=== PATIENT | male | born 1965 | race Two or more races ===

== ENCOUNTER 2024-07-24 11:19 | Inpatient (IN) | payer MEDICAID ==
[~2024-07-24] VITALS: Ht 180.3 cm; Wt 78.0 kg
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
[2024-07-24] MEDS: SODIUM CHLORIDE 0.9% 1,000 ML IV ONE ×2 (11:58→12:20)
[2024-07-24 12:10] LABS: Eosinophils # (auto) 0 10 ^3/uL (0-0.8); Hemoglobin 15.8 g/dL (13.5-17.5)
[2024-07-24 12:11] VITALS: PULSE 150; RESP 20; O2SAT 95
[2024-07-24 12:13] LABS: Basophils # (auto) 0.1 10 ^3/uL (0-0.2); Basophils % (auto) 0.4 % (0.0-2.0); Hematocrit 48.4 % (41.0-53.0); Lymphocytes # (auto) 0.7 10 ^3/uL (0.4-5.4); Mean Corpuscular Hemoglobin 36.1 pg (28.0-32.0); Mean Corpuscular Hgb Conc. 32.6 g/dL (32.0-36.0); Mean Corpuscular Volume 110.9 fL (80.0-100.0); Monocytes # (auto) 1.9 10 ^3/uL (0-1.3); Monocytes % (auto) 10.8 % (0.0-12.0); Neutrophils # (auto) 14.7 10 ^3/uL (1.6-8.6); Neutrophils % (auto) 84.8 % (37.0-80.0); Nucleated Red Blood Cells % 0.3 %; Platelet Count (auto) 119 10^3/uL (140-450); Red Blood Cells 4.36 10^6/uL (4.5-5.90); Red Cell Distribution Width 16.9 % (11.8-14.3); White Blood Cell 17.3 10^3/uL (4.4-10.8)
[2024-07-24 12:15] LABS: Base Excess -0.6 mmol/L (-2.0-3.0)
[2024-07-24 12:26] LABS: Alanine Aminotransferase 24 U/L (7-40); Albumin 3.6 g/dL (3.2-4.8); Alkaline Phosphatase 78 U/L (46-116); Anion Gap 12 (5-15); Aspartate Aminotransferase 48 U/L (13-40); BUN/Creatinine Ratio 17.8 (10.0-20.0); Blood Alcohol < 3.0 mg/dL (<10); Blood Urea Nitrogen 33 mg/dL (9-23); Calcium 9.3 mg/dL (8.7-10.4); Carbon Dioxide 24 mmol/L (20-31); Chloride 102 mmol/L (98-107); Creatine Kinase IFCC 77 U/L (46-171); Glucose 181 mg/dL (74-106); Magnesium 1.6 mg/dL (1.6-2.6); Sodium 138 mmol/L (136-145)
[2024-07-24 12:27] LABS: Bilirubin, Total 2.4 mg/dL (0.2-1.0); Total Protein 6.6 g/dL (5.7-8.2)
[2024-07-24 12:31] LABS: Urine Bacteria FEW /hpf (None Seen); Urine Blood 1+ /uL (Negative); Urine Clarity Turbid (Clear); Urine Color Dark-Yellow (Yellow); Urine Hyaline Cast MANY /lpf (0 - 2); Urine Mucus FEW (None Seen); Urine Protein, UAD 2+ (Negative); Urine Specific Gravity 1.024 (1.001-1.035); Urine Squamous Epithelial Cell FEW /hpf (<5); Urine Urobilinogen OVER mg/dL (Negative); Urine WBC 19 /hpf (0 - 3); Urine pH 5.5 (5.0-9.0)
[2024-07-24 12:33] LABS: Lactic Acid w/Reflex 3.9 mmol/L (0.4-2.0)
[2024-07-24 12:45] LABS: Lipase 29 U/L (12-53)
[2024-07-24 12:46] LABS: Amphetamine Screen, Urine Neg (NEGATIVE); Barbiturate Scree,Urine Neg (NEGATIVE); Benzodiazephine Screen, Urine Neg (NEGATIVE); Cannabinoid Screen, Urine Pos (NEGATIVE); Cocaine Screen, Urine Neg (NEGATIVE); Opiate Scree,Urine Neg (NEGATIVE); Phencyclidine Screen, Urine Neg (NEGATIVE)
[2024-07-24 12:48] LABS: Salicylate < 3.0 mg/dL (-30)
[2024-07-24] MEDS: PIPERACILLIN-TAZOB 3.375GM 100 ML IV ONE (12:50)
[2024-07-24] MEDS: FUROSEMIDE 100 MG/10ML VIAL IV ONE (12:55)
--- NOTE | 2024-07-24 12:56 | DVH ---
CHEST RADIOGRAPH Indication: ALOC Technique: Single frontal view of the chest was obtained COMPARISON: None FINDINGS: Lines and Tubes: None Lungs: Multifocal airspace disease. Pleura: No pleural effusion. No pneumothorax. Cardiomediastinal contours: Cardiomegaly. Bones: Unremarkable IMPRESSION: Pulmonary vascular congestion.
[2024-07-24] MEDS: LORazepam 2MG/ML-1ML VIAL IV ONE (12:58)
[2024-07-24] MEDS ORDERED: LACTULOSE 20Gm/30ML SOLN PO ONE (13:45)
--- NOTE | 2024-07-24 14:09 | DVH ---
EXAM: CT HEAD WITHOUT CONTRAST HISTORY: ALOC COMPARISON: None TECHNIQUE: Axial images were obtained and reformatted in coronal and sagittal planes. All CT scans at this medical facility are performed using dose modulation techniques as appropriate t o a performed exam including the following: Automated exposure control was utilized; adjustment of th e MA and/or KV according to patient size; and use of iterative reconstruction technique. CT Dose: CTDI volume is 48.92 mGy. Dose-length product is 909.9 mGy*cm FINDINGS: Supratentorial Region: No evidence for large acute territorial ischemia. No intracranial hemorrhage is noted. Posterior Fossa: No acute abnormality. Brainstem: Unremarkable. Sellar/Suprasellar Region: Unremarkable. Ventricles, Cisterns, Sulci: Age-appropriate. Orbits: Unremarkable. Paranasal Sinuses: Unremarkable. Mastoid Air Cells: Unremarkable. Vasculature: Unremarkable. Bones/Soft Tissues: No acute abnormality. 2 jonelle holes are seen in the right parietal bone. Other: None. IMPRESSION: 1. No acute intracranial process.
[2024-07-24] MEDS ORDERED: MORPHINE SULFATE INJ 2 MG/ml SYRG IV PRN (14:45)
[2024-07-24] MEDS ORDERED: NITROGLYCERIN 0.4 MG SL TAB SL PRN (14:45)
--- NOTE | 2024-07-24 15:01 | DVH ---
Procedure: CT CHST AB PEL WO CON-NO IV/ORAL 07/24/2024 01:42 PM Indication: Hemoptysis, dyspnea Comparison Study: None available at time of dictation. Technique: Axial images were obtained and reformatted in coronal and sagittal planes. All CT scans at this medical facility are performed using dose modulation techniques as appropriate t o a performed exam including the following: Automated exposure control was utilized; adjustment of th e MA and/or KV according to patient size; and use of iterative reconstruction technique. CT Dose: CTDI volume is 24.93 mGy. Dose-length product is 1677.82 mGy*cm FINDINGS: Lower neck: Unremarkable. Cardiomediastinal: The heart is mildly enlarged. Small pericardial effusion is seen. There is coronar y artery calcification Aorta is normal in caliber. No mediastinal lymphadenopathy. Lungs: Moderate right pleural effusion with adjacent pulmonary opacities are noted No pneumothorax. Hepatobiliary: Nodular liver contour suggestive of cirrhosis. There is cholelithiasis and gallbladder wall thickening. Spleen: Unremarkable. Pancreas: Unremarkable. Adrenal Glands: Unremarkable. tract: The kidneys are normal in size bilaterally without hydronephrosis or nephrolithiasis. The urinary blad to sancho is unremarkable. GI tract: The stomach is grossly normal in appearance. No evidence of small bowel obstruction. The la rge bowel is unremarkable. Lymphatics: No mesenteric, retroperitoneal or periportal lymphadenopathy. Vasculature: The abdominal aorta is normal in caliber. Diffuse calcified plaque formation is noted. Pelvic Organs: Unremarkable. Bones/soft tissues: Diffuse subcutaneous edema is seen. Other: Moderate amount of ascites is seen in the abdomen and pelvis. IMPRESSION: 1. Mild cardiomegaly, body wall edema and small pericardial effusion. 2. Moderate right pleural effusion with moderate adjacent pulmonary opacities that may represent comb ination atelectasis and pneumonia. Recommend clinical and biochemical correlation. 3. Cirrhosis moderate abdominopelvic ascites. 4. Cholelithiasis and gallbladder wall thickening. Gallbladder wall thickening is a nonspecific find ing can be seen with hepatocellular dysfunction, CHF or cholecystitis. Recommend clinical and biochem ical correlation. 5. A Saldivar catheter is seen in the bladder.
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
[2024-07-24] MEDS: cefTRIAXone 1GM/50ML D5W 50 ML IV ONE (16:15)
[2024-07-24] MEDS: AMIODARONE BOLUS KIT 100 ML IV ONE (16:16)
[2024-07-24] MEDS: LACTULOSE 10g/15ml SOLN 473ML PR ONE (16:16)
[2024-07-24] MEDS: AMIODARONE 450mg/250ml AE 250 ML IV SCH ×2 (16:37→21:15)
[2024-07-24] MEDS: SODIUM CHLORIDE 0.9% 1,000 ML IV SCH (17:02)
[2024-07-24] MEDS: ACCU-CHEK COMFORT CURVE STRIP VI SCH (18:47)
[2024-07-24] MEDS: InsuLIN REG 1unit/0.01ml Soln (100units/ml) SC SCH (18:51)
[2024-07-24] MEDS ORDERED: ACETAMINOPHEN 650 MG RECT SUPP PR PRN (19:15)
[2024-07-24 19:27] VITALS: PULSE 139; RESP 29; O2SAT 97
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
[2024-07-25] VITALS (38 sets, daily range): BP systolic 90–148; BP diastolic 43–84; PULSE 60–143; RESP 22–30; TEMP 96.8–97.7; O2SAT 97–100
[2024-07-25 06:06] LABS: Eosinophils # (auto) 0 10 ^3/uL (0-0.8); Hematocrit 49.2 % (41.0-53.0); Red Blood Cells 4.33 10^6/uL (4.5-5.90)
[2024-07-25 06:11] LABS: Basophils # (auto) 0 10 ^3/uL (0-0.2); Basophils % (auto) 0.2 % (0.0-2.0); Eosinophils % (auto) 0.1 % (0.0-7.0); Hemoglobin 15.7 g/dL (13.5-17.5); Lymphocytes % (auto) 5.9 % (10.0-50.0); Mean Corpuscular Hemoglobin 36.3 pg (28.0-32.0); Mean Corpuscular Hgb Conc. 31.9 g/dL (32.0-36.0); Mean Corpuscular Volume 113.7 fL (80.0-100.0); Monocytes % (auto) 12.4 % (0.0-12.0); Neutrophils # (auto) 13.4 10 ^3/uL (1.6-8.6); Neutrophils % (auto) 81.4 % (37.0-80.0); Nucleated Red Blood Cells % 0.2 %; Platelet Count (auto) 98 10^3/uL (140-450); Red Cell Distribution Width 17.8 % (11.8-14.3); White Blood Cell 16.5 10^3/uL (4.4-10.8)
[2024-07-25 07:04] LABS: Platelet Estimate Decreased
[2024-07-25 07:05] LABS: Macrocytosis Moderate
[2024-07-25 07:06] LABS: Giant Platelets Few; Stomatocytes Few
[2024-07-25 08:18] LABS: Chloride 104 mmol/L (98-107); Sodium 139 mmol/L (136-145)
[2024-07-25 08:21] LABS: Calcium 9.3 mg/dL (8.7-10.4)
[2024-07-25 08:26] LABS: Alkaline Phosphatase 70 U/L (46-116); Glucose 112 mg/dL (74-106)
[2024-07-25 08:28] LABS: Albumin 3.5 g/dL (3.2-4.8); Aspartate Aminotransferase 29 U/L (13-40); Bilirubin, Total 2.1 mg/dL (0.2-1.0); Total Protein 6.7 g/dL (5.7-8.2)
[2024-07-25 08:48] LABS: Alanine Aminotransferase 21 U/L (7-40); BUN/Creatinine Ratio 18.4 (10.0-20.0); Blood Urea Nitrogen 38 mg/dL (9-23)
[2024-07-25 08:53] LABS: Anion Gap 11 (5-15); Carbon Dioxide 24 mmol/L (20-31)
[2024-07-25] MEDS: IPRATROPIUM BROM 0.5 MG/2.5ML INH SOL NEB PRN (09:21)
[2024-07-25] MEDS: ALBUTEROL SULF 2.5 MG/0.5ML(0.5%) NEB SOLN NEB PRN (09:22)
[2024-07-25] MEDS ORDERED: LORazepam 2MG/ML-1ML VIAL IV PRN (09:45)
[2024-07-25] MEDS: LORazepam 2MG/ML-1ML VIAL ONE ×2 (12:20→16:05)
[2024-07-25] MEDS: LORazepam 2MG/ML-1ML VIAL IV PRN (12:28)
[2024-07-25] MEDS: ETOMIDATE (2MG/ML) 20ML VIAL IV ONE ×2 (13:40→13:45)
[2024-07-25] MEDS: SUCCINYLCHOLINE CHLORIDE 20 MG/ML 10ML VIAL IV ONE ×2 (13:41→13:45)
[2024-07-25] MEDS: ROCURONIUM 10MG/ML 10ML VIAL IV ONE (13:47)
[2024-07-25] MEDS: MIDAZOLAM DRIP 50 mg/50mL 50 ML IV SCH (14:15)
[2024-07-25 14:39] LABS: Base Excess -9.2 mmol/L (-2.0-3.0)
[2024-07-25] MEDS: NOREPINEPHRINE 8 MG/250ML KIT 250 ML IV ONE (15:09)
[2024-07-25] MEDS: NOREPINEPHRINE 8 MG/250ML KIT 250 ML IV SCH (15:15)
[2024-07-25] MEDS: SODIUM BICARB 8.4% 50Meq/50ml SYR Vial IV ONE (15:16)
[2024-07-25] MEDS: SODIUM BICARB 50mEq/50ml Vial 50 ML in SOD CHL 0.45% 1,000 ML IV SCH (15:16)
[2024-07-25 16:01] LABS: Base Excess -1.8 mmol/L (-2.0-3.0)
--- NOTE | 2024-07-25 16:13 | DVH ---
EXAM: XR Chest, 1 View CLINICAL INDICATION: post intubation and CVC placement TECHNIQUE: Frontal view of the chest. COMPARISON: XY CHEST PORTABLE on DOS: 07/24/24 FINDINGS: LUNGS AND PLEURAL SPACES: Right pleural effusion. HEART: Cardiomegaly with pulmonary congestion and edema. Pneumonia cannot be excluded. MEDIASTINUM: Unremarkable. Normal mediastinal contour. BONES/JOINTS: Unremarkable. No acute fracture. TUBES, LINES AND DEVICES: Right internal jugular central venous catheter tip in the superior vena ca va. The endotracheal tube (ETT) is in satisfactory position. OTHER FINDINGS: . . IMPRESSION: Cardiomegaly with pulmonary congestion and edema. Pneumonia cannot be excluded. HS:Y
--- NOTE | 2024-07-25 16:50 | DVH ---
EXAM: CT HEAD WITHOUT CONTRAST INDICATION: alter mental status TECHNIQUE: CT of the head without intravenous contrast. Radiation Dose : 1. Head: CT Dose: CTDI volume is 48.82 mGy. Dose-length product is 968.78 mGy*cm The dose indicators for CT are the volume Computed Tomography (CT) Dose Index (CTDIvol) and the Dose Length Product (DLP), and are measured in units of mGy and mGy-cm, respectively. These indicators are not patient dose, but values generated from the CT scanner acquisition factors. The report includes radiation exposure data for exposures received during this examination. COMPARISON: CT HEAD WITHOUT CONTRAST on DOS: 07/24/24 FINDINGS: There is no evidence of acute intracranial hemorrhage, extra-axial collection, mass effect, midline s hift, herniation or hydrocephalus. The ventricles, sulci and cisterns are age appropriate. The persaud-white differentiation is intact. Patchy periventricular and subcortical white matter hypoattenuation is nonspecific but may be related to small vessel ischemic disease. The visualized paranasal sinuses and mastoid air cells are clear. Craniotomy defect is seen in the right frontoparietal brain. IMPRESSION: 1. No acute intracranial abnormality. Radiation optimization: All CT scans at this facility use at least one of these dose optimization haile hniques: automated exposure control mA and/or kV adjustment per patient size (includes targeted exam s where dose is matched to clinical indication) or iterative reconstruction.
[2024-07-25] MEDS: fentaNYL Drip 2500mCg/250mlNS 250 ML IV SCH (19:08)
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
--- NOTE | 2024-07-25 20:00 | DVHNC2 ---
Chest Tube Indication: Effusion Procedure: Sterile preparation, Chest Tube Size (7) Anesthetic: Lidocaine Site: R 4th intercostal space, R Anterior axillary Drainage: Fluid Informed consent obtained: No Risks/benefits/alt described: No UTO Consent urgent procedure, patient was desaturating. Consent obtained from two physicians and Notes The patient was positioned in a semi-recumbent position. Sterile technique was used including hand washing and wearing of sterile gloves, gown, mask and patient was draped. The area was cleaned with betadine and draped in sterile fashion. Local anaesthetic Lidocaine 5% was administered for the skin and deeper tissues around the site. The chest tube was inserted in the 4th intercostal space in the anterior axillary line above the rib to avoid the neurovascular bundle. A small incision was made at the chosen insertion site to advance the dilator following which the Pig tail catheter was inserted into the pleural cavity and secured with a nylon suture. The tube was then connected to a suction. Sterile dressing was placed. No complications were noted during the procedure. Chest X ray was done immediately after the procedure to confirm the position of the chest tube. Pleural fluid sample were sent for Cytology, fluid glucose, protein, LDH, cell count and differential, culture and gram stain. Procedure was done under supervision of . Date of Service: Jul 25, 2024 Billing Provider: MICHAEL PEREZ MD Common Visit Codes: PROCEDURE ONLY (Chest tube insertion) MONROE HALE RESIDENT Jul 25, 2024 20:00
--- NOTE | 2024-07-25 20:11 | DVH ---
EXAM: XY CHEST XRAY 1 VIEW TECHNIQUE: Single frontal chest radiograph CLINICAL HISTORY: S/p Chest tube insetion COMPARISON: XY CHEST XRAY 1 VIEW on DOS: 07/25/24, XY CHEST PORTABLE on DOS: 07/24/24 Findings/Impression: Frontal chest radiograph demonstrates that the patient is rotated to the left. No acute osseous or germain perficial soft tissue abnormalities. Endotracheal tube terminates 3.3 cm from the zahida. Right sided IJ catheter terminates in the right atrium. Small bore pig tail chest tube terminates in ther right costophrenic angle. The trachea is midline. The cardiac silhouette and mediastinum are within normal limits. No definite pneumothorax, pleural effusions, or consolidations.
[2024-07-25 20:22] LABS: Basophils # (auto) 0.1 10 ^3/uL (0-0.2); Eosinophils # (auto) 0 10 ^3/uL (0-0.8); Hematocrit 44.8 % (41.0-53.0); Hemoglobin 14.5 g/dL (13.5-17.5); Lymphocytes # (auto) 0.7 10 ^3/uL (0.4-5.4); Mean Corpuscular Hgb Conc. 32.4 g/dL (32.0-36.0); Neutrophils # (auto) 8.9 10 ^3/uL (1.6-8.6); Nucleated Red Blood Cells % 0.1 %; White Blood Cell 10.8 10^3/uL (4.4-10.8)
[2024-07-25 20:24] LABS: Basophils % (auto) 0.6 % (0.0-2.0); Lymphocytes % (auto) 6.3 % (10.0-50.0); Mean Corpuscular Hemoglobin 35.9 pg (28.0-32.0); Mean Corpuscular Volume 110.8 fL (80.0-100.0); Monocytes # (auto) 1.2 10 ^3/uL (0-1.3); Monocytes % (auto) 10.9 % (0.0-12.0); Neutrophils % (auto) 82.2 % (37.0-80.0); Platelet Count (auto) 66 10^3/uL (140-450); Red Blood Cells 4.04 10^6/uL (4.5-5.90)
[2024-07-25 20:27] LABS: Base Excess -0.8 mmol/L (-2.0-3.0)
[2024-07-25 20:43] LABS: Alanine Aminotransferase 18 U/L (7-40); Alkaline Phosphatase 59 U/L (46-116); Anion Gap 11 (5-15); Aspartate Aminotransferase 25 U/L (13-40); BUN/Creatinine Ratio 21.3 (10.0-20.0); Bilirubin, Total 2.1 mg/dL (0.2-1.0); Blood Urea Nitrogen 43 mg/dL (9-23); Calcium 8.6 mg/dL (8.7-10.4); Carbon Dioxide 25 mmol/L (20-31); Chloride 105 mmol/L (98-107); Glucose 139 mg/dL (74-106); Magnesium 1.5 mg/dL (1.6-2.6); Phosphorus 5.1 mg/dL (2.4-5.1); Potassium 4.6 mmol/L (3.5-5.1); Sodium 141 mmol/L (136-145); Total Protein 5.6 g/dL (5.7-8.2)
[2024-07-25 21:33] LABS: Anisocytosis Slight; Macrocytosis Marked; Platelet Estimate Decreased
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
[2024-07-25 21:38] LABS: Body Fluid Polymorphonuclear 94 % (0-25); Body Fluid Red Blood Cells 5509 CUMM (0-2000); Body Fluid White Blood Cells 9121 CUMM (0-200)
[2024-07-26] VITALS (102 sets, daily range): BP systolic 84–129; BP diastolic 44–72; PULSE 59–78; RESP 11–30; TEMP 96.6–99.5; O2SAT 94–100
[2024-07-26 07:33] LABS: Base Excess 1.8 mmol/L (-2.0-3.0)
--- NOTE | 2024-07-26 10:19 | DVH ---
CT Chest without intravenous contrast INDICATION: rule out pneumo TECHNIQUE: Multidetector spiral CT of the chest was performed from the lung apices to the upper abdom en. Axial, coronal and sagittal multiplanar reformats were performed. Radiation Dose : 1. Chest: CTDI volume is 24.37 mGy. Dose-length product is 899.4 mGy*cm The dose indicators for CT are the volume Computed Tomography (CT) Dose Index (CTDIvol) and the Dose Length Product (DLP), and are measured in units of mGy and mGy-cm, respectively. These indicators are not patient dose, but values generated from the CT scanner acquisition factors. The report includes radiation exposure data for exposures received during this examination. Comparison: CT HEAD WITHOUT CONTRAST on DOS: 07/25/24, CT HEAD WITHOUT CONTRAST on DOS: 07/24/24 Findings: The endotracheal tube tip terminates approximately 3.7 cm above the zahida. Bilateral pulmonary ground-glass airspace disease, right greater than left. Bilateral pulmonary airsp [place] consolidation most pronounced within the right middle and lower lobes, left lower lobe. There ar e pulmonary bronchiectatic changes. Right pigtail chest tube. Small right pneumothorax, less than 1 5%.. Small right and tiny left pleural effusions. Cardiomegaly. Small to moderate pericardial effusion. Coronary artery calcification disease. Right IJ catheter tip terminating at the cavoatrial junction. No supraclavicular or axillary lymphadenopathy. Cirrhotic morphology liver. Ascites fluid. Nasogastric tube terminating in the gastric body region. Mesenteric edema. Cholelithiasis. IMPRESSION: 1. Right hydropneumothorax with small right pneumothorax and pleural effusion components. Right pigta il chest tube. 2. Bilateral pulmonary airspace consolidation most pronounced within the right middle/ lower lobes, l eft lower lobe. This overall appears increased since previous examination 3. Bilateral pulmonary ground-glass disease which could be secondary to edema, infection, inflammator y etiology. 4. Bilateral pulmonary bronchiectatic changes / reticulation which could be secondary to fibrosis / c hronic lung changes. 5. Cardiomegaly. Small to moderate pericardial effusion. Coronary artery calcification disease. 6. Cirrhotic morphology liver. Ascites. Soft tissue edema/ anasarca. 7. Other findings as described. Radiation optimization: All CT scans at this facility use at least one of these dose optimization haile hniques: automated exposure control mA and/or kV adjustment per patient size (includes targeted exam s where dose is matched to clinical indication) or iterative reconstruction.
--- NOTE | 2024-07-26 12:44 | DVHPN2 ---
Subjective The patient is seen and examined at bedside. No change overnight. Remained intubated Reviewed: Care Plan, H&P, Labs, Medications, Previous Orders, Radiology Changes from previous H/P or p: No Changes Eyes: No Pain, No Vision change, No Conjunctivae inflammation, No Eyelid inflammation, No Other, No Redness ENT: No Ear pain, No Ear discharge, No Nose pain, No Nose discharge, No Nose congestion, No Mouth pain, No Mouth swelling, No Throat pain, No Throat swelling, No Other Cardiovascular: No Chest Pain, No Palpitations, No Orthopnea, No Paroxysmal Noc. Dyspnea, No Edema, No Lt Headedness, No Other Respiratory: No Cough, No Dry, No Shortness of breath, No SOB with excertion, No Wheezing, No Hemoptysis, No Pleuritic Pain, No Sputum, No Other Gastrointestinal: No Nausea, No Vomiting, No Abdominal Pain, No Diarrhea, No Constipation, No Melena, No Hematochezia, No Other Genitourinary: No Dysuria, No Frequency, No Incontinence, No Hematuria, No Retention, No Other Musculoskeletal: No other, No neck pain, No shoulder pain, No arm pain, No back pain, No hand pain, No leg pain, No foot pain Skin: No Rash, No Lesions, No Jaundice, No Bruising, No Other Objective Vitals Vital Signs Date Time Temp Pulse Resp B/P (MAP) Pulse Ox O2 Delivery O2 Flow Rate FiO2 07/26/24 12:00 64 07/26/24 12:00 28 98 Mechanical Ventilator+ 40 40 07/26/24 11:48 111/67 (82) 07/26/24 10:30 96.8 206.2 07/25/24 10:00 12.0 Intake/Output Intake and Output 07/26/24 07:00 Intake Total 3392.071 ml Output Total 2280 ml Balance 1112.071 ml Intake IV Total 3392.071 ml Output Urine Total 950 ml Chest Tube Drainage Total 1330 ml General Appearance: Other (Intubated, on vent, unable to exam.) HEENT: Atraumatic Neck: Supple Lungs: Clear to auscultation, Normal air movement Cardiovascular: Regular rate, Normal S1, Normal S2, No murmurs, Gallops, Rubs Abdomen: Normal bowel sounds, Soft, No tenderness Neuro: Cranial nerves 3-12 NL Psych/Mental Status: Mental status NL Medications Current Medications Medications Dose Ordered Sig/Miky Route Start Time Stop Time Status Last Admin Dose Admin Nitroglycerin 0.4 mg Q5MINP PRN SL 07/24/24 14:45 Morphine Sulfate 2 mg Q30M PRN IV 07/24/24 14:45 Sodium Chloride 1,000 ml @ 100 mls/hr Q10H IV 07/24/24 14:45 07/25/24 10:45 100 MLS/HR Diagnostic Test (Pha) 1 strip Q6HR 07/24/24 18:00 07/26/24 12:01 1 STRIP Insulin Human Regular Q6HR SC 07/24/24 18:00 07/25/24 23:50 2 UNITS Dextrose 50 ml UD PRN IV 07/24/24 15:00 Amiodarone HCl 250 ml @ 16.667 mls/ hr Q15H IV 07/24/24 21:15 07/26/24 04:35 16.667 MLS/HR Acetaminophen 650 mg Q6HP PRN [place] 07/24/24 19:15 Albuterol 2.5 mg Q4HPRN PRN NEB 07/25/24 06:45 07/26/24 06:36 2.5 MG Ipratropium [place] 0.5 mg Q4HPRN PRN NEB 07/25/24 06:45 07/26/24 06:36 0.5 MG Lorazepam 1 mg Q2HP PRN IV 07/25/24 09:45 07/25/24 16:05 1 MG Sodium Bicarbonate 50 ml/ Sodium Chloride 1,050 ml @ 75 mls/hr Q14H IV 07/25/24 14:15 07/26/24 12:02 75 MLS/HR Midazolam HCl 50 ml @ 1 mls/hr Q24H IV 07/25/24 14:15 07/26/24 10:22 15 MLS/HR Norepinephrine Bitartrate 250 ml @ 3.75 mls/hr Q24H IV 07/25/24 15:15 07/25/24 15:15 3.75 MLS/HR Fentanyl Citrate 250 ml @ 2.5 mls/hr Q24H IV 07/25/24 17:30 07/25/24 19:08 2.5 MLS/HR Laboratory Results Laboratory Tests 07/25/24 20:04 Chemistry Test 07/25/24 20:04 Albumin 3.0 g/dL (3.2-4.8) L Calcium Level 8.6 mg/dL (8.7-10.4) L Magnesium Level 1.5 mg/dL (1.6-2.6) L Phosphorus Level 5.1 mg/dL (2.4-5.1) Total Protein 5.6 g/dL (5.7-8.2) L LFT Test 07/25/24 20:04 Alanine Aminotransferase (ALT) 18 U/L (7-40) Alkaline Phosphatase 59 U/L (46-116) Aspartate Amino Transferase (AST) 25 U/L (13-40) Total Bilirubin 2.1 mg/dL (0.2-1.0) H Urinalysis Test 07/24/24 12:21 Urine Color Dark-yellow (Yellow) Urine Clarity Turbid (Clear) H Urine pH 5.5 (5.0-9.0) Urine Specific [place] 1.024 (1.001-1.035) Urine Protein 2+ (Negative) H Urine Ketones Negative (Negative) Urine Blood 1+ /uL (Negative) H Urine Nitrite Negative (Negative) Urine Bilirubin 1+ (Negative) Urine Urobilinogen Over mg/dL (Negative) Urine Leukocyte Esterase Negative /uL (Negative) Urine RBC 7 /hpf (0 - 3) Urine WBC 19 /hpf (0 - 3) Urine Squamous Epithelial Cells Few /hpf (<5) Urine Bacteria Few /hpf (None Seen) H Urine Hyaline Casts Many /lpf (0 - 2) Urine Mucus Few (None Seen) Urine Glucose Normal mg/dL (Normal) Blood Gas Results Test 07/25/24 13:29 07/25/24 15:56 07/25/24 20:23 07/26/24 07:08 Arterial Blood pH 6.968 (7.350-7.450) 7.311 (7.350-7.450) 7.411 (7.350-7.450) 7.498 (7.350-7.450) FiO2 % 100.0 100.0 50.0 40.0 Microbiology Microbiology Date/Time Source Procedure Growth Status 07/24/24 12:21 Urine - [place] Urine Culture - Preliminary Resulted 07/24/24 11:52 Blood Blood Culture - Preliminary NO GROWTH AFTER 24 HOURS OF INCUBATION. Resulted Labs and/or images reviewed: Labs reviewed by me Assessment/Plan Assessment/Plan Acute respiratory failure status post intubation on ventilation support Metabolic Encephalopathy CHF exacerbation, Leukocytosis, UTI, Elevated ammonia levels, Pleural Effusion, Liver Cirrhosis, Plan: Continuing current management. I will follow up with blood culture. And urine culture. Continuing IV antibiotic. Continuing ventilation support. Waiting for thoracocentesis. We will monitor ammonia level. Plan discussed with: Patient Date of Service: Jul 26, 2024 Billing Provider: AMY DELAROSA MD Common Visit Codes: [id number] INP/OBS CARE(HIGH) AMY DELAROSA MD Jul 26, 2024 12:44
[2024-07-26 12:56] LABS: Urine Bacteria None Seen /hpf (None Seen)
[2024-07-26 13:03] LABS: Urine Blood 2+ /uL (Negative); Urine Clarity Turbid (Clear); Urine Color Yellow (Yellow); Urine Mucus FEW (None Seen); Urine Protein, UAD Negative (Negative); Urine Specific Gravity 1.016 (1.001-1.035); Urine Squamous Epithelial Cell FEW /hpf (<5); Urine Urobilinogen 3 mg/dL (Negative); Urine WBC 13 /hpf (0 - 3); Urine pH 5.5 (5.0-9.0)
--- NOTE | 2024-07-26 19:08 | DVHNC2 ---
Central Line Recorder of insertion practice: Charging Crane Operator Occupation of outer diameter technician: Name of outer diameter technician (Heide Gant, ) Indication: Hypotension, CVP monitoring, Volume resuscitation Room prepared for procedure: Yes Charging Crane Operator performed hand hygien: Yes Maximal sterile barrier precau: Mask/Eye shield, Sterile gown, Cap, Sterlie gloves, Large sterlie drape Skin Preparation: Providine iodine Skin preparation completely dr: Yes Insertion site: Right, Internal jugular Central line catheter type: Qrk-[id number]-tco dialysis Number of lumens: 3 Central line exchanged over a: Yes Antiseptic ointment applied to: Yes Post Assessment: Chest X-Ray, No Pneumothorax Informed consent obtained: Yes Risks/benefits/alt described: Yes Notes The patient was sedated lying in supine position with face turn to the left. Sterile technique was used including hand washing and wearing of sterile gloves, gown, mask and patient was draped. The right neck area was cleaned with betadine and draped in sterile fashion. In a sterile fashion and under US guidance, the internal jugular vein was located. The needle was used to enter the vein after the a small skin incision was made to advance the dilator. The central line was inserted vein and secured in place on the skin with a suture. The entire procedure/steps were performed under aseptic and sterile environment. Chest X-ray after the central insertion did not reveal pne umothorax Procedure was done under supervision of Dr. Muñoz, the hospitalist Date of procedure: 07/25/2024 Date of Service: Jul 25, 2024 Billing Provider: MEGHAN MAHER MD Common Visit Codes: [id number] CARE 30-74 MIN Procedure Codes: [id number] NON-TUNNEL CV CATH HEIDE GANT Jul 26, 2024 19:08
--- NOTE | 2024-07-26 19:17 | DVHNC2 ---
Intubation Indication: Respiratory Insufficiency, Altered Mental Status, Airway Protection Prep: Preoxygenation Pretreated with: Analgesia, Sedation Medicated with: Other Intubation Approach: Orotracheal Informed consent obtained: Yes Risks/benefits/alt described: Yes Notes Patient was brought in unconscious in a severe acidotic state. pre-oxygen was done. I performed endotracheal intubation under the supervision of the hospitalist ( Dr. Cesar Muñoz) with the help of the glidescope. After the intubation oxygenation continued and auscultation showed air entry in the lung. There was a color change on capnograhy. Date of intubation was 07/25/2024 Date of Service: Jul 25, 2024 Billing Provider: MEGHAN MAHER MD Common Visit Codes: 06031-[id number] CARE 30-74 MIN Procedure Codes: [id number] HEIDE MOORE RESIDENT Jul 26, 2024 19:17
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
--- NOTE | 2024-07-26 22:48 | DVHPN2 ---
Progress Note - Dictate Date Seen: Jul 26, 2024 Medical Necessity Reason Pt with a Central, PICC or Fol: Yes The following are medically ne: Gentile Catheter Reason for gentile catheter: Strict I&O Subjective Patient seen and examined at bedside. Sedated, intubated on mechanical ventilator. Overnight events reviewed. vital signs Vital Sign Date Time Temp Pulse Resp B/P (MAP) Pulse Ox O2 Delivery O2 Flow Rate FiO2 07/26/24 22:16 65 24 105/65 (78) 99 35 07/26/24 22:00 Mechanical Ventilator+ 07/26/24 21:15 98.1 208.6 07/25/24 10:00 12.0 Total Intake and Output 07/25/24 07/25/24 07/26/24 15:00 23:00 07:00 Intake Total 963.336 ml 1476.418 ml 952.317 ml Output Total 200 ml 2080 ml Balance 763.336 ml 1476.418 ml -1127.683 ml medications Current Medications Medications Dose Ordered Sig/Miky Route Start Time Stop Time Status Last Admin Dose Admin Nitroglycerin 0.4 mg Q5MINP PRN SL 07/24/24 14:45 Morphine Sulfate 2 mg Q30M PRN IV 07/24/24 14:45 Sodium Chloride 1,000 ml @ 100 mls/hr Q10H IV 07/24/24 14:45 07/26/24 18:45 100 MLS/HR Diagnostic Test (Pha) 1 strip Q6HR 07/24/24 18:00 07/26/24 17:31 1 STRIP Insulin Human Regular Q6HR SC 07/24/24 18:00 07/25/24 23:50 2 UNITS Dextrose 50 ml UD PRN IV 07/24/24 15:00 Amiodarone HCl 250 ml @ 16.667 mls/ hr Q15H IV 07/24/24 21:15 07/26/24 18:45 16.667 MLS/HR Acetaminophen 650 mg Q6HP PRN [place] 07/24/24 19:15 Albuterol 2.5 mg Q4HPRN PRN NEB 07/25/24 06:45 07/26/24 22:12 2.5 MG Ipratropium [place] 0.5 mg Q4HPRN PRN NEB 07/25/24 06:45 07/26/24 22:12 0.5 MG Lorazepam 1 mg Q2HP PRN IV 07/25/24 09:45 07/25/24 16:05 1 MG Midazolam HCl 50 ml @ 1 mls/hr Q24H IV 07/25/24 14:15 07/26/24 20:03 15 MLS/HR Norepinephrine Bitartrate 250 ml @ 3.75 mls/hr Q24H IV 07/25/24 15:15 07/25/24 15:15 3.75 MLS/HR Fentanyl Citrate 250 ml @ 2.5 mls/hr Q24H IV 07/25/24 17:30 07/25/24 19:08 2.5 MLS/HR objective Gen.: Patient lying in bed in medical ICU. Sedated, intubated on mechanical ventilator. Head: Normocephalic, atraumatic. Eyes: PERRLA. Ears: Normal external anatomy. Throat: Endotracheal tube and orogastric tube in place. Neck: Supple, trachea midline. Chest: Transmitted breath sounds bilaterally. Decreased air entry bilaterally. No wheezing. Bibasilar crackles. Cardiovascular: Positive S1, positive S2. Regular rate and rhythm. Abdomen: Positive bowel sounds in all 4 quadrants. Soft, nontender, nondistended. : Gentile in place. Normal external genitalia. Rectal: Deferred. Skin: Warm, dry. Intact. Extremities: 2+ radial pulses bilaterally. No lower extremity edema. Neuro: Sedated. laboratory and microbiology Laboratory Tests 07/25/24 20:04 Test 07/25/24 20:04 Range/Units Serum Glucose 139 H 74-106 mg/dL Assessment/Plan Impression: Acute hypoxic respiratory failure Acute hypercarbic respiratory failure On mechanical ventilator Acute metabolic encephalopathy Shock Pulmonary edema. Pleural effusion Atelectasis Acute kidney injury Events: Remains on vent support On AC mode with RR 28, VT 550, PEEP 5, FiO2 40% Decrease RR to 24 CT chest notable for hydropneumothorax, small right pneumothorax. Chest tube in place. Consolidation in RML, RLL, LLL. GGOs bilaterally, likely pulmonary edema. Bronchiectasis bilaterally 2/2 fibrosis/chronic lung changes. [id number] pericardial effusion. Cirrhotic liver. Sedated on Versed ABG reviewed, notable for alkalemia d/t respiratory alkalosis On pressors for hemodynamic support Levophed 2 mcg/min Titrate to keep mean arterial pressure greater than 65 mmHg. Continue antibiotics WBC within normal limits. Amiodarone drip. Stop bicarb drip. Labs and imaging reviewed. Rest of plan as noted below. Plan: s/p intubation on mechanical ventilator. CXR image and report reviewed. Devices in place. Cardiomegaly with pulmonary congestion and edema. Pneumonia cannot be excluded. ABG reviewed. New vent settings; AC mode with RR 24, VT 550, PEEP 5, FiO2 40% Titrate FIO2 to keep O2 saturation above 90%. VAP bundle. Daily ABG and CXR while intubated Sedate for ventilator synchrony On pressors for hemodynamic support Titrate to keep mean arterial pressure greater than 65 mmHg. Continue bronchodilators. NS at 100 ml/hr. Monitor renal function Monitor electrolytes. Supplement as necessary. Monitor ins and outs. Maintain euvolemia. GI prophylaxis. DVT prophylaxis. Prognosis: Poor given patient's multiple co-morbidities. Condition: Critical Rest of plan per hospitalist and other consultants. A total of 35 minutes of critical care time was spent reviewing the patient record, examining the patient, making a diagnostic and therapeutic plan, discussing this plan with the medical personnel, following up on diagnostic studies and following the patient for clinical stability excluding any and all procedures. At least 50% of this time was spent in direct, [id number] contact. Thank you Staci Win NP, for allowing me to participate in this patient's care. Further recommendations will depend on the patient's clinical course. Please do not hesitate to contact me if you have any questions or concerns. This medical document was created using an electronic medical record system with [employer] dictation system. Although these documentations are being carefully reviewed, there may still be some phonetic and typographical changes. The errors are purely typographical, due to imperfection on the software program, and do not reflect any compromise in the patient's medical care. Dietary Evaluation Review Comments: 1. Consider EN/TPN if NPO >7days 2. Continue plan of care Expected Outcomes/Goals: 1. Pt will meet >75% of estimated needs within 2-3 days Plan discussed with: Other (CATA Akbar) Critical Care Time(min): 35 MICHAEL PEREZ MD Jul 26, 2024 22:48
[2024-07-27] VITALS (107 sets, daily range): BP systolic 89–133; BP diastolic 50–75; PULSE 65–74; RESP 20–24; TEMP 97.7–99.1; O2SAT 91–100
[2024-07-27 04:24] LABS: Basophils # (auto) 0 10 ^3/uL (0-0.2); Basophils % (auto) 0.1 % (0.0-2.0); Eosinophils # (auto) 0 10 ^3/uL (0-0.8); Eosinophils % (auto) 0.4 % (0.0-7.0); Lymphocytes # (auto) 0.7 10 ^3/uL (0.4-5.4); Monocytes # (auto) 0.8 10 ^3/uL (0-1.3); Nucleated Red Blood Cells % 0.1 %
[2024-07-27 04:28] LABS: Hematocrit 43.8 % (41.0-53.0); Hemoglobin 14.4 g/dL (13.5-17.5); Lymphocytes % (auto) 8.1 % (10.0-50.0); Mean Corpuscular Hemoglobin 36.2 pg (28.0-32.0); Mean Corpuscular Hgb Conc. 32.9 g/dL (32.0-36.0); Mean Corpuscular Volume 109.9 fL (80.0-100.0); Neutrophils # (auto) 7.4 10 ^3/uL (1.6-8.6); Neutrophils % (auto) 82.4 % (37.0-80.0); Platelet Count (auto) 57 10^3/uL (140-450); Red Blood Cells 3.99 10^6/uL (4.5-5.90); Red Cell Distribution Width 16.6 % (11.8-14.3)
--- NOTE | 2024-07-27 04:51 | DVH ---
CHEST RADIOGRAPH Indication: patient intubated Technique: Single frontal view of the chest was obtained COMPARISON: XY CHEST XRAY 1 VIEW on DOS: 07/25/24, XY CHEST XRAY 1 VIEW on DOS: 07/25/24, XY CHEST PO RTABLE on DOS: 07/24/24 FINDINGS: Lines and Tubes: Endotracheal tube, enteric catheter and right central venous catheter in satisfactor y position. Right chest tube in satisfactory position. Lungs: Multifocal airspace disease. Pleura: No effusion. No pneumothorax. Cardiomediastinal contours: Unremarkable Bones: Unremarkable IMPRESSION: Lines and tubes in satisfactory position. No significant interval change.
[2024-07-27 04:52] LABS: Albumin 2.4 g/dL (3.2-4.8); Alkaline Phosphatase 52 U/L (46-116); Anion Gap 9 (5-15); Aspartate Aminotransferase 18 U/L (13-40); BUN/Creatinine Ratio 25.6 (10.0-20.0); Bilirubin, Total 1.5 mg/dL (0.2-1.0); Calcium 7.9 mg/dL (8.7-10.4); Carbon Dioxide 28 mmol/L (20-31); Chloride 108 mmol/L (98-107); Glucose 99 mg/dL (74-106); Potassium 3.8 mmol/L (3.5-5.1); Sodium 145 mmol/L (136-145); Total Protein 4.6 g/dL (5.7-8.2)
[2024-07-27 04:59] LABS: Blood Urea Nitrogen 30 mg/dL (9-23)
[2024-07-27 05:00] LABS: Alanine Aminotransferase 9 U/L (7-40)
[2024-07-27] MEDS: AMIODARONE 450mg/250ml AE 250 ML IV SCH (07:15)
[2024-07-27 07:27] LABS: Base Excess 1.3 mmol/L (-2.0-3.0)
--- NOTE | 2024-07-27 08:28 | DVH ---
ULTRASOUND ABDOMEN LIMITED INDICATION: FLUID CHECK FOR POSSIBLE PARACENTESIS TECHNIQUE: Ultrasound of the 4 quadrants of the abdominal cavity. COMPARISON: None FINDINGS: There is fluid seen in all 4 quadrants of the abdomen, largest pocket in the right lower quadrant. IMPRESSION: 1. There is ascites in all 4 quadrant of the abdomen. HS:Y
[2024-07-27 09:04] LABS: INR 1.43 (0.9-1.15); Partial Thromboplastin Time 35.6 SEC (24.5-34.5); Prothrombin Time 14.8 sec (9.3-11.8)
--- NOTE | 2024-07-27 10:31 | ECG ---
[facility] Test Date: 2024-07-25 Test Time: 15:39:33 Pat Name: JEVON AVERY Department: ER Room: [address] [place] [address] A Gender: M Coat Check Attendant: KLAA : 1965 Requested By: RANDI QUEZADA Order Number: [id number] Reading MD: John Ernst Measurements Intervals [place] Rate: 110 P: 0 GA: 0 QRS: 111 QRSD: 100 T: 0 QT: 344 QTc: 466 Interpretive Statements Atrial flutter Low voltage, precordial leads Probable right ventricular hypertrophy Borderline prolonged QT interval Electronically Signed On 07-28-2024 8:22:47 PST by John Ernst Please click the below link to view image of tracing.
--- NOTE | 2024-07-27 12:53 | DVH ---
US PARACENTESIS, HISTORY: ASCITES PROCEDURE: Informed consent was obtained. The patient was placed in supine position. A limited locali zation ultrasound of the abdomen was obtained, and the skin site over the largest pocket of fluid was marked and entry site was prepped with chlorhexidine which was allowed to dry and draped in the usua l sterile fashion. Time out was performed. Following administration of 1% lidocaine local anesthetic, a 5 [place] centesis needle catheter was percutaneously inserted into the peritoneal collection until fluid was aspirated. The catheter was advanced into the fluid collection and the needle removed. Abo ut 2000 cc of fluid was aspirated and specimen sent for appropriate cultures/cytology/cultures and cy tology. The catheter was then removed and a sterile dressing applied. No immediate complication was identified. FINDINGS: Limited ultrasound imaging demonstrates mild ascites. Aspirated fluid was clear and serous. IMPRESSION: US-guided paracentesis with 2L removed.
[2024-07-27] MEDS ORDERED: VANCOMYCIN PER PHARMACY 0 MG IV SCH (15:45)
[2024-07-27 16:01] LABS: Body Fluid Polymorphonuclear 90 % (0-25); Body Fluid White Blood Cells 1548 CUMM (0-200)
[2024-07-27 16:02] LABS: Body Fluid Red Blood Cells 2159 CUMM (0-2000)
[2024-07-27] MEDS: FUROSEMIDE 20 MG/2 ML VIAL IV ONE (16:48)
[2024-07-27] MEDS: PANTOPRAZOLE 40 MG/10 ML VIAL INJ IV ONE (16:49)
[2024-07-27] MEDS: ENOXAPARIN SOD 40 MG/0.4 ML SYRINGE SC ONE (16:51)
[2024-07-27] MEDS: SPIRONOLACTONE 25 MG TAB PO ONE (17:00)
[2024-07-27] MEDS: AMIODARONE HCL 200 MG TAB PO ONE (17:01)
[2024-07-27] MEDS: VANCOMYCIN 1GM/250ML KIT 200 ML IV SCH (17:13)
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
--- NOTE | 2024-07-27 17:59 | DVHPNRES ---
Progress Note Date Seen: Jul 28, 2024 Resident Creating Document: RADHA KING RESDIENT Medical Necessity Reason Pt with a Central, PICC or Fol: Yes The following are medically ne: Gentile Catheter Reason for gentile catheter: Strict I&O Subjective Review of Systems Patient seen and examined at the bedside. Patient is red sedated and on mechanical ventilation. Review of systems could not obtain. Changes from previous H/P or p: No Changes Objective vital signs Vital Sign Date Time Temp Pulse Resp B/P (MAP) Pulse Ox O2 Delivery O2 Flow Rate FiO2 07/27/24 17:30 98.4 69 24 122/67 (85 94 209.1 07/27/24 16:00 40 07/27/24 16:00 Mechanical Ventilator+ 07/25/24 10:00 12.0 Total Intake and Output 07/26/24 07/26/24 07/27/24 15:00 23:00 07:00 Intake Total 783.836 ml 1050.538 ml 1446.643 ml Output Total 1080 ml 650 ml Balance 783.836 ml -29.462 ml 796.643 ml medications Current Medications Medications Dose Ordered Sig/Miky Route Start Time Stop Time Status Last Admin Dose Admin Nitroglycerin 0.4 mg Q5MINP PRN SL 07/24/24 14:45 Morphine Sulfate 2 mg Q30M PRN IV 07/24/24 14:45 Diagnostic Test (Pha) 1 strip Q6HR 07/24/24 18:00 07/27/24 12:00 1 STRIP Insulin Human Regular Q6HR SC 07/24/24 18:00 07/27/24 17:48 2 UNITS Dextrose 50 ml UD PRN IV 07/24/24 15:00 Acetaminophen 650 mg Q6HP PRN IA 07/24/24 19:15 Albuterol 2.5 mg Q4HPRN PRN NEB 07/25/24 06:45 07/27/24 10:37 2.5 MG Ipratropium [place] 0.5 mg Q4HPRN PRN NEB 07/25/24 06:45 07/27/24 10:37 0.5 MG Lorazepam 1 mg Q2HP PRN IV 07/25/24 09:45 07/25/24 16:05 1 MG Midazolam HCl 50 ml @ 1 mls/hr Q24H IV 07/25/24 14:15 07/27/24 15:36 15 MLS/HR Norepinephrine Bitartrate 250 ml @ 3.75 mls/hr Q24H IV 07/25/24 15:15 07/26/24 22:59 3.75 MLS/HR Fentanyl Citrate 250 ml @ 2.5 mls/hr Q24H IV 07/25/24 17:30 07/27/24 15:54 12.5 MLS/HR Enteral Nutritional Formula 1,000 ml 60ML/HR GT 07/27/24 13:15 Vancomycin HCl 0 ml @ 0 mls/hr UD IV 07/27/24 15:45 Piperacillin Sod/ Tazobactam Sod 100 ml @ 25 mls/hr Q8HR IV 07/27/24 22:00 Pantoprazole Sodium 40 mg DAILY IV 07/28/24 10:00 Amiodarone HCl 200 mg DAILY PO 07/28/24 10:00 Furosemide 20 mg DAILY IV 07/28/24 10:00 Spironolactone 50 mg DAILY PO 07/28/24 10:00 Lactulose 30 ml BID PO 07/27/24 22:00 Enoxaparin Sodium 40 mg DAILY SC 07/28/24 10:00 Vancomycin HCl 200 ml @ 200 mls/hr Q1H IV 07/27/24 17:00 07/27/24 18:59 07/27/24 17:13 200 MLS/HR Examination General Appearance: Patient is sedated and on mechanical ventilation, RASS score-3(open eyes to painful stimuli) HEENT: Atraumatic, PERRLA, EOMI, Mucous membrane moist/pink Respiratory: Clear to auscultation, Normal air movement Cardiovascular: Regular rate, Normal S1, Normal S2, No murmurs, no chest wall tenderness Abdominal: Normal bowel sounds, Soft, No tenderness, No hepatospenomegaly, No masses Extremities: No clubbing, No cyanosis, No edema, Normal pulses, No tenderness/swelling Skin: No rashes, No breakdown, No significant lesion laboratory and microbiology Laboratory Tests 07/27/24 03:20 Test 07/27/24 03:20 Range/Units Serum Glucose 99 74-106 mg/dL Microbiology Date/Time Source Procedure Growth Status 07/25/24 19:00 Pleural Fluid Gram Stain - Final Resulted 07/25/24 19:00 Pleural Fluid Body Fluid Culture - Preliminary Resulted 07/25/24 16:51 Nose MRSA Screen - Final Complete 07/25/24 13:50 Sputum Gram Stain - Final Resulted 07/25/24 13:50 Sputum Respiratory Culture - Preliminary Resulted 07/24/24 12:21 Urine - Gentile [place] Urine Culture - Final Complete 07/24/24 11:52 Blood Blood Culture - Preliminary NO GROWTH AFTER 72 HOURS OF INCUBATION. Resulted Labs and/or images reviewed: Labs reviewed by me, Image(s) reviewed by me Problem List/Assessment/Plan Problem List/Assessment/Plan NEURO: Acute metabolic encephalopathy, likely due to sepsis/liver cirrhosis Patient is sedated and on mechanical ventilation, with the setting of (VT 550, RR 24, FiO2 40% and peep 5) RASS score -3 (responsive to pain stimuli) CARDIOVASCULAR: Atrial flutter, currently sinus rhythm Chads Vasc score could not calculated, patient has no point of contact and history could not obtain Cardiology is on the board Amiodarone 200 mg daily Lovenox 40 mg daily PULMONARY: Patient is sedated and on mechanical ventilation, with the setting of (VT 550, RR 24, FiO2 40% and peep 5) Acute hypoxic and hypercarbic respiratory failure likely due to pneumonia Pneumonia likely due to Gram-positive Gram-negative Hydropneumothorax, chest is in place Septic shock likely due to pneumonia Chest CT scan shows bilateral pneumonia with bilateral pleural effusions. Findings appear slightly worse compared to prior exam, particularly in the left lung. Bronchoscopy planned for tomorrow Breathing treatment q.4 hours, as needed Panculture Start Zosyn and vancomycin MRSA naris screen negative Check COVID-19 and flu GI: Liver cirrhosis Ascites due to liver cirrhosis Paracentesis has been performed, 2 L removed, ascitic fluid exam shows WBC 1548 (polymorphonuclear cells 90), RBC 2159 Start Lasix 20 mg daily Could not use spironolactone(per manufacture recommended to not crash tablet spironolactone to give it through NG tube) Stopped IV fluid Bowel regimen: Start Lactulose 30 mL b.i.d. GI ppx: Start Protonix 40 mg daily RENAL: SHAMIR, likely hemodynamically mediated, improved Hyperchloremia ID: Patient is homeless, check hepatitis panel Check panculture HEME Thrombocytopenia, likely due to liver cirrhosis Monitoring LINES/DRAINS/ACCESS: ETT: Intubated on 07/26/2024 IV access Right internal jugular CVC, placed on 07/26/2024 Right upper limb peripheral IV, placed on 07/25/2024 Transurethral Gentile catheter, placed on 07/25/2024 Chest tube placed on 07/25/2024, drainage within past 24 hour 410 mm Levophed 4 Versed 15 Fentanyl 125 DVT prophylaxis Lovenox DIET: Glucerna via NG tube CODE STATUS: Full code Patient is homeless, manager social on the board Critical time spent more than 50 minutes, including patient care, chart review. excluding any procedures. Case discussed with Dr. Urrutia Plan discussed with: Other (RN) Plan discussed with: Other (RN) My Orders My Orders Orders - RADHA KING Procedure Category Date Status Time Vancomycin Per PHA 07/27/24 In Process Pharmacy 15:45 Piperacillin-Tazob PHA 07/27/24 In Process 3.375gm (Zosyn 3.375g 22:00 Pantoprazole PHA 07/28/24 In Process (Protonix) 10:00 Amiodarone Tablet PHA 07/28/24 In Process (Cordarone Tablet) 10:00 Furosemide Injection PHA 07/28/24 In Process (Lasix Injection) 10:00 Spironolactone PHA 07/28/24 In Process (Aldactone) 10:00 Acute Hepatitis Panel LAB 07/27/24 Logged 15:33 Lactulose Oral PHA 07/27/24 In Process 22:00 Communication Order ORDERS 07/27/24 Transmitted 15:33 Enoxaparin Sodium PHA 07/28/24 In Process (Lovenox) 10:00 Vancomycin 1gm/200ml PHA 07/27/24 In Process Premix 17:00 Complete Blood Count LAB 07/28/24 Verified 04:00 Creatinine LAB 07/28/24 Verified 04:00 Vancomycin,Random LAB 07/28/24 Verified 04:00 Comprehensive LAB 07/28/24 Verified Metabolic Panel 04:00 Chest Xray 1 View XY 07/28/24 Verified 04:00 Abg W/ Co-Ox RT 07/28/24 Verified 04:00 Dietary Evaluation Review Comments: 1. Consider EN/TPN if NPO >7days 2. Continue plan of care Expected Outcomes/Goals: 1. Pt will meet >75% of estimated needs within 2-3 days Date of Service: Jul 21, 2024 Billing Provider: SAW URRUTIA MD Common Visit Codes: 29776-[id number] CARE 30-74 MIN RADHA KING Jul 27, 2024 17:59 SAW URRUTIA MD Jul 30, 2024 13:42
[2024-07-27] MEDS: LACTULOSE 20Gm/30ML SOLN PO SCH (21:45)
[2024-07-27] MEDS: PIPERACILLIN-TAZOB 3.375GM 100 ML IV SCH (21:45)
[2024-07-28] VITALS (107 sets, daily range): BP systolic 92–145; BP diastolic 57–87; PULSE 63–76; RESP 21–26; TEMP 95.5–100.2; O2SAT 94–100
[2024-07-28 04:18] LABS: Basophils # (auto) 0 10 ^3/uL (0-0.2); Eosinophils # (auto) 0.1 10 ^3/uL (0-0.8); Eosinophils % (auto) 1.3 % (0.0-7.0); Hematocrit 46.3 % (41.0-53.0); Hemoglobin 15.2 g/dL (13.5-17.5); Lymphocytes # (auto) 0.8 10 ^3/uL (0.4-5.4); Lymphocytes % (auto) 10.2 % (10.0-50.0); Neutrophils # (auto) 6.3 10 ^3/uL (1.6-8.6); Nucleated Red Blood Cells % 0.1 %
[2024-07-28 04:22] LABS: Basophils % (auto) 0.5 % (0.0-2.0); Mean Corpuscular Hemoglobin 36.2 pg (28.0-32.0); Mean Corpuscular Hgb Conc. 32.8 g/dL (32.0-36.0); Mean Corpuscular Volume 110.5 fL (80.0-100.0); Monocytes % (auto) 12.2 % (0.0-12.0); Neutrophils % (auto) 75.8 % (37.0-80.0); Platelet Count (auto) 58 10^3/uL (140-450); Red Blood Cells 4.19 10^6/uL (4.5-5.90); Red Cell Distribution Width 16.8 % (11.8-14.3); White Blood Cell 8.3 10^3/uL (4.4-10.8)
[2024-07-28 04:30] LABS: Albumin 2.5 g/dL (3.2-4.8); Alkaline Phosphatase 56 U/L (46-116); Anion Gap 9 (5-15); Aspartate Aminotransferase 18 U/L (13-40); BUN/Creatinine Ratio 19.6 (10.0-20.0); Blood Urea Nitrogen 20 mg/dL (9-23); Calcium 8.1 mg/dL (8.7-10.4); Carbon Dioxide 30 mmol/L (20-31); Chloride 110 mmol/L (98-107); Glucose 114 mg/dL (74-106); Potassium 3.9 mmol/L (3.5-5.1); Sodium 149 mmol/L (136-145); Total Protein 4.8 g/dL (5.7-8.2)
--- NOTE | 2024-07-28 04:34 | DVH ---
CHEST RADIOGRAPH Indication: pneumonia Technique: Single frontal view of the chest was obtained Comparison: XY CHEST PORTABLE on DOS: 07/27/24, XY CHEST XRAY 1 VIEW on DOS: 07/25/24, XY CHEST XRAY 1 VIEW on DOS: 07/25/24 IMPRESSION: There is enlargement of the cardiac silhouette. Support lines and tubes appear unchanged in satisfac tory in position. Enteric tube tip is not visualized on this examination. There are likely small jailene ateral pleural effusions, right greater than left with moderate pulmonary vascular congestion, simila r to prior examination. No discrete pneumothorax.
[2024-07-28 04:39] LABS: Alanine Aminotransferase < 9 U/L (7-40)
[2024-07-28 07:15] LABS: Base Excess 1.2 mmol/L (-2.0-3.0)
[2024-07-28] MEDS ORDERED: EPINEPHrine HCL 1 MG/1 ML AMP ONE (08:58)
[2024-07-28] MEDS ORDERED: GLYCOPYRROLATE 0.2 MG/ML 1ML VIAL ONE (08:58)
[2024-07-28] MEDS ORDERED: FLUMAZENIL 0.1 MG/ML INJ 10ML MDV IV ONE (08:58)
[2024-07-28] MEDS ORDERED: NALOXONE HCL 0.4 MG/ML VIAL ONE (08:58)
[2024-07-28] MEDS ORDERED: LIDOCAINE 2%HCL (LOCAL ANESTH.) INJ 20ML MDV ONE ×2 (08:58→09:02)
[2024-07-28] MEDS ORDERED: fentaNYL CITRATE 100 MCG/2 ML VL ONE (08:59)
[2024-07-28] MEDS ORDERED: MIDAZOLAM HCL 5 MG/ML-1ML VIAL ONE (08:59)
[2024-07-28] MEDS ORDERED: SODIUM CHLORIDE LOCK 0 ML ONE (09:01)
[2024-07-28] MEDS: SPIRONOLACTONE 25 MG TAB PO SCH (10:00)
[2024-07-28] MEDS: PANTOPRAZOLE 40 MG/10 ML VIAL INJ IV SCH (10:05)
[2024-07-28] MEDS: AMIODARONE HCL 200 MG TAB PO SCH (10:09)
[2024-07-28] MEDS: VANCOMYCIN 750mg/150ml 150 ML IV SCH (10:09)
[2024-07-28] MEDS: FUROSEMIDE 20 MG/2 ML VIAL IV SCH (10:28)
[2024-07-28 13:07] LABS: Protein, Body Fluid 3.1 g/dL (.)
[2024-07-28 13:07] LABS: Protein, Body Fluid 2.4 g/dL (.)
[2024-07-28] MEDS: ENOXAPARIN SOD 40 MG/0.4 ML SYRINGE SC SCH (13:49)
--- NOTE | 2024-07-28 14:17 | DVHNC2 ---
Other Procedure Procedure Bronchoscopy Operative Note Procedure Performed: 1. Flexible Bronchoscopy 2. Right lower lobe bronchial washing Anesthesia/Medication: Patient intubated and sedated Preoperative Diagnosis: Pneumonia Postoperative Diagnosis: Same Estimated Blood Loss: Less than 10 ml Consent: The risk, benefits, and alternatives of bronchoscopy were discussed with the patients who expressed understanding and agreed to proceed. Indications: Findings: No significant endobronchial lesions or abnormalities were seen. Description of the Procedure: Bronchoscope was introduced through the ET tube the bronchoscope was then inserted into the subglottic area, followed by the trachea, bilateral mainstem bronchi, and to the level of the subsegmental bronchi. There was no evidence of intrinsic or extrinsic compression. I could see some mucus in the right lower lobe which I suctioned out. I did right lower lobe bronchial washings. At this point, there was no evidence of any ongoing bleeding. The bronchoscope was then withdrawn and the patient was allowed to recover. Date of Service: Jul 28, 2024 Billing Provider: SAW CHOW MD Common Visit Codes: PROCEDURE ONLY Procedure Codes: [id number] SAW CHOW MD Jul 28, 2024 14:17
--- NOTE | 2024-07-28 16:17 | DVH ---
Procedure: CT CHEST WITHOUT CONTRAST Reason for study/Clinical History: 67 years old, Male; [place]. Comparison Study: None available at time of dictation. Exam Date: 07/28/2024 03:38 PM TECHNIQUE: Multidetector CT of the chest was performed from the lung apices to the upper abdomen with out the use of intravenous contract. Axial, coronal and sagittal multiplanar reformats were performed . Radiation dose Information: CT Dose: CTDI volume is 23.61 mGy. Dose-length product is 912.91 mGy*cm The dose indicators for CT are the volume computed Tomography (CT) dose Index (CTDIvol) and the dose Length product (DLP), and are measured in units of mGy and mGy-cm, respectively. These indicators are not patient dose, but values generated from the CT scanner acquisition factors. The report includes radiation exposure data for exposures received during this examination. FINDINGS: Lower neck: Endotracheal tube in place. Nasogastric tube in place. Lungs: Small bilateral pleural effusions. Patchy bilateral atelectasis and consolidation. Ground-gla ss opacities in both lungs. Right pigtail catheter in place. Heart/Vascular Structures: Normal heart size. Small pericardial effusion. Lymph Nodes: No adenopathy Pleura: Bilateral effusions as above. Musculoskeletal: No acute osseous abnormality. Soft tissues: Normal. Upper abdomen: Ascites. Cholelithiasis. IMPRESSION: 1. Bilateral pneumonia with bilateral pleural effusions. Findings appear slightly worse compared to p rior exam, particularly in the left lung. Right pleural catheter in place. Clinical correlation and c ontinued follow-up is recommended. Radiation optimization: All CT scans at this facility use at least one of these dose optimization haile hniques: Automated exposure control mA and/or kV adjustment per patient size (includes targeted exams where dose is matched to clinical indication) or iterative reconstruction. HS:Y
[2024-07-28] MEDS: FREE WATER GT SCH (17:59)
--- NOTE | 2024-07-28 20:22 | DVHPNRES ---
Progress Note Date Seen: Jul 28, 2024 Resident Creating Document: RADHA KING RESDIENT Medical Necessity Reason Pt with a Central, PICC or Fol: Yes The following are medically ne: Gentile Catheter Reason for gentile catheter: Strict I&O Subjective Review of Systems Patient seen and examined at the bedside. Patient is red sedated and on mechanical ventilation. Review of systems could not obtain. Patient reports: No new complaints Changes from previous H/P or p: No Changes Objective vital signs Vital Sign Date Time Temp Pulse Resp B/P (MAP) Pulse Ox O2 Delivery O2 Flow Rate FiO2 07/28/24 19:44 70 24 122/75 (91) 97 35 07/28/24 18:45 99.1 210.4 07/28/24 18:00 Mechanical Ventilator+ Total Intake and Output 07/27/24 07/27/24 07/28/24 15:00 23:00 07:00 Intake Total 677.908 ml 719.58 ml 542.0 ml Output Total 4280 ml 1810 ml Balance 677.908 ml -3560.42 ml -1268.0 ml medications Current Medications Medications Dose Ordered Sig/Miky Route Start Time Stop Time Status Last Admin Dose Admin Nitroglycerin 0.4 mg Q5MINP PRN SL 07/24/24 14:45 Morphine Sulfate 2 mg Q30M PRN IV 07/24/24 14:45 Diagnostic Test (Pha) 1 strip Q6HR 07/24/24 18:00 07/28/24 17:59 1 STRIP Insulin Human Regular Q6HR SC 07/24/24 18:00 07/28/24 11:40 2 UNITS Dextrose 50 ml UD PRN IV 07/24/24 15:00 Acetaminophen 650 mg Q6HP PRN [place] 07/24/24 19:15 Albuterol 2.5 mg Q4HPRN PRN NEB 07/25/24 06:45 07/28/24 06:07 2.5 MG Ipratropium [place] 0.5 mg Q4HPRN PRN NEB 07/25/24 06:45 07/28/24 06:07 0.5 MG Lorazepam 1 mg Q2HP PRN IV 07/25/24 09:45 07/25/24 16:05 1 MG Midazolam HCl 50 ml @ 1 mls/hr Q24H IV 07/25/24 14:15 07/28/24 17:42 15 MLS/HR Norepinephrine Bitartrate 250 ml @ 3.75 mls/hr Q24H IV 07/25/24 15:15 07/28/24 04:51 7.5 MLS/HR Fentanyl Citrate 250 ml @ 2.5 mls/hr Q24H IV 07/25/24 17:30 07/28/24 10:14 12.5 MLS/HR Enteral Nutritional Formula 1,000 ml 60ML/HR GT 07/27/24 13:15 Vancomycin HCl 0 ml @ 0 mls/hr UD IV 07/27/24 15:45 Piperacillin Sod/ Tazobactam Sod 100 ml @ 25 mls/hr Q8HR IV 07/27/24 22:00 07/28/24 13:48 25 MLS/HR Pantoprazole Sodium 40 mg DAILY IV 07/28/24 10:00 07/28/24 10:05 40 MG Amiodarone HCl 200 mg DAILY PO 07/28/24 10:00 07/28/24 10:09 200 MG Furosemide 20 mg DAILY IV 07/28/24 10:00 07/28/24 10:28 20 MG Spironolactone 50 mg DAILY PO 07/28/24 10:00 Lactulose 30 ml BID PO 07/27/24 22:00 07/28/24 10:07 30 ML Enoxaparin Sodium 40 mg DAILY SC 07/28/24 10:00 07/28/24 13:49 40 MG Vancomycin HCl 150 ml @ 150 mls/hr Q12H IV 07/28/24 10:00 07/28/24 10:09 150 MLS/HR Purified Water 150 ml Q6HR GT 07/28/24 18:00 07/28/24 17:59 150 ML Examination General Appearance: Patient is sedated and on mechanical ventilation, RASS score-3(open eyes to painful stimuli) HEENT: Atraumatic, PERRLA, EOMI, Mucous membrane moist/pink Respiratory: Clear to auscultation, Normal air movement Cardiovascular: Regular rate, Normal S1, Normal S2, No murmurs, no chest wall tenderness Abdominal: Normal bowel sounds, Soft, No tenderness, No hepatospenomegaly, No masses Extremities: No clubbing, No cyanosis, No edema, Normal pulses, No tenderness/swelling Skin: No rashes, No breakdown, No significant lesion laboratory and microbiology Laboratory Tests 07/28/24 03:30 Test 07/28/24 03:30 Range/Units Serum Glucose 114 H 74-106 mg/dL Microbiology Date/Time Source Procedure Growth Status 07/27/24 12:30 Ascities Fluid Gram Stain - Final Resulted 07/27/24 12:30 Ascities Fluid Body Fluid Culture - Preliminary Resulted 07/25/24 16:51 Nose MRSA Screen - Final Complete 07/25/24 13:50 Sputum Gram Stain - Final Resulted 07/25/24 13:50 Sputum Respiratory Culture - Preliminary Resulted 07/24/24 12:21 Urine - Gentile Port Urine Culture - Final Complete 07/24/24 11:52 Blood Blood Culture - Preliminary NO GROWTH AFTER 72 HOURS OF INCUBATION. Resulted Labs and/or images reviewed: Labs reviewed by me, Image(s) reviewed by me Problem List/Assessment/Plan Problem List/Assessment/Plan NEURO: Acute metabolic encephalopathy, likely due to sepsis/liver cirrhosis Patient is sedated and on mechanical ventilation, with the setting of (VT 550, RR 24, FiO2 40% and peep 5) RASS score -3 (responsive to pain stimuli) CARDIOVASCULAR: Atrial flutter, currently sinus rhythm Chads Vasc score could not calculated, patient has no point of contact and history could not obtain Cardiology is on the board Amiodarone 200 mg daily Lovenox 40 mg daily PULMONARY: Patient is sedated and on mechanical ventilation, with the setting of (VT 550, RR 24, FiO2 40% and peep 5) Acute hypoxic and hypercarbic respiratory failure likely due to pneumonia Pneumonia likely due to Gram-positive Gram-negative Hydropneumothorax, chest is in place Septic shock likely due to pneumonia Chest CT scan shows bilateral pneumonia with bilateral pleural effusions. Findings appear slightly worse compared to prior exam, particularly in the left lung. Bronchoscopy performed today, right lower lobe showed scant amount of mucus, bronchial lavage was performed and the sample was sent for the culture/sensitivity, Gram stain and cytology ABGs shows normal limits Breathing treatment q.4 hours, as needed Panculture, results pending Continue Zosyn and vancomycin MRSA naris screen negative Check COVID-19 and flu GI: Liver cirrhosis Ascites due to liver cirrhosis Paracentesis has been performed, 2 L removed, ascitic fluid exam shows WBC 1548 (polymorphonuclear cells 90), RBC 2159 Lasix 20 mg daily Could not use spironolactone(per manufacture recommended to not crash tablet spironolactone to give it through NG tube) Bowel regimen: Lactulose 30 mL b.i.d. GI ppx: Protonix 40 mg daily RENAL: SHAMIR, likely hemodynamically mediated, improved Hyperchloremia Hypernatremia, likely due to diuretics Free water 150 mL q.6 hours ID: Patient is homeless, HIV and hepatitis panel pending Panculture results pending HEME Thrombocytopenia, likely due to liver cirrhosis Monitoring LINES/DRAINS/ACCESS: ETT: Intubated on 07/26/2024 IV access Right internal jugular CVC, placed on 07/26/2024 Right upper limb peripheral IV, placed on 07/25/2024 Transurethral Gentile catheter, placed on 07/25/2024 Chest tube placed on 07/25/2024, drainage within past 24 hour 270 mL Levophed 4 Versed 15 Fentanyl 125 DVT prophylaxis Lovenox DIET: Glucerna via NG tube CODE STATUS: Full code Patient is homeless, social work therapist on the board Critical time spent more than 50 minutes, including patient care, chart review. excluding any procedures. Case discussed with Dr. Urrutia Plan discussed with: Other (RN) My Orders My Orders Orders - RADHA KING Procedure Category Date Status Time Vancomycin PHA 07/28/24 In Process 750mg/150ml 10:00 Vancomycin,Trough LAB 07/29/24 Verified 21:00 Vancomycin Per HA 07/29/24 In Process Pharmacy Protoc 22:20 Basic Metabolic Panel LAB 07/29/24 Verified 04:00 Bronchosc Dx W/W/O BD 07/28/24 Transmitted Fluor&Wash 13:00 Respiratory Culture JULI 07/28/24 In Process W/ Gs 14:[address] 07/28/24 Resulted 14:35 Free Water PHA 07/28/24 In Process 18:00 Complete Blood Count LAB 07/29/24 Verified 04:00 Comprehensive LAB 07/29/24 Verified Metabolic Panel 04:00 Chest Xray 1 View XY 07/29/24 Logged 04:00 Abg W/ Co-Ox RT 07/29/24 Logged 04:00 Dietary Evaluation Review Comments: 1. Consider EN/TPN if NPO >7days 2. Continue plan of care Expected Outcomes/Goals: 1. Pt will meet >75% of estimated needs within 2-3 days Date of Service: Jul 28, 2024 Billing Provider: SAW URRUTIA MD Common Visit Codes: [id number] CARE 30-74 MIN RADHA KING Jul 28, 2024 20:22 SAW URRUTIA MD Jul 30, 2024 13:41
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
[2024-07-29] VITALS (108 sets, daily range): BP systolic 90–133; BP diastolic 58–79; PULSE 62–82; RESP 20–24; TEMP 97.5–100.2; O2SAT 68–100
[2024-07-29] MEDS: FAMOTIDINE 20 MG TAB PO ONE (00:05)
[2024-07-29] MEDS: IBUPROFEN 400 MG TAB PO ONE (00:05)
[2024-07-29 04:06] LABS: Basophils # (auto) 0 10 ^3/uL (0-0.2); Basophils % (auto) 0.5 % (0.0-2.0); Eosinophils # (auto) 0.2 10 ^3/uL (0-0.8); Eosinophils % (auto) 2.1 % (0.0-7.0); Hematocrit 47.3 % (41.0-53.0); Hemoglobin 15.4 g/dL (13.5-17.5); Lymphocytes # (auto) 0.6 10 ^3/uL (0.4-5.4); Mean Corpuscular Hgb Conc. 32.7 g/dL (32.0-36.0); Mean Corpuscular Volume 110.2 fL (80.0-100.0); Monocytes # (auto) 0.9 10 ^3/uL (0-1.3); Monocytes % (auto) 10.2 % (0.0-12.0); Neutrophils # (auto) 7.2 10 ^3/uL (1.6-8.6); Neutrophils % (auto) 80.2 % (37.0-80.0); Nucleated Red Blood Cells % 0.1 %; Platelet Count (auto) 70 10^3/uL (140-450); Red Blood Cells 4.29 10^6/uL (4.5-5.90); Red Cell Distribution Width 16.6 % (11.8-14.3); White Blood Cell 8.9 10^3/uL (4.4-10.8)
[2024-07-29 04:23] LABS: Albumin 2.4 g/dL (3.2-4.8); Alkaline Phosphatase 51 U/L (46-116); Anion Gap 8 (5-15); Aspartate Aminotransferase 19 U/L (13-40); BUN/Creatinine Ratio 16.8 (10.0-20.0); Blood Urea Nitrogen 17 mg/dL (9-23); Calcium 7.8 mg/dL (8.7-10.4); Carbon Dioxide 30 mmol/L (20-31); Chloride 110 mmol/L (98-107); Glucose 119 mg/dL (74-106); Potassium 3.6 mmol/L (3.5-5.1); Sodium 148 mmol/L (136-145)
[2024-07-29 04:24] LABS: Bilirubin, Total 2.5 mg/dL (0.2-1.0); Total Protein 4.8 g/dL (5.7-8.2)
[2024-07-29 04:31] LABS: Alanine Aminotransferase < 9 U/L (7-40)
--- NOTE | 2024-07-29 04:38 | DVH ---
CHEST RADIOGRAPH Indication: Pneumonia Technique: Single frontal view of the chest was obtained COMPARISON: XY CHEST XRAY 1 VIEW on DOS: 07/28/24, XY CHEST PORTABLE on DOS: 07/27/24, XY CHEST XRAY 1 VIEW on DOS: 07/25/24 FINDINGS: Lines and Tubes: Endotracheal tube, enteric catheter and right central venous catheter in satisfactor y position. Lungs: Multifocal airspace disease. Pleura: No effusion. No pneumothorax. Cardiomediastinal contours: Unremarkable Bones: Unremarkable IMPRESSION: Slightly increased multifocal airspace disease.
[2024-07-29 06:50] LABS: Base Excess 2.8 mmol/L (-2.0-3.0)
[2024-07-29 09:34] LABS: Rapid Influenza A Negative (Negative); Rapid Influenza B Negative (Negative)
[2024-07-29 09:35] LABS: COVID19 ANTIGEN SOFIA FIA NEGATIVE (NEGATIVE)
--- NOTE | 2024-07-29 12:22 | DVH ---
Left Chest Sonogram Date: 07/29/2024 12:01 PM Clinical history: Left sided effusion Technique: Limited sonographic evaluation of the left chest was performed to evaluate for pleural ef fusion. Finding/Impression: Trace left-sided pleural effusion. HS:Y
--- NOTE | 2024-07-29 19:47 | DVHPNRES ---
Progress Note Date Seen: Jul 29, 2024 Resident Creating Document: RADHA KING PRASANNA Has the PT tested + for MRSA If YES, has PT been informed?: Yes Medical Necessity Reason Pt with a Central, PICC or Fol: Yes The following are medically ne: Gentile Catheter Reason for gentile catheter: Strict I&O Subjective Review of Systems Patient seen and examined at the bedside. Patient is red sedated and on mechanical ventilation. Review of systems could not obtain. Patient reports: No new complaints Changes from previous H/P or p: No Changes Objective vital signs Vital Sign Date Time Temp Pulse Resp B/P (MAP) Pulse Ox O2 Delivery O2 Flow Rate FiO2 07/29/24 18:45 99.1 76 21 101/61 (74) 92 210.4 07/29/24 18:21 35 07/29/24 18:00 Mechanical Ventilator+ Total Intake and Output 07/28/24 07/28/24 07/29/24 15:00 23:00 07:00 Intake Total 530.0 ml 745.0 ml 429.00 ml Output Total 3670 ml 1125 ml Balance 530.0 ml -2925.0 ml -696.00 ml medications Current Medications Medications Dose Ordered Sig/Miky Route Start Time Stop Time Status Last Admin Dose Admin Nitroglycerin 0.4 mg Q5MINP PRN SL 07/24/24 14:45 Morphine Sulfate 2 mg Q30M PRN IV 07/24/24 14:45 Diagnostic Test (Pha) 1 strip Q6HR 07/24/24 18:00 07/29/24 17:28 1 STRIP Insulin Human Regular Q6HR SC 07/24/24 18:00 07/28/24 11:40 2 UNITS Dextrose 50 ml UD PRN IV 07/24/24 15:00 Acetaminophen 650 mg Q6HP PRN [place] 07/24/24 19:15 Albuterol 2.5 mg Q4HPRN PRN NEB 07/25/24 06:45 07/29/24 14:53 2.5 MG Ipratropium [place] 0.5 mg Q4HPRN PRN NEB 07/25/24 06:45 07/29/24 14:53 0.5 MG Lorazepam 1 mg Q2HP PRN IV 07/25/24 09:45 07/25/24 16:05 1 MG Midazolam HCl 50 ml @ 1 mls/hr Q24H IV 07/25/24 14:15 07/29/24 16:21 15 MLS/HR Norepinephrine Bitartrate 250 ml @ 3.75 mls/hr Q24H IV 07/25/24 15:15 07/29/24 09:03 7.5 MLS/HR Fentanyl Citrate 250 ml @ 2.5 mls/hr Q24H IV 07/25/24 17:30 07/29/24 03:24 12.5 MLS/HR Enteral Nutritional Formula 1,000 ml 60ML/HR GT 07/27/24 13:15 Piperacillin Sod/ Tazobactam Sod 100 ml @ 25 mls/hr Q8HR IV 07/27/24 22:00 07/29/24 13:09 25 MLS/HR Pantoprazole Sodium 40 mg DAILY IV 07/28/24 10:00 07/29/24 09:10 40 MG Amiodarone HCl 200 mg DAILY PO 07/28/24 10:00 07/29/24 09:09 200 MG Furosemide 20 mg DAILY IV 07/28/24 10:00 07/29/24 09:10 20 MG Spironolactone 50 mg DAILY PO 07/28/24 10:00 07/29/24 09:09 50 MG Lactulose 30 ml BID PO 07/27/24 22:00 07/29/24 09:09 30 ML Enoxaparin Sodium 40 mg DAILY SC 07/28/24 10:00 07/29/24 09:10 40 MG Purified Water 150 ml Q6HR GT 07/28/24 18:00 07/29/24 17:28 150 ML Examination General Appearance: Patient is sedated and on mechanical ventilation, RASS score - 4 (open eyes to painful stimuli) HEENT: Atraumatic, PERRLA, EOMI, Mucous membrane moist/pink Respiratory: Clear to auscultation, Normal air movement Cardiovascular: Regular rate, Normal S1, Normal S2, No murmurs, no chest wall tenderness Abdominal: Normal bowel sounds, Soft, No tenderness, No hepatospenomegaly, No masses Extremities: No clubbing, No cyanosis, No edema, Normal pulses, No tenderness/swelling Skin: No rashes, No breakdown, No significant lesion laboratory and microbiology Laboratory Tests 07/29/24 03:05 Test 07/29/24 03:05 Range/Units Serum Glucose 119 H 74-106 mg/dL Microbiology Date/Time Source Procedure Growth Status 07/28/24 13:22 Bronchial Washings Gram Stain - Final Resulted 07/28/24 13:22 Bronchial Washings Respiratory Culture - Preliminary Resulted 07/27/24 12:30 Ascities Fluid Gram Stain - Final Resulted 07/27/24 12:30 Ascities Fluid Body Fluid Culture - Preliminary Resulted 07/25/24 16:51 Nose MRSA Screen - Final Complete 07/24/24 12:21 Urine - Gentile Port Urine Culture - Final Complete 07/24/24 11:52 Blood Blood Culture - Final NO GROWTH AFTER 5 DAYS OF INCUBATION. Complete Labs and/or images reviewed: Labs reviewed by me, Image(s) reviewed by me Problem List/Assessment/Plan Problem List/Assessment/Plan NEURO: Acute metabolic encephalopathy, likely due to sepsis/liver cirrhosis Patient is sedated and on mechanical ventilation, with the setting of (VT 550, RR 20, FiO2 35% and peep 5) RASS score -4 (responsive to pain stimuli) CARDIOVASCULAR: Atrial flutter, currently sinus rhythm Chads Vasc score could not calculated, patient has no point of contact and history could not obtain Cardiology is on the board Amiodarone 200 mg daily Lovenox 40 mg daily PULMONARY: Patient is sedated and on mechanical ventilation, with the setting of (VT 550, RR 24, FiO2 40% and peep 5) Acute hypoxic and hypercarbic respiratory failure likely due to pneumonia Pneumonia likely due to Gram-positive Gram-negative Hydropneumothorax, chest is in place Septic shock likely due to pneumonia Chest CT scan shows bilateral pneumonia with bilateral pleural effusions. Findings appear slightly worse compared to prior exam, particularly in the left lung. Chest ultrasound on 07/29/2024 shows trace left-sided pleural effusion and thoracentesis could not perform CPAP for tomorrow a.m. Breathing treatment q.4 hours, as needed Sputum culture from bronchial washing shows no growth after 24 hours, g stain negative Continue Zosyn Stopped vancomycin MRSA naris screen negative COVID-19 and flu are negative GI: Liver cirrhosis Ascites due to liver cirrhosis Paracentesis has been performed, 2 L removed, ascitic fluid exam shows WBC 1548 (polymorphonuclear cells 90), RBC 2159 Start Lasix 20 mg daily Could not use spironolactone(per manufacture recommended to not crash tablet spironolactone to give it through NG tube) Stopped IV fluid Bowel regimen: Start Lactulose 30 mL b.i.d. GI ppx: Start Protonix 40 mg daily RENAL: SHAMIR, likely hemodynamically mediated, improved Hyperchloremia Hypernatremia, improving pure water 150 mL q.6 hours ID: HIV, negative Check panculture HEME Thrombocytopenia, likely due to liver cirrhosis Monitoring LINES/DRAINS/ACCESS: ETT: Intubated on 07/26/2024 IV access Right internal jugular CVC, placed on 07/26/2024 Right upper limb peripheral IV, placed on 07/25/2024 Transurethral Gentile catheter, placed on 07/25/2024 Chest tube placed on 07/25/2024, drainage 240 mL Drips Versed 15 Fentanyl 125 Levophed for DVT prophylaxis Lovenox DIET: Glucerna via NG tube 60 mL/hour CODE STATUS: Full code Patient is homeless, medical social worker on the board and appraiser art has been the contacted. Critical time spent more than 55 minutes, including patient care, chart review. excluding any procedures. Case discussed with Dr. Urrutia Plan discussed with: Other (RN) Plan discussed with: Other (RN) My Orders My Orders Orders - RADHA KING Procedure Category Date Status Time Ventilator Orders RT 07/29/24 Transmitted 12:59 Cpap Trial For Am ORDERS 07/29/24 Transmitted 13:00 Communication Order ORDERS 07/29/24 Transmitted 13:00 Comprehensive LAB 07/30/24 Verified Metabolic Panel 04:00 Complete Blood Count LAB 07/30/24 Verified 04:00 Chest Xray 1 View XY 07/30/24 Logged 04:00 Abg W/ Co-Ox RT 07/30/24 Logged 04:00 Dietary Evaluation Review Comments: 1. Consider EN/TPN if NPO >7days 2. Continue plan of care Expected Outcomes/Goals: 1. Pt will meet >75% of estimated needs within 2-3 days Date of Service: Jul 29, 2024 Billing Provider: SAW URRUTIA MD Common Visit Codes: [id number] CARE 30-74 MIN RADHA KING RESDIENT Jul 29, 2024 19:47 SAW URRUTIA MD Jul 30, 2024 13:51
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
[2024-07-30] VITALS (103 sets, daily range): BP systolic 76–143; BP diastolic 50–81; PULSE 66–77; RESP 20–21; TEMP 97.7–99.5; O2SAT 90–99
[2024-07-30 04:02] LABS: Eosinophils # (auto) 0.2 10 ^3/uL (0-0.8); Mean Corpuscular Hemoglobin 35.9 pg (28.0-32.0); Mean Corpuscular Hgb Conc. 32.7 g/dL (32.0-36.0); Platelet Count (auto) 97 10^3/uL (140-450)
[2024-07-30 04:05] LABS: Basophils # (auto) 0.1 10 ^3/uL (0-0.2); Basophils % (auto) 0.8 % (0.0-2.0); Eosinophils % (auto) 2.2 % (0.0-7.0); Hematocrit 43.8 % (41.0-53.0); Hemoglobin 14.3 g/dL (13.5-17.5); Lymphocytes # (auto) 0.7 10 ^3/uL (0.4-5.4); Lymphocytes % (auto) 6.6 % (10.0-50.0); Mean Corpuscular Volume 109.8 fL (80.0-100.0); Monocytes # (auto) 0.9 10 ^3/uL (0-1.3); Monocytes % (auto) 8.8 % (0.0-12.0); Neutrophils # (auto) 8.4 10 ^3/uL (1.6-8.6); Neutrophils % (auto) 81.6 % (37.0-80.0); Nucleated Red Blood Cells % 0.2 %; Red Blood Cells 3.99 10^6/uL (4.5-5.90); Red Cell Distribution Width 16.8 % (11.8-14.3); White Blood Cell 10.2 10^3/uL (4.4-10.8)
[2024-07-30 04:19] LABS: Alkaline Phosphatase 51 U/L (46-116); Anion Gap 9 (5-15); BUN/Creatinine Ratio 15.4 (10.0-20.0); Blood Urea Nitrogen 16 mg/dL (9-23); Carbon Dioxide 30 mmol/L (20-31)
[2024-07-30 04:20] LABS: Aspartate Aminotransferase 25 U/L (13-40)
[2024-07-30 04:25] LABS: Alanine Aminotransferase < 9 U/L (7-40); Albumin 2.3 g/dL (3.2-4.8); Calcium 7.9 mg/dL (8.7-10.4); Chloride 109 mmol/L (98-107); Glucose 126 mg/dL (74-106); Sodium 148 mmol/L (136-145); Total Protein 4.8 g/dL (5.7-8.2)
[2024-07-30 05:00] LABS: Macrocytosis Moderate
[2024-07-30 05:01] LABS: Platelet Estimate Decreased
--- NOTE | 2024-07-30 05:19 | DVH ---
CHEST RADIOGRAPH Indication: Pneumonia Technique: Single frontal view of the chest was obtained Comparison: XY CHEST XRAY 1 VIEW on DOS: 07/29/24, XY CHEST XRAY 1 VIEW on DOS: 07/28/24, XY CHEST PO RTABLE on DOS: 07/27/24 IMPRESSION: There is cardiomegaly with moderate pulmonary vascular congestion and small bilateral pleural effusio ns. No pneumothorax. Support lines and tubes appear unchanged in satisfactory position.
[2024-07-30 06:53] LABS: Base Excess 2.6 mmol/L (-2.0-3.0)
[2024-07-30] MEDS: SPIRONOLACTONE 25 MG TAB NG SCH (09:22)
[2024-07-30 09:41] LABS: Hepatitis A Ab IgM Negative; Hepatitis B Core IgM Negative; Hepatitis B Surface Antigen Negative (Negative)
[2024-07-30 09:42] LABS: Hepatitis C Antibody Negative (Negative)
--- NOTE | 2024-07-30 16:18 | DVHPNRES ---
Progress Note Date Seen: Jul 30, 2024 Resident Creating Document: RADHA KING PRASANNA Has the PT tested + for MRSA If YES, has PT been informed?: Yes Medical Necessity Reason Pt with a Central, PICC or Fol: Yes The following are medically ne: Gentile Catheter Reason for gentile catheter: Strict I&O Subjective Review of Systems Patient seen and examined at the bedside. Patient is sedated and on mechanical ventilation. Review of systems could not obtain. Patient reports: No new complaints Changes from previous H/P or p: No Changes Objective vital signs Vital Sign Date Time Temp Pulse Resp B/P (MAP) Pulse Ox O2 Delivery O2 Flow Rate FiO2 07/30/24 15:21 108/69 07/30/24 14:00 74 07/30/24 14:00 40 07/30/24 14:00 20 95 Mechanical Ventilator+ 07/30/24 14:00 98.8 209.8 Total Intake and Output 07/29/24 07/29/24 07/30/24 15:00 23:00 07:00 Intake Total 522 ml 827.0 ml 770.25 ml Output Total 1290 ml 640 ml Balance 522 ml -463.0 ml 130.25 ml medications Current Medications Medications Dose Ordered Sig/Miky Route Start Time Stop Time Status Last Admin Dose Admin Nitroglycerin 0.4 mg Q5MINP PRN SL 07/24/24 14:45 Morphine Sulfate 2 mg Q30M PRN IV 07/24/24 14:45 Diagnostic Test (Pha) 1 strip Q6HR 07/24/24 18:00 07/30/24 11:45 1 STRIP Insulin Human Regular Q6HR SC 07/24/24 18:00 07/30/24 11:47 2 UNITS Dextrose 50 ml UD PRN IV 07/24/24 15:00 Acetaminophen 650 mg Q6HP PRN [place] 07/24/24 19:15 Albuterol 2.5 mg Q4HPRN PRN NEB 07/25/24 06:45 07/30/24 12:59 2.5 MG Ipratropium [place] 0.5 mg Q4HPRN PRN NEB 07/25/24 06:45 07/30/24 12:59 0.5 MG Lorazepam 1 mg Q2HP PRN IV 07/25/24 09:45 07/25/24 16:05 1 MG Midazolam HCl 50 ml @ 1 mls/hr Q24H IV 07/25/24 14:15 07/30/24 09:20 7.5 MLS/HR Norepinephrine Bitartrate 250 ml @ 3.75 mls/hr Q24H IV 07/25/24 15:15 07/30/24 15:21 7.5 MLS/HR Fentanyl Citrate 250 ml @ 2.5 mls/hr Q24H IV 07/25/24 17:30 07/29/24 23:33 12.5 MLS/HR Enteral Nutritional Formula 1,000 ml 60ML/HR GT 07/27/24 13:15 Piperacillin Sod/ Tazobactam Sod 100 ml @ 25 mls/hr Q8HR IV 07/27/24 22:00 07/30/24 13:50 25 MLS/HR Pantoprazole Sodium 40 mg DAILY IV 07/28/24 10:00 07/30/24 09:20 40 MG Amiodarone HCl 200 mg DAILY PO 07/28/24 10:00 07/30/24 09:20 200 MG Lactulose 30 ml BID PO 07/27/24 22:00 07/30/24 09:20 30 ML Enoxaparin Sodium 40 mg DAILY SC 07/28/24 10:00 07/30/24 09:21 40 MG Purified Water 150 ml Q6HR GT 07/28/24 18:00 07/30/24 11:45 150 ML Spironolactone 50 mg DAILY NG 07/30/24 10:00 07/30/24 09:22 50 MG Dexmedetomidine HCl 400 mcg/ Dextrose 100 ml @ 4.615 mls/ hr [id number] IV 07/30/24 10:15 07/30/24 12:08 4.615 MLS/HR Furosemide 40 mg BIDD IV 07/30/24 18:00 Examination General: RASS-5, afebrile, mucosae are moist Cardiovascular: Normal S1 and S2. No murmurs, gallops or rubs Respiratory: Mechanically assisted ventilation, equal bilateral airway entree. Clear lung sounds on auscultation Abdomen: Soft, nontender, no organomegaly, normal bowel sounds MSK/skin: Mobilization of limbs cannot be evaluated. Skin is dry and warm. Neurological: Orientation cannot be assessed. No apparent motor no sensitive deficits. Pupils are isocoric and reactive laboratory and microbiology Laboratory Tests 07/30/24 03:30 Test 07/30/24 03:30 Range/Units Serum Glucose 126 H 74-106 mg/dL Microbiology Date/Time Source Procedure Growth Status 07/28/24 13:22 Bronchial Washings Gram Stain - Final Complete 07/28/24 13:22 Bronchial Washings Respiratory Culture - Final Complete 07/27/24 12:30 Ascities Fluid Gram Stain - Final Resulted 07/27/24 12:30 Ascities Fluid Body Fluid Culture - Preliminary Resulted 07/25/24 16:51 Nose MRSA Screen - Final Complete 07/24/24 12:21 Urine - [place]ile [place] Urine Culture - Final Complete 07/24/24 11:52 Blood Blood Culture - Final NO GROWTH AFTER 5 DAYS OF INCUBATION. Complete Labs and/or images reviewed: Labs reviewed by me, Image(s) reviewed by me Problem List/Assessment/Plan Problem List/Assessment/Plan NEURO: Acute metabolic encephalopathy, likely due to sepsis/liver cirrhosis Patient is sedated and on mechanical ventilation, with the setting of (VT 550, RR 20, FiO2 35% and peep 5) RASS score -4 (responsive to pain stimuli) CARDIOVASCULAR: Atrial flutter, currently sinus rhythm Chads Vasc score could not calculated, patient has no point of contact and history could not obtain Cardiology is on the board Amiodarone 200 mg daily Lovenox 40 mg daily PULMONARY: Patient is sedated and on mechanical ventilation, with the setting of (VT 550, RR 24, FiO2 40% and peep 5) Acute hypoxic and hypercarbic respiratory failure likely due to pneumonia Pneumonia likely due to Gram-positive Gram-negative Hydropneumothorax, chest is in place Septic shock likely due to pneumonia Chest CT scan shows bilateral pneumonia with bilateral pleural effusions. Findings appear slightly worse compared to prior exam, particularly in the left lung. ABGs shows respiratory acidosis with compensated metabolic alkalosis with pH 7.387, pCO2 48, PO2 73.4, HC03 38.6 Chest ultrasound on 07/29/2024 shows trace left-sided pleural effusion and thoracentesis could not perform Sedation has been titrated CPAP trial, but the patient has not awaken Breathing treatment q.4 hours, as needed Sputum culture from bronchial washing shows no growth after 24 hours, g stain negative Continue Zosyn MRSA naris screen negative COVID-19 and flu are negative GI: Liver cirrhosis Ascites due to liver cirrhosis Paracentesis has been performed, 2 L removed, ascitic fluid exam shows WBC 1548 (polymorphonuclear cells 90), RBC 2159 Start Lasix 40 mg daily Spironolactone 100 mg daily Bowel regimen: Start Lactulose 30 mL b.i.d. GI ppx: Start Protonix 40 mg daily RENAL: SHAMIR, likely hemodynamically mediated, improved Hyperchloremia Hypernatremia, improving pure water 150 mL q.6 hours ID: HIV, negative Check panculture HEME Thrombocytopenia, likely due to liver cirrhosis Monitoring LINES/DRAINS/ACCESS: ETT: Intubated on 07/26/2024 IV access Right internal jugular CVC, placed on 07/26/2024 Right upper limb peripheral IV, placed on 07/25/2024 Transurethral Gentile catheter, placed on 07/25/2024 Chest tube placed on 07/25/2024, drainage 80 male with a past 24 hours, we are considering to take out chest tube for tomorrow Versed 15 Fentanyl 125 Levophed for DVT prophylaxis Lovenox DIET: Glucerna via OG tube 60 mL/hour CODE STATUS: Full code Patient is homeless, 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 Critical time spent more than 55 minutes, including patient care, chart review. excluding any procedures. Case discussed with Dr. Urrutia Plan discussed with: Patient, Other (RN) My Orders My Orders Orders - RADHA KING RESDIDORIS Procedure Category Date Status Time Spironolactone PHA 07/30/24 In Process (Aldactone) 10:00 Cpap Trial For Am ORDERS 07/30/24 Transmitted 08:40 Cpap/Sed Vacation Med ORDERS 07/30/24 Transmitted Weaning 08:40 Dietary Evaluation Review Comments: 1. Consider EN/TPN if NPO >7days 2. Continue plan of care Expected Outcomes/Goals: 1. Pt will meet >75% of estimated needs within 2-3 days Date of Service: Jul 30, 2024 Billing Provider: SAW URRUTIA MD Common Visit Codes: [id number] CARE 30-74 MIN RADHA KING RESDIENT Jul 30, 2024 16:18 SAW URRUTIA MD Jul 31, 2024 13:10
[2024-07-30] MEDS ORDERED: FUROSEMIDE 40 MG/4 ML VIAL IV SCH ×2 (16:30→18:00)
[2024-07-30] MEDS ORDERED: SPIRONOLACTONE 25 MG TAB NG SCH (16:30)
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
[2024-07-31] VITALS (110 sets, daily range): BP systolic 91–127; BP diastolic 54–83; PULSE 66–78; RESP 19–26; TEMP 98.1–99.9; O2SAT 91–100
[2024-07-31 04:12] LABS: Alkaline Phosphatase 61 U/L (46-116); Anion Gap 10 (5-15); BUN/Creatinine Ratio 14.8 (10.0-20.0); Blood Urea Nitrogen 13 mg/dL (9-23); Carbon Dioxide 29 mmol/L (20-31); Chloride 106 mmol/L (98-107); Sodium 145 mmol/L (136-145)
[2024-07-31 04:13] LABS: Aspartate Aminotransferase 19 U/L (13-40)
[2024-07-31 04:18] LABS: Alanine Aminotransferase < 9 U/L (7-40); Albumin 2.6 g/dL (3.2-4.8); Bilirubin, Total 1.9 mg/dL (0.2-1.0); Calcium 8.3 mg/dL (8.7-10.4); Glucose 131 mg/dL (74-106); Total Protein 5.4 g/dL (5.7-8.2)
[2024-07-31 04:39] LABS: Basophils # (auto) 0 10 ^3/uL (0-0.2); Basophils % (auto) 0.4 % (0.0-2.0); Lymphocytes # (auto) 0.6 10 ^3/uL (0.4-5.4); Neutrophils # (auto) 7.4 10 ^3/uL (1.6-8.6); Red Blood Cells 4.33 10^6/uL (4.5-5.90)
[2024-07-31 04:40] LABS: Eosinophils # (auto) 0.1 10 ^3/uL (0-0.8); Eosinophils % (auto) 1.4 % (0.0-7.0); Hemoglobin 15.3 g/dL (13.5-17.5); Lymphocytes % (auto) 6.5 % (10.0-50.0); Mean Corpuscular Hemoglobin 35.3 pg (28.0-32.0); Mean Corpuscular Hgb Conc. 32.5 g/dL (32.0-36.0); Mean Corpuscular Volume 108.6 fL (80.0-100.0); Monocytes # (auto) 0.9 10 ^3/uL (0-1.3); Monocytes % (auto) 9.5 % (0.0-12.0); Neutrophils % (auto) 82.2 % (37.0-80.0); Nucleated Red Blood Cells % 0.1 %; Platelet Count (auto) 108 10^3/uL (140-450); Red Cell Distribution Width 16.9 % (11.8-14.3)
--- NOTE | 2024-07-31 05:44 | DVH ---
CHEST RADIOGRAPH Indication: [place] Technique: Single frontal view of the chest was obtained Comparison: XY CHEST XRAY 1 VIEW on DOS: 07/30/24 FINDINGS: Lines and Tubes: Right central venous catheter terminates in the right atrium. The endotracheal tube terminates 4.3 cm above the zahida. The enteric tube terminates below the left hemidiaphragm and outs fabien the field of view. Right pigtail catheter overlies the right lung base. Lungs: Pulmonary congestion. Pleura: Hazy bilateral opacities compatible with effusions. No pneumothorax. Cardiomediastinal contours: Stable cardiovascular silhouette. Bones: No acute osseous abnormality. IMPRESSION: 1. Stable position of the support lines and tubes. 2. Pulmonary vascular congestion and bilateral pleural effusions.
[2024-07-31 07:03] LABS: Base Excess -0.8 mmol/L (-2.0-3.0)
[2024-07-31] MEDS: FUROSEMIDE 40 MG/4 ML VIAL IV SCH (09:59)
[2024-07-31] MEDS: SPIRONOLACTONE 25 MG TAB NG SCH (10:19)
[2024-07-31] MEDS ORDERED: METOCLOPRAMIDE HCL 5MG/ml INJ 2ml VIAL IV SCH (14:00)
[2024-07-31] MEDS: METOCLOPRAMIDE HCL 5MG/ml INJ 2ml VIAL IV SCH (15:04)
--- NOTE | 2024-07-31 16:30 | DVHPNRES ---
Progress Note Date Seen: Jul 31, 2024 Resident Creating Document: RADHA KING PRASANNA Has the PT tested + for MRSA If YES, has PT been informed?: Yes Medical Necessity Reason Pt with a Central, PICC or Fol: Yes The following are medically ne: Gentile Catheter Reason for gentile catheter: Strict I&O Subjective Review of Systems Patient seen and examined at the bedside. Patient is sedated and on mechanical ventilation. Review of systems could not obtain. Patient reports: No new complaints Changes from previous H/P or p: No Changes Objective vital signs Vital Sign Date Time Temp Pulse Resp B/P (MAP) Pulse Ox O2 Delivery O2 Flow Rate FiO2 07/31/24 16:22 101/63 07/31/24 15:15 99.1 76 20 92 210.4 07/31/24 14:49 35 07/31/24 14:00 Mechanical Ventilator+ Total Intake and Output 07/30/24 07/30/24 07/31/24 14:59 22:59 06:59 Intake Total 237.980 ml 570.670 ml 646.920 ml Output Total 1800 ml 775 ml Balance 237.980 ml -1229.330 ml -128.080 ml medications Current Medications Medications Dose Ordered Sig/Miky Route Start Time Stop Time Status Last Admin Dose Admin Nitroglycerin 0.4 mg Q5MINP PRN SL 07/24/24 14:45 Morphine Sulfate 2 mg Q30M PRN IV 07/24/24 14:45 Diagnostic Test (Pha) 1 strip Q6HR 07/24/24 18:00 07/31/24 12:05 1 STRIP Insulin Human Regular Q6HR SC 07/24/24 18:00 07/31/24 05:42 2 UNITS Dextrose 50 ml UD PRN IV 07/24/24 15:00 Acetaminophen 650 mg Q6HP PRN [place] 07/24/24 19:15 Albuterol 2.5 mg Q4HPRN PRN NEB 07/25/24 06:45 07/30/24 18:21 2.5 MG Ipratropium [place] 0.5 mg Q4HPRN PRN NEB 07/25/24 06:45 07/30/24 18:22 0.5 MG Lorazepam 1 mg Q2HP PRN IV 07/25/24 09:45 07/25/24 16:05 1 MG Midazolam HCl 50 ml @ 1 mls/hr Q24H IV 07/25/24 14:15 07/30/24 09:20 7.5 MLS/HR Norepinephrine Bitartrate 250 ml @ 3.75 mls/hr Q24H IV 07/25/24 15:15 07/31/24 16:22 3.75 MLS/HR Fentanyl Citrate 250 ml @ 2.5 mls/hr Q24H IV 07/25/24 17:30 07/29/24 23:33 12.5 MLS/HR Enteral Nutritional Formula 1,000 ml 60ML/HR GT 07/27/24 13:15 Piperacillin Sod/ Tazobactam Sod 100 ml @ 25 mls/hr Q8HR IV 07/27/24 22:00 07/31/24 15:04 25 MLS/HR Pantoprazole Sodium 40 mg DAILY IV 07/28/24 10:00 07/31/24 09:59 40 MG Amiodarone HCl 200 mg DAILY PO 07/28/24 10:00 07/31/24 10:00 200 MG Lactulose 30 ml BID PO 07/27/24 22:00 07/31/24 09:58 30 ML Enoxaparin Sodium 40 mg DAILY SC 07/28/24 10:00 07/31/24 09:59 40 MG Purified Water 150 ml Q6HR GT 07/28/24 18:00 07/31/24 05:39 150 ML Dexmedetomidine HCl 400 mcg/ Dextrose 100 ml @ 4.615 mls/ hr [id number] IV 07/30/24 10:15 07/30/24 12:08 4.615 MLS/HR Furosemide 40 mg DAILY IV 07/31/24 10:00 07/31/24 09:59 40 MG Spironolactone 100 mg DAILY NG 07/31/24 10:00 07/31/24 10:19 100 MG Metoclopramide HCl 10 mg Q8HR IV 07/31/24 14:00 07/31/24 15:04 10 MG Metoclopramide HCl 10 mg Q8HR IV 07/31/24 14:00 Sennosides 17.2 mg QHSP PO 07/31/24 22:00 Docusate Sodium 200 mg BID GT 07/31/24 22:00 Examination General: RASS-5, afebrile, mucosae are moist Cardiovascular: Normal S1 and S2. No murmurs, gallops or rubs Respiratory: Mechanically assisted ventilation, equal bilateral airway entree. Clear lung sounds on auscultation Abdomen: Soft, nontender, no organomegaly, normal bowel sounds MSK/skin: Mobilization of limbs cannot be evaluated. Skin is dry and warm. Neurological: Orientation cannot be assessed. No apparent motor no sensitive deficits. Pupils are isocoric and reactive laboratory and microbiology Laboratory Tests 07/31/24 03:20 Test 07/31/24 03:20 Range/Units Serum Glucose 131 H 74-106 mg/dL Microbiology Date/Time Source Procedure Growth Status 07/28/24 13:22 Bronchial Washings Gram Stain - Final Complete 07/28/24 13:22 Bronchial Washings Respiratory Culture - Final Complete 07/27/24 12:30 Ascities Fluid Gram Stain - Final Resulted 07/27/24 12:30 Ascities Fluid Body Fluid Culture - Preliminary Resulted 07/25/24 16:51 Nose MRSA Screen - Final Complete 07/24/24 12:21 Urine - [place]ile [place] Urine Culture - Final Complete 07/24/24 11:52 Blood Blood Culture - Final NO GROWTH AFTER 5 DAYS OF INCUBATION. Complete Labs and/or images reviewed: Labs reviewed by me, Image(s) reviewed by me Problem List/Assessment/Plan Problem List/Assessment/Plan NEURO: Acute metabolic encephalopathy, likely due to sepsis/liver cirrhosis Patient is sedated and on mechanical ventilation, with the setting of (VT 550, RR 20, FiO2 35% and peep 5) RASS score -4 (responsive to pain stimuli) CARDIOVASCULAR: Atrial flutter, currently sinus rhythm Chads Vasc score could not calculated, patient has no point of contact and history could not obtain Cardiology is on the board Amiodarone 200 mg daily Lovenox 40 mg daily PULMONARY: Patient is sedated and on mechanical ventilation, with the setting of (VT 550, RR 24, FiO2 40% and peep 5) Acute hypoxic and hypercarbic respiratory failure likely due to pneumonia Pneumonia likely due to Gram-positive Gram-negative Hydropneumothorax, chest is in place Septic shock likely due to pneumonia Chest CT scan shows bilateral pneumonia with bilateral pleural effusions. Findings appear slightly worse compared to prior exam, particularly in the left lung. ABGs shows respiratory acidosis with metabolic compensation Chest ultrasound on 07/29/2024 shows trace left-sided pleural effusion and thoracentesis could not perform Sedation has been titrated CPAP trial, but the patient has not awaken Breathing treatment q.4 hours, as needed Sputum culture from bronchial washing shows no growth after 24 hours, g stain negative Continue Zosyn MRSA naris screen negative COVID-19 and flu are negative GI: Liver cirrhosis Ascites due to liver cirrhosis Paracentesis has been performed, 2 L removed, ascitic fluid exam shows WBC 1548 (polymorphonuclear cells 90), RBC 2159 Start Lasix 40 mg daily Spironolactone 100 mg daily Injection Reglan 10 mg t.i.d. Bowel regimen: Lactulose 30 mL b.i.d., Colace 200 mg b.i.d., and senna HS GI ppx: Start Protonix 40 mg daily RENAL: SHAMIR, likely hemodynamically mediated, improved Hyperchloremia Hypernatremia, normalized pure water 150 mL q.6 hours ID: HIV, negative Check panculture HEME Thrombocytopenia, likely due to liver cirrhosis Monitoring LINES/DRAINS/ACCESS: ETT: Intubated on 07/26/2024 IV access Right internal jugular CVC, placed on 07/26/2024 Right upper limb peripheral IV, placed on 07/25/2024 Transurethral Gentile catheter, placed on 07/25/2024 Chest tube placed on 07/25/2024, drainage 50 male with a past 24 hours, we are considering to take out chest tube for tomorrow Versed 15 Fentanyl 125 Levophed for DVT prophylaxis Lovenox DIET: Glucerna via OG tube 60 mL/hour CODE STATUS: Full code Patient is homeless, 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 Critical time spent more than 55 minutes, including patient care, chart review. excluding any procedures. We titrated and stopped sedation for the CPAP trial, but the patient could not awaken with RASS score -5, we will try back CPAP trial tomorrow a.m. Case discussed with Dr. Urrutia Plan discussed with: Other (RN) My Orders My Orders Orders - RADHA KING Procedure Category Date Status Time Furosemide Injection PHA 07/31/24 In Process (Lasix Injection) 10:00 Spironolactone PHA 07/31/24 In Process (Aldactone) 10:00 Chest Xray 1 View XY 07/31/24 Resulted 04:00 Abg W/ Co-Ox RT 07/31/24 Logged 04:00 Metoclopramide PHA 07/31/24 In Process Injection (Reglan 14:00 Senna Pod Tablet PHA 07/31/24 In Process (Senokot Tablet) 22:00 Docusate Sodium PHA 07/31/24 In Process Liquid (Colace Liquid) 22:00 Complete Blood Count LAB 08/01/24 Verified 04:00 Comprehensive LAB 08/01/24 Verified Metabolic Panel 04:00 Chest Xray 1 View XY 08/01/24 Logged 04:00 Abg W/ Co-Ox RT 08/01/24 Logged 04:00 Communication Order ORDERS 07/31/24 Transmitted 16:12 Dietary Evaluation Review Comments: 1. Consider EN/TPN if NPO >7days 2. Continue plan of care Expected Outcomes/Goals: 1. Pt will meet >75% of estimated needs within 2-3 days Date of Service: Jul 31, 2024 Billing Provider: SAW URRUTIA MD Common Visit Codes: [id number] CARE 30-74 MIN RADHA KING RESDIENT Jul 31, 2024 16:30 SAW URRUTIA MD Aug 07, 2024 13:10
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
[2024-07-31] MEDS: DOCUSATE ORAL LIQUID 100 MG/10 ML UD GT SCH (21:34)
[2024-07-31] MEDS: SENNA 8.6 MG TAB PO SCH (21:39)
[2024-08-01] VITALS (109 sets, daily range): BP systolic 102–146; BP diastolic 62–89; PULSE 70–86; RESP 20–24; TEMP 98.1–100.4; O2SAT 88–100
[2024-08-01 03:47] LABS: Basophils # (auto) 0 10 ^3/uL (0-0.2); Eosinophils # (auto) 0.1 10 ^3/uL (0-0.8); Eosinophils % (auto) 1.1 % (0.0-7.0); Hemoglobin 14.9 g/dL (13.5-17.5); Lymphocytes # (auto) 0.9 10 ^3/uL (0.4-5.4); Mean Corpuscular Hgb Conc. 33.1 g/dL (32.0-36.0); Monocytes # (auto) 0.8 10 ^3/uL (0-1.3)
[2024-08-01 03:49] LABS: Basophils % (auto) 0.3 % (0.0-2.0); Lymphocytes % (auto) 9.5 % (10.0-50.0); Mean Corpuscular Hemoglobin 35.3 pg (28.0-32.0); Mean Corpuscular Volume 106.7 fL (80.0-100.0); Monocytes % (auto) 8.3 % (0.0-12.0); Neutrophils # (auto) 7.4 10 ^3/uL (1.6-8.6); Neutrophils % (auto) 80.8 % (37.0-80.0); Nucleated Red Blood Cells % 0.2 %; Platelet Count (auto) 135 10^3/uL (140-450); Red Blood Cells 4.22 10^6/uL (4.5-5.90); Red Cell Distribution Width 15.9 % (11.8-14.3); White Blood Cell 9.2 10^3/uL (4.4-10.8)
[2024-08-01 04:05] LABS: Alkaline Phosphatase 64 U/L (46-116); Anion Gap 9 (5-15); BUN/Creatinine Ratio 13.8 (10.0-20.0); Blood Urea Nitrogen 13 mg/dL (9-23); Chloride 104 mmol/L (98-107); Potassium 3.6 mmol/L (3.5-5.1); Sodium 144 mmol/L (136-145)
[2024-08-01 04:07] LABS: Aspartate Aminotransferase 20 U/L (13-40)
[2024-08-01 04:08] LABS: Alanine Aminotransferase < 9 U/L (7-40); Albumin 2.7 g/dL (3.2-4.8); Bilirubin, Total 1.5 mg/dL (0.2-1.0); Calcium 8.5 mg/dL (8.7-10.4); Carbon Dioxide 31 mmol/L (20-31); Glucose 117 mg/dL (74-106); Total Protein 5.5 g/dL (5.7-8.2)
--- NOTE | 2024-08-01 05:49 | DVH ---
CHEST RADIOGRAPH Indication: Pneumonia Technique: Single frontal view of the chest was obtained Comparison: XY CHEST XRAY 1 VIEW on DOS: 07/31/24, XY CHEST XRAY 1 VIEW on DOS: 07/30/24, XY CHEST XR AY 1 VIEW on DOS: 07/29/24 IMPRESSION: Heart appears prominent in size. Support lines and tubes appear unchanged in satisfactory in positio n. Small bilateral pleural effusions with moderate pulmonary vascular congestion. Possible airspace
--- NOTE | 2024-08-01 12:31 | DVHPN2 ---
Reviewed: Care Plan, H&P, Labs, Medications, Previous Orders, Radiology Changes from previous H/P or p: No Changes Eyes: No Pain, No Vision change, No Conjunctivae inflammation, No Eyelid inflammation, No Other, No Redness ENT: No Ear pain, No Ear discharge, No Nose pain, No Nose discharge, No Nose congestion, No Mouth pain, No Mouth swelling, No Throat pain, No Throat swelling, No Other Cardiovascular: No Chest Pain, No Palpitations, No Orthopnea, No Paroxysmal Noc. Dyspnea, No Edema, No Lt Headedness, No Other Respiratory: No Cough, No Dry, No Shortness of breath, No SOB with excertion, No Wheezing, No Hemoptysis, No Pleuritic Pain, No Sputum, No Other Gastrointestinal: No Nausea, No Vomiting, No Abdominal Pain, No Diarrhea, No Constipation, No Melena, No Hematochezia, No Other Genitourinary: No Dysuria, No Frequency, No Incontinence, No Hematuria, No Retention, No Other Musculoskeletal: No other, No neck pain, No shoulder pain, No arm pain, No back pain, No hand pain, No leg pain, No foot pain Skin: No Rash, No Lesions, No Jaundice, No Bruising, No Other Objective Vitals Vital Signs Date Time Temp Pulse Resp B/P (MAP) Pulse Ox O2 Delivery O2 Flow Rate FiO2 08/01/24 12:00 98.2 75 20 129/79 (96) 91 208.8 08/01/24 11:58 35 08/01/24 11:45 Mechanical Ventilator+ Intake/Output Intake and Output 08/01/24 07:00 Intake Total 1390.577 ml Output Total 4135 ml Balance -2744.423 ml Intake Oral 300 ml IV Total 430.577 ml Tube Feeding 660 ml Output Urine Total 3125 ml Stool Total 300 ml Gastric Drainage Total 650 ml Chest Tube Drainage Total 60 ml General Appearance: Other (Intubated, on vent, unable to exam.) HEENT: Atraumatic Neck: Supple Lungs: Clear to auscultation, Normal air movement Cardiovascular: Regular rate, Normal S1, Normal S2, No murmurs, Gallops, Rubs Abdomen: Normal bowel sounds, Soft, No tenderness Neuro: Cranial nerves 3-12 NL Psych/Mental Status: Mental status NL Medications Current Medications Medications Dose Ordered Sig/Miky Route Start Time Stop Time Status Last Admin Dose Admin Nitroglycerin 0.4 mg Q5MINP PRN SL 07/24/24 14:45 Morphine Sulfate 2 mg Q30M PRN IV 07/24/24 14:45 Diagnostic Test (Pha) 1 strip Q6HR 07/24/24 18:00 08/01/24 11:50 1 STRIP Insulin Human Regular Q6HR SC 07/24/24 18:00 07/31/24 05:42 2 UNITS Dextrose 50 ml UD PRN IV 07/24/24 15:00 Acetaminophen 650 mg Q6HP PRN NM 07/24/24 19:15 Albuterol 2.5 mg Q4HPRN PRN NEB 07/25/24 06:45 07/30/24 18:21 2.5 MG Ipratropium [place] 0.5 mg Q4HPRN PRN NEB 07/25/24 06:45 07/30/24 18:22 0.5 MG Lorazepam 1 mg Q2HP PRN IV 07/25/24 09:45 07/25/24 16:05 1 MG Midazolam HCl 50 ml @ 1 mls/hr Q24H IV 07/25/24 14:15 07/30/24 09:20 7.5 MLS/HR Norepinephrine Bitartrate 250 ml @ 3.75 mls/hr Q24H IV 07/25/24 15:15 07/31/24 16:22 3.75 MLS/HR Fentanyl Citrate 250 ml @ 2.5 mls/hr Q24H IV 07/25/24 17:30 07/29/24 23:33 12.5 MLS/HR Enteral Nutritional Formula 1,000 ml 60ML/HR GT 07/27/24 13:15 Piperacillin Sod/ Tazobactam Sod 100 ml @ 25 mls/hr Q8HR IV 07/27/24 22:00 08/01/24 05:52 25 MLS/HR Pantoprazole Sodium 40 mg DAILY IV 07/28/24 10:00 08/01/24 09:55 40 MG Amiodarone HCl 200 mg DAILY PO 07/28/24 10:00 08/01/24 09:56 200 MG Lactulose 30 ml BID PO 07/27/24 22:00 08/01/24 09:55 30 ML Enoxaparin Sodium 40 mg DAILY SC 07/28/24 10:00 07/31/24 09:59 40 MG Purified Water 150 ml Q6HR GT 07/28/24 18:00 08/01/24 00:02 150 ML Dexmedetomidine HCl 400 mcg/ Dextrose 100 ml @ 4.615 mls/ hr [id number] IV 07/30/24 10:15 07/30/24 12:08 4.615 MLS/HR Furosemide 40 mg DAILY IV 07/31/24 10:00 08/01/24 09:55 40 MG Spironolactone 100 mg DAILY NG 07/31/24 10:00 08/01/24 11:38 100 MG Metoclopramide HCl 10 mg Q8HR IV 07/31/24 14:00 08/01/24 05:52 10 MG Sennosides 17.2 mg QHSP PO 07/31/24 22:00 07/31/24 21:39 17.2 MG Docusate Sodium 200 mg BID GT 07/31/24 22:00 08/01/24 09:54 200 MG Laboratory Results Laboratory Tests 08/01/24 03:14 Chemistry Test 08/01/24 03:14 Albumin 2.7 g/dL (3.2-4.8) L Calcium Level 8.5 mg/dL (8.7-10.4) L Total Protein 5.5 g/dL (5.7-8.2) L LFT Test 08/01/24 03:14 Alanine Aminotransferase (ALT) < 9 U/L (7-40) Alkaline Phosphatase 64 U/L (46-116) Aspartate Amino Transferase (AST) 20 U/L (13-40) Total Bilirubin 1.5 mg/dL (0.2-1.0) H Urinalysis Test 07/24/24 12:21 07/26/24 12:00 Urine Hyaline Casts Many /lpf (0 - 2) Urine Color Yellow (Yellow) Urine Clarity Turbid (Clear) H Urine pH 5.5 (5.0-9.0) Urine Specific [place] 1.016 (1.001-1.035) Urine Protein Negative (Negative) Urine Ketones Negative (Negative) Urine Blood 2+ /uL (Negative) H Urine Nitrite Negative (Negative) Urine Bilirubin Negative (Negative) Urine Urobilinogen 3 mg/dL (Negative) H Urine Leukocyte Esterase 1+ /uL (Negative) Urine RBC 33 /hpf (0 - 3) Urine WBC 13 /hpf (0 - 3) Urine Squamous Epithelial Cells Few /hpf (<5) Urine Uric Acid Crystals Few /hpf (None Seen) Urine Bacteria None seen /hpf (None Seen) Urine Mucus Few (None Seen) Urine Glucose Normal mg/dL (Normal) Blood Gas Results Test 08/01/24 07:02 Arterial Blood pH 7.451 (7.350-7.450) FiO2 % 35.0 Microbiology Microbiology Date/Time Source Procedure Growth Status 07/28/24 13:22 Bronchial Washings Gram Stain - Final Complete 07/28/24 13:22 Bronchial Washings Respiratory Culture - Final Complete 07/27/24 12:30 Ascities Fluid Gram Stain - Final Complete 07/27/24 12:30 Ascities Fluid Body Fluid Culture - Final Complete 07/25/24 16:51 Nose MRSA Screen - Final Complete 07/24/24 12:21 Urine - [place] Urine Culture - Final Complete 07/24/24 11:52 Blood Blood Culture - Final NO GROWTH AFTER 5 DAYS OF INCUBATION. Complete Labs and/or images reviewed: Labs reviewed by me, Image(s) reviewed by me Assessment/Plan Assessment/Plan covering for resident Acute Hypoxic respiratory failure: Intubated on 35 percent FiO2 following MRSA Bacteremia on Zosyn Altered mental status. CHF exacerbation. Leukocytosis. UTI. Elevated ammonia levels. Pleural Effusion. Liver Cirrhosis. Continue current management Time spent 70 minutes Condition guarded Plan discussed with: Patient Date of Service: Aug 01, 2024 Billing Provider: RODY CAMPOS MD Common Visit Codes: [id number] CARE 30-74 MIN RODY CAMPOS MD Aug 01, 2024 12:31
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
[2024-08-01] MEDS: Glucerna 1.2 Cal 1Liter BOTTLE GT SCH (18:38)
--- NOTE | 2024-08-01 23:18 | DVHPN2 ---
Progress Note - Dictate Date Seen: Aug 01, 2024 Has the PT tested + for MRSA If YES, has PT been informed?: Yes Medical Necessity Reason Pt with a Central, PICC or Fol: Yes The following are medically ne: Gentile Catheter Reason for gentile catheter: Strict I&O Subjective Patient seen and examined at bedside. Intubated on mechanical ventilator. Overnight events reviewed. vital signs Vital Sign Date Time Temp Pulse Resp B/P (MAP) Pulse Ox O2 Delivery O2 Flow Rate FiO2 08/01/24 22:00 35 08/01/24 22:00 81 08/01/24 22:00 20 95 Mechanical Ventilator+ 08/01/24 21:53 105/64 (78) 08/01/24 18:45 99.1 210.4 Total Intake and Output 07/31/24 07/31/24 08/01/24 15:00 23:00 07:00 Intake Total 128.077 ml 810.00 ml 452.50 ml Output Total 1900 ml 1520 ml 715 ml Balance -1771.923 ml -710.00 ml -262.50 ml medications Current Medications Medications Dose Ordered Sig/Miky Route Start Time Stop Time Status Last Admin Dose Admin Nitroglycerin 0.4 mg Q5MINP PRN SL 07/24/24 14:45 Morphine Sulfate 2 mg Q30M PRN IV 07/24/24 14:45 Diagnostic Test (Pha) 1 strip Q6HR 07/24/24 18:00 08/01/24 17:45 1 STRIP Insulin Human Regular Q6HR SC 07/24/24 18:00 07/31/24 05:42 2 UNITS Dextrose 50 ml UD PRN IV 07/24/24 15:00 Acetaminophen 650 mg Q6HP PRN IN 07/24/24 19:15 Albuterol 2.5 mg Q4HPRN PRN NEB 07/25/24 06:45 07/30/24 18:21 2.5 MG Ipratropium [place] 0.5 mg Q4HPRN PRN NEB 07/25/24 06:45 07/30/24 18:22 0.5 MG Lorazepam 1 mg Q2HP PRN IV 07/25/24 09:45 07/25/24 16:05 1 MG Midazolam HCl 50 ml @ 1 mls/hr Q24H IV 07/25/24 14:15 07/30/24 09:20 7.5 MLS/HR Norepinephrine Bitartrate 250 ml @ 3.75 mls/hr Q24H IV 07/25/24 15:15 07/31/24 16:22 3.75 MLS/HR Fentanyl Citrate 250 ml @ 2.5 mls/hr Q24H IV 07/25/24 17:30 07/29/24 23:33 12.5 MLS/HR Enteral Nutritional Formula 1,000 ml 60ML/HR GT 07/27/24 13:15 08/01/24 18:38 1,000 ML Piperacillin Sod/ Tazobactam Sod 100 ml @ 25 mls/hr Q8HR IV 07/27/24 22:00 08/01/24 13:45 25 MLS/HR Pantoprazole Sodium 40 mg DAILY IV 07/28/24 10:00 08/01/24 09:55 40 MG Amiodarone HCl 200 mg DAILY PO 07/28/24 10:00 08/01/24 09:56 200 MG Lactulose 30 ml BID PO 07/27/24 22:00 08/01/24 09:55 30 ML Enoxaparin Sodium 40 mg DAILY SC 07/28/24 10:00 Hold 07/31/24 09:59 40 MG Purified Water 150 ml Q6HR GT 07/28/24 18:00 08/01/24 18:37 150 ML Dexmedetomidine HCl 400 mcg/ Dextrose 100 ml @ 4.615 mls/ hr [id number] IV 07/30/24 10:15 07/30/24 12:08 4.615 MLS/HR Furosemide 40 mg DAILY IV 07/31/24 10:00 08/01/24 09:55 40 MG Spironolactone 100 mg DAILY NG 07/31/24 10:00 08/01/24 11:38 100 MG Metoclopramide HCl 10 mg Q8HR IV 07/31/24 14:00 08/01/24 13:55 10 MG Sennosides 17.2 mg QHSP PO 07/31/24 22:00 07/31/24 21:39 17.2 MG Docusate Sodium 200 mg BID GT 07/31/24 22:00 08/01/24 09:54 200 MG objective Gen.: Patient lying in bed in medical ICU. Intubated on mechanical ventilator. Head: Normocephalic, atraumatic. Eyes: PERRLA. Ears: Normal external anatomy. Throat: Endotracheal tube and orogastric tube in place. Neck: Supple, trachea midline. Chest: Transmitted breath sounds bilaterally. Decreased air entry bilaterally. No wheezing. Bibasilar crackles. Cardiovascular: Positive S1, positive S2. Regular rate and rhythm. Abdomen: Positive bowel sounds in all 4 quadrants. Soft, nontender, nondistended. : Gentile in place. Normal external genitalia. Rectal: Deferred. Skin: Warm, dry. Intact. Extremities: 2+ radial pulses bilaterally. No lower extremity edema. Neuro: Off sedation. laboratory and microbiology Laboratory Tests 08/01/24 03:14 Test 08/01/24 03:14 Range/Units Serum Glucose 117 H 74-106 mg/dL Assessment/Plan Impression: Acute hypoxic respiratory failure Acute hypercarbic respiratory failure On mechanical ventilator Acute metabolic encephalopathy Shock Pulmonary edema. Pleural effusion Atelectasis Acute kidney injury Obesity, BMI 30.6 Events: Remains on vent support On AC mode with RR 20, VT 550, PEEP 5, FiO2 35% Continue antibiotics Off sedation Chest tube output - serosanguineous fluid, 10-20 ml per shift. Awaiting for mentation to improve for CPAP. Labs and imaging reviewed. Rest of plan as noted below. Plan: s/p intubation on mechanical ventilator. CXR image and report reviewed. Devices in place. Cardiomegaly with pulmonary congestion and edema. Pneumonia cannot be excluded. ABG reviewed, c/w acidemia. On AC mode with RR 20, VT 550, PEEP 5, FiO2 35% Titrate FIO2 to keep O2 saturation above 90%. VAP bundle. Daily ABG and CXR while intubated Off sedation Pressors as necessary for hemodynamic support - remains off, hemodynamically stable. Titrate to keep mean arterial pressure greater than 65 mmHg. Continue bronchodilators. NS at 100 ml/hr. Monitor renal function Monitor electrolytes. Supplement as necessary. Monitor ins and outs. Maintain euvolemia. GI prophylaxis. DVT prophylaxis. Prognosis: Poor given patient's multiple co-morbidities. Condition: Critical Rest of plan per hospitalist and other consultants. A total of 35 minutes of critical care time was spent reviewing the patient record, examining the patient, making a diagnostic and therapeutic plan, discussing this plan with the medical personnel, following up on diagnostic studies and following the patient for clinical stability excluding any and all procedures. At least 50% of this time was spent in direct, [id number] contact. Thank you Staci Win, BRITTANY, for allowing me to participate in this patient's care. Further recommendations will depend on the patient's clinical course. Please do not hesitate to contact me if you have any questions or concerns. This medical document was created using an electronic medical record system with [employer] dictation system. Although these documentations are being carefully reviewed, there may still be some phonetic and typographical changes. The errors are purely typographical, due to imperfection on the software program, and do not reflect any compromise in the patient's medical care. Dietary Evaluation Review Comments: 1. Consider EN/TPN if NPO >7days 2. Continue plan of care Expected Outcomes/Goals: 1. Pt will meet >75% of estimated needs within 2-3 days Plan discussed with: Other (CATA Pri[place]) Critical Care Time(min): 35 MICHAEL PEREZ MD Aug 01, 2024 23:18
[2024-08-02] VITALS (86 sets, daily range): BP systolic 113–152; BP diastolic 68–90; PULSE 70–103; RESP 14–30; TEMP 99–100.4; O2SAT 86–100
[2024-08-02 04:01] LABS: Basophils # (auto) 0 10 ^3/uL (0-0.2); Basophils % (auto) 0.2 % (0.0-2.0); Eosinophils # (auto) 0.1 10 ^3/uL (0-0.8); Monocytes # (auto) 0.7 10 ^3/uL (0-1.3); Neutrophils # (auto) 9.1 10 ^3/uL (1.6-8.6)
[2024-08-02 04:04] LABS: Eosinophils % (auto) 0.6 % (0.0-7.0); Hematocrit 44.5 % (41.0-53.0); Hemoglobin 14.8 g/dL (13.5-17.5); Lymphocytes # (auto) 0.8 10 ^3/uL (0.4-5.4); Lymphocytes % (auto) 7.5 % (10.0-50.0); Mean Corpuscular Hemoglobin 35.6 pg (28.0-32.0); Mean Corpuscular Hgb Conc. 33.3 g/dL (32.0-36.0); Mean Corpuscular Volume 106.8 fL (80.0-100.0); Monocytes % (auto) 6.6 % (0.0-12.0); Neutrophils % (auto) 85.1 % (37.0-80.0); Platelet Count (auto) 148 10^3/uL (140-450); Red Blood Cells 4.17 10^6/uL (4.5-5.90); Red Cell Distribution Width 15.7 % (11.8-14.3); White Blood Cell 10.7 10^3/uL (4.4-10.8)
[2024-08-02 04:28] LABS: Alkaline Phosphatase 78 U/L (46-116); Anion Gap 9 (5-15); Aspartate Aminotransferase 23 U/L (13-40); BUN/Creatinine Ratio 14.3 (10.0-20.0); Blood Urea Nitrogen 13 mg/dL (9-23); Chloride 102 mmol/L (98-107); Sodium 142 mmol/L (136-145)
[2024-08-02 04:33] LABS: Potassium 3.2 mmol/L (3.5-5.1)
[2024-08-02 04:34] LABS: Alanine Aminotransferase < 9 U/L (7-40); Albumin 2.9 g/dL (3.2-4.8); Bilirubin, Total 1.2 mg/dL (0.2-1.0); Calcium 8.7 mg/dL (8.7-10.4); Carbon Dioxide 31 mmol/L (20-31); Glucose 148 mg/dL (74-106); Magnesium 1.3 mg/dL (1.6-2.6); Total Protein 5.7 g/dL (5.7-8.2)
[2024-08-02] MEDS: MAGNESIUM SULFATE 1GM/100ML 100 ML IV ONE (05:15)
[2024-08-02] MEDS: POTASSIUM CHL 20MEQ/100ML 100 ML IV SCH (06:04)
[2024-08-02 07:39] LABS: Base Excess 6.7 mmol/L (-2.0-3.0)
--- NOTE | 2024-08-02 07:52 | DVH ---
CLINICAL INFORMATION: 59 years old, Male; intubated. TECHNIQUE: Single AP portable chest radiograph was obtained. COMPARISON: XY CHEST XRAY 1 VIEW on DOS: 08/01/24, XY CHEST XRAY 1 VIEW on DOS: 07/31/24, XY CHEST XR AY 1 VIEW on DOS: 07/30/24 FINDINGS: Stable satisfactory positioning of the endotracheal tube, enteric tube, and right internal jugular ce ntral venous catheter. Bilateral airspace opacities and interstitial opacities appear stable. Right p leural catheter extends to the region of the right costophrenic sulcus, unchanged. Small bilateral pl eural effusions, left greater than right, minimally changed. No other significant interval change. No pneumothorax. IMPRESSION: No significant interval change as detailed above.
--- NOTE | 2024-08-02 08:45 | DVHPN2 ---
Reviewed: Care Plan, H&P, Labs, Medications, Previous Orders, Radiology Changes from previous H/P or p: No Changes Eyes: No Pain, No Vision change, No Conjunctivae inflammation, No Eyelid inflammation, No Other, No Redness ENT: No Ear pain, No Ear discharge, No Nose pain, No Nose discharge, No Nose congestion, No Mouth pain, No Mouth swelling, No Throat pain, No Throat swelling, No Other Cardiovascular: No Chest Pain, No Palpitations, No Orthopnea, No Paroxysmal Noc. Dyspnea, No Edema, No Lt Headedness, No Other Respiratory: No Cough, No Dry, No Shortness of breath, No SOB with excertion, No Wheezing, No Hemoptysis, No Pleuritic Pain, No Sputum, No Other Gastrointestinal: No Nausea, No Vomiting, No Abdominal Pain, No Diarrhea, No Constipation, No Melena, No Hematochezia, No Other Genitourinary: No Dysuria, No Frequency, No Incontinence, No Hematuria, No Retention, No Other Musculoskeletal: No other, No neck pain, No shoulder pain, No arm pain, No back pain, No hand pain, No leg pain, No foot pain Skin: No Rash, No Lesions, No Jaundice, No Bruising, No Other Objective Vitals Vital Signs Date Time Temp Pulse Resp B/P (MAP) Pulse Ox O2 Delivery O2 Flow Rate FiO2 08/02/24 08:23 90 23 139/85 (103) 94 35 08/02/24 06:45 99.7 211.5 08/02/24 06:00 Mechanical Ventilator+ Intake/Output Intake and Output 08/02/24 07:00 Intake Total 1253 ml Output Total 2545 ml Balance -1292 ml Intake Oral 645 ml IV Total 350 ml Tube Feeding 258 ml Output Urine Total 2300 ml Stool Total 225 ml Chest Tube Drainage Total 20 ml General Appearance: Other (Intubated, on vent, unable to exam.) HEENT: Atraumatic Neck: Supple Lungs: Clear to auscultation, Normal air movement Cardiovascular: Regular rate, Normal S1, Normal S2, No murmurs, Gallops, Rubs Abdomen: Normal bowel sounds, Soft, No tenderness Neuro: Cranial nerves 3-12 NL Psych/Mental Status: Mental status NL Medications Current Medications Medications Dose Ordered Sig/Miky Route Start Time Stop Time Status Last Admin Dose Admin Nitroglycerin 0.4 mg Q5MINP PRN SL 11/22/24 14:45 Morphine Sulfate 2 mg Q30M PRN IV 07/24/24 14:45 Diagnostic Test (Pha) 1 strip Q6HR 07/24/24 18:00 08/02/24 06:09 1 STRIP Insulin Human Regular Q6HR SC 07/24/24 18:00 07/31/24 05:42 2 UNITS Dextrose 50 ml UD PRN IV 07/24/24 15:00 Acetaminophen 650 mg Q6HP PRN [place] 07/24/24 19:15 Albuterol 2.5 mg Q4HPRN PRN NEB 07/25/24 06:45 07/30/24 18:21 2.5 MG Ipratropium [employer] 0.5 mg Q4HPRN PRN NEB 07/25/24 06:45 07/30/24 18:22 0.5 MG Lorazepam 1 mg Q2HP PRN IV 07/25/24 09:45 07/25/24 16:05 1 MG Midazolam HCl 50 ml @ 1 mls/hr Q24H IV 07/25/24 14:15 07/30/24 09:20 7.5 MLS/HR Norepinephrine Bitartrate 250 ml @ 3.75 mls/hr Q24H IV 07/25/24 15:15 07/31/24 16:22 3.75 MLS/HR Fentanyl Citrate 250 ml @ 2.5 mls/hr Q24H IV 07/25/24 17:30 07/29/24 23:33 12.5 MLS/HR Enteral Nutritional Formula 1,000 ml 60ML/HR GT 07/27/24 13:15 08/01/24 18:38 1,000 ML Piperacillin Sod/ Tazobactam Sod 100 ml @ 25 mls/hr Q8HR IV 07/27/24 22:00 08/02/24 06:04 25 MLS/HR Pantoprazole Sodium 40 mg DAILY IV 07/28/24 10:00 08/01/24 09:55 40 MG Amiodarone HCl 200 mg DAILY PO 07/28/24 10:00 08/01/24 09:56 200 MG Lactulose 30 ml BID PO 07/27/24 22:00 08/01/24 23:39 30 ML Enoxaparin Sodium 40 mg DAILY SC 07/28/24 10:00 Hold 07/31/24 09:59 40 MG Purified Water 150 ml Q6HR GT 07/28/24 18:00 08/02/24 00:00 150 ML Dexmedetomidine HCl 400 mcg/ Dextrose 100 ml @ 4.615 mls/ hr [id number] IV 07/30/24 10:15 07/30/24 12:08 4.615 MLS/HR Furosemide 40 mg DAILY IV 07/31/24 10:00 08/01/24 09:55 40 MG Spironolactone 100 mg DAILY NG 07/31/24 10:00 08/01/24 11:38 100 MG Metoclopramide HCl 10 mg Q8HR IV 07/31/24 14:00 08/02/24 06:00 10 MG Sennosides 17.2 mg QHSP PO 07/31/24 22:00 08/01/24 23:40 17.2 MG Docusate Sodium 200 mg BID GT 07/31/24 22:00 08/01/24 23:40 200 MG Potassium Chloride 100 ml @ 50 mls/hr Q2H IV 08/02/24 05:15 08/02/24 09:14 08/02/24 08:04 50 MLS/HR Laboratory Results Laboratory Tests 08/02/24 03:22 Chemistry Test 08/02/24 03:22 Albumin 2.9 g/dL (3.2-4.8) L Calcium Level 8.7 mg/dL (8.7-10.4) Magnesium Level 1.3 mg/dL (1.6-2.6) L Phosphorus Level 2.0 mg/dL (2.4-5.1) L Total Protein 5.7 g/dL (5.7-8.2) Cardiac Markers Test 08/02/24 03:22 B-Type Natriuretic Peptide 412.10 pg/mL (0-100) LFT Test 08/02/24 03:22 Alanine Aminotransferase (ALT) < 9 U/L (7-40) Alkaline Phosphatase 78 U/L (46-116) Aspartate Amino Transferase (AST) 23 U/L (13-40) Total Bilirubin 1.2 mg/dL (0.2-1.0) H Urinalysis Test 07/24/24 12:21 07/26/24 12:00 Urine Hyaline Casts Many /lpf (0 - 2) Urine Color Yellow (Yellow) Urine Clarity Turbid (Clear) H Urine pH 5.5 (5.0-9.0) Urine Specific [place] 1.016 (1.001-1.035) Urine Protein Negative (Negative) Urine Ketones Negative (Negative) Urine Blood 2+ /uL (Negative) H Urine Nitrite Negative (Negative) Urine Bilirubin Negative (Negative) Urine Urobilinogen 3 mg/dL (Negative) H Urine Leukocyte Esterase 1+ /uL (Negative) Urine RBC 33 /hpf (0 - 3) Urine WBC 13 /hpf (0 - 3) Urine Squamous Epithelial Cells Few /hpf (<5) Urine Uric Acid Crystals Few /hpf (None Seen) Urine Bacteria None seen /hpf (None Seen) Urine Mucus Few (None Seen) Urine Glucose Normal mg/dL (Normal) Blood Gas Results Test 08/02/24 07:29 Arterial Blood pH 7.429 (7.350-7.450) FiO2 % 35.0 Microbiology Microbiology Date/Time Source Procedure Growth Status 07/28/24 13:22 Bronchial Washings Gram Stain - Final Complete 07/28/24 13:22 Bronchial Washings Respiratory Culture - Final Complete 07/27/24 12:30 Ascities Fluid Gram Stain - Final Complete 07/27/24 12:30 Ascities Fluid Body Fluid Culture - Final Complete 07/25/24 16:51 Nose MRSA Screen - Final Complete 07/24/24 12:21 Urine - [place] Urine Culture - Final Complete 07/24/24 11:52 Blood Blood Culture - Final NO GROWTH AFTER 5 DAYS OF INCUBATION. Complete Labs and/or images reviewed: Labs reviewed by me, Image(s) reviewed by me Assessment/Plan Assessment/Plan Covering for Resident Acute Hypoxic respiratory failure: Intubated on 35 % FiO2 following MRSA Bacteremia on Zosyn Altered mental status. CHF exacerbation. Leukocytosis. UTI. Elevated ammonia levels. Pleural Effusion. Liver Cirrhosis. Continue current management Time spent 65 minutes Condition guarded Plan discussed with: Patient Date of Service: Aug 02, 2024 Billing Provider: RODY CAMPOS MD Common Visit Codes: [id number] CARE 30-74 MIN RDOY CAMPOS MD Aug 02, 2024 08:45
[2024-08-02] MEDS: POTASSIUM PHOSPHATE 26.4 MEQ in SODIUM CHL 0.9% 100 ML IV ONE (11:27)
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
[2024-08-02] MEDS: FUROSEMIDE 40 MG/4 ML VIAL IV SCH (17:58)
[2024-08-02] MEDS: DexmedeTOMIDine 2 ML IV ONE (21:48)
--- NOTE | 2024-08-02 23:00 | DVHPN2 ---
Progress Note - Dictate Date Seen: Aug 02, 2024 Has the PT tested + for MRSA If YES, has PT been informed?: Yes Medical Necessity Reason Pt with a Central, PICC or Fol: Yes The following are medically ne: Gentile Catheter Reason for gentile catheter: Strict I&O Subjective Patient seen and examined at bedside. Intubated on mechanical ventilator. Overnight events reviewed. vital signs Vital Sign Date Time Temp Pulse Resp B/P (MAP) Pulse Ox O2 Delivery O2 Flow Rate FiO2 08/02/24 22:06 95 25 131/76 (94) 95 40 08/02/24 18:00 Mechanical Ventilator+ 08/02/24 11:45 99.1 210.4 Total Intake and Output 08/01/24 08/01/24 08/02/24 15:00 23:00 07:00 Intake Total 100 ml 435 ml 718 ml Output Total 1885 ml 660 ml Balance 100 ml -1450 ml 58 ml medications Current Medications Medications Dose Ordered Sig/Miky Route Start Time Stop Time Status Last Admin Dose Admin Nitroglycerin 0.4 mg Q5MINP PRN SL 07/24/24 14:45 Diagnostic Test (Pha) 1 strip Q6HR 07/24/24 18:00 08/02/24 17:59 1 STRIP Insulin Human Regular Q6HR SC 07/24/24 18:00 08/02/24 11:42 2 UNITS Dextrose 50 ml UD PRN IV 07/24/24 15:00 Acetaminophen 650 mg Q6HP PRN [place] 07/24/24 19:15 Albuterol 2.5 mg Q4HPRN PRN NEB 07/25/24 06:45 07/30/24 18:21 2.5 MG Ipratropium [place] 0.5 mg Q4HPRN PRN NEB 07/25/24 06:45 07/30/24 18:22 0.5 MG Lorazepam 1 mg Q2HP PRN IV 07/25/24 09:45 07/25/24 16:05 1 MG Midazolam HCl 50 ml @ 1 mls/hr Q24H IV 07/25/24 14:15 07/30/24 09:20 7.5 MLS/HR Norepinephrine Bitartrate 250 ml @ 3.75 mls/hr Q24H IV 07/25/24 15:15 07/31/24 16:22 3.75 MLS/HR Fentanyl Citrate 250 ml @ 2.5 mls/hr Q24H IV 07/25/24 17:30 07/29/24 23:33 12.5 MLS/HR Enteral Nutritional Formula 1,000 ml 60ML/HR GT 07/27/24 13:15 08/01/24 18:38 1,000 ML Piperacillin Sod/ Tazobactam Sod 100 ml @ 25 mls/hr Q8HR IV 07/27/24 22:00 08/02/24 14:24 25 MLS/HR Pantoprazole Sodium 40 mg DAILY IV 07/28/24 10:00 08/02/24 10:13 40 MG Amiodarone HCl 200 mg DAILY PO 07/28/24 10:00 08/02/24 10:13 200 MG Lactulose 30 ml BID PO 07/27/24 22:00 08/02/24 10:12 30 ML Enoxaparin Sodium 40 mg DAILY SC 07/28/24 10:00 Hold 07/31/24 09:59 40 MG Purified Water 150 ml Q6HR GT 07/28/24 18:00 08/02/24 17:59 150 ML Dexmedetomidine HCl 400 mcg/ Dextrose 100 ml @ 4.615 mls/ hr [id number] IV 07/30/24 10:15 07/30/24 12:08 4.615 MLS/HR Spironolactone 100 mg DAILY NG 07/31/24 10:00 08/02/24 10:13 100 MG Metoclopramide HCl 10 mg Q8HR IV 07/31/24 14:00 08/02/24 06:00 10 MG Sennosides 17.2 mg QHSP PO 07/31/24 22:00 08/01/24 23:40 17.2 MG Docusate Sodium 200 mg BID GT 07/31/24 22:00 08/02/24 10:12 200 MG Furosemide 40 mg BID IV 08/02/24 18:00 08/02/24 17:58 40 MG objective Gen.: Patient lying in bed in medical ICU. Intubated on mechanical ventilator. Head: Normocephalic, atraumatic. Eyes: PERRLA. Ears: Normal external anatomy. Throat: Endotracheal tube and orogastric tube in place. Neck: Supple, trachea midline. Chest: Transmitted breath sounds bilaterally. Decreased air entry bilaterally. No wheezing. Bibasilar crackles. Cardiovascular: Positive S1, positive S2. Regular rate and rhythm. Abdomen: Positive bowel sounds in all 4 quadrants. Soft, nontender, nondistended. : Gentile in place. Normal external genitalia. Rectal: Deferred. Skin: Warm, dry. Intact. Extremities: 2+ radial pulses bilaterally. No lower extremity edema. Neuro: Off sedation; awake, alert, follows commands. laboratory and microbiology Laboratory Tests 08/02/24 22:20 08/02/24 03:22 Test 08/02/24 03:22 Range/Units Serum Glucose 148 H 74-106 mg/dL Assessment/Plan Impression: Acute hypoxic respiratory failure Acute hypercarbic respiratory failure On mechanical ventilator Acute metabolic encephalopathy Shock Pulmonary edema. Pleural effusion Atelectasis Acute kidney injury Obesity, BMI 30.6 Events: Remains on vent support On AC mode with RR 20, VT 550, PEEP 5, FiO2 40% Continue antibiotics Tube feeds for nutritional support. Off sedation - awake, alert, follows commands. Chest tube output less than 50 mL per shift. Recommend to remove chest tube. Failed CPAP trial due to tachypnea. Labs and imaging reviewed. Rest of plan as noted below. Plan: s/p intubation on mechanical ventilator. CXR image and report reviewed. Devices in place. Cardiomegaly with pulmonary congestion and edema. Pneumonia cannot be excluded. ABG reviewed, c/w acidemia. On AC mode with RR 20, VT 550, PEEP 5, FiO2 40% Titrate FIO2 to keep O2 saturation above 90%. VAP bundle. Daily ABG and CXR while intubated Off sedation Pressors as necessary for hemodynamic support - remains off, hemodynamically stable. Titrate to keep mean arterial pressure greater than 65 mmHg. Continue bronchodilators. NS at 100 ml/hr. Monitor renal function Monitor electrolytes. Supplement as necessary. Monitor ins and outs. Maintain euvolemia. GI prophylaxis. DVT prophylaxis. Prognosis: Poor given patient's multiple co-morbidities. Condition: Critical Rest of plan per hospitalist and other consultants. A total of 35 minutes of critical care time was spent reviewing the patient record, examining the patient, making a diagnostic and therapeutic plan, discussing this plan with the medical personnel, following up on diagnostic studies and following the patient for clinical stability excluding any and all procedures. At least 50% of this time was spent in direct, [id number] contact. Thank you Staci Win, BRITTANY, for allowing me to participate in this patient's care. Further recommendations will depend on the patient's clinical course. Please do not hesitate to contact me if you have any questions or concerns. This medical document was created using an electronic medical record system with [employer] dictation system. Although these documentations are being carefully reviewed, there may still be some phonetic and typographical changes. The errors are purely typographical, due to imperfection on the software program, and do not reflect any compromise in the patient's medical care. Dietary Evaluation Review Comments: 1. Consider EN/TPN if NPO >7days 2. Continue plan of care Expected Outcomes/Goals: 1. Pt will meet >75% of estimated needs within 2-3 days Plan discussed with: Other (CATA Albright) Critical Care Time(min): 35 MICHAEL PEREZ MD Aug 02, 2024 22:59
[2024-08-03] VITALS (104 sets, daily range): BP systolic 84–139; BP diastolic 49–86; PULSE 59–93; RESP 11–27; TEMP 97.6–98.9; O2SAT 91–100
[2024-08-03 03:55] LABS: Eosinophils # (auto) 0.1 10 ^3/uL (0-0.8); Hematocrit 42.2 % (41.0-53.0); Monocytes # (auto) 0.8 10 ^3/uL (0-1.3); Red Blood Cells 4.04 10^6/uL (4.5-5.90)
[2024-08-03 03:59] LABS: Basophils # (auto) 0 10 ^3/uL (0-0.2); Basophils % (auto) 0.4 % (0.0-2.0); Eosinophils % (auto) 0.7 % (0.0-7.0); Hemoglobin 14.1 g/dL (13.5-17.5); Lymphocytes # (auto) 0.9 10 ^3/uL (0.4-5.4); Lymphocytes % (auto) 8.2 % (10.0-50.0); Mean Corpuscular Hemoglobin 34.8 pg (28.0-32.0); Mean Corpuscular Hgb Conc. 33.4 g/dL (32.0-36.0); Mean Corpuscular Volume 104.3 fL (80.0-100.0); Monocytes % (auto) 7.4 % (0.0-12.0); Neutrophils # (auto) 9.3 10 ^3/uL (1.6-8.6); Neutrophils % (auto) 83.3 % (37.0-80.0); Platelet Count (auto) 148 10^3/uL (140-450); Red Cell Distribution Width 14.9 % (11.8-14.3); White Blood Cell 11.1 10^3/uL (4.4-10.8)
[2024-08-03 04:06] LABS: Calcium 8.8 mg/dL (8.7-10.4); Sodium 140 mmol/L (136-145)
[2024-08-03 04:07] LABS: Anion Gap 9 (5-15)
[2024-08-03 04:12] LABS: BUN/Creatinine Ratio 11.5 (10.0-20.0); Blood Urea Nitrogen 10 mg/dL (9-23)
[2024-08-03 04:14] LABS: Phosphorus 2.5 mg/dL (2.4-5.1)
[2024-08-03 04:22] LABS: Carbon Dioxide 34 mmol/L (20-31); Chloride 97 mmol/L (98-107); Glucose 134 mg/dL (74-106); Magnesium 1.4 mg/dL (1.6-2.6); Potassium 2.9 mmol/L (3.5-5.1)
[2024-08-03] MEDS: DexmedeTOMIDine 4 ML IV ONE (04:31)
--- NOTE | 2024-08-03 04:33 | DVH ---
CHEST RADIOGRAPH Indication: intubated Technique: Single frontal view of the chest was obtained COMPARISON: XY CHEST PORTABLE on DOS: 08/02/24, XY CHEST XRAY 1 VIEW on DOS: 08/01/24, XY CHEST XRAY 1 VIEW on DOS: 07/31/24 FINDINGS: Lines and Tubes: Endotracheal tube, enteric catheter and right central venous catheter in satisfactor y position. Right chest tube overlies the right lateral chest. Lungs: Multifocal airspace disease. Pleura: No effusion. No pneumothorax. Cardiomediastinal contours: Unremarkable Bones: Unremarkable IMPRESSION: Lines and tubes in satisfactory position. No significant interval change.
[2024-08-03 07:46] LABS: Base Excess 8.7 mmol/L (-2.0-3.0)
[2024-08-03] MEDS ORDERED: MAGNESIUM SULFATE 1GM/100ML 100 ML IV SCH (08:00)
[2024-08-03] MEDS: MAGNESIUM SULFATE 1GM/100ML 100 ML IV SCH (08:06)
[2024-08-03] MEDS: POTASSIUM CHL 20MEQ/100ML 100 ML IV SCH (08:45)
[2024-08-03] MEDS ORDERED: POTASSIUM CHL 20MEQ/100ML 100 ML IV SCH (10:00)
[2024-08-03] MEDS: POTASSIUM PHOSPHATE 22 MEQ in SODIUM CHL 0.9% 100 ML IV ONE (10:32)
[2024-08-03] MEDS ORDERED: VANCOMYCIN PER PHARMACY 0 MG IV SCH (11:15)
[2024-08-03 12:39] LABS: INR 1.25 (0.9-1.15); Partial Thromboplastin Time 32.2 SEC (24.5-34.5)
[2024-08-03 13:12] LABS: Chloride 98 mmol/L (98-107); Potassium 3.6 mmol/L (3.5-5.1); Sodium 137 mmol/L (136-145)
[2024-08-03 13:13] LABS: Anion Gap 4 (5-15); Calcium 8.8 mg/dL (8.7-10.4); Carbon Dioxide 35 mmol/L (20-31)
[2024-08-03 13:18] LABS: BUN/Creatinine Ratio 11.4 (10.0-20.0); Blood Urea Nitrogen 10 mg/dL (9-23); Glucose 150 mg/dL (74-106)
[2024-08-03 13:19] LABS: Magnesium 1.7 mg/dL (1.6-2.6)
[2024-08-03 13:20] LABS: Phosphorus 3.6 mg/dL (2.4-5.1)
[2024-08-03] MEDS: VANCOMYCIN 1GM/250ML KIT 200 ML IV SCH (13:28)
[2024-08-03] MEDS: LIDOCAINE 1% (LOCAL ANESTH.) PF 5ml SDV ID ONE (15:55)
--- NOTE | 2024-08-03 16:03 | DVH ---
Procedure: CT CHEST WITHOUT CONTRAST Reason for study/Clinical History: RIGTH EFFUSION LOCULATED Comparison Study: None available at time of dictation. Exam Date: 08/03/2024 03:18 PM TECHNIQUE: Multidetector CT of the chest was performed from the lung apices to the upper abdomen with out the use of intravenous contract. Axial, coronal and sagittal multiplanar reformats were performed . Radiation Dose Information: CT Dose: CTDI volume is 17.32 mGy. Dose-length product is 610.32 mGy*cm The dose indicators for CT are the volume Computed Tomography (CT) Dose Index (CTDIvol) and the Dose Length Product (DLP), and are measured in units of mGy and mGy-cm, respectively. These indicators are not patient dose, but values generated from the CT scanner acquisition factors. The report includes radiation exposure data for exposures received during this examination. FINDINGS: Lower neck: Normal thyroid. Lungs: Multifocal airspace opacities with more focal atelectasis / consolidation in the bilateral low er lobes, [id number]-right. Few foci of air are present in right lower lobe consolidation silvia uring 3.8 cm. Heart/Vascular Structures: Cardiomegaly. Coronary artery calcifications. Vascular calcifications of t he aorta. Lymph Nodes: No adenopathy Pleura: Small bilateral pleural effusions, [id number]-right. Right chest tube in satisfactory position. Musculoskeletal: No acute osseous abnormality. Soft tissues: Normal. Upper abdomen: Small volume perihepatic ascites. Enteric catheter in the stomach. IMPRESSION: Multifocal airspace disease. Few foci of air are present in right lower lobe consolidation measuring 3.8 cm. This is a nonspecific finding but could represent small intraparenchymal pulmonary abscess. Small bilateral pleural effusions, [id number]-right. No loculated pleural effusion. Radiation optimization: All CT scans at this facility use at least one of these dose optimization haile hniques: automated exposure control mA and/or kV adjustment per patient size (includes targeted exam s where dose is matched to clinical indication) or iterative reconstruction.
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
[2024-08-03] MEDS: SODIUM CHLOR 0.9% PF (SALINE LOCK) 10ML VIAL/SYR IV SCH (21:33)
--- NOTE | 2024-08-03 21:41 | DVHPNRES ---
Progress Note Date Seen: Aug 04, 2024 Resident Creating Document: RADHA KING PRASANNA Has the PT tested + for MRSA If YES, has PT been informed?: Yes Medical Necessity Reason Pt with a Central, PICC or Fol: Yes The following are medically ne: Gentile Catheter Reason for gentile catheter: Strict I&O Subjective Review of Systems Patient seen and examined at the bedside. Patient is sedated and on mechanical ventilation. Review of system could not obtain. CPAP trial was planned, but due to high oxygen requirement and no significant improvement in chest imaging, trial was not performed. Patient is awake and calm. Patient reports: No new complaints Changes from previous H/P or p: No Changes Objective vital signs Vital Sign Date Time Temp Pulse Resp B/P (MAP) Pulse Ox O2 Delivery O2 Flow Rate FiO2 08/03/24 21:23 108/62 08/03/24 20:45 79 20 95 08/03/24 20:19 40 08/03/24 20:00 Mechanical Ventilator+ 08/03/24 20:00 98.8 98.8 Total Intake and Output 08/02/24 08/02/24 08/03/24 15:00 23:00 07:00 Intake Total 200 ml 125 ml 542.500 ml Output Total 2360 ml 3010 ml Balance 200 ml -2235 ml -2467.500 ml medications Current Medications Medications Dose Ordered Sig/Miky Route Start Time Stop Time Status Last Admin Dose Admin Nitroglycerin 0.4 mg Q5MINP PRN SL 07/24/24 14:45 Diagnostic Test (Pha) 1 strip Q6HR 07/24/24 18:00 08/03/24 17:47 1 STRIP Insulin Human Regular Q6HR SC 07/24/24 18:00 08/03/24 17:49 2 UNITS Dextrose 50 ml UD PRN IV 07/24/24 15:00 Acetaminophen 650 mg Q6HP PRN AK 07/24/24 19:15 Albuterol 2.5 mg Q4HPRN PRN NEB 07/25/24 06:45 07/30/24 18:21 2.5 MG Ipratropium [place] 0.5 mg Q4HPRN PRN NEB 07/25/24 06:45 07/30/24 18:22 0.5 MG Lorazepam 1 mg Q2HP PRN IV 07/25/24 09:45 07/25/24 16:05 1 MG Midazolam HCl 50 ml @ 1 mls/hr Q24H IV 07/25/24 14:15 07/30/24 09:20 7.5 MLS/HR Norepinephrine Bitartrate 250 ml @ 3.75 mls/hr Q24H IV 07/25/24 15:15 08/03/24 11:41 3.75 MLS/HR Enteral Nutritional Formula 1,000 ml 60ML/HR GT 07/27/24 13:15 08/03/24 01:53 1,000 ML Piperacillin Sod/ Tazobactam Sod 100 ml @ 25 mls/hr Q8HR IV 07/27/24 22:00 08/03/24 21:32 25 MLS/HR Pantoprazole Sodium 40 mg DAILY IV 07/28/24 10:00 08/03/24 09:41 40 MG Amiodarone HCl 200 mg DAILY PO 07/28/24 10:00 08/03/24 09:43 200 MG Lactulose 30 ml BID PO 07/27/24 22:00 08/03/24 21:31 30 ML Enoxaparin Sodium 40 mg DAILY SC 07/28/24 10:00 Hold 07/31/24 09:59 40 MG Purified Water 150 ml Q6HR GT 07/28/24 18:00 08/03/24 17:47 150 ML Dexmedetomidine HCl 400 mcg/ Dextrose 100 ml @ 4.615 mls/ hr [id number] IV 07/30/24 10:15 08/03/24 21:23 9.23 MLS/HR Spironolactone 100 mg DAILY NG 07/31/24 10:00 08/03/24 09:43 100 MG Docusate Sodium 200 mg BID GT 07/31/24 22:00 08/03/24 21:32 200 MG Vancomycin HCl 0 ml @ 0 mls/hr UD IV 08/03/24 11:15 Vancomycin HCl 200 ml @ 200 mls/hr Q12H IV 08/03/24 13:00 08/03/24 13:28 200 MLS/HR Sodium Chloride 10 ml QSHIFT@10,22 IV 08/03/24 22:00 08/03/24 21:33 10 ML Examination General: RASS 0, afebrile, mucosae are moist Cardiovascular: Normal S1 and S2. No murmurs, gallops or rubs Respiratory: Mechanically assisted ventilation, equal bilateral airway entree. Bilateral harsh breath sounds Abdomen: Soft, nontender, no organomegaly, normal bowel sounds MSK/skin: Mobilization of limbs cannot be evaluated. Skin is dry and warm. Neurological: Orientation cannot be assessed. No apparent motor no sensitive deficits. Pupils are isocoric and reactive laboratory and microbiology Laboratory Tests 08/03/24 12:50 08/03/24 03:27 Test 08/03/24 12:50 Range/Units Serum Glucose 150 H 74-106 mg/dL Microbiology Date/Time Source Procedure Growth Status 07/28/24 13:22 Bronchial Washings Gram Stain - Final Complete 07/28/24 13:22 Bronchial Washings Respiratory Culture - Final Complete 07/27/24 12:30 Ascities Fluid Gram Stain - Final Complete 07/27/24 12:30 Ascities Fluid Body Fluid Culture - Final Complete 07/25/24 16:51 Nose MRSA Screen - Final Complete 07/24/24 12:21 Urine - Gentile Port Urine Culture - Final Complete 07/24/24 11:52 Blood Blood Culture - Final NO GROWTH AFTER 5 DAYS OF INCUBATION. Complete Labs and/or images reviewed: Labs reviewed by me, Image(s) reviewed by me Problem List/Assessment/Plan Problem List/Assessment/Plan NEURO: Acute metabolic encephalopathy, likely due to sepsis/liver cirrhosis Patient is sedated and on mechanical ventilation, with the setting of (VT 550, RR 20, FiO2 40% and peep 5) RASS score 0 CARDIOVASCULAR: Atrial flutter, upon admission, currently sinus rhythm Chads Vasc score could not calculated, patient is homeless and has no point of contact and history could not obtain Cardiology is on the board Echocardiogram from 07/24 shows normal left ventricular systolic 80 function with ejection fraction 60%, mild pericardial effusion, moderate pulmonary hypertension with RSVP more than 50 Amiodarone 200 mg daily Lovenox 40 mg daily PULMONARY: Patient is sedated and on mechanical ventilation, with the setting of (VT 550, RR 24, FiO2 40% and peep 5) Acute hypoxic and hypercarbic respiratory failure likely due to pneumonia Pneumonia likely due MRSA Hydropneumothorax, chest tube is in place Parapneumonic loculated pleural effusion Septic shock likely due to pneumonia Chest CT scan from 07/25 shows bilateral pneumonia with bilateral loculated pleural effusions ABGs shows respiratory acidosis with metabolic compensation Chest ultrasound on 07/29/2024 shows trace left-sided pleural effusion and thoracentesis could not perform COVID-19 and flu are negative Breathing treatment q.4 hours, as needed Sputum culture from from 07/25 shows MRSA sensitive to vancomycin CPAP trial was planned, but due to high requirement of oxygen and no significant improvement in chest imaging, the trial delayed Continue Zosyn, started on 07/27 Started back vancomycin Repeat chest CT scan GI: Liver cirrhosis Ascites due to liver cirrhosis Transaminitis, likely due to septic shock Paracentesis has been performed, 2 L removed, ascitic fluid exam shows WBC 1548 (polymorphonuclear cells 90), RBC 2159 Ammonia level at 07/24 was 70, decreased to less than 10 on 07/28 Discontinue Lasix Discontinue Reglan Continue Spironolactone 100 mg daily Check ammonia at AM Bowel regimen: Lactulose 30 mL b.i.d. and Colace 200 mg b.i.d. GI ppx: Protonix 40 mg daily RENAL: SHAMIR, likely hemodynamically mediated, improved ID: HIV and hepatitis panel, negative Blood and urine culture from 07/14 was negative Sputum culture from 07/25 shows MRSA Pleural fluid culture from 07/25 shows no growth Ascitic fluid culture from 07/27 shows no growth BAL culture from 07/28 shows moderate normal tammi growth Continue Zosyn and start back vancomycin HEME Thrombocytopenia, likely due to liver cirrhosis Monitoring Endocrine: Check TSH Metabolic: Hyperchloremia Moderate hypokalemia, supplemented Hypomagnesemia, supplemented Hypernatremia, normalized Continue pure water 150 mL q.6 hours LINES/DRAINS/ACCESS: ETT: Intubated on 07/26/2024 IV access Right internal jugular CVC, placed on 07/26/2024, removed on 08/04 Right-sided upper limb PICC line, placed on 08/04 Transurethral Gentile catheter, placed on 07/25/2024 Chest tube placed on 07/25/2024, drainage 50 male with a past 24 hours, we are considering to take out chest tube for tomorrow Drips: Levophed 2 Precedex 0.2 DVT prophylaxis Lovenox DIET: Glucerna via OG tube 60 mL/hour CODE STATUS: Full code Patient is homeless, social media project manager on the board and has been the contacted and evaluated the patient. Critical time spent more than 84 minutes, including patient care, chart review. excluding any procedures. Case discussed with Plan discussed with: Patient, Other (RN) My Orders My Orders Orders - RADHA KING Procedure Category Date Status Time Abg W/ Co-Ox RT 08/03/24 Logged 05:21 Ammonia LAB 08/04/24 Verified 04:00 D/C Tlc HA 08/03/24 In Process 16:52 Comprehensive LAB 08/04/24 Verified Metabolic Panel 04:00 Chest Xray 1 View XY 08/04/24 Logged 04:00 Abg W/ Co-Ox RT 08/04/24 Logged 04:00 Dietary Evaluation Review Comments: 1. Consider EN/TPN if NPO >7days 2. Continue plan of care Expected Outcomes/Goals: 1. Pt will meet >75% of estimated needs within 2-3 days Date of Service: Aug 03, 2024 Billing Provider: SUSY ARREGUIN MD Common Visit Codes: 21767-[id number] CARE 30-74 MIN, [id number] CARE-EACH +30MIN RADHA KING RESMAIAENT Aug 03, 2024 21:41 SUSY ARREGUIN MD Aug 04, 2024 10:55
[2024-08-04] VITALS (96 sets, daily range): BP systolic 93–135; BP diastolic 55–79; PULSE 59–99; RESP 14–31; TEMP 97.9–98.8; O2SAT 89–98
[2024-08-04 04:23] LABS: Basophils # (auto) 0 10 ^3/uL (0-0.2); Basophils % (auto) 0.3 % (0.0-2.0); Eosinophils # (auto) 0.1 10 ^3/uL (0-0.8); Eosinophils % (auto) 1.4 % (0.0-7.0); Mean Corpuscular Volume 104.8 fL (80.0-100.0); Monocytes # (auto) 0.7 10 ^3/uL (0-1.3)
[2024-08-04 04:24] LABS: Hematocrit 40.8 % (41.0-53.0); Hemoglobin 13.7 g/dL (13.5-17.5); Lymphocytes % (auto) 10.6 % (10.0-50.0); Mean Corpuscular Hemoglobin 35.3 pg (28.0-32.0); Mean Corpuscular Hgb Conc. 33.7 g/dL (32.0-36.0); Monocytes % (auto) 7.4 % (0.0-12.0); Neutrophils # (auto) 7.8 10 ^3/uL (1.6-8.6); Neutrophils % (auto) 80.3 % (37.0-80.0); Nucleated Red Blood Cells % 0.1 %; Platelet Count (auto) 170 10^3/uL (140-450); Red Blood Cells 3.89 10^6/uL (4.5-5.90); Red Cell Distribution Width 14.9 % (11.8-14.3); White Blood Cell 9.7 10^3/uL (4.4-10.8)
[2024-08-04 04:31] LABS: Alkaline Phosphatase 56 U/L (46-116); Calcium 8.8 mg/dL (8.7-10.4); Chloride 99 mmol/L (98-107)
--- NOTE | 2024-08-04 04:31 | DVH ---
CHEST RADIOGRAPH Indication: Pneumonia Technique: Single frontal view of the chest was obtained COMPARISON: XY CHEST PORTABLE on DOS: 08/03/24, XY CHEST PORTABLE on DOS: 08/02/24, XY CHEST XRAY 1 VIE W on DOS: 08/01/24, XY CHEST PORTABLE on DOS: 08/03/24 FINDINGS: Lines and Tubes: Endotracheal tube, enteric catheter and right central venous catheter in satisfactor y position. Right chest tube overlies the right lateral chest. Lungs: Multifocal airspace disease. Pleura: No effusion. No pneumothorax. Cardiomediastinal contours: Unremarkable Bones: Unremarkable IMPRESSION: Lines and tubes in satisfactory position. No significant interval change.
[2024-08-04 04:32] LABS: Anion Gap 9 (5-15); BUN/Creatinine Ratio 14.1 (10.0-20.0); Blood Urea Nitrogen 10 mg/dL (9-23); Carbon Dioxide 30 mmol/L (20-31); Glucose 133 mg/dL (74-106); Potassium 3.2 mmol/L (3.5-5.1); Sodium 138 mmol/L (136-145)
[2024-08-04 04:33] LABS: Albumin 2.8 g/dL (3.2-4.8); Aspartate Aminotransferase 20 U/L (13-40); Bilirubin, Total 1.2 mg/dL (0.2-1.0)
[2024-08-04 04:34] LABS: Total Protein 5.5 g/dL (5.7-8.2)
[2024-08-04 04:48] LABS: Alanine Aminotransferase < 9 U/L (7-40)
[2024-08-04] MEDS: MAGNESIUM SULFATE 1GM/100ML 100 ML IV SCH (06:29)
[2024-08-04] MEDS: POTASSIUM CHL 20MEQ/100ML 100 ML IV SCH (06:29)
[2024-08-04 09:12] LABS: Free T3 1.79 pg/mL (2.3-4.2)
[2024-08-04] MEDS: ENOXAPARIN SOD 40 MG/0.4 ML SYRINGE SC SCH (09:16)
[2024-08-04 09:56] LABS: Base Excess 3.1 mmol/L (-2.0-3.0)
[2024-08-04] MEDS: POTASSIUM CHL 20MEQ/100ML 100 ML IV ONE (12:08)
[2024-08-04] MEDS: FUROSEMIDE 20 MG/2 ML VIAL IV ONE (12:09)
--- NOTE | 2024-08-04 16:41 | DVHPNRES ---
Progress Note Date Seen: Aug 04, 2024 Resident Creating Document: RADHA KING PRASANNA Has the PT tested + for MRSA If YES, has PT been informed?: Yes Medical Necessity Reason Pt with a Central, PICC or Fol: Yes The following are medically ne: Gentile Catheter Reason for gentile catheter: Strict I&O Subjective Review of Systems Patient seen and examined at the bedside. CPAP trial was tried, and the patient was put on PSV for 1 hour, the patient could tolerate the CPAP off and extubated successfully. postextubation the patient was put on 40% cool aerosol mask and maintain saturation at 94%. Patient is planned to transferred to the [facility]. Patient reports: Feels better Changes from previous H/P or p: Changes Objective vital signs Vital Sign Date Time Temp Pulse Resp B/P (MAP) Pulse Ox O2 Delivery O2 Flow Rate FiO2 08/04/24 16:00 84 08/04/24 16:00 98.4 27 124/70 (88) 94 98.4 08/04/24 16:00 Nasal Cannula* 3 32 Total Intake and Output 08/03/24 08/03/24 08/04/24 15:00 23:00 07:00 Intake Total 751.920 ml 586.833 ml 1015.61 ml Output Total 795 ml 960 ml Balance 751.920 ml -208.167 ml 55.61 ml medications Current Medications Medications Dose Ordered Sig/Miky Route Start Time Stop Time Status Last Admin Dose Admin Nitroglycerin 0.4 mg Q5MINP PRN SL 07/24/24 14:45 Diagnostic Test (Pha) 1 strip Q6HR 07/24/24 18:00 08/04/24 12:09 1 STRIP Insulin Human Regular Q6HR SC 07/24/24 18:00 08/04/24 12:10 2 UNITS Dextrose 50 ml UD PRN IV 07/24/24 15:00 Acetaminophen 650 mg Q6HP PRN [place] 07/24/24 19:15 Piperacillin Sod/ Tazobactam Sod 100 ml @ 25 mls/hr Q8HR IV 07/27/24 22:00 08/04/24 14:30 25 MLS/HR Pantoprazole Sodium 40 mg DAILY IV 07/28/24 10:00 08/04/24 09:15 40 MG Amiodarone HCl 200 mg DAILY PO 07/28/24 10:00 08/04/24 09:17 200 MG Lactulose 30 ml BID PO 07/27/24 22:00 08/04/24 09:18 30 ML Spironolactone 100 mg DAILY NG 07/31/24 10:00 08/04/24 09:17 100 MG Docusate Sodium 200 mg BID GT 07/31/24 22:00 08/04/24 09:18 200 MG Vancomycin HCl 0 ml @ 0 mls/hr UD IV 08/03/24 11:15 Vancomycin HCl 200 ml @ 200 mls/hr Q12H IV 08/03/24 13:00 08/04/24 12:14 200 MLS/HR Sodium Chloride 10 ml QSHIFT@,22 IV 08/03/24 22:00 08/04/24 09:20 10 ML Enoxaparin Sodium 40 mg DAILY SC 08/04/24 10:00 08/04/24 09:16 40 MG Examination General: RASS 0, afebrile, mucosae are moist Cardiovascular: Normal S1 and S2. No murmurs, gallops or rubs Respiratory: Mechanically assisted ventilation, equal bilateral airway entree. Bilateral harsh breath sounds Abdomen: Soft, nontender, no organomegaly, normal bowel sounds MSK/skin: Mobilization of limbs cannot be evaluated. Skin is dry and warm. Neurological: Orientation cannot be assessed. No apparent motor no sensitive deficits. Pupils are isocoric and reactive laboratory and microbiology Laboratory Tests 08/04/24 03:52 Test 08/04/24 03:52 Range/Units Serum Glucose 133 H 74-106 mg/dL Microbiology Date/Time Source Procedure Growth Status 07/28/24 13:22 Bronchial Washings Gram Stain - Final Complete 07/28/24 13:22 Bronchial Washings Respiratory Culture - Final Complete 07/27/24 12:30 Ascities Fluid Gram Stain - Final Complete 07/27/24 12:30 Ascities Fluid Body Fluid Culture - Final Complete 07/25/24 16:51 Nose MRSA Screen - Final Complete 07/24/24 12:21 Urine - Gentile Port Urine Culture - Final Complete 07/24/24 11:52 Blood Blood Culture - Final NO GROWTH AFTER 5 DAYS OF INCUBATION. Complete Labs and/or images reviewed: Labs reviewed by me, Image(s) reviewed by me Problem List/Assessment/Plan Problem List/Assessment/Plan NEURO: Acute metabolic encephalopathy, likely due to sepsis/liver cirrhosis Patient is successfully extubated, and put on facemask CARDIOVASCULAR: Atrial flutter, upon admission, currently sinus rhythm Chads Vasc score could not calculated, patient is homeless and has no point of contact and history could not obtain Cardiology is on the board Echocardiogram from 07/24 shows normal left ventricular systolic 80 function with ejection fraction 60%, mild pericardial effusion, moderate pulmonary hypertension with RSVP more than 50 Amiodarone 200 mg daily Lovenox 40 mg daily PULMONARY: Acute hypoxic and hypercarbic respiratory failure likely due to pneumonia Pneumonia likely due MRSA Hydropneumothorax, chest tube is in place Parapneumonic loculated pleural effusion Septic shock likely due to pneumonia Chest CT scan from 07/25 shows bilateral pneumonia with bilateral loculated pleural effusions Chest CT scan from 08/03 shows Multifocal airspace disease with few foci of air are present in right lower lobe consolidation measuring 3.8 cm but no loculated effusion ABGs shows respiratory acidosis with metabolic compensation Chest ultrasound on 07/29/2024 shows trace left-sided pleural effusion and thoracentesis could not perform COVID-19 and flu are negative Breathing treatment q.4 hours, as needed Sputum culture from from 07/25 shows MRSA sensitive to vancomycin CPAP trial was planned, but due to high requirement of oxygen and no significant improvement in chest imaging, the trial delayed Continue Zosyn, started on 07/27 Continue vancomycin, started on 08/03 CPAP trial was tried on 08/04, and the patient was put on PSV for 1 hour, the patient could tolerate the CPAP and extubated successfully. postextubation the patient was put on 40% cool aerosol mask and maintain saturation at 94%. GI: Liver cirrhosis Ascites due to liver cirrhosis Transaminitis, likely due to septic shock Paracentesis has been performed, 2 L removed, ascitic fluid exam shows WBC 1548 (polymorphonuclear cells 90), RBC 2159 Ammonia level at 07/24 was 70, decreased to less than 10 on 07/28 Discontinue Lasix Discontinue Reglan Continue Spironolactone 100 mg daily Check ammonia at AM Bowel regimen: Lactulose 30 mL b.i.d. and Colace 200 mg b.i.d. GI ppx: Protonix 40 mg daily RENAL: SHAMIR, likely hemodynamically mediated, improved ID: HIV and hepatitis panel, negative Blood and urine culture from 07/14 was negative Sputum culture from 07/25 shows MRSA Pleural fluid culture from 07/25 shows no growth Ascitic fluid culture from 07/27 shows no growth BAL culture from 07/28 shows moderate normal tammi growth Continue Zosyn and start back vancomycin HEME Thrombocytopenia, likely due to liver cirrhosis Monitoring Endocrine: Hyptohyroidism TSH is 8.51 Metabolic: Hyperchloremia Moderate hypokalemia, supplemented Hypomagnesemia, supplemented Hypernatremia, normalized Continue pure water 150 mL q.6 hours LINES/DRAINS/ACCESS: ETT: Intubated on 07/26/2024 and extubated on 08/04 IV access Right internal jugular CVC, placed on 07/26/2024, removed on 08/04 Right-sided upper limb PICC line, placed on 08/04 Transurethral Gentile catheter, placed on 07/25/2024 Chest tube placed on 07/25/2024, drainage 50 male with a past 24 hours, we are considering to take out chest tube for tomorrow Drips: Levophed 2 Precedex 0.2 LINES/DRAINS/ACCESS: PT valuation Swallowing evaluation, post extubation DVT prophylaxis Lovenox DIET: Glucerna via OG tube 60 mL/hour CODE STATUS: Full code Disposition: Patient is planned to transferred to the [facility] Patient is homeless, social media project manager on the board and has been the contacted and evaluated the patient. Critical time spent more than 85 minutes, including patient care, chart review, including cpap trial excluding any procedures. Case discussed with Plan discussed with: Patient, Other (RN) My Orders My Orders Orders - RADHA KING RESDIDORIS Procedure Category Date Status Time D/C Tlc HA 08/03/24 In Process 16:52 Chest Xray 1 View XY 08/04/24 Resulted 04:00 Abg W/ Co-Ox RT 08/04/24 Logged 04:00 Enoxaparin Sodium PHA 08/04/24 In Process (Lovenox) 10:00 Dietary Evaluation Review Comments: 1. Consider EN/TPN if NPO >7days 2. Continue plan of care Expected Outcomes/Goals: 1. Pt will meet >75% of estimated needs within 2-3 days Date of Service: Aug 04, 2024 Billing Provider: SUSY ARREGUIN MD Common Visit Codes: 94220-[id number] CARE 30-74 MIN, [id number] CARE-EACH +30MIN RADHA KING Aug 04, 2024 16:41 SUSY ARREGUIN MD Aug 05, 2024 14:13
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
[2024-08-05] VITALS (20 sets, daily range): BP systolic 103–125; BP diastolic 57–79; PULSE 80–91; RESP 17–26; TEMP 97.7–98.7; O2SAT 78–99
--- NOTE | 2024-08-05 04:47 | DVH ---
CHEST RADIOGRAPH Indication: Pneumonia Technique: Single frontal view of the chest was obtained Comparison: XY CHEST XRAY 1 VIEW on DOS: 08/04/24 FINDINGS: Lines and Tubes: There is a right upper extremity PICC with tip terminating in the superior vena cava . Right pigtail catheter projects over the right lung base. Lungs: Bilateral interstitial prominence. Pleura: Bilateral pleural effusions. No pneumothorax. Cardiomediastinal contours: Cardiomegaly. Bones: No acute osseous abnormality. IMPRESSION: 1. Pulmonary vascular congestion.
--- NOTE | 2024-08-05 04:49 | DVH ---
Exam: US US GUIDED VASCULAR ACCESS Date: 08/03/2024 03:39 PM Clinical History: PICC line insertion Comparison: None Findings: Targeted sonographic evaluation of the arm was obtained utilizing grayscale and color Doppler imaging . IMPRESSION: Sonographic assistance for central line placement. Please refer to procedural report for detailed fin dings.
[2024-08-05 05:30] LABS: Hemoglobin 13.6 g/dL (13.5-17.5)
[2024-08-05 05:32] LABS: Hematocrit 41.2 % (41.0-53.0); Mean Corpuscular Hemoglobin 34.7 pg (28.0-32.0); Mean Corpuscular Volume 105.2 fL (80.0-100.0); Platelet Count (auto) 226 10^3/uL (140-450); Red Blood Cells 3.92 10^6/uL (4.5-5.90); White Blood Cell 10.3 10^3/uL (4.4-10.8)
[2024-08-05 05:34] LABS: Basophils % (manual) 0 (0.0-2.0); Blast Cells 0; Metamyelocytes % 0; Myelocytes % 0; Promyelocytes % 0; Reactive Lymphocytes 0
[2024-08-05] MEDS: DEXTROSE (50%) 50ML SYRG IV PRN (06:05)
[2024-08-05 06:59] LABS: Band Neutrophils % (manual) 1; Eosinophils % (manual) 3 (0-7); Monocytes % (manual) 7 (0-12)
[2024-08-05 07:00] LABS: Lymphocytes % (manual) 14 (10.0-50.0); Macrocytosis Moderate; Platelet Estimate Adequate
[2024-08-05 07:04] LABS: Alkaline Phosphatase 57 U/L (46-116); Anion Gap 6 (5-15); Aspartate Aminotransferase 21 U/L (13-40); BUN/Creatinine Ratio 17.1 (10.0-20.0); Blood Urea Nitrogen 12 mg/dL (9-23); Carbon Dioxide 31 mmol/L (20-31); Chloride 100 mmol/L (98-107); Glucose 85 mg/dL (74-106); Potassium 3.9 mmol/L (3.5-5.1); Sodium 137 mmol/L (136-145)
[2024-08-05 07:06] LABS: Bilirubin, Total 1.1 mg/dL (0.2-1.0)
[2024-08-05 07:11] LABS: Alanine Aminotransferase < 9 U/L (7-40); Albumin 2.5 g/dL (3.2-4.8); Calcium 8.4 mg/dL (8.7-10.4); Total Protein 5.1 g/dL (5.7-8.2)
[2024-08-05] MEDS: POTASSIUM EFFERVESENT TAB 25 MEQ PO ONE (10:27)
[2024-08-05] MEDS: VANCOMYCIN 1GM/250ML KIT 250 ML IV SCH (13:49)
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
[2024-08-05] MEDS: MAGNESIUM SULFATE 1GM/100ML 100 ML IV SCH (15:02)
[2024-08-05] MEDS: FUROSEMIDE 40 MG TAB PO ONE (15:02)
--- NOTE | 2024-08-05 19:28 | DVHPNRES ---
Progress Note Date Seen: Aug 05, 2024 Resident Creating Document: RADHA KING PRASANNA Has the PT tested + for MRSA If YES, has PT been informed?: Yes Medical Necessity Reason Pt with a Central, PICC or Fol: Yes The following are medically ne: Gentile Catheter Reason for gentile catheter: Strict I&O Subjective Review of Systems This is a 59-year-old homeless male, with past medical history of liver cirrhosis, multidrug abuser (methamphetamine, marijuana), active smoker brought to the hospital with altered level of consciousness and shortness of breaths. Admitted and intubated on 07/24. Extubated on 08/04. Patient seen and examined at the bedside. Patient is was feeling better, complaining of mild shortness of breaths, maintaining oxygen saturation at 93% with 4 L of oxygen through nasal cannula. Patient reports: Feels better Changes from previous H/P or p: Changes Objective vital signs Vital Sign Date Time Temp Pulse Resp B/P (MAP) Pulse Ox O2 Delivery O2 Flow Rate FiO2 08/05/24 17:00 80 23 122/72 (89) 96 08/05/24 16:00 98.3 98.3 08/05/24 16:00 Nasal Cannula* 4 N/A Simple Mask* Total Intake and Output 08/04/24 08/04/24 08/05/24 15:00 23:00 07:00 Intake Total 617 ml 60 ml 325 ml Output Total 1285 ml 550 ml Balance 617 ml -1225 ml -225 ml medications Current Medications Medications Dose Ordered Sig/Miky Route Start Time Stop Time Status Last Admin Dose Admin Nitroglycerin 0.4 mg Q5MINP PRN SL 07/24/24 14:45 Diagnostic Test (Pha) 1 strip Q6HR 07/24/24 18:00 08/05/24 12:05 1 STRIP Insulin Human Regular Q6HR SC 07/24/24 18:00 08/04/24 12:10 2 UNITS Dextrose 50 ml UD PRN IV 07/24/24 15:00 08/05/24 06:05 50 ML Acetaminophen 650 mg Q6HP PRN SC 07/24/24 19:15 Piperacillin Sod/ Tazobactam Sod 100 ml @ 25 mls/hr Q8HR IV 07/27/24 22:00 08/05/24 14:57 25 MLS/HR Pantoprazole Sodium 40 mg DAILY IV 07/28/24 10:00 08/05/24 10:26 40 MG Amiodarone HCl 200 mg DAILY PO 07/28/24 10:00 08/05/24 10:27 200 MG Lactulose 30 ml BID PO 07/27/24 22:00 08/05/24 10:27 30 ML Spironolactone 100 mg DAILY NG 07/31/24 10:00 08/05/24 10:29 100 MG Vancomycin HCl 0 ml @ 0 mls/hr UD IV 08/03/24 11:15 Sodium Chloride 10 ml QSHIFT@10,22 IV 08/03/24 22:00 08/05/24 10:26 10 ML Enoxaparin Sodium 40 mg DAILY SC 08/04/24 10:00 08/05/24 10:29 40 MG Vancomycin HCl 250 ml @ 250 mls/hr Q10H IV 08/05/24 12:00 08/05/24 13:49 250 MLS/HR Furosemide 40 mg DAILY PO 08/06/24 10:00 Examination General Appearance: Alert, Oriented X3, Cooperative, mild respiratory distress HEENT: Atraumatic, PERRLA, EOMI, Mucous membrane moist/pink Respiratory: Bilateral diffuse crypts Cardiovascular: Regular rate, Normal S1, Normal S2, No murmurs, no chest wall tenderness Abdominal: Normal bowel sounds, Soft, No tenderness, No hepatospenomegaly, No masses Extremities: No clubbing, No cyanosis, No edema, Normal pulses, No tenderness/swelling Skin: No rashes, No breakdown, No significant lesion Neurological: No apparent motor no sensitive deficits. Pupils are isocoric and reactive laboratory and microbiology Laboratory Tests 08/05/24 04:51 Test 08/05/24 04:51 Range/Units Serum Glucose 85 74-106 mg/dL Microbiology Date/Time Source Procedure Growth Status 07/28/24 13:22 Bronchial Washings Gram Stain - Final Complete 07/28/24 13:22 Bronchial Washings Respiratory Culture - Final Complete 07/27/24 12:30 Ascities Fluid Gram Stain - Final Complete 07/27/24 12:30 Ascities Fluid Body Fluid Culture - Final Complete 07/25/24 16:51 Nose MRSA Screen - Final Complete 07/24/24 12:21 Urine - Gentile Port Urine Culture - Final Complete 07/24/24 11:52 Blood Blood Culture - Final NO GROWTH AFTER 5 DAYS OF INCUBATION. Complete Labs and/or images reviewed: Labs reviewed by me, Image(s) reviewed by me Problem List/Assessment/Plan Problem List/Assessment/Plan NEURO: Acute metabolic encephalopathy, likely due to sepsis/liver cirrhosis CARDIOVASCULAR: Atrial flutter, upon admission, currently sinus rhythm Chads Vasc score 0 Cardiology is on the board Echocardiogram from 07/24 shows normal left ventricular systolic 80 function with ejection fraction 60%, mild pericardial effusion, moderate pulmonary hypertension with RSVP more than 50 Amiodarone 200 mg daily Lovenox 40 mg daily PULMONARY: Acute hypoxic and hypercarbic respiratory failure likely due to pneumonia Pneumonia likely due MRSA Hydropneumothorax, chest tube is in place Parapneumonic loculated pleural effusion Septic shock likely due to pneumonia Chest CT scan from 07/25 shows bilateral pneumonia with bilateral loculated pleural effusions Chest CT scan from 08/03 shows Multifocal airspace disease with few foci of air are present in right lower lobe consolidation measuring 3.8 cm but no loculated effusion ABGs shows respiratory acidosis with metabolic compensation, maintaining saturation at 93% with 4 L of oxygen through nasal cannula Today's Chest x-ray shows bilaterally infiltration, seem to the previous feeling Chest ultrasound on 07/29/2024 shows trace left-sided pleural effusion and thoracentesis could not perform COVID-19 and flu are negative Breathing treatment q.4 hours, as needed Sputum culture from from 07/25 shows MRSA sensitive to vancomycin CPAP trial was planned, but due to high requirement of oxygen and no significant improvement in chest imaging, the trial delayed Continue Zosyn, started on 07/27 Continue vancomycin, started on 08/03 GI: Liver cirrhosis, likely due to alcohol Ascites due to liver cirrhosis Transaminitis, likely due to septic shock/alcohol abuse Paracentesis has been performed, 2 L removed, ascitic fluid exam shows WBC 1548 (polymorphonuclear cells 90), RBC 2159 Ammonia level at 07/24 was 70, decreased to less than 10 on 07/28 Continue Spironolactone 100 mg daily Lasix 40 mg daily Bowel regimen: Lactulose 30 mL b.i.d. GI ppx: Protonix 40 mg daily RENAL: SHAMIR, likely hemodynamically mediated, improved ID: HIV and hepatitis panel, negative Blood and urine culture from 07/14 was negative Sputum culture from 11/23 shows MRSA Pleural fluid culture from 07/25 shows no growth Ascitic fluid culture from 07/27 shows no growth BAL culture from 07/28 shows moderate normal tammi growth Continue Zosyn and start back vancomycin HEME Thrombocytopenia, likely due to liver cirrhosis Normalized Endocrine: Possible Hyptohyroidism TSH is 8.51, free T3 decreased at 1.79, and free T4 normal at 1.0 Metabolic: Hyperchloremia Moderate hypokalemia, supplemented Hypomagnesemia, supplemented Hypernatremia, normalized LINES/DRAINS/ACCESS: ETT: Intubated on 07/26/2024 and extubated on 08/04 IV access Right-sided upper limb PICC line, placed on 08/04 Transurethral Gentile catheter, placed on 07/25/2024 Chest tube placed on 07/25/2024, drainage 0 mL within past 24 hours, we are considering to take out chest tube tomorrow Drips: No pressor LINES/DRAINS/ACCESS: PT valuation DVT prophylaxis Lovenox DIET: Mechanical soft diet CODE STATUS: Full code Disposition: Patient is transferred to the telemetry Patient's status discussed with the sister(Hortensia, lives in [place]), as per sister, he is homeless since 17 years, and no family member lives in [facility]. Patient has a brother living in [place], due to disability can not come and pick the patient. Critical time spent more than 63 minutes, including patient care, chart review, excluding any procedures. Case discussed with Plan discussed with: Patient, Other (Sister on the phone, and RN) My Orders My Orders Orders - RADHA KING RESDIDORIS Procedure Category Date Status Time Comprehensive LAB 08/06/24 Verified Metabolic Panel 04:00 Magnesium LAB 08/06/24 Verified 04:00 Complete Blood Count LAB 08/06/24 Verified 04:00 Chest Xray 1 View XY 08/06/24 Logged 04:00 Abg W/ Co-Ox RT 08/06/24 Logged 04:00 Dietary Evaluation Review Comments: 1. Consider EN/TPN if NPO >7days 2. Continue plan of care Expected Outcomes/Goals: 1. Pt will meet >75% of estimated needs within 2-3 days Date of Service: Aug 05, 2024 Billing Provider: SUSY ARREGUIN MD Common Visit Codes: 11920-[id number] CARE 30-74 MIN RADHA KING Aug 05, 2024 19:28 SUSY ARREGUIN MD Aug 06, 2024 12:53
[2024-08-05] MEDS: VANCOMYCIN 1GM/250ML KIT 200 ML IV ONE (22:29)
[2024-08-06] VITALS (15 sets, daily range): BP systolic 99–119; BP diastolic 61–72; PULSE 65–95; RESP 18–20; TEMP 97.5–98; O2SAT 91–97
[2024-08-06] MEDS ORDERED: hydrALAZINE HCL 20 MG/ML VL IV PRN (01:15)
[2024-08-06] MEDS: LORazepam 2MG/ML-1ML VIAL IV ONE (01:15)
[2024-08-06] MEDS: ACETAMINOPHEN 650 mg PER 20.3 mL UD PO ONE (05:55)
[2024-08-06] MEDS: LORazepam 2MG/ML-1ML VIAL IV SCH (06:00)
[2024-08-06 06:15] LABS: Basophils # (auto) 0 10 ^3/uL (0-0.2); Basophils % (auto) 0.4 % (0.0-2.0); Eosinophils # (auto) 0.1 10 ^3/uL (0-0.8); Eosinophils % (auto) 1.5 % (0.0-7.0); Hematocrit 41.9 % (41.0-53.0); Hemoglobin 13.9 g/dL (13.5-17.5); Lymphocytes # (auto) 1.1 10 ^3/uL (0.4-5.4); Lymphocytes % (auto) 11.7 % (10.0-50.0); Mean Corpuscular Hemoglobin 34.9 pg (28.0-32.0); Mean Corpuscular Hgb Conc. 33.2 g/dL (32.0-36.0); Mean Corpuscular Volume 105.3 fL (80.0-100.0); Monocytes # (auto) 0.9 10 ^3/uL (0-1.3); Neutrophils # (auto) 6.9 10 ^3/uL (1.6-8.6); Neutrophils % (auto) 76.4 % (37.0-80.0); Platelet Count (auto) 221 10^3/uL (140-450); Red Blood Cells 3.98 10^6/uL (4.5-5.90); Red Cell Distribution Width 14.6 % (11.8-14.3)
[2024-08-06 06:43] LABS: Alkaline Phosphatase 57 U/L (46-116); Anion Gap 7 (5-15); Aspartate Aminotransferase 19 U/L (13-40); BUN/Creatinine Ratio 10.8 (10.0-20.0); Bilirubin, Total 0.9 mg/dL (0.2-1.0); Glucose 80 mg/dL (74-106); Magnesium 1.9 mg/dL (1.6-2.6); Phosphorus 2.7 mg/dL (2.4-5.1); Potassium 3.8 mmol/L (3.5-5.1)
[2024-08-06 06:46] LABS: Alanine Aminotransferase < 9 U/L (7-40); Albumin 2.9 g/dL (3.2-4.8); Blood Urea Nitrogen 8 mg/dL (9-23); Calcium 7.4 mg/dL (8.7-10.4); Carbon Dioxide 31 mmol/L (20-31); Chloride 97 mmol/L (98-107); Sodium 135 mmol/L (136-145); Total Protein 5.7 g/dL (5.7-8.2)
[2024-08-06] MEDS ORDERED: VANCOMYCIN 1GM/250ML KIT 250 ML IV SCH (08:45)
--- NOTE | 2024-08-06 08:55 | DVH ---
Procedure: XY CHEST XRAY 1 VIEW 08/06/2024 08:26 AM Indication: Pneumonia Comparison: XY CHEST XRAY 1 VIEW on DOS: 08/05/24, XY CHEST XRAY 1 VIEW on DOS: 08/04/24, XY CHEST PORT ABLE on DOS: 08/03/24 TECHNIQUE: XY CHEST XRAY 1 VIEW FINDINGS: Medical devices: The right arm PICC line terminates at the cavoatrial junction. A pigtail drainage ca theter noted projected over the right costophrenic angle. Cardiomediastinal: The heart is normal in size. Pulmonary vasculature is within normal limits. Athero sclerotic calcification of the aortic arch noted. Lungs: Persistent bilateral reticular opacities are noted. There is blunting of the bilateral costoph renic angles reflecting small bilateral pleural effusions. No pneumothorax. Bones/soft tissues: No acute abnormality is noted. IMPRESSION: 1. Interval improvement of aeration of the bilateral lower lung zones. Small residual bilateral pleur al effusions and mild interstitial opacities noted. 2. The right arm PICC line and right lower lobe drainage catheter are again noted.
[2024-08-06] MEDS: FUROSEMIDE 40 MG TAB PO SCH (09:03)
[2024-08-06] MEDS: VANCOMYCIN 1GM/250ML KIT 250 ML IV SCH (09:04)
[2024-08-06 09:14] LABS: Base Excess 4.3 mmol/L (-2.0-3.0)
[2024-08-06] MEDS: FUROSEMIDE 20 MG/2 ML VIAL IV ONE (13:25)
[2024-08-06] MEDS: methylPREDNISolone SOD SUCC 40 MG/ML VL IV ONE (13:25)
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
--- NOTE | 2024-08-06 17:23 | DVHPNRES ---
Progress Note Date Seen: Aug 07, 2024 Resident Creating Document: RADHA KING PRASANNA Has the PT tested + for MRSA If YES, has PT been informed?: Yes Medical Necessity Reason Pt with a Central, PICC or Fol: Yes The following are medically ne: Gentile Catheter Reason for gentile catheter: Strict I&O Subjective Review of Systems This is a 59-year-old homeless male, with past medical history of liver cirrhosis, multidrug abuser (methamphetamine, marijuana), active smoker brought to the hospital with altered level of consciousness and shortness of breaths. Admitted and intubated on 07/24. Extubated on 08/04. Patient seen and examined at the bedside. Patient is was feeling better, complaining of mild shortness of breaths, maintaining oxygen saturation at 93% with 6 L of oxygen through nasal cannula. Patient reports: No new complaints, Feels worse Changes from previous H/P or p: Changes Objective vital signs Vital Sign Date Time Temp Pulse Resp B/P (MAP) Pulse Ox O2 Delivery O2 Flow Rate FiO2 08/06/24 17:00 97.5 87 18 106/64 (78) 91 97.5 08/06/24 09:55 Simple Mask* 6 50 Total Intake and Output 08/05/24 08/05/24 08/06/24 15:00 23:00 07:00 Intake Total 350 ml 245 ml 350 ml Output Total 1250 ml Balance 350 ml 245 ml -900 ml medications Current Medications Medications Dose Ordered Sig/Miky Route Start Time Stop Time Status Last Admin Dose Admin Nitroglycerin 0.4 mg Q5MINP PRN SL 07/24/24 14:45 Diagnostic Test (Pha) 1 strip Q6HR 07/24/24 18:00 08/06/24 11:20 1 STRIP Insulin Human Regular Q6HR SC 07/24/24 18:00 08/06/24 11:20 3 UNITS Dextrose 50 ml UD PRN IV 07/24/24 15:00 08/05/24 06:05 50 ML Acetaminophen 650 mg Q6HP PRN [place] 07/24/24 19:15 Piperacillin Sod/ Tazobactam Sod 100 ml @ 25 mls/hr Q8HR IV 07/27/24 22:00 08/06/24 13:25 25 MLS/HR Pantoprazole Sodium 40 mg DAILY IV 07/28/24 10:00 08/06/24 09:01 40 MG Amiodarone HCl 200 mg DAILY PO 07/28/24 10:00 08/06/24 09:02 200 MG Lactulose 30 ml BID PO 07/27/24 22:00 08/06/24 09:01 30 ML Spironolactone 100 mg DAILY NG 07/31/24 10:00 08/06/24 09:02 100 MG Vancomycin HCl 0 ml @ 0 mls/hr UD IV 08/03/24 11:15 Sodium Chloride 10 ml QSHIFT@10,22 IV 08/03/24 22:00 08/06/24 09:03 10 ML Enoxaparin Sodium 40 mg DAILY SC 08/04/24 10:00 08/06/24 09:02 40 MG Furosemide 40 mg DAILY PO 08/06/24 10:00 08/06/24 09:03 40 MG Hydralazine HCl 10 mg Q6HP PRN IV 08/06/24 01:15 Lorazepam 1 mg Q6HR IV 08/06/24 06:00 08/06/24 11:14 1 MG Vancomycin HCl 250 ml @ 250 mls/hr Q10H IV 08/06/24 08:00 08/06/24 09:04 250 MLS/HR Albuterol 2.5 mg Q6HR NEB 08/06/24 18:00 Ipratropium Ragan 0.5 mg Q6HR NEB 08/06/24 18:00 Methylprednisolone Sodium Succinate 40 mg BID IV 08/06/24 22:00 Examination General Appearance: Alert, Oriented X3, Cooperative, mild respiratory distress HEENT: Atraumatic, PERRLA, EOMI, Mucous membrane moist/pink Respiratory: Bilateral diffuse crypts Cardiovascular: Regular rate, Normal S1, Normal S2, No murmurs, no chest wall tenderness Abdominal: Normal bowel sounds, Soft, No tenderness, No hepatospenomegaly, No masses Extremities: No clubbing, No cyanosis, No edema, Normal pulses, No tenderness/swelling Skin: No rashes, No breakdown, No significant lesion Neurological: No apparent motor no sensitive deficits. Pupils are isocoric and reactive laboratory and microbiology Laboratory Tests 08/06/24 05:00 Test 08/06/24 05:00 Range/Units Serum Glucose 80 74-106 mg/dL Microbiology Date/Time Source Procedure Growth Status 07/28/24 13:22 Bronchial Washings Gram Stain - Final Complete 07/28/24 13:22 Bronchial Washings Respiratory Culture - Final Complete 07/27/24 12:30 Ascities Fluid Gram Stain - Final Complete 07/27/24 12:30 Ascities Fluid Body Fluid Culture - Final Complete 07/25/24 16:51 Nose MRSA Screen - Final Complete 07/24/24 12:21 Urine - Gentile Port Urine Culture - Final Complete 07/24/24 11:52 Blood Blood Culture - Final NO GROWTH AFTER 5 DAYS OF INCUBATION. Complete Labs and/or images reviewed: Labs reviewed by me, Image(s) reviewed by me Problem List/Assessment/Plan Problem List/Assessment/Plan NEURO: Acute metabolic encephalopathy, likely due to sepsis/liver cirrhosis CARDIOVASCULAR: Atrial flutter, upon admission, currently sinus rhythm Chads Vasc score 0 Cardiology is on the board Echocardiogram from 07/24 shows normal left ventricular systolic 80 function with ejection fraction 60%, mild pericardial effusion, moderate pulmonary hypertension with RSVP more than 50 Amiodarone 200 mg daily Lovenox 40 mg daily PULMONARY: Acute hypoxic and hypercarbic respiratory failure likely due to pneumonia/COPD exacerbation Pneumonia likely due MRSA Hydropneumothorax, chest tube is in place Parapneumonic loculated pleural effusion Septic shock likely due to pneumonia Acute COPD exacerbation Chest CT scan from 07/25 shows bilateral pneumonia with bilateral loculated pleural effusions Chest CT scan from 08/03 shows Multifocal airspace disease with few foci of air are present in right lower lobe consolidation measuring 3.8 cm but no loculated effusion ABGs shows respiratory acidosis with metabolic compensation, maintaining saturation at 93% with 4 L of oxygen through nasal cannula Today's Chest x-ray shows bilaterally infiltration, seem to the previous feeling Chest ultrasound on 07/29/2024 shows trace left-sided pleural effusion and thoracentesis could not perform COVID-19 and flu are negative Breathing treatment q.4 hours, as needed Sputum culture from from 07/25 shows MRSA sensitive to vancomycin Continue Zosyn, started on 07/27 Continue vancomycin, started on 08/03 Started methylprednisolone 40 mg IV b.i.d., at 08/06 Breathing treatment q.6 hour GI: Liver cirrhosis, likely due to alcohol Ascites due to liver cirrhosis Transaminitis, likely due to septic shock/alcohol abuse Paracentesis has been performed, 2 L removed, ascitic fluid exam shows WBC 1548 (polymorphonuclear cells 90), RBC 2159 Ammonia level at 07/24 was 70, decreased to less than 10 on 07/28 Continue Spironolactone 100 mg daily Lasix 40 mg daily, given 1 extra dose of Lasix 20 mg at 08/06 Bowel regimen: Lactulose 30 mL b.i.d. GI ppx: Protonix 40 mg daily RENAL: SHAMIR, likely hemodynamically mediated, improved ID: HIV and hepatitis panel, negative Blood and urine culture from 07/14 was negative Sputum culture from 07/25 shows MRSA Pleural fluid culture from 07/25 shows no growth Ascitic fluid culture from 07/27 shows no growth BAL culture from 07/28 shows moderate normal tammi growth Continue Zosyn and start back vancomycin HEME Thrombocytopenia, likely due to liver cirrhosis Normalized Endocrine: Possible Hyptohyroidism TSH is 8.51, free T3 decreased at 1.79, and free T4 normal at 1.0 Metabolic: Hyperchloremia Moderate hypokalemia, supplemented Hypomagnesemia, supplemented Hypernatremia, normalized LINES/DRAINS/ACCESS: ETT: Intubated on 07/26/2024 and extubated on 08/04 IV access Right-sided upper limb PICC line, placed on 08/04 Transurethral Gentile catheter, placed on 07/25/2024 Chest tube placed on 07/25/2024, and removed on 08/06 Drips: No pressor LINES/DRAINS/ACCESS: PT valuation DVT prophylaxis Lovenox DIET: Mechanical soft diet CODE STATUS: Full code Disposition: Patient is transferred to the telemetry Patient's status discussed with the sister he is homeless since 17 years, and no family member lives in [facility]. Patient has a brother living in [place], due to disability can not come and pick the patient. Critical time spent more than 67 minutes, including patient care, chart review, excluding any procedures. Case discussed with Plan discussed with: Patient My Orders My Orders Orders - RADHA KING Procedure Category Date Status Time Chest Xray 1 View XY 08/06/24 Resulted 04:00 Abg W/ Co-Ox RT 08/06/24 Logged 04:00 Ammonia LAB 08/06/24 Logged 17:04 Comprehensive LAB 08/07/24 Verified Metabolic Panel 04:00 Complete Blood Count LAB 08/07/24 Verified 04:00 Chest Xray 1 View XY 08/07/24 Logged 04:00 Abg W/ Co-Ox RT 08/07/24 Logged 04:00 Dietary Evaluation Review Comments: 1. Consider EN/TPN if NPO >7days 2. Continue plan of care Expected Outcomes/Goals: 1. Pt will meet >75% of estimated needs within 2-3 days RADHA KING Aug 06, 2024 17:23
[2024-08-06] MEDS: IPRATROPIUM BROM 0.5 MG/2.5ML INH SOL NEB SCH (18:26)
[2024-08-06] MEDS: ALBUTEROL SULF 2.5 MG/0.5ML(0.5%) NEB SOLN NEB SCH (18:26)
[2024-08-06] MEDS: methylPREDNISolone SOD SUCC 40 MG/ML VL IV SCH (22:22)
[2024-08-07] VITALS (17 sets, daily range): BP systolic 97–126; BP diastolic 61–69; PULSE 69–87; RESP 17–20; TEMP 98.1–98.5; O2SAT 94–100
[2024-08-07] MEDS: VANCOMYCIN 1GM/250ML KIT 250 ML IV SCH (05:11)
[2024-08-07 11:40] LABS: Base Excess 9.1 mmol/L (-2.0-3.0)
[2024-08-07 12:05] LABS: Eosinophils # (auto) 0 10 ^3/uL (0-0.8); Hemoglobin 13.4 g/dL (13.5-17.5); Neutrophils # (auto) 9.7 10 ^3/uL (1.6-8.6)
[2024-08-07 12:07] LABS: Basophils # (auto) 0 10 ^3/uL (0-0.2); Basophils % (auto) 0.3 % (0.0-2.0); Hematocrit 40.2 % (41.0-53.0); Lymphocytes % (auto) 8.6 % (10.0-50.0); Mean Corpuscular Hemoglobin 34.6 pg (28.0-32.0); Mean Corpuscular Hgb Conc. 33.3 g/dL (32.0-36.0); Mean Corpuscular Volume 104.1 fL (80.0-100.0); Monocytes % (auto) 8.3 % (0.0-12.0); Neutrophils % (auto) 82.8 % (37.0-80.0); Platelet Count (auto) 314 10^3/uL (140-450); Red Blood Cells 3.86 10^6/uL (4.5-5.90); Red Cell Distribution Width 14.4 % (11.8-14.3); White Blood Cell 11.7 10^3/uL (4.4-10.8)
[2024-08-07 12:16] LABS: Anion Gap 4 (5-15); Calcium 9.3 mg/dL (8.7-10.4)
[2024-08-07 12:19] LABS: Alkaline Phosphatase 51 U/L (46-116)
[2024-08-07 12:23] LABS: Aspartate Aminotransferase 13 U/L (13-40); Bilirubin, Total 0.9 mg/dL (0.2-1.0); Total Protein 5.9 g/dL (5.7-8.2)
[2024-08-07 12:34] LABS: Alanine Aminotransferase < 9 U/L (7-40); Albumin 2.9 g/dL (3.2-4.8); Blood Urea Nitrogen 11 mg/dL (9-23); Potassium 4.4 mmol/L (3.5-5.1)
[2024-08-07 12:35] LABS: Carbon Dioxide 36 mmol/L (20-31); Chloride 95 mmol/L (98-107); Glucose 172 mg/dL (74-106); Sodium 135 mmol/L (136-145)
[2024-08-07 12:42] LABS: BUN/Creatinine Ratio 13.4 (10.0-20.0)
--- NOTE | 2024-08-07 14:16 | DVH ---
CHEST RADIOGRAPH Indication: Pneumonia Technique: XY CHEST XRAY 1 VIEW Comparison: XY CHEST XRAY 1 VIEW on DOS: 08/06/24, XY CHEST XRAY 1 VIEW on DOS: 08/05/24, XY CHEST XRAY 1 VIEW on DOS: 08/04/24, XY CHEST PORTABLE on DOS: 08/03/24, XY CHEST PORTABLE on DOS: 08/02/24, XY RIAN ST XRAY 1 VIEW on DOS: 08/06/24 FINDINGS: Medical devices: The right arm PICC line terminates at the cavoatrial junction. A pigtail drainage ca theter noted projected over the right costophrenic angle. Cardiomediastinal: The heart is normal in size. Pulmonary vasculature is within normal limits. Athero sclerotic calcification of the aortic arch noted. Lungs: Persistent bilateral reticular opacities are noted. There is blunting of the bilateral costoph renic angles reflecting small bilateral pleural effusions. No pneumothorax. Bones/soft tissues: No acute abnormality is noted. IMPRESSION: 1. Interval improvement of aeration of the bilateral lower lung zones. Small residual bilateral pleur al effusions and mild interstitial opacities noted. 2. The right arm PICC line and right lower lobe drainage catheter are again noted.
[2024-08-07] MEDS ORDERED: LORazepam 2MG/ML-1ML VIAL IV PRN (15:45)
--- NOTE | 2024-08-07 21:05 | DVHPN2 ---
Progress Note - Dictate Date Seen: Aug 07, 2024 Has the PT tested + for MRSA If YES, has PT been informed?: Yes Medical Necessity Reason Pt with a Central, PICC or Fol: Yes The following are medically ne: Gentile Catheter Reason for gentile catheter: Strict I&O Subjective Patient was seen and evaluated in follow up. Sitter is at bedside. Patient con tinues desaturating and was transitioned to Bi-Pap. Patient receiving PRN nebulized breathing treatments. WBC 11.7, CO2 36. vital signs Vital Sign Date Time Temp Pulse Resp B/P (MAP) Pulse Ox O2 Delivery O2 Flow Rate FiO2 08/07/24 11:32 126/81 08/07/24 09:18 98.1 70 17 96 98.1 08/07/24 06:39 Facial BiPAP Mask 60 08/06/24 23:49 0 Total Intake and Output 08/06/24 08/06/24 08/07/24 15:00 23:00 07:00 Intake Total 265 ml Output Total 2300 ml 1050 ml Balance -2300 ml -785 ml medications Current Medications Medications Dose Ordered Sig/Miky Route Start Time Stop Time Status Last Admin Dose Admin Nitroglycerin 0.4 mg Q5MINP PRN SL 07/24/24 14:45 Diagnostic Test (Pha) 1 strip Q6HR 07/24/24 18:00 08/07/24 05:30 1 STRIP Insulin Human Regular Q6HR SC 07/24/24 18:00 08/07/24 05:34 2 UNITS Dextrose 50 ml UD PRN IV 07/24/24 15:00 08/05/24 06:05 50 ML Acetaminophen 650 mg Q6HP PRN [place] 07/24/24 19:15 Piperacillin Sod/ Tazobactam Sod 100 ml @ 25 mls/hr Q8HR IV 07/27/24 22:00 08/07/24 06:17 25 MLS/HR Pantoprazole Sodium 40 mg DAILY IV 07/28/24 10:00 08/07/24 11:34 40 MG Amiodarone HCl 200 mg DAILY PO 07/28/24 10:00 08/07/24 11:33 200 MG Lactulose 30 ml BID PO 07/27/24 22:00 08/07/24 11:30 30 ML Spironolactone 100 mg DAILY NG 07/31/24 10:00 08/07/24 11:30 100 MG Vancomycin HCl 0 ml @ 0 mls/hr UD IV 08/03/24 11:15 Sodium Chloride 10 ml QSHIFT@10,22 IV 08/03/24 22:00 08/06/24 22:23 10 ML Enoxaparin Sodium 40 mg DAILY SC 08/04/24 10:00 08/07/24 11:34 40 MG Furosemide 40 mg DAILY PO 08/06/24 10:00 08/07/24 11:32 40 MG Hydralazine HCl 10 mg Q6HP PRN IV 08/06/24 01:15 Lorazepam 1 mg Q6HR IV 08/06/24 06:00 08/07/24 11:34 1 MG Albuterol 2.5 mg Q6HR NEB 08/06/24 18:00 08/07/24 06:39 2.5 MG Ipratropium [place] 0.5 mg Q6HR NEB 08/06/24 18:00 08/07/24 06:39 0.5 MG Methylprednisolone Sodium Succinate 40 mg BID IV 08/06/24 22:00 08/07/24 11:34 40 MG Vancomycin HCl 250 ml @ 250 mls/hr Q12H IV 08/07/24 06:00 08/07/24 05:11 250 MLS/HR objective GENERAL: Awake, alert, oriented. LUNGS: Diminished breath sounds. CARDIOVASCULAR: Heart sounds are good. ABDOMEN: Soft. SKIN: Unknown burn pandey to bilateral hands. laboratory and microbiology Test 08/07/24 10:30 Range/Units Serum Glucose Pending Problem List Altered mental status. CHF exacerbation. Leukocytosis. UTI. Elevated ammonia levels. Pleural Effusion. Liver Cirrhosis. Acute Hypoxic respiratory failure. MRSA Bacteremia. Assessment/Plan Continued all current supportive medical care. Amiodarone. DVT and GI prophylactics. Diuretics with Lasix. IV antibiotics as ordered. Aldactone. Additional plan as per the hospital course. Dietary Evaluation Review Comments: 1. Consider EN/TPN if NPO >7days 2. Continue plan of care Expected Outcomes/Goals: 1. Pt will meet >75% of estimated needs within 2-3 days Plan discussed with: Patient ISHAAN BUNCH MD Aug 07, 2024 11:48
--- NOTE | 2024-08-07 22:06 | DVHPNRES ---
Progress Note Date Seen: Aug 07, 2024 Resident Creating Document: RADHA KING PRASANNA Has the PT tested + for MRSA If YES, has PT been informed?: Yes Medical Necessity Reason Pt with a Central, PICC or Fol: Yes The following are medically ne: Gentile Catheter Reason for gentile catheter: Strict I&O Subjective Review of Systems This is a 59-year-old homeless male, with past medical history of liver cirrhosis, multidrug abuser (methamphetamine, marijuana), active smoker brought to the hospital with altered level of consciousness and shortness of breaths. Admitted and intubated on 07/24. Extubated on 08/04. Patient seen and examined at the bedside. Patient is was feeling better, complaining of mild shortness of breaths, maintaining oxygen saturation at 93% with 6 L of oxygen through nasal cannula. Patient has drop of oxygen saturation during the night. Objective vital signs Vital Sign Date Time Temp Pulse Resp B/P (MAP) Pulse Ox O2 Delivery O2 Flow Rate FiO2 08/07/24 18:13 84 18 96 08/07/24 16:30 98.2 118/68 (85) 98.2 08/07/24 12:15 Oxymizer 5 N/A Total Intake and Output 08/06/24 08/06/24 08/07/24 15:00 23:00 07:00 Intake Total 265 ml Output Total 2300 ml 1050 ml Balance -2300 ml -785 ml medications Current Medications Medications Dose Ordered Sig/Miky Route Start Time Stop Time Status Last Admin Dose Admin Nitroglycerin 0.4 mg Q5MINP PRN SL 07/24/24 14:45 Diagnostic Test (Pha) 1 strip Q6HR 07/24/24 18:00 08/07/24 17:48 1 STRIP Insulin Human Regular Q6HR SC 07/24/24 18:00 08/07/24 17:50 3 UNITS Dextrose 50 ml UD PRN IV 07/24/24 15:00 08/05/24 06:05 50 ML Acetaminophen 650 mg Q6HP PRN MD 07/24/24 19:15 Pantoprazole Sodium 40 mg DAILY IV 07/28/24 10:00 08/07/24 11:34 40 MG Amiodarone HCl 200 mg DAILY PO 07/28/24 10:00 08/07/24 11:33 200 MG Lactulose 30 ml BID PO 07/27/24 22:00 08/07/24 11:30 30 ML Spironolactone 100 mg DAILY NG 07/31/24 10:00 08/07/24 11:30 100 MG Vancomycin HCl 0 ml @ 0 mls/hr UD IV 08/03/24 11:15 Sodium Chloride 10 ml QSHIFT@10,22 IV 08/03/24 22:00 08/07/24 12:16 10 ML Enoxaparin Sodium 40 mg DAILY SC 08/04/24 10:00 08/07/24 11:34 40 MG Furosemide 40 mg DAILY PO 08/06/24 10:00 08/07/24 11:32 40 MG Hydralazine HCl 10 mg Q6HP PRN IV 08/06/24 01:15 Albuterol 2.5 mg Q6HR NEB 08/06/24 18:00 08/07/24 18:12 2.5 MG Ipratropium [place] 0.5 mg Q6HR NEB 08/06/24 18:00 08/07/24 18:12 0.5 MG Methylprednisolone Sodium Succinate 40 mg BID IV 08/06/24 22:00 08/07/24 11:34 40 MG Vancomycin HCl 250 ml @ 250 mls/hr Q12H IV 08/07/24 06:00 08/07/24 18:22 250 MLS/HR Lorazepam 1 mg Q6HR PRN IV 08/07/24 15:45 Examination General Appearance: Alert, Oriented X3, Cooperative, mild respiratory distress HEENT: Atraumatic, PERRLA, EOMI, Mucous membrane moist/pink Respiratory: Bilateral diffuse crypts Cardiovascular: Regular rate, Normal S1, Normal S2, No murmurs, no chest wall tenderness Abdominal: Normal bowel sounds, Soft, No tenderness, No hepatospenomegaly, No masses Extremities: No clubbing, No cyanosis, No edema, Normal pulses, No tenderness/swelling Skin: No rashes, No breakdown, No significant lesion Neurological: No apparent motor no sensitive deficits. Pupils are isocoric and reactive laboratory and microbiology Laboratory Tests 08/07/24 11:16 Test 08/07/24 11:16 Range/Units Serum Glucose 172 H 74-106 mg/dL Microbiology Date/Time Source Procedure Growth Status 07/28/24 13:22 Bronchial Washings Gram Stain - Final Complete 07/28/24 13:22 Bronchial Washings Respiratory Culture - Final Complete 07/27/24 12:30 Ascities Fluid Gram Stain - Final Complete 07/27/24 12:30 Ascities Fluid Body Fluid Culture - Final Complete 07/25/24 16:51 Nose MRSA Screen - Final Complete 07/24/24 12:21 Urine - [place] Urine Culture - Final Complete 07/24/24 11:52 Blood Blood Culture - Final NO GROWTH AFTER 5 DAYS OF INCUBATION. Complete Labs and/or images reviewed: Labs reviewed by me, Image(s) reviewed by me Problem List/Assessment/Plan Problem List/Assessment/Plan NEURO: Acute metabolic encephalopathy, likely due to sepsis/liver cirrhosis CARDIOVASCULAR: Atrial flutter, upon admission, currently sinus rhythm Chads Vasc score 0 Cardiology is on the board Echocardiogram from 07/24 shows normal left ventricular systolic 80 function with ejection fraction 60%, mild pericardial effusion, moderate pulmonary hypertension with RSVP more than 50 Amiodarone 200 mg daily Lovenox 40 mg daily PULMONARY: Acute hypoxic and hypercarbic respiratory failure likely due to pneumonia/COPD exacerbation Pneumonia likely due MRSA Hydropneumothorax, chest tube is in place Parapneumonic loculated pleural effusion Septic shock likely due to pneumonia Acute COPD exacerbation Possible obstructive sleep apnea Chest CT scan from 07/25 shows bilateral pneumonia with bilateral loculated pleural effusions Chest CT scan from 08/03 shows Multifocal airspace disease with few foci of air are present in right lower lobe consolidation measuring 3.8 cm but no loculated effusion ABGs shows respiratory acidosis with metabolic compensation, maintaining saturation at 93% with 4 L of oxygen through nasal cannula Today's Chest x-ray shows bilaterally infiltration, seem to the previous feeling Chest ultrasound on 07/29/2024 shows trace left-sided pleural effusion and thoracentesis could not perform COVID-19 and flu are negative Breathing treatment q.4 hours, as needed Sputum culture from from 07/25 shows MRSA sensitive to vancomycin Discontinue Zosyn, used for 12 days Continue vancomycin, started on 08/03 Continue methylprednisolone 40 mg IV b.i.d., started at 08/06 Breathing treatment q.6 hour Patient has drop of oxygen saturation during the sleep, ABGs reviewed during the awake and time, showed compensated pH, discontinued BiPAP during the day, recommended BiPAP during the sleep GI: Liver cirrhosis, likely due to alcohol Ascites due to liver cirrhosis Transaminitis, likely due to septic shock/alcohol abuse Paracentesis has been performed, 2 L removed, ascitic fluid exam shows WBC 1548 (polymorphonuclear cells 90), RBC 2159 Ammonia level at 07/24 was 70, decreased to less than 10 on 07/28 Continue Spironolactone 100 mg daily Lasix 40 mg daily, given 1 extra dose of Lasix 20 mg at 08/06 Bowel regimen: Lactulose 30 mL b.i.d. GI ppx: Protonix 40 mg daily RENAL: SHAMIR, likely hemodynamically mediated, improved ID: HIV and hepatitis panel, negative Blood and urine culture from 07/14 was negative Sputum culture from 07/25 shows MRSA Pleural fluid culture from 07/25 shows no growth Ascitic fluid culture from 07/27 shows no growth BAL culture from 07/28 shows moderate normal tammi growth Discontinued Zosyn, use for 2 days Continue vancomycin HEME Thrombocytopenia, likely due to liver cirrhosis Normalized Endocrine: Possible Hyptohyroidism TSH is 8.51, free T3 decreased at 1.79, and free T4 normal at 1.0 Metabolic: Hyperchloremia Moderate hypokalemia, supplemented Hypomagnesemia, supplemented Hypernatremia, normalized LINES/DRAINS/ACCESS: ETT: Intubated on 07/26/2024 and extubated on 08/04 IV access Right-sided upper limb PICC line, placed on 08/04 Transurethral Gentile catheter, placed on 07/25/2024 Chest tube placed on 07/25/2024, and removed on 08/06 Drips: No pressor LINES/DRAINS/ACCESS: PT valuation DVT prophylaxis Lovenox DIET: Mechanical soft diet CODE STATUS: Full code Disposition: Patient is transferred to the telemetry Patient's status discussed with the sister he is homeless since 17 years, and no family member lives in [facility]. Patient has a brother living in [place], due to disability can not come and pick the patient. Critical time spent more than 67 minutes, including patient care, chart review, excluding any procedures. Case discussed with Plan discussed with: Patient My Orders My Orders Orders - RADHA KING Procedure Category Date Status Time Abg W/ Co-Ox RT 08/07/24 Logged 05:42 Bipap/Cpap For Sleep RT 08/07/24 Logged Apnea 14:41 Lorazepam 2mg/Ml Inj PHA 08/07/24 In Process (Ativan Inj) 15:45 Communication Order ORDERS 08/07/24 Transmitted 15:43 Complete Blood Count LAB 08/08/24 Verified 04:00 Comprehensive LAB 08/08/24 Verified Metabolic Panel 04:00 Dietary Evaluation Review Comments: 1. Consider EN/TPN if NPO >7days 2. Continue plan of care Expected Outcomes/Goals: 1. Pt will meet >75% of estimated needs within 2-3 days Date of Service: Aug 07, 2024 Billing Provider: SAW CHOW MD Common Visit Codes: [id number] CARE 30-74 MIN RADHA KING RESDIDORIS Aug 07, 2024 22:06 SAW CHOW MD Aug 14, 2024 14:45
[2024-08-08] VITALS (18 sets, daily range): BP systolic 113–125; BP diastolic 62–79; PULSE 70–96; RESP 16–20; TEMP 97.8–98.6; O2SAT 93–100
[2024-08-08 06:21] LABS: Basophils # (auto) 0 10 ^3/uL (0-0.2); Basophils % (auto) 0.1 % (0.0-2.0); Eosinophils # (auto) 0 10 ^3/uL (0-0.8); Lymphocytes # (auto) 0.4 10 ^3/uL (0.4-5.4); Monocytes # (auto) 0.4 10 ^3/uL (0-1.3); Monocytes % (auto) 3.9 % (0.0-12.0); Red Blood Cells 3.81 10^6/uL (4.5-5.90)
[2024-08-08 06:23] LABS: Hematocrit 39.4 % (41.0-53.0); Hemoglobin 13.6 g/dL (13.5-17.5); Mean Corpuscular Hemoglobin 35.6 pg (28.0-32.0); Mean Corpuscular Hgb Conc. 34.4 g/dL (32.0-36.0); Mean Corpuscular Volume 103.4 fL (80.0-100.0); Neutrophils # (auto) 9.1 10 ^3/uL (1.6-8.6); Nucleated Red Blood Cells % 0.1 %; Platelet Count (auto) 258 10^3/uL (140-450); Red Cell Distribution Width 14.4 % (11.8-14.3); White Blood Cell 9.9 10^3/uL (4.4-10.8)
[2024-08-08 06:32] LABS: Alanine Aminotransferase 12 U/L (7-40); Alkaline Phosphatase 56 U/L (46-116); Anion Gap 4 (5-15); Aspartate Aminotransferase 15 U/L (13-40); BUN/Creatinine Ratio 14.8 (10.0-20.0); Bilirubin, Total 0.7 mg/dL (0.2-1.0); Blood Urea Nitrogen 13 mg/dL (9-23); Calcium 9.3 mg/dL (8.7-10.4); Potassium 4.4 mmol/L (3.5-5.1); Sodium 137 mmol/L (136-145)
[2024-08-08 06:33] LABS: Total Protein 5.7 g/dL (5.7-8.2)
[2024-08-08 06:43] LABS: Carbon Dioxide 39 mmol/L (20-31); Chloride 94 mmol/L (98-107)
[2024-08-08 06:44] LABS: Glucose 159 mg/dL (74-106)
--- NOTE | 2024-08-08 13:02 | DVHPN2 ---
Progress Note - Dictate Date Seen: Aug 08, 2024 Has the PT tested + for MRSA If YES, has PT been informed?: Yes Medical Necessity Reason Pt with a Central, PICC or Fol: Yes The following are medically ne: Gentile Catheter Reason for gentile catheter: Strict I&O Subjective Patient was seen and evaluated in follow up. Overnight, patient became agitated and combative with nursing staff. Sitter remains at the patient's bedside. Patient is on 5 L Oxymizer. CL 94, CO2 39. vital signs Vital Sign Date Time Temp Pulse Resp B/P (MAP) Pulse Ox O2 Delivery O2 Flow Rate FiO2 08/08/24 11:39 86 16 96 08/08/24 11:31 Oxymizer 5.0 08/08/24 11:31 N/A 08/08/24 10:17 113/62 08/08/24 09:00 98.3 98.3 Total Intake and Output 08/07/24 08/07/24 08/08/24 15:00 23:00 07:00 Intake Total 100 ml 920 ml 1600 ml Output Total 1100 ml 2150 ml Balance 100 ml -180 ml -550 ml medications Current Medications Medications Dose Ordered Sig/Miky Route Start Time Stop Time Status Last Admin Dose Admin Nitroglycerin 0.4 mg Q5MINP PRN SL 07/24/24 14:45 Diagnostic Test (Pha) 1 strip Q6HR 07/24/24 18:00 08/08/24 05:48 1 STRIP Insulin Human Regular Q6HR SC 07/24/24 18:00 08/08/24 05:52 3 UNITS Dextrose 50 ml UD PRN IV 07/24/24 15:00 08/05/24 06:05 50 ML Acetaminophen 650 mg Q6HP PRN [place] 07/24/24 19:15 Pantoprazole Sodium 40 mg DAILY IV 07/28/24 10:00 08/08/24 10:18 40 MG Amiodarone HCl 200 mg DAILY PO 07/28/24 10:00 08/08/24 10:18 200 MG Lactulose 30 ml BID PO 07/27/24 22:00 08/08/24 10:33 30 ML Spironolactone 100 mg DAILY NG 07/31/24 10:00 08/08/24 10:17 100 MG Vancomycin HCl 0 ml @ 0 mls/hr UD IV 08/03/24 11:15 Sodium Chloride 10 ml QSHIFT@10,22 IV 08/03/24 22:00 08/08/24 10:18 10 ML Enoxaparin Sodium 40 mg DAILY SC 08/04/24 10:00 08/08/24 10:18 40 MG Furosemide 40 mg DAILY PO 08/06/24 10:00 08/08/24 10:17 40 MG Hydralazine HCl 10 mg Q6HP PRN IV 08/06/24 01:15 Albuterol 2.5 mg Q6HR NEB 08/06/24 18:00 08/08/24 11:31 2.5 MG Ipratropium [place] 0.5 mg Q6HR NEB 08/06/24 18:00 08/08/24 11:31 0.5 MG Methylprednisolone Sodium Succinate 40 mg BID IV 08/06/24 22:00 08/08/24 10:18 40 MG Vancomycin HCl 250 ml @ 250 mls/hr Q12H IV 08/07/24 06:00 08/08/24 05:39 250 MLS/HR Lorazepam 1 mg Q6HR PRN IV 08/07/24 15:45 objective GENERAL: Awake, alert, oriented. LUNGS: Diminished breath sounds. CARDIOVASCULAR: Heart sounds are good. ABDOMEN: Soft. SKIN: Unknown burn pandey to bilateral hands. laboratory and microbiology Laboratory Tests 08/08/24 05:14 Test 08/08/24 05:14 Range/Units Serum Glucose 159 H 74-106 mg/dL Problem List Altered mental status. CHF exacerbation. Leukocytosis. UTI. Elevated ammonia levels. Pleural Effusion. Liver Cirrhosis. Acute Hypoxic respiratory failure. MRSA Bacteremia. Assessment/Plan Continued all current supportive medical care. Amiodarone. DVT and GI prophylactics. Diuretics with Lasix. IV antibiotics as ordered. Aldactone. Additional plan as per the hospital course. Dietary Evaluation Review Comments: 1. Consider EN/TPN if NPO >7days 2. Continue plan of care Expected Outcomes/Goals: 1. Pt will meet >75% of estimated needs within 2-3 days Plan discussed with: Patient ISHAAN BUNCH MD Aug 08, 2024 12:01
--- NOTE | 2024-08-08 16:36 | DVHPN2 ---
Subjective in bed resting on oxygen feeling well today Reviewed: Care Plan, H&P, Labs, Medications, Previous Orders, Radiology Changes from previous H/P or p: No Changes Eyes: No Pain, No Vision change, No Conjunctivae inflammation, No Eyelid inflammation, No Other, No Redness ENT: No Ear pain, No Ear discharge, No Nose pain, No Nose discharge, No Nose congestion, No Mouth pain, No Mouth swelling, No Throat pain, No Throat swelling, No Other Cardiovascular: No Chest Pain, No Palpitations, No Orthopnea, No Paroxysmal Noc. Dyspnea, No Edema, No Lt Headedness, No Other Respiratory: No Cough, No Dry, No Shortness of breath, No SOB with excertion, No Wheezing, No Hemoptysis, No Pleuritic Pain, No Sputum, No Other Gastrointestinal: No Nausea, No Vomiting, No Abdominal Pain, No Diarrhea, No Constipation, No Melena, No Hematochezia, No Other Genitourinary: No Dysuria, No Frequency, No Incontinence, No Hematuria, No Retention, No Other Musculoskeletal: No other, No neck pain, No shoulder pain, No arm pain, No back pain, No hand pain, No leg pain, No foot pain Skin: No Rash, No Lesions, No Jaundice, No Bruising, No Other Objective Vitals Vital Signs Date Time Temp Pulse Resp B/P (MAP) Pulse Ox O2 Delivery O2 Flow Rate FiO2 08/08/24 11:39 86 16 96 08/08/24 11:31 Oxymizer 5.0 08/08/24 11:31 N/A 08/08/24 10:17 113/62 08/08/24 09:00 98.3 98.3 Intake/Output Intake and Output 08/08/24 05:00 Intake Total 2085 ml Output Total 3450 ml Balance -1365 ml Intake Oral 1735 ml IV Total 350 ml Output Urine Total 3450 ml Stool Total 0 ml General Appearance: Other (Intubated, on vent, unable to exam.) HEENT: Atraumatic Neck: Supple Lungs: Clear to auscultation, Normal air movement Cardiovascular: Regular rate, Normal S1, Normal S2, No murmurs, Gallops, Rubs Abdomen: Normal bowel sounds, Soft, No tenderness Neuro: Cranial nerves 3-12 NL Psych/Mental Status: Mental status NL Medications Current Medications Medications Dose Ordered Sig/Miky Route Start Time Stop Time Status Last Admin Dose Admin Nitroglycerin 0.4 mg Q5MINP PRN SL 07/24/24 14:45 Diagnostic Test (Pha) 1 strip Q6HR 07/24/24 18:00 08/08/24 12:13 1 STRIP Insulin Human Regular Q6HR SC 07/24/24 18:00 08/08/24 12:20 6 UNITS Dextrose 50 ml UD PRN IV 07/24/24 15:00 08/05/24 06:05 50 ML Acetaminophen 650 mg Q6HP PRN [place] 07/24/24 19:15 Pantoprazole Sodium 40 mg DAILY IV 07/28/24 10:00 08/08/24 10:18 40 MG Amiodarone HCl 200 mg DAILY PO 07/28/24 10:00 08/08/24 10:18 200 MG Lactulose 30 ml BID PO 07/27/24 22:00 08/08/24 10:33 30 ML Spironolactone 100 mg DAILY NG 07/31/24 10:00 08/08/24 10:17 100 MG Vancomycin HCl 0 ml @ 0 mls/hr UD IV 08/03/24 11:15 Sodium Chloride 10 ml QSHIFT@10,22 IV 08/03/24 22:00 08/08/24 10:18 10 ML Enoxaparin Sodium 40 mg DAILY SC 08/04/24 10:00 08/08/24 10:18 40 MG Furosemide 40 mg DAILY PO 08/06/24 10:00 08/08/24 10:17 40 MG Hydralazine HCl 10 mg Q6HP PRN IV 08/06/24 01:15 Albuterol 2.5 mg Q6HR NEB 08/06/24 18:00 08/08/24 11:31 2.5 MG Ipratropium [place] 0.5 mg Q6HR NEB 08/06/24 18:00 08/08/24 11:31 0.5 MG Methylprednisolone Sodium Succinate 40 mg BID IV 08/06/24 22:00 08/08/24 10:18 40 MG Vancomycin HCl 250 ml @ 250 mls/hr Q12H IV 08/07/24 06:00 08/08/24 05:39 250 MLS/HR Lorazepam 1 mg Q6HR PRN IV 08/07/24 15:45 Laboratory Results Laboratory Tests 08/08/24 05:14 Chemistry Test 08/08/24 05:14 Albumin 3.0 g/dL (3.2-4.8) L Calcium Level 9.3 mg/dL (8.7-10.4) Total Protein 5.7 g/dL (5.7-8.2) LFT Test 08/08/24 05:14 Alanine Aminotransferase (ALT) 12 U/L (7-40) Alkaline Phosphatase 56 U/L (46-116) Aspartate Amino Transferase (AST) 15 U/L (13-40) Total Bilirubin 0.7 mg/dL (0.2-1.0) Urinalysis Test 07/24/24 12:21 07/26/24 12:00 Urine Hyaline Casts Many /lpf (0 - 2) Urine Color Yellow (Yellow) Urine Clarity Turbid (Clear) H Urine pH 5.5 (5.0-9.0) Urine Specific [place] 1.016 (1.001-1.035) Urine Protein Negative (Negative) Urine Ketones Negative (Negative) Urine Blood 2+ /uL (Negative) H Urine Nitrite Negative (Negative) Urine Bilirubin Negative (Negative) Urine Urobilinogen 3 mg/dL (Negative) H Urine Leukocyte Esterase 1+ /uL (Negative) Urine RBC 33 /hpf (0 - 3) Urine WBC 13 /hpf (0 - 3) Urine Squamous Epithelial Cells Few /hpf (<5) Urine Uric Acid Crystals Few /hpf (None Seen) Urine Bacteria None seen /hpf (None Seen) Urine Mucus Few (None Seen) Urine Glucose Normal mg/dL (Normal) Microbiology Microbiology Date/Time Source Procedure Growth Status 07/28/24 13:22 Bronchial Washings Gram Stain - Final Complete 07/28/24 13:22 Bronchial Washings Respiratory Culture - Final Complete 07/27/24 12:30 Ascities Fluid Gram Stain - Final Complete 07/27/24 12:30 Ascities Fluid Body Fluid Culture - Final Complete 07/25/24 16:51 Nose MRSA Screen - Final Complete 07/24/24 12:21 Urine - [place] Urine Culture - Final Complete 07/24/24 11:52 Blood Blood Culture - Final NO GROWTH AFTER 5 DAYS OF INCUBATION. Complete Assessment/Plan Assessment/Plan Atrial flutter, upon admission, currently sinus rhythm Chads Vasc score 0 Cardiology is on the board Echocardiogram from 07/24 shows normal left ventricular systolic 80 function with ejection fraction 60%, mild pericardial effusion, moderate pulmonary hypertension with RSVP more than 50 Amiodarone 200 mg daily Lovenox 40 mg daily Acute hypoxic and hypercarbic respiratory failure likely due to pneumonia/COPD exacerbation Pneumonia likely due MRSA Hydropneumothorax, chest tube is in place Parapneumonic loculated pleural effusion Septic shock likely due to pneumonia Acute COPD exacerbation Possible obstructive sleep apnea Chest CT scan from 07/25 shows bilateral pneumonia with bilateral loculated pleural effusions Chest CT scan from 08/03 shows Multifocal airspace disease with few foci of air are present in right lower lobe consolidation measuring 3.8 cm but no loculated effusion ABGs shows respiratory acidosis with metabolic compensation, maintaining saturation at 93% with 4 L of oxygen through nasal cannula Today's Chest x-ray shows bilaterally infiltration, seem to the previous feeling Chest ultrasound on 07/29/2024 shows trace left-sided pleural effusion and thoracentesis could not perform COVID-19 and flu are negative Breathing treatment q.4 hours, as needed Sputum culture from from 07/25 shows MRSA sensitive to vancomycin Discontinue Zosyn, used for 12 days Continue vancomycin, started on 08/03 Continue methylprednisolone 40 mg IV b.i.d., started at 08/06 Breathing treatment q.6 hour Patient has drop of oxygen saturation during the sleep, ABGs reviewed during the awake and time, showed compensated pH, discontinued BiPAP during the day, recommended BiPAP during the sleep Liver cirrhosis, likely due to alcohol Ascites due to liver cirrhosis Transaminitis, likely due to septic shock/alcohol abuse Paracentesis has been performed, 2 L removed, ascitic fluid exam shows WBC 1548 (polymorphonuclear cells 90), RBC 2159 Ammonia level at 07/24 was 70, decreased to less than 10 on 07/28 Continue Spironolactone 100 mg daily Lasix 40 mg daily, given 1 extra dose of Lasix 20 mg at 08/06 RENAL: SHAMIR, likely hemodynamically mediated, improved Hyperchloremia Moderate hypokalemia, supplemented Hypomagnesemia, supplemented Hypernatremia, normalized Plan discussed with: Patient Date of Service: Aug 08, 2024 Billing Provider: ROSALEE VALDEZ MD Common Visit Codes: [id number] INP/OBS CARE(HIGH) ROSALEE VALDEZ MD Aug 08, 2024 16:36
[2024-08-09] VITALS (20 sets, daily range): BP systolic 99–123; BP diastolic 60–75; PULSE 68–89; RESP 14–20; TEMP 97.7–98.7; O2SAT 92–100
[2024-08-09 08:18] LABS: Basophils # (auto) 0 10 ^3/uL (0-0.2); Basophils % (auto) 0.1 % (0.0-2.0); Eosinophils # (auto) 0 10 ^3/uL (0-0.8); Hematocrit 42.6 % (41.0-53.0); Hemoglobin 14.2 g/dL (13.5-17.5); Lymphocytes # (auto) 1.2 10 ^3/uL (0.4-5.4); Lymphocytes % (auto) 10.7 % (10.0-50.0); Mean Corpuscular Hemoglobin 34.6 pg (28.0-32.0); Mean Corpuscular Hgb Conc. 33.3 g/dL (32.0-36.0); Mean Corpuscular Volume 103.8 fL (80.0-100.0); Monocytes # (auto) 1.2 10 ^3/uL (0-1.3); Monocytes % (auto) 10.7 % (0.0-12.0); Neutrophils # (auto) 8.9 10 ^3/uL (1.6-8.6); Neutrophils % (auto) 78.5 % (37.0-80.0); Platelet Count (auto) 297 10^3/uL (140-450); Red Blood Cells 4.11 10^6/uL (4.5-5.90); Red Cell Distribution Width 14.2 % (11.8-14.3); White Blood Cell 11.3 10^3/uL (4.4-10.8)
--- NOTE | 2024-08-09 15:17 | DVHPN2 ---
Progress Note - Dictate Date Seen: Aug 09, 2024 Has the PT tested + for MRSA If YES, has PT been informed?: Yes Medical Necessity Reason Pt with a Central, PICC or Fol: Yes The following are medically ne: Gentile Catheter Reason for gentile catheter: Strict I&O Subjective Patient was seen and evaluated in follow up. Overnight, patient was refusing to wear Bi-Pap. Patient is currently on 5 L Oxymizer. Sitter remains at the patient's bedside. WBC 11.3, GLUC 250. vital signs Vital Sign Date Time Temp Pulse Resp B/P (MAP) Pulse Ox O2 Delivery O2 Flow Rate FiO2 08/09/24 12:52 97.7 86 14 113/69 (84) 93 97.7 08/09/24 12:32 Oxymizer 5 N/A Total Intake and Output 08/08/24 08/08/24 08/09/24 15:00 23:00 07:00 Intake Total 950 ml 650 ml Output Total 1200 ml 1900 ml Balance -250 ml -1250 ml medications Current Medications Medications Dose Ordered Sig/Miky Route Start Time Stop Time Status Last Admin Dose Admin Nitroglycerin 0.4 mg Q5MINP PRN SL 07/24/24 14:45 Diagnostic Test (Pha) 1 strip Q6HR 07/24/24 18:00 08/09/24 12:01 1 STRIP Insulin Human Regular Q6HR SC 07/24/24 18:00 08/09/24 12:07 4 UNITS Dextrose 50 ml UD PRN IV 07/24/24 15:00 08/05/24 06:05 50 ML Acetaminophen 650 mg Q6HP PRN [place] 07/24/24 19:15 Pantoprazole Sodium 40 mg DAILY IV 07/28/24 10:00 08/09/24 09:26 40 MG Amiodarone HCl 200 mg DAILY PO 07/28/24 10:00 08/09/24 09:25 200 MG Lactulose 30 ml BID PO 07/27/24 22:00 08/09/24 09:25 30 ML Spironolactone 100 mg DAILY NG 07/31/24 10:00 08/09/24 09:25 100 MG Vancomycin HCl 0 ml @ 0 mls/hr UD IV 08/03/24 11:15 Sodium Chloride 10 ml QSHIFT@ IV 08/03/24 22:00 08/09/24 09:26 10 ML Enoxaparin Sodium 40 mg DAILY SC 08/04/24 10:00 08/09/24 09:26 40 MG Furosemide 40 mg DAILY PO 08/06/24 10:00 08/09/24 09:27 40 MG Hydralazine HCl 10 mg Q6HP PRN IV 08/06/24 01:15 Albuterol 2.5 mg Q6HR NEB 08/06/24 18:00 08/09/24 12:32 2.5 MG Ipratropium [place] 0.5 mg Q6HR NEB 08/06/24 18:00 08/09/24 12:32 0.5 MG Methylprednisolone Sodium Succinate 40 mg BID IV 08/06/24 22:00 08/09/24 09:26 40 MG Vancomycin HCl 250 ml @ 250 mls/hr Q12H IV 08/07/24 06:00 08/09/24 05:31 250 MLS/HR Lorazepam 1 mg Q6HR PRN IV 08/07/24 15:45 objective GENERAL: Awake, alert, oriented. LUNGS: Diminished breath sounds. CARDIOVASCULAR: Heart sounds are good. ABDOMEN: Soft. SKIN: Unknown burn pandey to bilateral hands. laboratory and microbiology Laboratory Tests 08/09/24 07:54 08/08/24 05:14 Test 08/08/24 05:14 Range/Units Serum Glucose 159 H 74-106 mg/dL Problem List Altered mental status. CHF exacerbation. Leukocytosis. UTI. Elevated ammonia levels. Pleural Effusion. Liver Cirrhosis. Acute Hypoxic respiratory failure. MRSA Bacteremia. Assessment/Plan Continued all current supportive medical care. Amiodarone. DVT and GI prophylactics. Diuretics with Lasix. IV antibiotics as ordered. Aldactone. Additional plan as per the hospital course. Dietary Evaluation Review Comments: 1. Consider EN/TPN if NPO >7days 2. Continue plan of care Expected Outcomes/Goals: 1. Pt will meet >75% of estimated needs within 2-3 days Plan discussed with: Patient ISHAAN BUNCH MD Aug 09, 2024 14:14
--- NOTE | 2024-08-09 21:03 | DVHPN2 ---
Subjective in bed resting on oxygen feeling well today Reviewed: Care Plan, H&P, Labs, Medications, Previous Orders, Radiology Changes from previous H/P or p: No Changes Eyes: No Pain, No Vision change, No Conjunctivae inflammation, No Eyelid inflammation, No Other, No Redness ENT: No Ear pain, No Ear discharge, No Nose pain, No Nose discharge, No Nose congestion, No Mouth pain, No Mouth swelling, No Throat pain, No Throat swelling, No Other Cardiovascular: No Chest Pain, No Palpitations, No Orthopnea, No Paroxysmal Noc. Dyspnea, No Edema, No Lt Headedness, No Other Respiratory: No Cough, No Dry, No Shortness of breath, No SOB with excertion, No Wheezing, No Hemoptysis, No Pleuritic Pain, No Sputum, No Other Gastrointestinal: No Nausea, No Vomiting, No Abdominal Pain, No Diarrhea, No Constipation, No Melena, No Hematochezia, No Other Genitourinary: No Dysuria, No Frequency, No Incontinence, No Hematuria, No Retention, No Other Musculoskeletal: No other, No neck pain, No shoulder pain, No arm pain, No back pain, No hand pain, No leg pain, No foot pain Skin: No Rash, No Lesions, No Jaundice, No Bruising, No Other Objective Vitals Vital Signs Date Time Temp Pulse Resp B/P (MAP) Pulse Ox O2 Delivery O2 Flow Rate FiO2 08/09/24 20:52 89 18 123/74 100 6.0 54 08/09/24 20:00 Oxymizer 08/09/24 17:11 98.6 98.6 Intake/Output Intake and Output 08/09/24 05:00 Intake Total 1750 ml Output Total 2050 ml Balance -300 ml Intake Oral 1500 ml IV Total 250 ml Output Urine Total 2050 ml General Appearance: Other (Intubated, on vent, unable to exam.) HEENT: Atraumatic Neck: Supple Lungs: Clear to auscultation, Normal air movement Cardiovascular: Regular rate, Normal S1, Normal S2, No murmurs, Gallops, Rubs Abdomen: Normal bowel sounds, Soft, No tenderness Neuro: Cranial nerves 3-12 NL Psych/Mental Status: Mental status NL Medications Current Medications Medications Dose Ordered Sig/Miky Route Start Time Stop Time Status Last Admin Dose Admin Nitroglycerin 0.4 mg Q5MINP PRN SL 07/24/24 14:45 Diagnostic Test (Pha) 1 strip Q6HR 07/24/24 18:00 08/09/24 18:00 1 STRIP Insulin Human Regular Q6HR SC 07/24/24 18:00 08/09/24 17:51 6 UNITS Dextrose 50 ml UD PRN IV 07/24/24 15:00 08/05/24 06:05 50 ML Acetaminophen 650 mg Q6HP PRN [place] 07/24/24 19:15 Pantoprazole Sodium 40 mg DAILY IV 07/28/24 10:00 08/09/24 09:26 40 MG Amiodarone HCl 200 mg DAILY PO 07/28/24 10:00 08/09/24 09:25 200 MG Lactulose 30 ml BID PO 07/27/24 22:00 08/09/24 09:25 30 ML Spironolactone 100 mg DAILY NG 07/31/24 10:00 08/09/24 09:25 100 MG Vancomycin HCl 0 ml @ 0 mls/hr UD IV 08/03/24 11:15 Sodium Chloride 10 ml QSHIFT@10,22 IV 08/03/24 22:00 08/09/24 09:26 10 ML Enoxaparin Sodium 40 mg DAILY SC 08/04/24 10:00 08/09/24 09:26 40 MG Furosemide 40 mg DAILY PO 08/06/24 10:00 08/09/24 09:27 40 MG Hydralazine HCl 10 mg Q6HP PRN IV 08/06/24 01:15 Albuterol 2.5 mg Q6HR NEB 08/06/24 18:00 08/09/24 18:04 2.5 MG Ipratropium [place] 0.5 mg Q6HR NEB 08/06/24 18:00 08/09/24 18:04 0.5 MG Methylprednisolone Sodium Succinate 40 mg BID IV 08/06/24 22:00 08/09/24 09:26 40 MG Vancomycin HCl 250 ml @ 250 mls/hr Q12H IV 08/07/24 06:00 08/09/24 19:02 250 MLS/HR Lorazepam 1 mg Q6HR PRN IV 08/07/24 15:45 Laboratory Results Laboratory Tests 08/08/24 05:14 08/09/24 07:54 Urinalysis Test 07/24/24 12:21 07/26/24 12:00 Urine Hyaline Casts Many /lpf (0 - 2) Urine Color Yellow (Yellow) Urine Clarity Turbid (Clear) H Urine pH 5.5 (5.0-9.0) Urine Specific [place] 1.016 (1.001-1.035) Urine Protein Negative (Negative) Urine Ketones Negative (Negative) Urine Blood 2+ /uL (Negative) H Urine Nitrite Negative (Negative) Urine Bilirubin Negative (Negative) Urine Urobilinogen 3 mg/dL (Negative) H Urine Leukocyte Esterase 1+ /uL (Negative) Urine RBC 33 /hpf (0 - 3) Urine WBC 13 /hpf (0 - 3) Urine Squamous Epithelial Cells Few /hpf (<5) Urine Uric Acid Crystals Few /hpf (None Seen) Urine Bacteria None seen /hpf (None Seen) Urine Mucus Few (None Seen) Urine Glucose Normal mg/dL (Normal) Microbiology Microbiology Date/Time Source Procedure Growth Status 07/28/24 13:22 Bronchial Washings Gram Stain - Final Complete 07/28/24 13:22 Bronchial Washings Respiratory Culture - Final Complete 07/27/24 12:30 Ascities Fluid Gram Stain - Final Complete 07/27/24 12:30 Ascities Fluid Body Fluid Culture - Final Complete 07/25/24 16:51 Nose MRSA Screen - Final Complete 07/24/24 12:21 Urine - [place] Urine Culture - Final Complete 07/24/24 11:52 Blood Blood Culture - Final NO GROWTH AFTER 5 DAYS OF INCUBATION. Complete Assessment/Plan Assessment/Plan Atrial flutter, upon admission, currently sinus rhythm Chads Vasc score 0 Cardiology is on the board Echocardiogram from 07/24 shows normal left ventricular systolic 80 function with ejection fraction 60%, mild pericardial effusion, moderate pulmonary hypertension with RSVP more than 50 Amiodarone 200 mg daily Lovenox 40 mg daily Acute hypoxic and hypercarbic respiratory failure likely due to pneumonia/COPD exacerbation Pneumonia likely due MRSA Hydropneumothorax, chest tube is in place Parapneumonic loculated pleural effusion Septic shock likely due to pneumonia Acute COPD exacerbation Possible obstructive sleep apnea Chest CT scan from 07/25 shows bilateral pneumonia with bilateral loculated pleural effusions Chest CT scan from 08/03 shows Multifocal airspace disease with few foci of air are present in right lower lobe consolidation measuring 3.8 cm but no loculated effusion ABGs shows respiratory acidosis with metabolic compensation, maintaining saturation at 93% with 4 L of oxygen through nasal cannula Today's Chest x-ray shows bilaterally infiltration, seem to the previous feeling Chest ultrasound on 07/29/2024 shows trace left-sided pleural effusion and thoracentesis could not perform COVID-19 and flu are negative Breathing treatment q.4 hours, as needed Sputum culture from from 07/25 shows MRSA sensitive to vancomycin Discontinue Zosyn, used for 12 days Continue vancomycin, started on 08/03 Continue methylprednisolone 40 mg IV b.i.d., started at 08/06 Breathing treatment q.6 hour Patient has drop of oxygen saturation during the sleep, ABGs reviewed during the awake and time, showed compensated pH, discontinued BiPAP during the day, recommended BiPAP during the sleep Liver cirrhosis, likely due to alcohol Ascites due to liver cirrhosis Transaminitis, likely due to septic shock/alcohol abuse Paracentesis has been performed, 2 L removed, ascitic fluid exam shows WBC 1548 (polymorphonuclear cells 90), RBC 2159 Ammonia level at 07/24 was 70, decreased to less than 10 on 07/28 Continue Spironolactone 100 mg daily Lasix 40 mg daily, given 1 extra dose of Lasix 20 mg at 08/06 RENAL: SHAMIR, likely hemodynamically mediated, improved Hyperchloremia Moderate hypokalemia, supplemented Hypomagnesemia, supplemented Hypernatremia, normalized Plan discussed with: Other (nurse) Date of Service: Aug 09, 2024 Billing Provider: ROSALEE VALDEZ MD Common Visit Codes: [id number] INP/OBS CARE(HIGH) ROSALEE VALDEZ MD Aug 09, 2024 21:03
[2024-08-10] VITALS (14 sets, daily range): BP systolic 109–119; BP diastolic 58–79; PULSE 63–90; RESP 16–22; TEMP 97.5–98.7; O2SAT 91–100
--- NOTE | 2024-08-10 07:54 | DVH ---
CHEST RADIOGRAPH Indication: pneumonia Technique: Single frontal view of the chest was obtained COMPARISON: XY CHEST XRAY 1 VIEW on DOS: 08/07/24, XY CHEST XRAY 1 VIEW on DOS: 08/06/24, XY CHEST XRAY 1 VIEW on DOS: 08/05/24 FINDINGS: Lines and Tubes: Right PICC in satisfactory position. Lungs: Patchy bilateral airspace disease. Pleura: No effusion. No pneumothorax. Cardiomediastinal contours: Unremarkable Bones: Unremarkable IMPRESSION: No significant interval change.
[2024-08-10 08:54] LABS: Basophils # (auto) 0 10 ^3/uL (0-0.2); Basophils % (auto) 0.2 % (0.0-2.0); Eosinophils # (auto) 0 10 ^3/uL (0-0.8); Eosinophils % (auto) 0.1 % (0.0-7.0); Mean Corpuscular Hgb Conc. 33.6 g/dL (32.0-36.0); Monocytes # (auto) 1.1 10 ^3/uL (0-1.3); Neutrophils # (auto) 7.4 10 ^3/uL (1.6-8.6); White Blood Cell 9.9 10^3/uL (4.4-10.8)
[2024-08-10 08:56] LABS: Hematocrit 44.4 % (41.0-53.0); Hemoglobin 14.9 g/dL (13.5-17.5); Lymphocytes # (auto) 1.4 10 ^3/uL (0.4-5.4); Lymphocytes % (auto) 13.8 % (10.0-50.0); Mean Corpuscular Volume 104.2 fL (80.0-100.0); Monocytes % (auto) 11.3 % (0.0-12.0); Neutrophils % (auto) 74.6 % (37.0-80.0); Platelet Count (auto) 304 10^3/uL (140-450); Red Blood Cells 4.27 10^6/uL (4.5-5.90); Red Cell Distribution Width 14.3 % (11.8-14.3)
[2024-08-10 09:04] LABS: Potassium 4.4 mmol/L (3.5-5.1); Sodium 139 mmol/L (136-145)
[2024-08-10 09:05] LABS: Calcium 10.1 mg/dL (8.7-10.4)
[2024-08-10 09:10] LABS: Blood Urea Nitrogen 13 mg/dL (9-23)
[2024-08-10 09:24] LABS: Anion Gap 5.99999 (5-15); Chloride 93 mmol/L (98-107); Glucose 109 mg/dL (74-106)
[2024-08-10 09:34] LABS: Carbon Dioxide > 40 mmol/L (20-31)
[2024-08-10 11:15] LABS: Base Excess 8.6 mmol/L (-2.0-3.0)
--- NOTE | 2024-08-10 21:10 | DVHPNRES ---
Progress Note Date Seen: Aug 10, 2024 Resident Creating Document: RADHA KING PRASANNA Has the PT tested + for MRSA If YES, has PT been informed?: Yes Medical Necessity Reason Pt with a Central, PICC or Fol: Yes The following are medically ne: Gentile Catheter Reason for gentile catheter: Strict I&O Subjective Review of Systems his is a 59-year-old homeless male, with past medical history of liver cirrhosis, multidrug abuser (methamphetamine, marijuana), active smoker brought to the hospital with altered level of consciousness and shortness of breaths. Admitted and intubated on 07/24. Extubated on 08/04. Patient seen and examined at the bedside. Patient is was feeling better, complaining of mild shortness of breaths, maintaining oxygen saturation at 93% with 2L of oxygen through nasal cannula. Patient reports: No new complaints, Feels better Changes from previous H/P or p: Changes Objective vital signs Vital Sign Date Time Temp Pulse Resp B/P (MAP) Pulse Ox O2 Delivery O2 Flow Rate FiO2 08/10/24 19:36 77 18 100 08/10/24 19:28 Oxymizer 1.0 08/10/24 19:28 N/A 08/10/24 17:00 97.9 119/79 (92) 97.9 Total Intake and Output 08/09/24 08/09/24 08/10/24 15:00 23:00 07:00 Intake Total 1600 ml 1750 ml 700 ml Output Total 2525 ml 1975 ml Balance 1600 ml -775 ml -1275 ml medications Current Medications Medications Dose Ordered Sig/Miky Route Start Time Stop Time Status Last Admin Dose Admin Nitroglycerin 0.4 mg Q5MINP PRN SL 07/24/24 14:45 Diagnostic Test (Pha) 1 strip Q6HR 07/24/24 18:00 08/10/24 17:09 1 STRIP Insulin Human Regular Q6HR SC 07/24/24 18:00 08/10/24 18:00 8 UNITS Dextrose 50 ml UD PRN IV 07/24/24 15:00 08/05/24 06:05 50 ML Acetaminophen 650 mg Q6HP PRN [place] 07/24/24 19:15 Amiodarone HCl 200 mg DAILY PO 07/28/24 10:00 08/10/24 10:46 200 MG Lactulose 30 ml BID PO 07/27/24 22:00 08/10/24 10:47 30 ML Spironolactone 100 mg DAILY NG 07/31/24 10:00 08/10/24 10:46 100 MG Sodium Chloride 10 ml QSHIFT@ IV 08/03/24 22:00 08/10/24 10:47 10 ML Enoxaparin Sodium 40 mg DAILY SC 08/04/24 10:00 08/10/24 10:44 40 MG Furosemide 40 mg DAILY PO 08/06/24 10:00 08/10/24 10:47 40 MG Hydralazine HCl 10 mg Q6HP PRN IV 08/06/24 01:15 Albuterol 2.5 mg Q6HR NEB 08/06/24 18:00 08/10/24 19:28 2.5 MG Ipratropium [place] 0.5 mg Q6HR NEB 08/06/24 18:00 08/10/24 19:28 0.5 MG Lorazepam 1 mg Q6HR PRN IV 08/07/24 15:45 Prednisone 40 mg DAILY PO 08/11/24 10:00 Pantoprazole Sodium 40 mg DAILY@0600 PO 08/11/24 06:00 Examination General Appearance: Alert, Oriented X3, Cooperative, mild respiratory distress HEENT: Atraumatic, PERRLA, EOMI, Mucous membrane moist/pink Respiratory: Bilateral diffuse crypts Cardiovascular: Regular rate, Normal S1, Normal S2, No murmurs, no chest wall tenderness Abdominal: Normal bowel sounds, Soft, No tenderness, No hepatospenomegaly, No masses Extremities: No clubbing, No cyanosis, No edema, Normal pulses, No tenderness/swelling Skin: No rashes, No breakdown, No significant lesion Neurological: No apparent motor no sensitive deficits. Pupils are isocoric and reactive laboratory and microbiology Laboratory Tests 08/10/24 08:39 Test 08/10/24 08:39 Range/Units Serum Glucose 109 H 74-106 mg/dL Microbiology Date/Time Source Procedure Growth Status 07/28/24 13:22 Bronchial Washings Gram Stain - Final Complete 07/28/24 13:22 Bronchial Washings Respiratory Culture - Final Complete 07/27/24 12:30 Ascities Fluid Gram Stain - Final Complete 07/27/24 12:30 Ascities Fluid Body Fluid Culture - Final Complete 07/25/24 16:51 Nose MRSA Screen - Final Complete 07/24/24 12:21 Urine - [place] Urine Culture - Final Complete 07/24/24 11:52 Blood Blood Culture - Final NO GROWTH AFTER 5 DAYS OF INCUBATION. Complete Labs and/or images reviewed: Labs reviewed by me, Image(s) reviewed by me Problem List/Assessment/Plan Problem List/Assessment/Plan NEURO: Acute metabolic encephalopathy, likely due to sepsis/liver cirrhosis CARDIOVASCULAR: Atrial flutter, upon admission, currently sinus rhythm Chads Vasc score 0 Cardiology is on the board Echocardiogram from 07/24 shows normal left ventricular systolic 80 function with ejection fraction 60%, mild pericardial effusion, moderate pulmonary hypertension with RSVP more than 50 Amiodarone 200 mg daily Lovenox 40 mg daily PULMONARY: Acute hypoxic and hypercarbic respiratory failure likely due to pneumonia/COPD exacerbation Pneumonia likely due MRSA Hydropneumothorax, chest tube is in place Parapneumonic loculated pleural effusion Septic shock likely due to pneumonia Acute COPD exacerbation Possible obstructive sleep apnea Chest CT scan from 07/25 shows bilateral pneumonia with bilateral loculated pleural effusions Chest CT scan from 08/03 shows Multifocal airspace disease with few foci of air are present in right lower lobe consolidation measuring 3.8 cm but no loculated effusion Chest ultrasound on 07/29/2024 shows trace left-sided pleural effusion and thoracentesis could not perform COVID-19 and flu are negative Sputum culture from from 07/25 shows MRSA sensitive to vancomycin Discontinue Zosyn, used for 12 days Continue vancomycin, started on 08/03 Discontinue methylprednisolone 40 mg b.i.d., given for 5 days Start prednisone 40 mg daily, started and 08/10 Breathing treatment q.6 hour Patient has drop of oxygen saturation during the sleep, ABGs reviewed during the awake and time, showed compensated pH, discontinued BiPAP during the day, recommended BiPAP during the sleep GI: Liver cirrhosis, likely due to alcohol Ascites due to liver cirrhosis Transaminitis, likely due to septic shock/alcohol abuse Paracentesis has been performed, 2 L removed, ascitic fluid exam shows WBC 1548 (polymorphonuclear cells 90), RBC 2159 Ammonia level at 07/24 was 70, decreased to less than 10 on 07/28 Continue Spironolactone 100 mg daily and Linzess 100 mg daily Lasix 40 mg daily, given 1 extra dose of Lasix 20 mg at 08/06 Bowel regimen: Lactulose 30 mL b.i.d. GI ppx: Protonix 40 mg daily p.o. RENAL: SHAMIR, likely hemodynamically mediated, improved ID: HIV and hepatitis panel, negative Blood and urine culture from 07/14 was negative Sputum culture from 07/25 shows MRSA Pleural fluid culture from 07/25 shows no growth Ascitic fluid culture from 07/27 shows no growth BAL culture from 07/28 shows moderate normal tammi growth Discontinued Zosyn, use for 2 days Continue vancomycin HEME Thrombocytopenia, likely due to liver cirrhosis Normalized Endocrine: Possible Hyptohyroidism TSH is 8.51, free T3 decreased at 1.79, and free T4 normal at 1.0 Metabolic: Hyperchloremia Moderate hypokalemia, supplemented Hypomagnesemia, supplemented Hypernatremia, normalized LINES/DRAINS/ACCESS: ETT: Intubated on 07/26/2024 and extubated on 08/04 IV access: Right-sided upper limb PICC line, placed on 08/04 Transurethral Gentile catheter, placed on 07/25/2024, discontinue Chest tube placed on 07/25/2024, and removed on 08/06 Drips: No pressor DVT prophylaxis: Lovenox DIET: Mechanical soft diet CODE STATUS: Full code Disposition: Patient is transferred to the telemetry Patient's status discussed with the sister he is homeless since 17 years, and no family member lives in [facility]. Patient has a brother living in [place], due to disability can not come and pick the patient. Case discussed with Plan discussed with: Patient, Other (RN) My Orders My Orders Orders - RADHA KING RESDIDORIS Procedure Category Date Status Time Chest Xray 1 View XY 08/10/24 Resulted 06:45 Abg W/ Co-Ox RT 08/10/24 Logged 10:58 Comprehensive LAB 08/11/24 Verified Metabolic Panel 04:00 Chest Xray 1 View XY 08/11/24 Logged 04:00 Dietary Evaluation Review Comments: 1. Consider EN/TPN if NPO >7days 2. Continue plan of care Expected Outcomes/Goals: 1. Pt will meet >75% of estimated needs within 2-3 days Date of Service: Aug 10, 2024 Billing Provider: SUSY ARREGUIN MD Common Visit Codes: [id number] INP/OBS CARE(HIGH) Secondary Visit Codes: [id number] CARE PLAN 30 MINUTES RADHA KING Aug 10, 2024 21:10 SUSY ARREGUIN MD Aug 11, 2024 16:30
--- NOTE | 2024-08-10 23:05 | DVHPN2 ---
Progress Note - Dictate Date Seen: Aug 10, 2024 Has the PT tested + for MRSA If YES, has PT been informed?: Yes Medical Necessity Reason Pt with a Central, PICC or Fol: Yes The following are medically ne: Gentile Catheter Reason for gentile catheter: Strict I&O Subjective Patient was seen and evaluated in follow up. Patient is on 1 L viz oxymizer. Patient reports feeling better. Does report some SOB. Chest x-ray shows no significant interval change. CO2 > 40. vital signs Vital Sign Date Time Temp Pulse Resp B/P (MAP) Pulse Ox O2 Delivery O2 Flow Rate FiO2 08/10/24 19:36 77 18 100 08/10/24 19:28 Oxymizer 1.0 08/10/24 19:28 N/A 08/10/24 17:00 97.9 119/79 (92) 97.9 Total Intake and Output 08/09/24 08/09/24 08/10/24 15:00 23:00 07:00 Intake Total 1600 ml 1750 ml 700 ml Output Total 2525 ml 1975 ml Balance 1600 ml -775 ml -1275 ml medications Current Medications Medications Dose Ordered Sig/Miky Route Start Time Stop Time Status Last Admin Dose Admin Nitroglycerin 0.4 mg Q5MINP PRN SL 07/24/24 14:45 Diagnostic Test (Pha) 1 strip Q6HR 07/24/24 18:00 08/10/24 17:09 1 STRIP Insulin Human Regular Q6HR SC 07/24/24 18:00 08/10/24 18:00 8 UNITS Dextrose 50 ml UD PRN IV 07/24/24 15:00 08/05/24 06:05 50 ML Acetaminophen 650 mg Q6HP PRN [place] 07/24/24 19:15 Amiodarone HCl 200 mg DAILY PO 07/28/24 10:00 08/10/24 10:46 200 MG Lactulose 30 ml BID PO 07/27/24 22:00 08/10/24 22:07 30 ML Spironolactone 100 mg DAILY NG 07/31/24 10:00 08/10/24 10:46 100 MG Sodium Chloride 10 ml QSHIFT@ IV 08/03/24 22:00 08/10/24 22:07 10 ML Enoxaparin Sodium 40 mg DAILY SC 08/04/24 10:00 08/10/24 10:44 40 MG Furosemide 40 mg DAILY PO 08/06/24 10:00 08/10/24 10:47 40 MG Hydralazine HCl 10 mg Q6HP PRN IV 08/06/24 01:15 Albuterol 2.5 mg Q6HR NEB 08/06/24 18:00 08/10/24 19:28 2.5 MG Ipratropium [place] 0.5 mg Q6HR NEB 08/06/24 18:00 08/10/24 19:28 0.5 MG Lorazepam 1 mg Q6HR PRN IV 08/07/24 15:45 Prednisone 40 mg DAILY PO 08/11/24 10:00 Pantoprazole Sodium 40 mg DAILY@0600 PO 08/11/24 06:00 objective GENERAL: Awake, alert, oriented. LUNGS: Diminished breath sounds. CARDIOVASCULAR: Heart sounds are good. ABDOMEN: Soft. SKIN: Unknown burn pandey to bilateral hands. laboratory and microbiology Laboratory Tests 08/10/24 08:39 Test 08/10/24 08:39 Range/Units Serum Glucose 109 H 74-106 mg/dL Problem List Altered mental status. CHF exacerbation. Leukocytosis. UTI. Elevated ammonia levels. Pleural Effusion. Liver Cirrhosis. Acute Hypoxic respiratory failure. MRSA Bacteremia. Assessment/Plan Continued all current supportive medical care. Amiodarone. DVT and GI prophylactics. Diuretics with Lasix. IV antibiotics as ordered. Aldactone. Additional plan as per the hospital course. Dietary Evaluation Review Comments: 1. Consider EN/TPN if NPO >7days 2. Continue plan of care Expected Outcomes/Goals: 1. Pt will meet >75% of estimated needs within 2-3 days Plan discussed with: Patient ISHAAN BUNCH MD Aug 10, 2024 23:05
[2024-08-11] VITALS (15 sets, daily range): BP systolic 105–116; BP diastolic 63–78; PULSE 67–89; RESP 14–22; TEMP 97.6–98.3; O2SAT 93–100
[2024-08-11] MEDS: PANTOPRAZOLE 40 MG TAB PO SCH (05:43)
--- NOTE | 2024-08-11 06:40 | DVH ---
CHEST RADIOGRAPH Indication: Pneumonia Technique: Single frontal view of the chest was obtained Comparison: XY CHEST XRAY 1 VIEW on DOS: 08/10/24, XY CHEST XRAY 1 VIEW on DOS: 08/07/24, XY CHEST XRAY 1 VIEW on DOS: 08/06/24, XY CHEST XRAY 1 VIEW on DOS: 08/05/24, XY CHEST XRAY 1 VIEW on DOS: 08/04/24, XY CHEST XRAY 1 VIEW on DOS: 08/10/24 FINDINGS: Lines and Tubes: Right PICC in satisfactory position. Lungs: Patchy bilateral airspace disease. Pleura: No effusion. No pneumothorax. Cardiomediastinal contours: Unremarkable Bones: Unremarkable IMPRESSION: No significant interval change.
[2024-08-11 07:22] LABS: Basophils # (auto) 0 10 ^3/uL (0-0.2); Basophils % (auto) 0.1 % (0.0-2.0); Eosinophils # (auto) 0 10 ^3/uL (0-0.8); Eosinophils % (auto) 0.1 % (0.0-7.0); Monocytes # (auto) 1.1 10 ^3/uL (0-1.3)
[2024-08-11 07:24] LABS: Hematocrit 41.7 % (41.0-53.0); Hemoglobin 14.1 g/dL (13.5-17.5); Lymphocytes # (auto) 1.2 10 ^3/uL (0.4-5.4); Lymphocytes % (auto) 12.3 % (10.0-50.0); Mean Corpuscular Hemoglobin 35.4 pg (28.0-32.0); Mean Corpuscular Hgb Conc. 33.8 g/dL (32.0-36.0); Mean Corpuscular Volume 104.5 fL (80.0-100.0); Monocytes % (auto) 11.3 % (0.0-12.0); Neutrophils # (auto) 7.6 10 ^3/uL (1.6-8.6); Neutrophils % (auto) 76.2 % (37.0-80.0); Platelet Count (auto) 260 10^3/uL (140-450); Red Blood Cells 3.99 10^6/uL (4.5-5.90); Red Cell Distribution Width 14.3 % (11.8-14.3)
[2024-08-11 07:46] LABS: Alanine Aminotransferase 15 U/L (7-40); Albumin 3.2 g/dL (3.2-4.8); Alkaline Phosphatase 65 U/L (46-116); Anion Gap 2 (5-15); Aspartate Aminotransferase 15 U/L (13-40); BUN/Creatinine Ratio 21.7 (10.0-20.0); Blood Urea Nitrogen 20 mg/dL (9-23); Potassium 4.3 mmol/L (3.5-5.1); Sodium 137 mmol/L (136-145)
[2024-08-11 07:47] LABS: Bilirubin, Total 0.7 mg/dL (0.2-1.0); Total Protein 5.8 g/dL (5.7-8.2)
[2024-08-11 07:49] LABS: Carbon Dioxide 40 mmol/L (20-31); Chloride 95 mmol/L (98-107); Glucose 166 mg/dL (74-106)
[2024-08-11] MEDS: predniSONE 20 MG TAB PO SCH (09:17)
--- NOTE | 2024-08-11 19:48 | DVHPNRES ---
Progress Note Date Seen: Aug 11, 2024 Resident Creating Document: RADHA KING PRASANNA Has the PT tested + for MRSA If YES, has PT been informed?: Yes Medical Necessity Reason Pt with a Central, PICC or Fol: Yes The following are medically ne: Gentile Catheter Reason for gentile catheter: Strict I&O Subjective Review of Systems This is a 59-year-old homeless male, with past medical history of liver cirrhosis, multidrug abuser (methamphetamine, marijuana), active smoker brought to the hospital with altered level of consciousness and shortness of breaths. Admitted and intubated on 07/24. Extubated on 08/04. Patient seen and examined at the bedside. Patient is was feeling better, complaining of mild shortness of breaths, maintaining oxygen saturation at 93% with 2L of oxygen through nasal cannula. Patient reports: No new complaints, Feels better Changes from previous H/P or p: Changes Objective vital signs Vital Sign Date Time Temp Pulse Resp B/P (MAP) Pulse Ox O2 Delivery O2 Flow Rate FiO2 08/11/24 17:41 98.3 83 18 116/78 (91) 96 98.3 08/11/24 11:18 Nasal Cannula* 3 32 Total Intake and Output 08/10/24 08/10/24 08/11/24 15:00 23:00 07:00 Intake Total 1740 ml 425 ml Output Total 7700 ml 1455 ml Balance -5960 ml -1030 ml medications Current Medications Medications Dose Ordered Sig/Miky Route Start Time Stop Time Status Last Admin Dose Admin Nitroglycerin 0.4 mg Q5MINP PRN SL 07/24/24 14:45 Diagnostic Test (Pha) 1 strip Q6HR 07/24/24 18:00 08/11/24 17:33 1 STRIP Insulin Human Regular Q6HR SC 07/24/24 18:00 08/11/24 17:34 8 UNITS Dextrose 50 ml UD PRN IV 07/24/24 15:00 08/05/24 06:05 50 ML Acetaminophen [address] 07/24/24 19:15 Amiodarone HCl 200 mg DAILY PO 07/28/24 10:00 08/11/24 09:17 200 MG Lactulose 30 ml BID PO 07/27/24 22:00 08/11/24 09:17 30 ML Spironolactone 100 mg DAILY NG 07/31/24 10:00 08/11/24 09:16 100 MG Sodium Chloride 10 ml QSHIFT@ IV 08/03/24 22:00 08/11/24 09:16 10 ML Enoxaparin Sodium 40 mg DAILY SC 08/04/24 10:00 08/11/24 09:17 40 MG Furosemide 40 mg DAILY PO 08/06/24 10:00 08/11/24 09:17 40 MG Hydralazine HCl 10 mg Q6HP PRN IV 08/06/24 01:15 Albuterol 2.5 mg Q6HR NEB 08/06/24 18:00 08/11/24 11:18 2.5 MG Ipratropium [place] 0.5 mg Q6HR NEB 08/06/24 18:00 08/11/24 11:18 0.5 MG Lorazepam 1 mg Q6HR PRN IV 08/07/24 15:45 Pantoprazole Sodium 40 mg DAILY@0600 PO 08/11/24 06:00 08/11/24 05:43 40 MG Prednisone 30 mg DAILY PO 08/12/24 10:00 Examination General Appearance: Alert, Oriented X3, Cooperative, mild respiratory distress HEENT: Atraumatic, PERRLA, EOMI, Mucous membrane moist/pink Respiratory: Bilateral diffuse crypts Cardiovascular: Regular rate, Normal S1, Normal S2, No murmurs, no chest wall tenderness Abdominal: Normal bowel sounds, Soft, No tenderness, No hepatospenomegaly, No masses Extremities: No clubbing, No cyanosis, No edema, Normal pulses, No tenderness/swelling Skin: No rashes, No breakdown, No significant lesion Neurological: No apparent motor no sensitive deficits. Pupils are isocoric and reactive laboratory and microbiology Laboratory Tests 08/11/24 06:15 Test 08/11/24 06:15 Range/Units Serum Glucose 166 H 74-106 mg/dL Microbiology Date/Time Source Procedure Growth Status 07/28/24 13:22 Bronchial Washings Gram Stain - Final Complete 07/28/24 13:22 Bronchial Washings Respiratory Culture - Final Complete 07/27/24 12:30 Ascities Fluid Gram Stain - Final Complete 07/27/24 12:30 Ascities Fluid Body Fluid Culture - Final Complete 07/25/24 16:51 Nose MRSA Screen - Final Complete 07/24/24 12:21 Urine - Gentile Port Urine Culture - Final Complete 07/24/24 11:52 Blood Blood Culture - Final NO GROWTH AFTER 5 DAYS OF INCUBATION. Complete Labs and/or images reviewed: Labs reviewed by me, Image(s) reviewed by me Problem List/Assessment/Plan Problem List/Assessment/Plan NEURO: Acute metabolic encephalopathy, likely due to sepsis/liver cirrhosis CARDIOVASCULAR: Atrial flutter, upon admission, currently sinus rhythm Chads Vasc score 0 Cardiology is on the board Echocardiogram from 07/24 shows normal left ventricular systolic 80 function with ejection fraction 60%, mild pericardial effusion, moderate pulmonary hypertension with RSVP more than 50 Amiodarone 200 mg daily Lovenox 40 mg daily PULMONARY: Acute hypoxic and hypercarbic respiratory failure likely due to pneumonia/COPD exacerbation Pneumonia likely due MRSA Hydropneumothorax, chest tube is in place Parapneumonic loculated pleural effusion Septic shock likely due to pneumonia Acute COPD exacerbation Possible obstructive sleep apnea Chest CT scan from 07/25 shows bilateral pneumonia with bilateral loculated pleural effusions Chest CT scan from 08/03 shows Multifocal airspace disease with few foci of air are present in right lower lobe consolidation measuring 3.8 cm but no loculated effusion Chest ultrasound on 07/29/2024 shows trace left-sided pleural effusion and thoracentesis could not perform COVID-19 and flu are negative Sputum culture from from 07/25 shows MRSA sensitive to vancomycin Discontinue Zosyn, used for 12 days Discontinue vancomycin, used for 9 days Discontinue methylprednisolone 40 mg b.i.d., given for 5 days Tapered down prednisone to 30 mg daily, started and 08/10 Breathing treatment q.6 hour Patient has drop of oxygen saturation during the sleep, ABGs reviewed during the awake and time, showed compensated pH, discontinued BiPAP during the day, recommended BiPAP during the sleep GI: Liver cirrhosis, likely due to alcohol Ascites due to liver cirrhosis Transaminitis, likely due to septic shock/alcohol abuse Paracentesis has been performed, 2 L removed, ascitic fluid exam shows WBC 1548 (polymorphonuclear cells 90), RBC 2159 Ammonia level at 07/24 was 70, decreased to less than 10 on 07/28 Continue Spironolactone 100 mg daily and Linzess 100 mg daily Lasix 40 mg daily, given 1 extra dose of Lasix 20 mg at 08/06 Bowel regimen: Lactulose 30 mL b.i.d. GI ppx: Protonix 40 mg daily p.o. RENAL: SHAMIR, likely hemodynamically mediated, improved ID: HIV and hepatitis panel, negative Blood and urine culture from 07/14 was negative Sputum culture from 07/25 shows MRSA Pleural fluid culture from 07/25 shows no growth Ascitic fluid culture from 07/27 shows no growth BAL culture from 07/28 shows moderate normal tammi growth Discontinued Zosyn, use for 2 days Continue vancomycin HEME Thrombocytopenia, likely due to liver cirrhosis Normalized Endocrine: Possible Hyptohyroidism TSH is 8.51, free T3 decreased at 1.79, and free T4 normal at 1.0 Metabolic: Hyperchloremia Moderate hypokalemia, supplemented Hypomagnesemia, supplemented Hypernatremia, normalized MUSCULOSKELETAL: Grade 3 ulcer on sacral area consult wound nurse LINES/DRAINS/ACCESS: ETT: Intubated on 07/26/2024 and extubated on 08/04 IV access: Right-sided upper limb PICC line, placed on 08/04 Transurethral Gentile catheter, placed on 07/25/2024, discontinue Chest tube placed on 07/25/2024, and removed on 08/06 Drips: No pressor DVT prophylaxis: Lovenox DIET: Mechanical soft diet CODE STATUS: Full code Disposition: Patient is transferred to the telemetry Patient's status discussed with the sister he is homeless since 17 years, and no family member lives in [facility]. Patient has a brother living in [place], due to disability can not come and pick the patient. Case discussed with Plan discussed with: Patient My Orders My Orders Orders - RADHA KING RESDIDORIS Procedure Category Date Status Time Incentive Spirometry ORDERS 08/11/24 Transmitted 10:37 Chest Percussion Tx RT 08/11/24 Logged Initi 10:37 Dietary Evaluation Review Comments: 1. Consider EN/TPN if NPO >7days 2. Continue plan of care Expected Outcomes/Goals: 1. Pt will meet >75% of estimated needs within 2-3 days Date of Service: Aug 11, 2024 Billing Provider: SUSY ARREGUIN MD Common Visit Codes: [id number] INP/OBS CARE(HIGH) Secondary Visit Codes: [id number] CARE PLAN 30 MINUTES RADHA KING RESDIENT Aug 11, 2024 19:47 SUSY ARREGUIN MD Aug 12, 2024 11:42
--- NOTE | 2024-08-11 21:37 | DVHPN2 ---
Progress Note - Dictate Date Seen: Aug 11, 2024 Has the PT tested + for MRSA If YES, has PT been informed?: Yes Medical Necessity Reason Pt with a Central, PICC or Fol: Yes The following are medically ne: Gentile Catheter Reason for gentile catheter: Strict I&O Subjective Patient was seen and evaluated in follow up. No overnight events. Patient is on 3 LPM NC. Patent reports feeling better today. CO2 40. vital signs Vital Sign Date Time Temp Pulse Resp B/P (MAP) Pulse Ox O2 Delivery O2 Flow Rate FiO2 08/11/24 17:41 98.3 83 18 116/78 (91) 96 98.3 08/11/24 11:18 Nasal Cannula* 3 32 Total Intake and Output 08/10/24 08/10/24 08/11/24 14:59 22:59 06:59 Intake Total 1740 ml 425 ml Output Total 7700 ml 1455 ml Balance -5960 ml -1030 ml medications Current Medications Medications Dose Ordered Sig/Miky Route Start Time Stop Time Status Last Admin Dose Admin Nitroglycerin 0.4 mg Q5MINP PRN SL 07/24/24 14:45 Diagnostic Test (Pha) 1 strip Q6HR 07/24/24 18:00 08/11/24 17:33 1 STRIP Insulin Human Regular Q6HR SC 07/24/24 18:00 08/11/24 17:34 8 UNITS Dextrose 50 ml UD PRN IV 07/24/24 15:00 08/05/24 06:05 50 ML Acetaminophen 650 mg Q6HP PRN MA 07/24/24 19:15 Amiodarone HCl 200 mg DAILY PO 07/28/24 10:00 08/11/24 09:17 200 MG Lactulose 30 ml BID PO 07/27/24 22:00 08/11/24 21:23 30 ML Spironolactone 100 mg DAILY NG 07/31/24 10:00 08/11/24 09:16 100 MG Sodium Chloride 10 ml QSHIFT@ IV 08/03/24 22:00 08/11/24 21:23 10 ML Enoxaparin Sodium 40 mg DAILY SC 08/04/24 10:00 08/11/24 09:17 40 MG Furosemide 40 mg DAILY PO 08/06/24 10:00 08/11/24 09:17 40 MG Hydralazine HCl 10 mg Q6HP PRN IV 08/06/24 01:15 Albuterol 2.5 mg Q6HR NEB 08/06/24 18:00 08/11/24 11:18 2.5 MG Ipratropium [place] 0.5 mg Q6HR NEB 08/06/24 18:00 08/11/24 11:18 0.5 MG Lorazepam 1 mg Q6HR PRN IV 08/07/24 15:45 Pantoprazole Sodium 40 mg DAILY@0600 PO 08/11/24 06:00 08/11/24 05:43 40 MG Prednisone 30 mg DAILY PO 08/12/24 10:00 objective GENERAL: Awake, alert, oriented. LUNGS: Diminished breath sounds. CARDIOVASCULAR: Heart sounds are good. ABDOMEN: Soft. SKIN: Unknown burn pandey to bilateral hands. laboratory and microbiology Laboratory Tests 08/11/24 06:15 Test 08/11/24 06:15 Range/Units Serum Glucose 166 H 74-106 mg/dL Problem List Altered mental status. CHF exacerbation. Leukocytosis. UTI. Elevated ammonia levels. Pleural Effusion. Liver Cirrhosis. Acute Hypoxic respiratory failure. MRSA Bacteremia. Assessment/Plan Continued all current supportive medical care. Amiodarone. DVT and GI prophylactics. Diuretics with Lasix. IV antibiotics as ordered. Aldactone. Additional plan as per the hospital course. Dietary Evaluation Review Comments: 1. Consider EN/TPN if NPO >7days 2. Continue plan of care Expected Outcomes/Goals: 1. Pt will meet >75% of estimated needs within 2-3 days Plan discussed with: Patient ISHAAN BUNCH MD Aug 11, 2024 21:37
[2024-08-12] VITALS (17 sets, daily range): BP systolic 101–112; BP diastolic 62–73; PULSE 69–80; RESP 16–20; TEMP 97.3–98.4; O2SAT 95–100
[2024-08-12 06:00] LABS: Basophils # (auto) 0 10 ^3/uL (0-0.2); Eosinophils # (auto) 0 10 ^3/uL (0-0.8); Lymphocytes # (auto) 1.5 10 ^3/uL (0.4-5.4); Mean Corpuscular Hemoglobin 35.3 pg (28.0-32.0); Neutrophils # (auto) 7.2 10 ^3/uL (1.6-8.6)
[2024-08-12 06:12] LABS: Basophils % (auto) 0.1 % (0.0-2.0); Eosinophils % (auto) 0.2 % (0.0-7.0); Hematocrit 40.6 % (41.0-53.0); Hemoglobin 13.9 g/dL (13.5-17.5); Lymphocytes % (auto) 15.4 % (10.0-50.0); Mean Corpuscular Hgb Conc. 34.3 g/dL (32.0-36.0); Monocytes % (auto) 10.2 % (0.0-12.0); Neutrophils % (auto) 74.1 % (37.0-80.0); Nucleated Red Blood Cells % 0.1 %; Platelet Count (auto) 263 10^3/uL (140-450); Red Blood Cells 3.94 10^6/uL (4.5-5.90); Red Cell Distribution Width 14.1 % (11.8-14.3); White Blood Cell 9.7 10^3/uL (4.4-10.8)
[2024-08-12 06:15] LABS: Alanine Aminotransferase 17 U/L (7-40); Albumin 3.4 g/dL (3.2-4.8); Alkaline Phosphatase 66 U/L (46-116); Aspartate Aminotransferase 15 U/L (13-40); BUN/Creatinine Ratio 22.6 (10.0-20.0); Blood Urea Nitrogen 21 mg/dL (9-23); Potassium 4.3 mmol/L (3.5-5.1); Sodium 141 mmol/L (136-145)
[2024-08-12 06:16] LABS: Bilirubin, Total 0.6 mg/dL (0.2-1.0); Total Protein 6.1 g/dL (5.7-8.2)
[2024-08-12 06:38] LABS: Anion Gap 6.99999 (5-15); Chloride 94 mmol/L (98-107); Glucose 115 mg/dL (74-106)
[2024-08-12 06:39] LABS: Carbon Dioxide > 40 mmol/L (20-31)
--- NOTE | 2024-08-12 06:55 | DVH ---
CHEST RADIOGRAPH Indication: Pneumonia Technique: Single frontal view of the chest was obtained Comparison: XY CHEST XRAY 1 VIEW on DOS: 08/11/24, XY CHEST XRAY 1 VIEW on DOS: 08/10/24, XY CHEST XRA Y 1 VIEW on DOS: 08/07/24, XY CHEST XRAY 1 VIEW on DOS: 08/06/24, XY CHEST XRAY 1 VIEW on DOS: 08/05/24, XY CHEST XRAY 1 VIEW on DOS: 08/11/24 FINDINGS: Lines and Tubes: Right PICC in satisfactory position. Lungs: Patchy bilateral airspace disease. Pleura: No effusion. No pneumothorax. Cardiomediastinal contours: Unremarkable Bones: Unremarkable IMPRESSION: 1. No significant interval change.
[2024-08-12 07:57] LABS: Base Excess 9.8 mmol/L (-2.0-3.0)
[2024-08-12] MEDS: predniSONE 20 MG TAB PO SCH (10:39)
[2024-08-12 16:42] LABS: Base Excess 5.8 mmol/L (-2.0-3.0)
--- NOTE | 2024-08-12 20:27 | DVHPNRES ---
Progress Note Date Seen: Aug 12, 2024 Resident Creating Document: RADHA KING PRASANNA Has the PT tested + for MRSA If YES, has PT been informed?: Yes Medical Necessity Reason Pt with a Central, PICC or Fol: Yes The following are medically ne: Gentile Catheter Reason for gentile catheter: Strict I&O Subjective Review of Systems This is a 59-year-old homeless male, with past medical history of liver cirrhosis, multidrug abuser (methamphetamine, marijuana), active smoker brought to the hospital with altered level of consciousness and shortness of breaths. Admitted and intubated on 07/24. Extubated on 08/04. Patient seen and examined at the bedside. Patient is was feeling better, complaining of mild shortness of breaths, maintaining oxygen saturation at 93% with 2L of oxygen through nasal cannula. Patient reports: No new complaints Changes from previous H/P or p: No Changes Objective vital signs Vital Sign Date Time Temp Pulse Resp B/P (MAP) Pulse Ox O2 Delivery O2 Flow Rate FiO2 08/12/24 20:19 76 20 108/68 95 3.0 28 08/12/24 18:28 Nasal Cannula* 08/12/24 16:30 97.7 97.7 Total Intake and Output 08/11/24 08/11/24 08/12/24 15:00 23:00 07:00 Intake Total 200 ml 275 ml Output Total 475 ml Balance 200 ml -200 ml medications Current Medications Medications Dose Ordered Sig/Miky Route Start Time Stop Time Status Last Admin Dose Admin Nitroglycerin 0.4 mg Q5MINP PRN SL 07/24/24 14:45 Diagnostic Test (Pha) 1 strip Q6HR 07/24/24 18:00 08/12/24 17:52 1 STRIP Insulin Human Regular Q6HR SC 07/24/24 18:00 08/12/24 18:07 8 UNITS Dextrose 50 ml UD PRN IV 07/24/24 15:00 08/05/24 06:05 50 ML Acetaminophen 650 mg Q6HP PRN [place] 07/24/24 19:15 Lactulose 30 ml BID PO 07/27/24 22:00 08/12/24 10:39 30 ML Spironolactone 100 mg DAILY NG 07/31/24 10:00 08/12/24 10:39 100 MG Sodium Chloride 10 ml QSHIFT@ IV 08/03/24 22:00 08/12/24 10:39 10 ML Enoxaparin Sodium 40 mg DAILY SC 08/04/24 10:00 08/12/24 10:39 40 MG Furosemide 40 mg DAILY PO 08/06/24 10:00 08/12/24 10:39 40 MG Hydralazine HCl 10 mg Q6HP PRN IV 08/06/24 01:15 Albuterol 2.5 mg Q6HR NEB 08/06/24 18:00 08/12/24 18:28 2.5 MG Ipratropium [place] 0.5 mg Q6HR NEB 08/06/24 18:00 08/12/24 18:28 0.5 MG Lorazepam 1 mg Q6HR PRN IV 08/07/24 15:45 Pantoprazole Sodium 40 mg DAILY@0600 PO 08/11/24 06:00 08/12/24 05:33 40 MG Prednisone 20 mg DAILY PO 08/13/24 10:00 Amiodarone HCl 100 mg DAILY PO 08/13/24 10:00 Examination General Appearance: Alert, Oriented X3, Cooperative, mild respiratory distress HEENT: Atraumatic, PERRLA, EOMI, Mucous membrane moist/pink Respiratory: Bilateral diffuse crypts Cardiovascular: Regular rate, Normal S1, Normal S2, No murmurs, no chest wall tenderness Abdominal: Normal bowel sounds, Soft, No tenderness, No hepatospenomegaly, No masses Extremities: No clubbing, No cyanosis, No edema, Normal pulses, No tenderness/swelling Skin: No rashes, No breakdown, No significant lesion Neurological: No apparent motor no sensitive deficits. Pupils are isocoric and reactive laboratory and microbiology Laboratory Tests 08/12/24 04:59 Test 08/12/24 04:59 Range/Units Serum Glucose 115 H 74-106 mg/dL Microbiology Date/Time Source Procedure Growth Status 07/28/24 13:22 Bronchial Washings Gram Stain - Final Complete 07/28/24 13:22 Bronchial Washings Respiratory Culture - Final Complete 07/27/24 12:30 Ascities Fluid Gram Stain - Final Complete 07/27/24 12:30 Ascities Fluid Body Fluid Culture - Final Complete 07/25/24 16:51 Nose MRSA Screen - Final Complete 07/24/24 12:21 Urine - Gentile Port Urine Culture - Final Complete 07/24/24 11:52 Blood Blood Culture - Final NO GROWTH AFTER 5 DAYS OF INCUBATION. Complete Labs and/or images reviewed: Labs reviewed by me, Image(s) reviewed by me Problem List/Assessment/Plan Problem List/Assessment/Plan NEURO: Acute metabolic encephalopathy, likely due to sepsis/liver cirrhosis CARDIOVASCULAR: Atrial flutter, upon admission, currently sinus rhythm Chads Vasc score 0 Cardiology is on the board Echocardiogram from 07/24 shows normal left ventricular systolic 80 function with ejection fraction 60%, mild pericardial effusion, moderate pulmonary hypertension with RSVP more than 50 Amiodarone 100 mg daily, per cardiology, needs to use for 6 weeks and may adjust later Lovenox 40 mg daily PULMONARY: Acute hypoxic and hypercarbic respiratory failure likely due to pneumonia/COPD exacerbation Pneumonia likely due MRSA Hydropneumothorax, chest tube is in place Parapneumonic loculated pleural effusion Septic shock likely due to pneumonia Acute COPD exacerbation Possible obstructive sleep apnea Chest CT scan from 07/25 shows bilateral pneumonia with bilateral loculated pleural effusions Chest CT scan from 08/03 shows Multifocal airspace disease with few foci of air are present in right lower lobe consolidation measuring 3.8 cm but no loculated effusion Chest ultrasound on 07/29/2024 shows trace left-sided pleural effusion and thoracentesis could not perform COVID-19 and flu are negative Sputum culture from from 07/25 shows MRSA sensitive to vancomycin Discontinue Zosyn, used for 12 days Discontinue vancomycin, used for 9 days Discontinue methylprednisolone 40 mg b.i.d., given for 5 days Tapered down prednisone to 20 mg daily, started on 08/10 Breathing treatment q.6 hour Patient has drop of oxygen saturation during the sleep, ABGs reviewed during the awaken time, showed compensated pH, discontinued BiPAP during the day, recommended BiPAP during the sleep ABGs at room air shows PaO2 54.1 and qualified for home oxygen GI: Liver cirrhosis, likely due to alcohol Ascites due to liver cirrhosis Transaminitis, likely due to septic shock/alcohol abuse Paracentesis has been performed, 2 L removed, ascitic fluid exam shows WBC 1548 (polymorphonuclear cells 90), RBC 2159 Ammonia level at 07/24 was 70, decreased to less than 10 on 07/28 Continue Spironolactone 100 mg daily Continue Lasix 40 mg daily Bowel regimen: Lactulose 30 mL b.i.d. GI ppx: Protonix 40 mg daily p.o. RENAL: SHAMIR, likely hemodynamically mediated, improved ID: HIV and hepatitis panel, negative Blood and urine culture from 07/14 was negative Sputum culture from 07/25 shows MRSA Pleural fluid culture from 07/25 shows no growth Ascitic fluid culture from 07/27 shows no growth BAL culture from 07/28 shows moderate normal tammi growth Discontinued Zosyn, use for 2 days HEME Thrombocytopenia, likely due to liver cirrhosis Normalized Endocrine: Possible Hyptohyroidism TSH is 8.51, free T3 decreased at 1.79, and free T4 normal at 1.0 Metabolic: Hyperchloremia Moderate hypokalemia, supplemented Hypomagnesemia, supplemented Hypernatremia, normalized MUSCULOSKELETAL: Grade 3 ulcer on sacral area consult wound nurse position change every 2 hours LINES/DRAINS/ACCESS: ETT: Intubated on 07/26/2024 and extubated on 08/04 IV access: Right-sided upper limb PICC line, placed on 08/04 Transurethral Gentile catheter Chest tube placed on 07/25/2024, and removed on 08/06 Drips: No pressor DVT prophylaxis: Lovenox DIET: Mechanical soft diet CODE STATUS: Full code Disposition: DC tele and downgraded to Med/Surg Patient's status discussed with the sister he is homeless since 17 years, and no family member lives in [facility]. Patient has a brother living in [place], due to disability can not come and pick the patient. Case discussed with Plan discussed with: Patient My Orders My Orders Orders - RADHA KING Procedure Category Date Status Time Abg W/ Co-Ox RT 08/12/24 Logged 16:21 Amiodarone Tablet PHA 08/13/24 In Process (Cordarone Tablet) 10:00 Dietary Evaluation Review Comments: 1. Consider EN/TPN if NPO >7days 2. Continue plan of care Expected Outcomes/Goals: 1. Pt will meet >75% of estimated needs within 2-3 days Date of Service: Aug 12, 2024 Billing Provider: SUSY ARREGUIN MD Common Visit Codes: [id number] INP/OBS CARE(HIGH) RADHA KING RESDIENT Aug 12, 2024 20:27 SUSY ARREGUIN MD Aug 13, 2024 13:09
--- NOTE | 2024-08-12 22:22 | DVHPN2 ---
Progress Note - Dictate Date Seen: Aug 12, 2024 Has the PT tested + for MRSA If YES, has PT been informed?: Yes Medical Necessity Reason Pt with a Central, PICC or Fol: Yes The following are medically ne: Gentile Catheter Reason for gentile catheter: Strict I&O Subjective Patient was seen and evaluated in follow up. No overnight events. Patient is comfortable in bed. Patient is on 2 LPM NC. CO2 remains >40. Chest x-ray is pending. vital signs Vital Sign Date Time Temp Pulse Resp B/P (MAP) Pulse Ox O2 Delivery O2 Flow Rate FiO2 08/12/24 12:30 98.4 69 18 112/73 (86) 97 98.4 08/12/24 10:00 Nasal Cannula* 2 28 Total Intake and Output 08/11/24 08/11/24 08/12/24 15:00 23:00 07:00 Intake Total 200 ml 275 ml Output Total 475 ml Balance 200 ml -200 ml medications Current Medications Medications Dose Ordered Sig/Miky Route Start Time Stop Time Status Last Admin Dose Admin Nitroglycerin 0.4 mg Q5MINP PRN SL 07/24/24 14:45 Diagnostic Test (Pha) 1 strip Q6HR 07/24/24 18:00 08/12/24 12:16 1 STRIP Insulin Human Regular Q6HR SC 07/24/24 18:00 08/12/24 12:17 3 UNITS Dextrose 50 ml UD PRN IV 07/24/24 15:00 08/05/24 06:05 50 ML Acetaminophen 650 mg Q6HP PRN [place] 07/24/24 19:15 Amiodarone HCl 200 mg DAILY PO 07/28/24 10:00 08/12/24 10:39 200 MG Lactulose 30 ml BID PO 07/27/24 22:00 08/12/24 10:39 30 ML Spironolactone 100 mg DAILY NG 07/31/24 10:00 08/12/24 10:39 100 MG Sodium Chloride 10 ml QSHIFT@ IV 08/03/24 22:00 08/12/24 10:39 10 ML Enoxaparin Sodium 40 mg DAILY SC 08/04/24 10:00 08/12/24 10:39 40 MG Furosemide 40 mg DAILY PO 08/06/24 10:00 08/12/24 10:39 40 MG Hydralazine HCl 10 mg Q6HP PRN IV 08/06/24 01:15 Albuterol 2.5 mg Q6HR NEB 08/06/24 18:00 08/12/24 12:12 2.5 MG Ipratropium [place] 0.5 mg Q6HR NEB 08/06/24 18:00 08/12/24 12:12 0.5 MG Lorazepam 1 mg Q6HR PRN IV 08/07/24 15:45 Pantoprazole Sodium 40 mg DAILY@0600 PO 08/11/24 06:00 08/12/24 05:33 40 MG Prednisone 20 mg DAILY PO 08/13/24 10:00 objective GENERAL: Awake, alert, oriented. LUNGS: Diminished breath sounds. CARDIOVASCULAR: Heart sounds are good. ABDOMEN: Soft. SKIN: Unknown burn pandey to bilateral hands. laboratory and microbiology Laboratory Tests 08/12/24 04:59 Test 08/12/24 04:59 Range/Units Serum Glucose 115 H 74-106 mg/dL Problem List Altered mental status. CHF exacerbation. Leukocytosis. UTI. Elevated ammonia levels. Pleural Effusion. Liver Cirrhosis. Acute Hypoxic respiratory failure. MRSA Bacteremia. Assessment/Plan Continued all current supportive medical care. Amiodarone. DVT and GI prophylactics. Diuretics with Lasix. IV antibiotics as ordered. Aldactone. Additional plan as per the hospital course. Dietary Evaluation Review Comments: 1. Consider EN/TPN if NPO >7days 2. Continue plan of care Expected Outcomes/Goals: 1. Pt will meet >75% of estimated needs within 2-3 days Plan discussed with: Patient ISHAAN BUNCH MD Aug 12, 2024 14:47
[2024-08-13] VITALS (15 sets, daily range): BP systolic 98–110; BP diastolic 57–75; PULSE 72–89; RESP 16–19; TEMP 97.3–98.8; O2SAT 93–100
[2024-08-13 05:00] LABS: Basophils % (auto) 0.5 % (0.0-2.0); Monocytes % (auto) 9.8 % (0.0-12.0); Neutrophils # (auto) 7.3 10 ^3/uL (1.6-8.6); Red Blood Cells 3.82 10^6/uL (4.5-5.90)
[2024-08-13 05:04] LABS: Basophils # (auto) 0.1 10 ^3/uL (0-0.2); Eosinophils # (auto) 0 10 ^3/uL (0-0.8); Eosinophils % (auto) 0.4 % (0.0-7.0); Hematocrit 39.2 % (41.0-53.0); Hemoglobin 13.2 g/dL (13.5-17.5); Lymphocytes # (auto) 1.6 10 ^3/uL (0.4-5.4); Lymphocytes % (auto) 16.3 % (10.0-50.0); Mean Corpuscular Hemoglobin 34.5 pg (28.0-32.0); Mean Corpuscular Hgb Conc. 33.7 g/dL (32.0-36.0); Mean Corpuscular Volume 102.5 fL (80.0-100.0); Nucleated Red Blood Cells % 0.1 %; Platelet Count (auto) 256 10^3/uL (140-450); Red Cell Distribution Width 14.7 % (11.8-14.3); White Blood Cell 9.9 10^3/uL (4.4-10.8)
[2024-08-13 05:19] LABS: Alanine Aminotransferase 16 U/L (7-40); Albumin 3.4 g/dL (3.2-4.8); Alkaline Phosphatase 69 U/L (46-116); Anion Gap 6 (5-15); Aspartate Aminotransferase 13 U/L (13-40); BUN/Creatinine Ratio 23.6 (10.0-20.0); Bilirubin, Total 0.6 mg/dL (0.2-1.0); Blood Urea Nitrogen 21 mg/dL (9-23); Calcium 9.8 mg/dL (8.7-10.4); Potassium 4.2 mmol/L (3.5-5.1); Sodium 138 mmol/L (136-145); Total Protein 6.1 g/dL (5.7-8.2)
[2024-08-13 05:28] LABS: Carbon Dioxide 38 mmol/L (20-31); Chloride 94 mmol/L (98-107); Glucose 129 mg/dL (74-106)
--- NOTE | 2024-08-13 07:24 | DVH ---
CLINICAL INFORMATION: 59 years old, Male; Pneumonia. TECHNIQUE: Single AP portable chest radiograph was obtained. COMPARISON: XY CHEST XRAY 1 VIEW on DOS: 08/12/24, XY CHEST XRAY 1 VIEW on DOS: 08/11/24, XY CHEST XR AY 1 VIEW on DOS: 08/10/24 FINDINGS: Stable satisfactory positioning of the right PICC. There is also tubing overlying the left side of th e neck mediastinum, curving medially of the mediastinum, which may be outside the patient. Bilateral airspace opacities are unchanged. No pneumothorax. No other significant interval change. IMPRESSION: Stable satisfactory positioning of the right PICC. There is additional tubing overlying the left tonya e of the neck and mediastinum as described above, which may be outside the patient, although correlat ion with clinical findings is needed. No other significant interval change.
[2024-08-13] MEDS: predniSONE 20 MG TAB PO SCH (10:25)
[2024-08-13] MEDS: AMIODARONE HCL 200 MG TAB PO SCH (10:32)
--- NOTE | 2024-08-13 13:50 | DVHPNRES ---
Progress Note Date Seen: Aug 13, 2024 Resident Creating Document: RADHA KING PRASANNA Has the PT tested + for MRSA If YES, has PT been informed?: Yes Medical Necessity Reason Pt with a Central, PICC or Fol: Yes The following are medically ne: Gentile Catheter Reason for gentile catheter: Strict I&O Subjective Review of Systems This is a 59-year-old homeless male, with past medical history of liver cirrhosis, multidrug abuser (methamphetamine, marijuana), active smoker brought to the hospital with altered level of consciousness and shortness of breaths. Admitted and intubated on 07/24. Extubated on 08/04. Patient seen and examined at the bedside. Patient is was feeling better, complaining of mild shortness of breaths, maintaining oxygen saturation at 93% with 2L of oxygen through nasal cannula. Patient reports: No new complaints, Feels better Changes from previous H/P or p: Changes Objective vital signs Vital Sign Date Time Temp Pulse Resp B/P (MAP) Pulse Ox O2 Delivery O2 Flow Rate FiO2 08/13/24 12:08 88 18 96 08/13/24 11:55 97.8 109/71 (84) 97.8 08/12/24 23:59 Nasal Cannula 2.0 08/12/24 23:59 28 Total Intake and Output 08/12/24 08/12/24 08/13/24 15:00 23:00 07:00 Intake Total 1636 ml 850 ml Output Total 1300 ml Balance 336 ml 850 ml medications Current Medications Medications Dose Ordered Sig/Miky Route Start Time Stop Time Status Last Admin Dose Admin Nitroglycerin 0.4 mg Q5MINP PRN SL 07/24/24 14:45 Diagnostic Test (Pha) 1 strip Q6HR 07/24/24 18:00 08/13/24 12:28 1 STRIP Insulin Human Regular Q6HR SC 07/24/24 18:00 08/13/24 12:00 3 UNITS Dextrose 50 ml UD PRN IV 07/24/24 15:00 08/05/24 06:05 50 ML Acetaminophen 650 mg Q6HP PRN [place] 07/24/24 19:15 Lactulose 30 ml BID PO 07/27/24 22:00 08/13/24 10:25 30 ML Spironolactone 100 mg DAILY NG 07/31/24 10:00 08/13/24 12:53 100 MG Sodium Chloride 10 ml QSHIFT@,22 IV 08/03/24 22:00 08/13/24 10:24 10 ML Enoxaparin Sodium 40 mg DAILY SC 08/04/24 10:00 08/13/24 10:26 40 MG Furosemide 40 mg DAILY PO 08/06/24 10:00 08/13/24 10:30 40 MG Hydralazine HCl 10 mg Q6HP PRN IV 08/06/24 01:15 Albuterol 2.5 mg Q6HR NEB 08/06/24 18:00 08/13/24 12:08 2.5 MG Ipratropium [place] 0.5 mg Q6HR NEB 08/06/24 18:00 08/13/24 12:08 0.5 MG Lorazepam 1 mg Q6HR PRN IV 08/07/24 15:45 Pantoprazole Sodium 40 mg DAILY@0600 PO 08/11/24 06:00 08/13/24 05:59 40 MG Amiodarone HCl 100 mg DAILY PO 08/13/24 10:00 08/13/24 10:32 100 MG Examination General Appearance: Alert, Oriented X3, Cooperative, mild respiratory distress HEENT: Atraumatic, PERRLA, EOMI, Mucous membrane moist/pink Respiratory: Bilateral diffuse mild crypts Cardiovascular: Regular rate, Normal S1, Normal S2, No murmurs, no chest wall tenderness Abdominal: Normal bowel sounds, Soft, No tenderness, No hepatospenomegaly, No masses Extremities: No clubbing, No cyanosis, No edema, Normal pulses, No tenderness/swelling Skin: No rashes, No breakdown, No significant lesion Neurological: No apparent motor no sensitive deficits. Pupils are isocoric and reactive laboratory and microbiology Laboratory Tests 08/13/24 04:47 Test 08/13/24 04:47 Range/Units Serum Glucose 129 H 74-106 mg/dL Microbiology Date/Time Source Procedure Growth Status 07/28/24 13:22 Bronchial Washings Gram Stain - Final Complete 07/28/24 13:22 Bronchial Washings Respiratory Culture - Final Complete 07/27/24 12:30 Ascities Fluid Gram Stain - Final Complete 07/27/24 12:30 Ascities Fluid Body Fluid Culture - Final Complete 07/25/24 16:51 Nose MRSA Screen - Final Complete 07/24/24 12:21 Urine - Gentile Port Urine Culture - Final Complete 07/24/24 11:52 Blood Blood Culture - Final NO GROWTH AFTER 5 DAYS OF INCUBATION. Complete Labs and/or images reviewed: Labs reviewed by me, Image(s) reviewed by me Problem List/Assessment/Plan Problem List/Assessment/Plan NEURO: Acute metabolic encephalopathy, likely due to sepsis/liver cirrhosis CARDIOVASCULAR: Atrial flutter, upon admission, currently sinus rhythm Chads Vasc score 0 Cardiology is on the board Echocardiogram from 07/24 shows normal left ventricular systolic 80 function with ejection fraction 60%, mild pericardial effusion, moderate pulmonary hypertension with RSVP more than 50 Amiodarone 100 mg daily, per cardiology, needs to use for 6 weeks and may adjust later Lovenox 40 mg daily PULMONARY: Acute hypoxic and hypercarbic respiratory failure likely due to pneumonia/COPD exacerbation Pneumonia likely due MRSA Hydropneumothorax, chest tube is in place Parapneumonic loculated pleural effusion Septic shock likely due to pneumonia Acute COPD exacerbation Possible obstructive sleep apnea Chest CT scan from 07/25 shows bilateral pneumonia with bilateral loculated pleural effusions Chest CT scan from 08/03 shows Multifocal airspace disease with few foci of air are present in right lower lobe consolidation measuring 3.8 cm but no loculated effusion Chest ultrasound on 07/29/2024 shows trace left-sided pleural effusion and thoracentesis could not perform COVID-19 and flu are negative Sputum culture from from 07/25 shows MRSA sensitive to vancomycin Discontinue Zosyn, used for 12 days Discontinue vancomycin, used for 9 days Discontinue methylprednisolone 40 mg b.i.d., given for 5 days Discontinue prednisone, tapered down in 4 days Breathing treatment q.6 hour Patient has drop of oxygen saturation during the sleep, ABGs reviewed during the awaken time, showed compensated pH, discontinued BiPAP during the day, recommended BiPAP during the sleep ABGs at room air shows PaO2 54.1 and qualified for home oxygen GI: Liver cirrhosis, likely due to alcohol Ascites due to liver cirrhosis Transaminitis, likely due to septic shock/alcohol abuse Paracentesis has been performed, 2 L removed, ascitic fluid exam shows WBC 1548 (polymorphonuclear cells 90), RBC 2159 Ammonia level at 07/24 was 70, decreased to less than 10 on 07/28 Continue Spironolactone 100 mg daily Continue Lasix 40 mg daily Bowel regimen: Lactulose 30 mL b.i.d. GI ppx: Protonix 40 mg daily p.o. RENAL: SHAMIR, likely hemodynamically mediated, improved ID: HIV and hepatitis panel, negative Blood and urine culture from 07/14 was negative Sputum culture from 07/25 shows MRSA Pleural fluid culture from 07/25 shows no growth Ascitic fluid culture from 07/27 shows no growth BAL culture from 07/28 shows moderate normal tammi growth HEME Thrombocytopenia, likely due to liver cirrhosis Normalized Endocrine: Possible Hyptohyroidism TSH is 8.51, free T3 decreased at 1.79, and free T4 normal at 1.0 Metabolic: Hyperchloremia Moderate hypokalemia, supplemented Hypomagnesemia, supplemented Hypernatremia, normalized MUSCULOSKELETAL: Grade 3 ulcer on sacral area consult wound nurse position change every 2 hours LINES/DRAINS/ACCESS: ETT: Intubated on 07/26/2024 and extubated on 08/04 IV access: Right-sided upper limb PICC line, placed on 08/04 Transurethral Gentile catheter Chest tube placed on 07/25/2024, and removed on 08/06 Drips: No pressor DVT prophylaxis: Lovenox DIET: Mechanical soft diet CODE STATUS: Full code- time spent was 21 mins Disposition: Med/Surg Patient's status discussed with the sister he is homeless since 17 years, and no family member lives in [facility]. Patient has a brother living in [place], due to disability can not come and pick the patient. Case discussed with Plan discussed with: Patient, Other (RN) My Orders My Orders Orders - RADHA KING RESDIDORIS Procedure Category Date Status Time Abg W/ Co-Ox RT 08/12/24 Logged 16:21 Amiodarone Tablet PHA 08/13/24 In Process (Cordarone Tablet) 10:00 Chest Xray 1 View XY 08/13/24 Resulted 04:00 Dietary Evaluation Review Comments: 1. Consider EN/TPN if NPO >7days 2. Continue plan of care Expected Outcomes/Goals: 1. Pt will meet >75% of estimated needs within 2-3 days Date of Service: Aug 13, 2024 Billing Provider: SUSY ARREGUIN MD Common Visit Codes: [id number] INP/OBS CARE(HIGH) Secondary Visit Codes: [id number] CARE PLAN 30 MINUTES HEWADMAL,HEWAD RESDIENT Aug 13, 2024 13:50 SUSY ARREGUIN MD Aug 16, 2024 11:55
--- NOTE | 2024-08-13 22:26 | DVHPN2 ---
Progress Note - Dictate Date Seen: Aug 13, 2024 Has the PT tested + for MRSA If YES, has PT been informed?: Yes Medical Necessity Reason Pt with a Central, PICC or Fol: Yes The following are medically ne: Gentile Catheter Reason for gentile catheter: Strict I&O Subjective Patient was seen and evaluated in follow up. Patient is comfortable in bed without any complaints. Patient is stable on 2 LPM NC. CL 94, CO2 38. Chest x- ray shows satisfactory positioning of the right PICC. No other significant interval change. vital signs Vital Sign Date Time Temp Pulse Resp B/P (MAP) Pulse Ox O2 Delivery O2 Flow Rate FiO2 08/13/24 10:30 109/71 08/13/24 08:00 98.0 72 17 98 98.0 08/12/24 23:59 Nasal Cannula 2.0 08/12/24 23:59 28 Total Intake and Output 08/12/24 08/12/24 08/13/24 15:00 23:00 07:00 Intake Total 1636 ml 850 ml Output Total 1300 ml Balance 336 ml 850 ml medications Current Medications Medications Dose Ordered Sig/Miky Route Start Time Stop Time Status Last Admin Dose Admin Nitroglycerin 0.4 mg Q5MINP PRN SL 07/24/24 14:45 Diagnostic Test (Pha) 1 strip Q6HR 07/24/24 18:00 08/13/24 05:59 1 STRIP Insulin Human Regular Q6HR SC 07/24/24 18:00 08/12/24 23:52 4 UNITS Dextrose 50 ml UD PRN IV 07/24/24 15:00 08/05/24 06:05 50 ML Acetaminophen 650 mg Q6HP PRN [place] 07/24/24 19:15 Lactulose 30 ml BID PO 07/27/24 22:00 08/13/24 10:25 30 ML Spironolactone 100 mg DAILY NG 07/31/24 10:00 08/12/24 10:39 100 MG Sodium Chloride 10 ml QSHIFT@, IV 08/03/24 22:00 08/13/24 10:24 10 ML Enoxaparin Sodium 40 mg DAILY SC 08/04/24 10:00 08/13/24 10:26 40 MG Furosemide 40 mg DAILY PO 08/06/24 10:00 08/13/24 10:30 40 MG Hydralazine HCl 10 mg Q6HP PRN IV 08/06/24 01:15 Albuterol 2.5 mg Q6HR NEB 08/06/24 18:00 08/13/24 05:48 2.5 MG Ipratropium [place] 0.5 mg Q6HR NEB 08/06/24 18:00 08/13/24 05:48 0.5 MG Lorazepam 1 mg Q6HR PRN IV 08/07/24 15:45 Pantoprazole Sodium 40 mg DAILY@0600 PO 08/11/24 06:00 08/13/24 05:59 40 MG Prednisone 20 mg DAILY PO 08/13/24 10:00 08/13/24 10:25 20 MG Amiodarone HCl 100 mg DAILY PO 08/13/24 10:00 08/13/24 10:32 100 MG objective GENERAL: Awake, alert, oriented. LUNGS: Diminished breath sounds. CARDIOVASCULAR: Heart sounds are good. ABDOMEN: Soft. SKIN: Unknown burn pandey to bilateral hands. laboratory and microbiology Laboratory Tests 08/13/24 04:47 Test 08/13/24 04:47 Range/Units Serum Glucose 129 H 74-106 mg/dL Problem List Altered mental status. CHF exacerbation. Leukocytosis. UTI. Elevated ammonia levels. Pleural Effusion. Liver Cirrhosis. Acute Hypoxic respiratory failure. MRSA Bacteremia. Assessment/Plan Continued all current supportive medical care. Amiodarone. DVT and GI prophylactics. Diuretics with Lasix. IV antibiotics as ordered. Aldactone. Additional plan as per the hospital course. Dietary Evaluation Review Comments: 1. Consider EN/TPN if NPO >7days 2. Continue plan of care Expected Outcomes/Goals: 1. Pt will meet >75% of estimated needs within 2-3 days Plan discussed with: Patient ISHAAN BUNCH MD Aug 13, 2024 11:30
[2024-08-14] VITALS (17 sets, daily range): BP systolic 99–118; BP diastolic 57–77; PULSE 61–82; RESP 16–18; TEMP 97.3–98.5; O2SAT 94–100
[2024-08-14 06:15] LABS: Basophils # (auto) 0 10 ^3/uL (0-0.2); Eosinophils # (auto) 0.1 10 ^3/uL (0-0.8); White Blood Cell 8.8 10^3/uL (4.4-10.8)
[2024-08-14 06:19] LABS: Basophils % (auto) 0.2 % (0.0-2.0); Hematocrit 40.7 % (41.0-53.0); Hemoglobin 13.6 g/dL (13.5-17.5); Lymphocytes # (auto) 1.5 10 ^3/uL (0.4-5.4); Lymphocytes % (auto) 16.5 % (10.0-50.0); Mean Corpuscular Hemoglobin 34.5 pg (28.0-32.0); Mean Corpuscular Hgb Conc. 33.5 g/dL (32.0-36.0); Mean Corpuscular Volume 103.2 fL (80.0-100.0); Neutrophils # (auto) 6.3 10 ^3/uL (1.6-8.6); Neutrophils % (auto) 71.3 % (37.0-80.0); Nucleated Red Blood Cells % 0.1 %; Platelet Count (auto) 238 10^3/uL (140-450); Red Blood Cells 3.94 10^6/uL (4.5-5.90); Red Cell Distribution Width 14.4 % (11.8-14.3)
[2024-08-14 06:29] LABS: Alanine Aminotransferase 17 U/L (7-40); Alkaline Phosphatase 73 U/L (46-116)
[2024-08-14 06:30] LABS: Albumin 3.6 g/dL (3.2-4.8); Anion Gap 5 (5-15); Aspartate Aminotransferase 14 U/L (13-40); BUN/Creatinine Ratio 21.1 (10.0-20.0); Bilirubin, Total 0.6 mg/dL (0.2-1.0); Blood Urea Nitrogen 20 mg/dL (9-23); Glucose 101 mg/dL (74-106); Potassium 4.1 mmol/L (3.5-5.1); Sodium 139 mmol/L (136-145); Total Protein 6.3 g/dL (5.7-8.2)
[2024-08-14 06:44] LABS: Carbon Dioxide 40 mmol/L (20-31); Chloride 94 mmol/L (98-107)
--- NOTE | 2024-08-14 06:52 | DVH ---
CHEST RADIOGRAPH Indication: Pneumonia Technique: Single AP portable chest radiograph was obtained. Comparison: XY CHEST XRAY 1 VIEW on DOS: 08/13/24, XY CHEST XRAY 1 VIEW on DOS: 08/12/24, XY CHEST XR AY 1 VIEW on DOS: 08/11/24, XY CHEST XRAY 1 VIEW on DOS: 08/10/24, XY CHEST XRAY 1 VIEW on DOS: 4, XY CHEST XRAY 1 VIEW on DOS: 08/13/24 FINDINGS: Stable satisfactory positioning of the right PICC. There is also tubing overlying the left side of th e neck mediastinum, curving medially of the mediastinum, which may be outside the patient. Bilateral airspace opacities are unchanged. No pneumothorax. No other significant interval change. IMPRESSION: No interval change.
--- NOTE | 2024-08-14 18:55 | DVHPNRES ---
Progress Note Date Seen: Aug 14, 2024 Resident Creating Document: RADHA KING PRASANNA Has the PT tested + for MRSA If YES, has PT been informed?: Yes Medical Necessity Reason Pt with a Central, PICC or Fol: Yes The following are medically ne: Gentile Catheter Reason for gentile catheter: Strict I&O Subjective Review of Systems This is a 59-year-old homeless male, with past medical history of liver cirrhosis, multidrug abuser (methamphetamine, marijuana), active smoker brought to the hospital with altered level of consciousness and shortness of breaths. Admitted and intubated on 07/24. Extubated on 08/04. Patient seen and examined at the bedside. Patient is was feeling better, complaining of mild shortness of breaths, maintaining oxygen saturation at 93% with 2L of oxygen through nasal cannula. Patient reports: No new complaints Objective vital signs Vital Sign Date Time Temp Pulse Resp B/P (MAP) Pulse Ox O2 Delivery O2 Flow Rate FiO2 08/14/24 18:12 69 18 100 08/14/24 18:04 Nasal Cannula* 2 28 08/14/24 17:00 97.5 105/71 (82) 97.5 medications Current Medications Medications Dose Ordered Sig/Miky Route Start Time Stop Time Status Last Admin Dose Admin Nitroglycerin 0.4 mg Q5MINP PRN SL 07/24/24 14:45 Diagnostic Test (Pha) 1 strip Q6HR 07/24/24 18:00 08/14/24 17:50 1 STRIP Insulin Human Regular Q6HR SC 07/24/24 18:00 08/14/24 12:00 4 UNITS Dextrose 50 ml UD PRN IV 07/24/24 15:00 08/05/24 06:05 50 ML Acetaminophen 650 mg Q6HP PRN [place] 07/24/24 19:15 Lactulose 30 ml BID PO 07/27/24 22:00 08/14/24 09:47 30 ML Spironolactone 100 mg DAILY NG 07/31/24 10:00 08/14/24 09:48 100 MG Sodium Chloride 10 ml QSHIFT@ IV 08/03/24 22:00 08/14/24 09:49 10 ML Enoxaparin Sodium 40 mg DAILY SC 08/04/24 10:00 08/14/24 09:49 40 MG Furosemide 40 mg DAILY PO 08/06/24 10:00 08/14/24 09:50 40 MG Hydralazine HCl 10 mg Q6HP PRN IV 08/06/24 01:15 Albuterol 2.5 mg Q6HR NEB 08/06/24 18:00 08/14/24 18:04 2.5 MG Ipratropium [place] 0.5 mg Q6HR NEB 08/06/24 18:00 08/14/24 18:04 0.5 MG Lorazepam 1 mg Q6HR PRN IV 08/07/24 15:45 Pantoprazole Sodium 40 mg DAILY@0600 PO 08/11/24 06:00 08/14/24 05:54 40 MG Amiodarone HCl 100 mg DAILY PO 08/13/24 10:00 08/14/24 09:47 100 MG Examination General Appearance: Alert, Oriented X3, Cooperative, mild respiratory distress HEENT: Atraumatic, PERRLA, EOMI, Mucous membrane moist/pink Respiratory: Bilateral diffuse mild crypts Cardiovascular: Regular rate, Normal S1, Normal S2, No murmurs, no chest wall tenderness Abdominal: Normal bowel sounds, Soft, No tenderness, No hepatospenomegaly, No masses Extremities: No clubbing, No cyanosis, No edema, Normal pulses, No tenderness/swelling Skin: No rashes, No breakdown, No significant lesion Neurological: No apparent motor no sensitive deficits. Pupils are isocoric and reactive laboratory and microbiology Laboratory Tests 08/14/24 05:04 Test 08/14/24 05:04 Range/Units Serum Glucose 101 74-106 mg/dL Microbiology Date/Time Source Procedure Growth Status 07/28/24 13:22 Bronchial Washings Gram Stain - Final Complete 07/28/24 13:22 Bronchial Washings Respiratory Culture - Final Complete 07/27/24 12:30 Ascities Fluid Gram Stain - Final Complete 07/27/24 12:30 Ascities Fluid Body Fluid Culture - Final Complete 07/25/24 16:51 Nose MRSA Screen - Final Complete 07/24/24 12:21 Urine - Gentile Port Urine Culture - Final Complete 07/24/24 11:52 Blood Blood Culture - Final NO GROWTH AFTER 5 DAYS OF INCUBATION. Complete Labs and/or images reviewed: Labs reviewed by me, Image(s) reviewed by me Problem List/Assessment/Plan Problem List/Assessment/Plan NEURO: Acute metabolic encephalopathy, likely due to sepsis/liver cirrhosis CARDIOVASCULAR: Atrial flutter, upon admission, currently sinus rhythm Chads Vasc score 0 Cardiology is on the board Echocardiogram from 07/24 shows normal left ventricular systolic 80 function with ejection fraction 60%, mild pericardial effusion, moderate pulmonary hypertension with RSVP more than 50 Amiodarone 100 mg daily, per cardiology, needs to use for 6 weeks and may adjust later Lovenox 40 mg daily PULMONARY: Acute hypoxic and hypercarbic respiratory failure likely due to pneumonia/COPD exacerbation Pneumonia likely due MRSA Hydropneumothorax, chest tube is in place Parapneumonic loculated pleural effusion Septic shock likely due to pneumonia Acute COPD exacerbation Possible obstructive sleep apnea Chest CT scan from 07/25 shows bilateral pneumonia with bilateral loculated pleural effusions Chest CT scan from 08/03 shows Multifocal airspace disease with few foci of air are present in right lower lobe consolidation measuring 3.8 cm but no loculated effusion Chest ultrasound on 07/29/2024 shows trace left-sided pleural effusion and thoracentesis could not perform COVID-19 and flu are negative Sputum culture from from 07/25 shows MRSA sensitive to vancomycin Discontinue Zosyn, used for 12 days Discontinue vancomycin, used for 9 days Discontinue methylprednisolone 40 mg b.i.d., given for 5 days Discontinue prednisone, tapered down in 4 days Breathing treatment q.6 hour Patient has drop of oxygen saturation during the sleep, ABGs reviewed during the awaken time, showed compensated pH, discontinued BiPAP during the day, recommended BiPAP during the sleep ABGs at room air shows PaO2 54.1 and qualified for home oxygen GI: Liver cirrhosis, likely due to alcohol Ascites due to liver cirrhosis Transaminitis, likely due to septic shock/alcohol abuse Paracentesis has been performed, 2 L removed, ascitic fluid exam shows WBC 1548 (polymorphonuclear cells 90), RBC 2159 Ammonia level at 07/24 was 70, decreased to less than 10 on 07/28 Continue Spironolactone 100 mg daily Continue Lasix 40 mg daily Bowel regimen: Lactulose 30 mL b.i.d. GI ppx: Protonix 40 mg daily p.o. RENAL: SHAMIR, likely hemodynamically mediated, improved ID: HIV and hepatitis panel, negative Blood and urine culture from 07/14 was negative Sputum culture from 07/25 shows MRSA Pleural fluid culture from 07/25 shows no growth Ascitic fluid culture from 07/27 shows no growth BAL culture from 07/28 shows moderate normal tammi growth HEME Thrombocytopenia, likely due to liver cirrhosis Normalized Endocrine: Possible Hyptohyroidism TSH is 8.51, free T3 decreased at 1.79, and free T4 normal at 1.0 Metabolic: Hyperchloremia Moderate hypokalemia, supplemented Hypomagnesemia, supplemented Hypernatremia, normalized MUSCULOSKELETAL: Grade 3 ulcer on sacral area consult wound nurse position change every 2 hours LINES/DRAINS/ACCESS: ETT: Intubated on 07/26/2024 and extubated on 08/04 IV access: Right-sided upper limb PICC line, placed on 08/04 Transurethral Gentile catheter Chest tube placed on 07/25/2024, and removed on 08/06 Drips: No pressor DVT prophylaxis: Lovenox DIET: Mechanical soft diet CODE STATUS: Full code Disposition: Med/Surg Patient's status discussed with the sister he is homeless since 17 years, and no family member lives in [facility]. Patient has a brother living in [place], due to disability can not come and pick the patient. Case discussed with Dr. Urrutia Plan discussed with: Other (RN) My Orders My Orders Orders - RADHA KING Procedure Category Date Status Time Incentive Spirometry ORDERS 08/14/24 Transmitted Q 1hr 06:34 Dietary Evaluation Review Comments: 1. Consider EN/TPN if NPO >7days 2. Continue plan of care Expected Outcomes/Goals: 1. Pt will meet >75% of estimated needs within 2-3 days Date of Service: Aug 14, 2024 Billing Provider: SAW URRUTIA MD Common Visit Codes: [id number] INP/OBS CARE(HIGH) RADHA KING RESDIENT Aug 14, 2024 18:55 SAW URRUTIA MD Aug 15, 2024 09:30
[2024-08-14] MEDS: MELATONIN 5 MG TAB PO SCH (21:40)
--- NOTE | 2024-08-14 23:16 | DVHPN2 ---
Progress Note - Dictate Date Seen: Aug 14, 2024 Has the PT tested + for MRSA If YES, has PT been informed?: Yes Medical Necessity Reason Pt with a Central, PICC or Fol: Yes The following are medically ne: Gentile Catheter Reason for gentile catheter: Strict I&O Subjective Patient was seen and evaluated in follow up. No over night events. Patient denies any pain or discomfort. Patient feels better since admission. He is on 2 LPM NC. CL 94, CO2 40. vital signs Vital Sign Date Time Temp Pulse Resp B/P (MAP) Pulse Ox O2 Delivery O2 Flow Rate FiO2 08/14/24 09:50 108/68 08/14/24 09:00 97.3 75 18 97 97.3 08/14/24 07:51 Nasal Cannula* 2 28 medications Current Medications Medications Dose Ordered Sig/Miky Route Start Time Stop Time Status Last Admin Dose Admin Nitroglycerin 0.4 mg Q5MINP PRN SL 07/24/24 14:45 Diagnostic Test (Pha) 1 strip Q6HR 07/24/24 18:00 08/14/24 05:54 1 STRIP Insulin Human Regular Q6HR SC 07/24/24 18:00 08/13/24 23:57 4 UNITS Dextrose 50 ml UD PRN IV 07/24/24 15:00 08/05/24 06:05 50 ML Acetaminophen 650 mg Q6HP PRN [place] 07/24/24 19:15 Lactulose 30 ml BID PO 07/27/24 22:00 08/14/24 09:47 30 ML Spironolactone 100 mg DAILY NG 07/31/24 10:00 08/14/24 09:48 100 MG Sodium Chloride 10 ml QSHIFT@ IV 08/03/24 22:00 08/14/24 09:49 10 ML Enoxaparin Sodium 40 mg DAILY SC 08/04/24 10:00 08/14/24 09:49 40 MG Furosemide 40 mg DAILY PO 08/06/24 10:00 08/14/24 09:50 40 MG Hydralazine HCl 10 mg Q6HP PRN IV 08/06/24 01:15 Albuterol 2.5 mg Q6HR NEB 08/06/24 18:00 08/14/24 07:51 2.5 MG Ipratropium [place] 0.5 mg Q6HR NEB 08/06/24 18:00 08/14/24 07:51 0.5 MG Lorazepam 1 mg Q6HR PRN IV 08/07/24 15:45 Pantoprazole Sodium 40 mg DAILY@0600 PO 08/11/24 06:00 08/14/24 05:54 40 MG Amiodarone HCl 100 mg DAILY PO 08/13/24 10:00 08/14/24 09:47 100 MG objective GENERAL: Awake, alert, oriented. LUNGS: Diminished breath sounds. CARDIOVASCULAR: Heart sounds are good. ABDOMEN: Soft. SKIN: Unknown burn pandey to bilateral hands. laboratory and microbiology Laboratory Tests 08/14/24 05:04 Test 08/14/24 05:04 Range/Units Serum Glucose 101 74-106 mg/dL Problem List Altered mental status. CHF exacerbation. Leukocytosis. UTI. Elevated ammonia levels. Pleural Effusion. Liver Cirrhosis. Acute Hypoxic respiratory failure. MRSA Bacteremia. Assessment/Plan Continued all current supportive medical care. Amiodarone. DVT and GI prophylactics. Diuretics with Lasix. IV antibiotics as ordered. Aldactone. Additional plan as per the hospital course. Dietary Evaluation Review Comments: 1. Consider EN/TPN if NPO >7days 2. Continue plan of care Expected Outcomes/Goals: 1. Pt will meet >75% of estimated needs within 2-3 days Plan discussed with: Patient ISHAAN BUNCH MD Aug 14, 2024 11:37
[2024-08-15] VITALS (18 sets, daily range): BP systolic 90–110; BP diastolic 60–73; PULSE 63–80; RESP 16–21; TEMP 97.6–98.3; O2SAT 95–100
--- NOTE | 2024-08-15 06:15 | DVH ---
CHEST RADIOGRAPH Indication: Pneumonia Technique: Single frontal view of the chest was obtained Comparison: XY CHEST XRAY 1 VIEW on DOS: 08/14/24, XY CHEST XRAY 1 VIEW on DOS: 08/13/24, XY CHEST XR AY 1 VIEW on DOS: 08/12/24 IMPRESSION: The heart appears prominent but stable in size. Patchy bilateral airspace opacities, slightly worsen ed in the right lower lung. Interstitial prominence. Possible trace right pleural effusion. No pneum othorax. Right PICC line tip in the region of the cavoatrial junction.
[2024-08-15 07:18] LABS: Basophils # (auto) 0 10 ^3/uL (0-0.2); Basophils % (auto) 0.3 % (0.0-2.0); Eosinophils # (auto) 0.1 10 ^3/uL (0-0.8); Eosinophils % (auto) 1.4 % (0.0-7.0); Hematocrit 40.8 % (41.0-53.0); Hemoglobin 13.9 g/dL (13.5-17.5); Lymphocytes # (auto) 1.6 10 ^3/uL (0.4-5.4); Lymphocytes % (auto) 16.6 % (10.0-50.0); Mean Corpuscular Hemoglobin 34.9 pg (28.0-32.0); Mean Corpuscular Volume 102.6 fL (80.0-100.0); Monocytes # (auto) 1.1 10 ^3/uL (0-1.3); Monocytes % (auto) 12.1 % (0.0-12.0); Neutrophils # (auto) 6.6 10 ^3/uL (1.6-8.6); Neutrophils % (auto) 69.6 % (37.0-80.0); Platelet Count (auto) 256 10^3/uL (140-450); Red Blood Cells 3.97 10^6/uL (4.5-5.90); White Blood Cell 9.5 10^3/uL (4.4-10.8)
[2024-08-15 07:33] LABS: Alanine Aminotransferase 16 U/L (7-40); Albumin 3.6 g/dL (3.2-4.8); Alkaline Phosphatase 72 U/L (46-116); Anion Gap 5 (5-15); Aspartate Aminotransferase 20 U/L (13-40); BUN/Creatinine Ratio 20.2 (10.0-20.0); Blood Urea Nitrogen 23 mg/dL (9-23); Glucose 92 mg/dL (74-106); Potassium 4.8 mmol/L (3.5-5.1); Sodium 137 mmol/L (136-145)
[2024-08-15 07:34] LABS: Bilirubin, Total 0.7 mg/dL (0.2-1.0); Total Protein 6.5 g/dL (5.7-8.2)
[2024-08-15 07:43] LABS: Carbon Dioxide 39 mmol/L (20-31); Chloride 93 mmol/L (98-107)
--- NOTE | 2024-08-15 13:24 | DVHPN2 ---
Subjective seen today during rounds eating, conversant, no complaints Reviewed: Care Plan, H&P, Labs, Medications, Previous Orders, Radiology Changes from previous H/P or p: No Changes Eyes: No Pain, No Vision change, No Conjunctivae inflammation, No Eyelid inflammation, No Other, No Redness ENT: No Ear pain, No Ear discharge, No Nose pain, No Nose discharge, No Nose congestion, No Mouth pain, No Mouth swelling, No Throat pain, No Throat swelling, No Other Cardiovascular: No Chest Pain, No Palpitations, No Orthopnea, No Paroxysmal Noc. Dyspnea, No Edema, No Lt Headedness, No Other Respiratory: No Cough, No Dry, No Shortness of breath, No SOB with excertion, No Wheezing, No Hemoptysis, No Pleuritic Pain, No Sputum, No Other Gastrointestinal: No Nausea, No Vomiting, No Abdominal Pain, No Diarrhea, No Constipation, No Melena, No Hematochezia, No Other Genitourinary: No Dysuria, No Frequency, No Incontinence, No Hematuria, No Retention, No Other Musculoskeletal: No other, No neck pain, No shoulder pain, No arm pain, No back pain, No hand pain, No leg pain, No foot pain Skin: No Rash, No Lesions, No Jaundice, No Bruising, No Other Objective Vitals Vital Signs Date Time Temp Pulse Resp B/P (MAP) Pulse Ox O2 Delivery O2 Flow Rate FiO2 08/15/24 12:57 98.3 75 18 110/69 (83) 100 98.3 08/15/24 10:00 Nasal Cannula 2.0 08/15/24 08:00 28 Intake/Output Intake and Output 08/15/24 07:00 Intake Total 1200 ml Output Total 1500 ml Balance -300 ml Intake Oral 1200 ml Output Urine Total 1500 ml General Appearance: Other (Intubated, on vent, unable to exam.) HEENT: Atraumatic Neck: Supple Lungs: Clear to auscultation, Normal air movement Cardiovascular: Regular rate, Normal S1, Normal S2, No murmurs, Gallops, Rubs Abdomen: Normal bowel sounds, Soft, No tenderness Neuro: Cranial nerves 3-12 NL Psych/Mental Status: Mental status NL Medications Current Medications Medications Dose Ordered Sig/Miky Route Start Time Stop Time Status Last Admin Dose Admin Nitroglycerin 0.4 mg Q5MINP PRN SL 07/24/24 14:45 Diagnostic Test (Pha) 1 strip Q6HR 07/24/24 18:00 08/15/24 11:58 1 STRIP Insulin Human Regular Q6HR SC 07/24/24 18:00 08/15/24 12:06 3 UNITS Dextrose 50 ml UD PRN IV 07/24/24 15:00 08/05/24 06:05 50 ML Acetaminophen 650 mg Q6HP PRN [place] 07/24/24 19:15 Lactulose 30 ml BID PO 07/27/24 22:00 08/15/24 11:35 30 ML Spironolactone 100 mg DAILY NG 07/31/24 10:00 08/14/24 09:48 100 MG Sodium Chloride 10 ml QSHIFT@ IV 08/03/24 22:00 08/15/24 10:50 10 ML Furosemide 40 mg DAILY PO 08/06/24 10:00 08/14/24 09:50 40 MG Hydralazine HCl 10 mg Q6HP PRN IV 08/06/24 01:15 Albuterol 2.5 mg Q6HR NEB 08/06/24 18:00 08/15/24 12:00 2.5 MG Ipratropium [place] 0.5 mg Q6HR NEB 08/06/24 18:00 08/15/24 12:00 0.5 MG Lorazepam 1 mg Q6HR PRN IV 08/07/24 15:45 Pantoprazole Sodium 40 mg DAILY@0600 PO 08/11/24 06:00 08/15/24 06:23 40 MG Amiodarone HCl 100 mg DAILY PO 08/13/24 10:00 08/14/24 09:47 100 MG Melatonin 5 mg HS PO 08/14/24 22:00 08/14/24 21:40 5 MG Laboratory Results Laboratory Tests 08/15/24 06:02 Chemistry Test 08/15/24 06:02 Albumin 3.6 g/dL (3.2-4.8) Calcium Level 10.0 mg/dL (8.7-10.4) Total Protein 6.5 g/dL (5.7-8.2) LFT Test 08/15/24 06:02 Alanine Aminotransferase (ALT) 16 U/L (7-40) Alkaline Phosphatase 72 U/L (46-116) Aspartate Amino Transferase (AST) 20 U/L (13-40) Total Bilirubin 0.7 mg/dL (0.2-1.0) Urinalysis Test 07/24/24 12:21 07/26/24 12:00 Urine Hyaline Casts Many /lpf (0 - 2) Urine Color Yellow (Yellow) Urine Clarity Turbid (Clear) H Urine pH 5.5 (5.0-9.0) Urine Specific [place] 1.016 (1.001-1.035) Urine Protein Negative (Negative) Urine Ketones Negative (Negative) Urine Blood 2+ /uL (Negative) H Urine Nitrite Negative (Negative) Urine Bilirubin Negative (Negative) Urine Urobilinogen 3 mg/dL (Negative) H Urine Leukocyte Esterase 1+ /uL (Negative) Urine RBC 33 /hpf (0 - 3) Urine WBC 13 /hpf (0 - 3) Urine Squamous Epithelial Cells Few /hpf (<5) Urine Uric Acid Crystals Few /hpf (None Seen) Urine Bacteria None seen /hpf (None Seen) Urine Mucus Few (None Seen) Urine Glucose Normal mg/dL (Normal) Microbiology Microbiology Date/Time Source Procedure Growth Status 07/28/24 13:22 Bronchial Washings Gram Stain - Final Complete 07/28/24 13:22 Bronchial Washings Respiratory Culture - Final Complete 07/27/24 12:30 Ascities Fluid Gram Stain - Final Complete 07/27/24 12:30 Ascities Fluid Body Fluid Culture - Final Complete 07/25/24 16:51 Nose MRSA Screen - Final Complete 07/24/24 12:21 Urine - [place] Urine Culture - Final Complete 07/24/24 11:52 Blood Blood Culture - Final NO GROWTH AFTER 5 DAYS OF INCUBATION. Complete Assessment/Plan Assessment/Plan aflutter acute metabolic encephalopathy resolved acute hypoxic hypercapnic respiratory failure COPD group E with exacerbation MRSA PNA hydropneumothorax s/p chest tube complex pleural efusion septic shock resolved SYLVIA cirrhosis ascites 2/2 above shock liver resolving davis VMN thrombocytopenia grade 3 sacral decub prolonged hospitalization c.w current management delirium rpecaution c/w lasix rate controlled dvt ppx lovenox diet HH Plan discussed with: Patient Date of Service: Aug 15, 2024 Billing Provider: CAROLINE LUKE MD Common Visit Codes: [id number] INP/OBS CARE(MOD) CAROLINE LUKE MD Aug 15, 2024 13:24
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
[2024-08-16] VITALS (12 sets, daily range): BP systolic 93–113; BP diastolic 55–74; PULSE 70–81; RESP 16–21; TEMP 97.6–98.8; O2SAT 95–100
[2024-08-16] MEDS ORDERED: SPIRONOLACTONE 25 MG TAB PO SCH (09:30)
--- NOTE | 2024-08-16 14:15 | DVHPN2 ---
Subjective seen today during rounds complained about having to urinate multiple times during the day and will start urinating on the sheets. informed about gentile but he refused. Reviewed: Care Plan, H&P, Labs, Medications, Previous Orders, Radiology Changes from previous H/P or p: No Changes Eyes: No Pain, No Vision change, No Conjunctivae inflammation, No Eyelid inflammation, No Other, No Redness ENT: No Ear pain, No Ear discharge, No Nose pain, No Nose discharge, No Nose congestion, No Mouth pain, No Mouth swelling, No Throat pain, No Throat swelling, No Other Cardiovascular: No Chest Pain, No Palpitations, No Orthopnea, No Paroxysmal Noc. Dyspnea, No Edema, No Lt Headedness, No Other Respiratory: No Cough, No Dry, No Shortness of breath, No SOB with excertion, No Wheezing, No Hemoptysis, No Pleuritic Pain, No Sputum, No Other Gastrointestinal: No Nausea, No Vomiting, No Abdominal Pain, No Diarrhea, No Constipation, No Melena, No Hematochezia, No Other Genitourinary: No Dysuria, No Frequency, No Incontinence, No Hematuria, No Retention, No Other Musculoskeletal: No other, No neck pain, No shoulder pain, No arm pain, No back pain, No hand pain, No leg pain, No foot pain Skin: No Rash, No Lesions, No Jaundice, No Bruising, No Other Objective Vitals Vital Signs Date Time Temp Pulse Resp B/P (MAP) Pulse Ox O2 Delivery O2 Flow Rate FiO2 08/16/24 11:57 98 Nasal Cannula* 2 28 08/16/24 11:57 81 16 08/16/24 09:37 107/70 08/16/24 08:11 98.8 98.8 Intake/Output Intake and Output 08/16/24 07:00 Intake Total 1940 ml Output Total 2800 ml Balance -860 ml Intake Oral 1940 ml Output Urine Total 2800 ml General Appearance: Other (Intubated, on vent, unable to exam.) HEENT: Atraumatic Neck: Supple Lungs: Clear to auscultation, Normal air movement Cardiovascular: Regular rate, Normal S1, Normal S2, No murmurs, Gallops, Rubs Abdomen: Normal bowel sounds, Soft, No tenderness Neuro: Cranial nerves 3-12 NL Psych/Mental Status: Mental status NL Medications Current Medications Medications Dose Ordered Sig/Miky Route Start Time Stop Time Status Last Admin Dose Admin Nitroglycerin 0.4 mg Q5MINP PRN SL 07/24/24 14:45 Diagnostic Test (Pha) 1 strip Q6HR 07/24/24 18:00 08/16/24 12:42 1 STRIP Insulin Human Regular Q6HR SC 07/24/24 18:00 08/16/24 12:43 4 UNITS Dextrose 50 ml UD PRN IV 07/24/24 15:00 08/05/24 06:05 50 ML Acetaminophen 650 mg Q6HP PRN [place] 07/24/24 19:15 Lactulose 30 ml BID PO 07/27/24 22:00 08/16/24 09:36 30 ML Sodium Chloride 10 ml QSHIFT@ IV 08/03/24 22:00 08/16/24 09:50 10 ML Furosemide 40 mg DAILY PO 08/06/24 10:00 08/16/24 09:37 40 MG Hydralazine HCl 10 mg Q6HP PRN IV 08/06/24 01:15 Albuterol 2.5 mg Q6HR NEB 08/06/24 18:00 08/16/24 11:57 2.5 MG Ipratropium [place] 0.5 mg Q6HR NEB 08/06/24 18:00 08/16/24 11:57 0.5 MG Lorazepam 1 mg Q6HR PRN IV 08/07/24 15:45 Pantoprazole Sodium 40 mg DAILY@0600 PO 08/11/24 06:00 08/16/24 05:40 40 MG Amiodarone HCl 100 mg DAILY PO 08/13/24 10:00 08/16/24 09:36 100 MG Melatonin 5 mg HS PO 08/14/24 22:00 08/15/24 21:31 5 MG Spironolactone 100 mg DAILY PO 08/16/24 09:30 Hold Laboratory Results Laboratory Tests 08/15/24 06:02 Urinalysis Test 07/24/24 12:21 07/26/24 12:00 Urine Hyaline Casts Many /lpf (0 - 2) Urine Color Yellow (Yellow) Urine Clarity Turbid (Clear) H Urine pH 5.5 (5.0-9.0) Urine Specific [place] 1.016 (1.001-1.035) Urine Protein Negative (Negative) Urine Ketones Negative (Negative) Urine Blood 2+ /uL (Negative) H Urine Nitrite Negative (Negative) Urine Bilirubin Negative (Negative) Urine Urobilinogen 3 mg/dL (Negative) H Urine Leukocyte Esterase 1+ /uL (Negative) Urine RBC 33 /hpf (0 - 3) Urine WBC 13 /hpf (0 - 3) Urine Squamous Epithelial Cells Few /hpf (<5) Urine Uric Acid Crystals Few /hpf (None Seen) Urine Bacteria None seen /hpf (None Seen) Urine Mucus Few (None Seen) Urine Glucose Normal mg/dL (Normal) Microbiology Microbiology Date/Time Source Procedure Growth Status 07/28/24 13:22 Bronchial Washings Gram Stain - Final Complete 07/28/24 13:22 Bronchial Washings Respiratory Culture - Final Complete 07/27/24 12:30 Ascities Fluid Gram Stain - Final Complete 07/27/24 12:30 Ascities Fluid Body Fluid Culture - Final Complete 07/25/24 16:51 Nose MRSA Screen - Final Complete 07/24/24 12:21 Urine - [place] Urine Culture - Final Complete 07/24/24 11:52 Blood Blood Culture - Final NO GROWTH AFTER 5 DAYS OF INCUBATION. Complete Assessment/Plan Assessment/Plan aflutter acute metabolic encephalopathy resolved acute hypoxic hypercapnic respiratory failure COPD group E with exacerbation MRSA PNA hydropneumothorax s/p chest tube complex pleural efusion septic shock resolved SYLVIA cirrhosis ascites 2/2 above shock liver resolving davis VMN thrombocytopenia grade 3 sacral decub prolonged hospitalization c.w current management delirium rpecaution c/w lasix rate controlled avoid benzo, anticholinergics dvt ppx lovenox diet HH Plan discussed with: Patient My Orders Orders - CAROLINE LUKE MD Procedure Category Date Status Time Spironolactone PHA 08/16/24 In Process (Aldactone) 09:30 Date of Service: Aug 16, 2024 Billing Provider: CAROLINE LUKE MD Common Visit Codes: [id number] INP/OBS CARE(HIGH) CAROLINE LUKE MD Aug 16, 2024 14:15
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
[2024-08-17] VITALS (14 sets, daily range): BP systolic 95–121; BP diastolic 59–80; PULSE 69–85; RESP 16–20; TEMP 98.1–98.7; O2SAT 95–100
[2024-08-17 05:48] LABS: Basophils # (auto) 0.1 10 ^3/uL (0-0.2); Basophils % (auto) 0.7 % (0.0-2.0); Eosinophils # (auto) 0.1 10 ^3/uL (0-0.8); Eosinophils % (auto) 1.1 % (0.0-7.0); Hematocrit 40.2 % (41.0-53.0); Hemoglobin 13.6 g/dL (13.5-17.5); Lymphocytes # (auto) 1.3 10 ^3/uL (0.4-5.4); Lymphocytes % (auto) 11.4 % (10.0-50.0); Mean Corpuscular Hemoglobin 34.4 pg (28.0-32.0); Mean Corpuscular Hgb Conc. 33.7 g/dL (32.0-36.0); Mean Corpuscular Volume 102.1 fL (80.0-100.0); Monocytes # (auto) 1.3 10 ^3/uL (0-1.3); Monocytes % (auto) 11.8 % (0.0-12.0); Neutrophils # (auto) 8.4 10 ^3/uL (1.6-8.6); Platelet Count (auto) 180 10^3/uL (140-450); Red Blood Cells 3.94 10^6/uL (4.5-5.90); Red Cell Distribution Width 13.7 % (11.8-14.3); White Blood Cell 11.1 10^3/uL (4.4-10.8)
[2024-08-17 06:05] LABS: Alanine Aminotransferase 13 U/L (7-40); Albumin 3.7 g/dL (3.2-4.8); Alkaline Phosphatase 83 U/L (46-116); Aspartate Aminotransferase 16 U/L (13-40); BUN/Creatinine Ratio 18.1 (10.0-20.0); Blood Urea Nitrogen 21 mg/dL (9-23); Calcium 9.8 mg/dL (8.7-10.4); Potassium 4.5 mmol/L (3.5-5.1)
[2024-08-17 06:06] LABS: Bilirubin, Total 0.7 mg/dL (0.2-1.0); Total Protein 6.5 g/dL (5.7-8.2)
[2024-08-17 06:07] LABS: Anion Gap 7 (5-15)
[2024-08-17 06:17] LABS: Carbon Dioxide 34 mmol/L (20-31); Chloride 93 mmol/L (98-107); Glucose 126 mg/dL (74-106); Sodium 134 mmol/L (136-145)
--- NOTE | 2024-08-17 10:25 | DVHPN2 ---
Progress Note Date Seen: Aug 17, 2024 Has the PT tested + for MRSA If YES, has PT been informed?: Yes Medical Necessity Reason Pt with a Central, PICC or Fol: No Subjective Patient reports: No new complaints Review of Systems: HEENT:Normal, CVS:Normal, RESPIRATORY:Normal, GI:Normal, :Normal, MSK:Normal, NEURO:Normal Objective vital signs Vital Sign Date Time Temp Pulse Resp B/P (MAP) Pulse Ox O2 Delivery O2 Flow Rate FiO2 08/17/24 09:25 98.5 79 16 106/70 (82) 96 98.5 08/17/24 07:07 Nasal Cannula 2.0 08/17/24 07:07 28 Total Intake and Output 08/16/24 08/16/24 08/17/24 15:00 23:00 07:00 Intake Total 1345 ml Balance 1345 ml medications Current Medications Medications Dose Ordered Sig/Miky Route Start Time Stop Time Status Last Admin Dose Admin Nitroglycerin 0.4 mg Q5MINP PRN SL 07/24/24 14:45 Diagnostic Test (Pha) 1 strip Q6HR 07/24/24 18:00 08/17/24 05:35 1 STRIP Insulin Human Regular Q6HR SC 07/24/24 18:00 08/17/24 05:37 2 UNITS Dextrose 50 ml UD PRN IV 07/24/24 15:00 08/05/24 06:05 50 ML Acetaminophen 650 mg Q6HP PRN [place] 07/24/24 19:15 Lactulose 30 ml BID PO 07/27/24 22:00 08/16/24 21:22 30 ML Sodium Chloride 10 ml QSHIFT@10,22 IV 08/03/24 22:00 08/16/24 21:22 10 ML Furosemide 40 mg DAILY PO 08/06/24 10:00 08/16/24 09:37 40 MG Hydralazine HCl 10 mg Q6HP PRN IV 08/06/24 01:15 Albuterol 2.5 mg Q6HR NEB 08/06/24 18:00 08/17/24 07:07 2.5 MG Ipratropium [place] 0.5 mg Q6HR NEB 08/06/24 18:00 08/17/24 07:07 0.5 MG Lorazepam 1 mg Q6HR PRN IV 08/07/24 15:45 Pantoprazole Sodium 40 mg DAILY@0600 PO 08/11/24 06:00 08/17/24 05:36 40 MG Amiodarone HCl 100 mg DAILY PO 08/13/24 10:00 08/16/24 09:36 100 MG Melatonin 5 mg HS PO 08/14/24 22:00 08/16/24 21:22 5 MG Spironolactone 100 mg DAILY PO 08/16/24 09:30 Hold Examination: GENERAL:Normal, HEENT:Normal, NECK:Normal, LUNGS:Normal, LUNGS:Abnormal (on oxygen), CVS:Normal, ABDOMEN:Normal, MSK:Normal, SKIN:Normal, NEURO:Normal, :Normal laboratory and microbiology Laboratory Tests 08/17/24 05:21 Test 08/17/24 05:21 Range/Units Serum Glucose 126 H 74-106 mg/dL Microbiology Date/Time Source Procedure Growth Status 07/28/24 13:22 Bronchial Washings Gram Stain - Final Complete 07/28/24 13:22 Bronchial Washings Respiratory Culture - Final Complete 07/27/24 12:30 Ascities Fluid Gram Stain - Final Complete 07/27/24 12:30 Ascities Fluid Body Fluid Culture - Final Complete 07/25/24 16:51 Nose MRSA Screen - Final Complete 07/24/24 12:21 Urine - [place] Urine Culture - Final Complete 07/24/24 11:52 Blood Blood Culture - Final NO GROWTH AFTER 5 DAYS OF INCUBATION. Complete Problem List/Assessment/Plan Problem List/Assessment/Plan NEURO: Acute metabolic encephalopathy, likely due to sepsis/liver cirrhosis CARDIOVASCULAR: Atrial flutter, upon admission, currently sinus rhythm Chads Vasc score 0 Cardiology is on the board Echocardiogram from 07/24 shows normal left ventricular systolic 80 function with ejection fraction 60%, mild pericardial effusion, moderate pulmonary hypertension with RSVP more than 50 Amiodarone 100 mg daily, per cardiology, needs to use for 6 weeks and may adjust later PULMONARY: Acute hypoxic and hypercarbic respiratory failure likely due to pneumonia/COPD exacerbation Pneumonia likely due MRSA Hydropneumothorax, chest tube is in place Parapneumonic loculated pleural effusion Septic shock likely due to pneumonia Acute COPD exacerbation Possible obstructive sleep apnea Chest CT scan from 07/25 shows bilateral pneumonia with bilateral loculated pleural effusions Chest CT scan from 08/03 shows Multifocal airspace disease with few foci of air are present in right lower lobe consolidation measuring 3.8 cm but no loculated effusion Chest ultrasound on 07/29/2024 shows trace left-sided pleural effusion and thoracentesis could not perform COVID-19 and flu are negative Sputum culture from from 07/25 shows MRSA sensitive to vancomycin Discontinue Zosyn, used for 12 days Discontinue vancomycin, used for 9 days Discontinue methylprednisolone 40 mg b.i.d., given for 5 days Discontinue prednisone, tapered down in 4 days Breathing treatment q.6 hour Patient has drop of oxygen saturation during the sleep, ABGs reviewed during the awaken time, showed compensated pH, discontinued BiPAP during the day, recommended BiPAP during the sleep ABGs at room air shows PaO2 54.1 and qualified for home oxygen GI: Liver cirrhosis, likely due to alcohol Ascites due to liver cirrhosis Transaminitis, likely due to septic shock/alcohol abuse Paracentesis has been performed, 2 L removed, ascitic fluid exam shows WBC 1548 (polymorphonuclear cells 90), RBC 2159 Ammonia level at 07/24 was 70, decreased to less than 10 on 07/28 Continue Spironolactone 100 mg daily Bowel regimen: Lactulose 30 mL b.i.d. GI ppx: Protonix 40 mg daily p.o. RENAL: SHAMIR, likely hemodynamically mediated, improved ID: HIV and hepatitis panel, negative Blood and urine culture from 07/14 was negative Sputum culture from 07/25 shows MRSA Pleural fluid culture from 07/25 shows no growth Ascitic fluid culture from 07/27 shows no growth BAL culture from 07/28 shows moderate normal tammi growth HEME Thrombocytopenia, likely due to liver cirrhosis Normalized Endocrine: Possible Hyptohyroidism TSH is 8.51, free T3 decreased at 1.79, and free T4 normal at 1.0 Metabolic: Hyperchloremia Moderate hypokalemia, supplemented Hypomagnesemia, supplemented Hypernatremia, normalized MUSCULOSKELETAL: Grade 3 ulcer on sacral area consult wound nurse position change every 2 hours LINES/DRAINS/ACCESS: ETT: Intubated on 07/26/2024 and extubated on 08/04 IV access: Right-sided upper limb PICC line, placed on 08/04 Transurethral [place] catheter Chest tube placed on 07/25/2024, and removed on 08/06 Drips: No pressor DVT prophylaxis: Lovenox DIET: Mechanical soft diet CODE STATUS: Full code- time spent was 21 mins Disposition: Med/Surg Patient's status discussed with the sister he is homeless since 17 years, and no family member lives in [facility]. Patient has a brother living in [place], due to disability can not come and pick the patient. Case discussed with Plan discussed with: Patient My Orders My Orders Orders - SUSY ARREGUIN MD Procedure Category Date Status Time Basic Metabolic Panel LAB 08/18/24 Verified 06:00 Complete Blood Count LAB 08/18/24 Verified 06:00 Chest Portable XY 08/18/24 Verified 06:00 * Content Developer CONS 08/17/24 Verified Consult Dietary Evaluation Review Comments: 1. Consider EN/TPN if NPO >7days 2. Continue plan of care Expected Outcomes/Goals: 1. Pt will meet >75% of estimated needs within 2-3 days Date of Service: Aug 17, 2024 Billing Provider: SUSY ARREGUIN MD Common Visit Codes: [id number] INP/OBS CARE(HIGH) SUSY ARREGUIN MD Aug 17, 2024 10:25
--- NOTE | 2024-08-17 21:23 | DVHPN2 ---
Progress Note - Dictate Date Seen: Aug 17, 2024 Has the PT tested + for MRSA If YES, has PT been informed?: Yes Medical Necessity Reason Pt with a Central, PICC or Fol: No Subjective Patient was seen and evaluated in follow up. No overnight events. Patient denies any pain or discomfort. Patient received wound care to sacral area this evening. WBC 11. vital signs Vital Sign Date Time Temp Pulse Resp B/P (MAP) Pulse Ox O2 Delivery O2 Flow Rate FiO2 08/17/24 20:00 Nasal Cannula* 2 28 08/17/24 17:58 84 18 100 08/17/24 17:05 98.7 108/68 (81) 98.7 Total Intake and Output 08/16/24 08/16/24 08/17/24 15:00 23:00 07:00 Intake Total 1345 ml Balance 1345 ml medications Current Medications Medications Dose Ordered Sig/Miky Route Start Time Stop Time Status Last Admin Dose Admin Nitroglycerin 0.4 mg Q5MINP PRN SL 07/24/24 14:45 Diagnostic Test (Pha) 1 strip Q6HR 07/24/24 18:00 08/17/24 17:24 1 STRIP Insulin Human Regular Q6HR SC 07/24/24 18:00 08/17/24 17:30 3 UNITS Dextrose 50 ml UD PRN IV 07/24/24 15:00 08/05/24 06:05 50 ML Acetaminophen 650 mg Q6HP PRN [place] 07/24/24 19:15 Lactulose 30 ml BID PO 07/27/24 22:00 08/17/24 10:20 30 ML Sodium Chloride 10 ml QSHIFT@ IV 08/03/24 22:00 08/17/24 10:20 10 ML Hydralazine HCl 10 mg Q6HP PRN IV 08/06/24 01:15 Albuterol 2.5 mg Q6HR NEB 08/06/24 18:00 08/17/24 17:49 2.5 MG Ipratropium [place] 0.5 mg Q6HR NEB 08/06/24 18:00 08/17/24 17:48 0.5 MG Pantoprazole Sodium 40 mg DAILY@0600 PO 08/11/24 06:00 08/17/24 05:36 40 MG Amiodarone HCl 100 mg DAILY PO 08/13/24 10:00 08/17/24 10:20 100 MG Melatonin 5 mg HS PO 08/14/24 22:00 08/16/24 21:22 5 MG Spironolactone 100 mg DAILY PO 08/18/24 10:00 objective GENERAL: Awake, alert, oriented. LUNGS: Diminished breath sounds. CARDIOVASCULAR: Heart sounds are good. ABDOMEN: Soft. SKIN: Unknown burn pandey to bilateral hands. laboratory and microbiology Laboratory Tests 08/17/24 05:21 Test 08/17/24 05:21 Range/Units Serum Glucose 126 H 74-106 mg/dL Problem List Altered mental status. CHF exacerbation. Leukocytosis. UTI. Elevated ammonia levels. Pleural Effusion. Liver Cirrhosis. Acute Hypoxic respiratory failure. MRSA Bacteremia. Assessment/Plan Continued all current supportive medical care. Amiodarone. GI prophylactics. Aldactone. Additional plan as per the hospital course. Dietary Evaluation Review Comments: 1. Consider EN/TPN if NPO >7days 2. Continue plan of care Expected Outcomes/Goals: 1. Pt will meet >75% of estimated needs within 2-3 days Plan discussed with: Patient ISHAAN BUNCH MD Aug 17, 2024 21:23
[2024-08-18] VITALS (19 sets, daily range): BP systolic 91–124; BP diastolic 55–79; PULSE 66–87; RESP 16–19; TEMP 97.5–98.6; O2SAT 95–100
--- NOTE | 2024-08-18 06:44 | DVH ---
CHEST RADIOGRAPH Indication: right pneumonia Technique: Single frontal view of the chest was obtained Comparison: XY CHEST XRAY 1 VIEW on DOS: 08/15/24 FINDINGS: Lines and Tubes: Right PICC terminates in the superior vena cava. Lungs: Right lower lobe opacity. Pulmonary vascular congestion. Pleura: No effusion. No pneumothorax. Cardiomediastinal contours: Unremarkable Bones: No acute osseous abnormality. IMPRESSION: 1. Pulmonary congestion. Right lower lobe opacity may reflect atelectasis or infiltrate.
[2024-08-18 08:23] LABS: Basophils % (auto) 0.5 % (0.0-2.0); Eosinophils # (auto) 0.1 10 ^3/uL (0-0.8); Eosinophils % (auto) 0.9 % (0.0-7.0); Lymphocytes # (auto) 1.1 10 ^3/uL (0.4-5.4); Mean Corpuscular Volume 101.9 fL (80.0-100.0); Monocytes # (auto) 1.1 10 ^3/uL (0-1.3)
[2024-08-18 08:25] LABS: Basophils # (auto) 0 10 ^3/uL (0-0.2); Hematocrit 42.4 % (41.0-53.0); Hemoglobin 14.3 g/dL (13.5-17.5); Lymphocytes % (auto) 11.3 % (10.0-50.0); Mean Corpuscular Hemoglobin 34.3 pg (28.0-32.0); Mean Corpuscular Hgb Conc. 33.7 g/dL (32.0-36.0); Monocytes % (auto) 12.1 % (0.0-12.0); Neutrophils # (auto) 7.1 10 ^3/uL (1.6-8.6); Neutrophils % (auto) 75.2 % (37.0-80.0); Platelet Count (auto) 197 10^3/uL (140-450); Red Blood Cells 4.16 10^6/uL (4.5-5.90); Red Cell Distribution Width 13.7 % (11.8-14.3); White Blood Cell 9.4 10^3/uL (4.4-10.8)
[2024-08-18 08:30] LABS: Potassium 4.6 mmol/L (3.5-5.1)
[2024-08-18 08:31] LABS: Anion Gap 4 (5-15); Carbon Dioxide 37 mmol/L (20-31); Chloride 92 mmol/L (98-107); Sodium 133 mmol/L (136-145)
[2024-08-18 08:40] LABS: Glucose 169 mg/dL (74-106)
--- NOTE | 2024-08-18 09:48 | DVHPN2 ---
Progress Note Date Seen: Aug 18, 2024 Has the PT tested + for MRSA If YES, has PT been informed?: Yes Medical Necessity Reason Pt with a Central, PICC or Fol: No Subjective Patient reports: No new complaints Review of Systems: HEENT:Normal, CVS:Normal, RESPIRATORY:Normal, GI:Normal, :Normal, MSK:Normal, NEURO:Normal Objective vital signs Vital Sign Date Time Temp Pulse Resp B/P (MAP) Pulse Ox O2 Delivery O2 Flow Rate FiO2 08/18/24 08:49 97.7 80 16 91/62 (72) 99 97.7 08/18/24 07:53 Nasal Cannula* 2 28 Total Intake and Output 08/17/24 08/17/24 08/18/24 15:00 23:00 07:00 Intake Total 734 ml 300 ml Balance 734 ml 300 ml medications Current Medications Medications Dose Ordered Sig/Miky Route Start Time Stop Time Status Last Admin Dose Admin Nitroglycerin 0.4 mg Q5MINP PRN SL 07/24/24 14:45 Diagnostic Test (Pha) 1 strip Q6HR 07/24/24 18:00 08/18/24 07:02 1 STRIP Insulin Human Regular Q6HR SC 07/24/24 18:00 08/18/24 07:04 3 UNITS Dextrose 50 ml UD PRN IV 07/24/24 15:00 08/05/24 06:05 50 ML Acetaminophen 650 mg Q6HP PRN [place] 07/24/24 19:15 Lactulose 30 ml BID PO 07/27/24 22:00 08/17/24 23:04 30 ML Sodium Chloride 10 ml QSHIFT@ IV 08/03/24 22:00 08/17/24 22:58 10 ML Hydralazine HCl 10 mg Q6HP PRN IV 08/06/24 01:15 Albuterol 2.5 mg Q6HR NEB 08/06/24 18:00 08/18/24 05:59 2.5 MG Ipratropium [place] 0.5 mg Q6HR NEB 08/06/24 18:00 08/18/24 06:00 0.5 MG Pantoprazole Sodium 40 mg DAILY@0600 PO 08/11/24 06:00 08/18/24 06:56 40 MG Amiodarone HCl 100 mg DAILY PO 08/13/24 10:00 08/17/24 10:20 100 MG Melatonin 5 mg HS PO 08/14/24 22:00 08/17/24 23:03 5 MG Spironolactone 100 mg DAILY PO 08/18/24 10:00 Examination: GENERAL:Normal, HEENT:Normal, NECK:Normal, LUNGS:Normal, CVS:Normal, ABDOMEN:Normal, MSK:Normal, SKIN:Normal, NEURO:Normal, :Normal laboratory and microbiology Laboratory Tests 08/18/24 07:19 Test 08/18/24 07:19 Range/Units Serum Glucose 169 H 74-106 mg/dL Microbiology Date/Time Source Procedure Growth Status 07/28/24 13:22 Bronchial Washings Gram Stain - Final Complete 07/28/24 13:22 Bronchial Washings Respiratory Culture - Final Complete 07/27/24 12:30 Ascities Fluid Gram Stain - Final Complete 07/27/24 12:30 Ascities Fluid Body Fluid Culture - Final Complete 07/25/24 16:51 Nose MRSA Screen - Final Complete 07/24/24 12:21 Urine - [place] Urine Culture - Final Complete 07/24/24 11:52 Blood Blood Culture - Final NO GROWTH AFTER 5 DAYS OF INCUBATION. Complete Problem List/Assessment/Plan Problem List/Assessment/Plan NEURO: Acute metabolic encephalopathy, likely due to sepsis/liver cirrhosis CARDIOVASCULAR: Atrial flutter, upon admission, currently sinus rhythm Chads Vasc score 0 Cardiology is on the board Echocardiogram from 07/24 shows normal left ventricular systolic 80 function with ejection fraction 60%, mild pericardial effusion, moderate pulmonary hypertension with RSVP more than 50 Amiodarone 100 mg daily, per cardiology, needs to use for 6 weeks and may adjust later PULMONARY: Acute hypoxic and hypercarbic respiratory failure likely due to pneumonia/COPD exacerbation Pneumonia likely due MRSA Hydropneumothorax, chest tube is in place Parapneumonic loculated pleural effusion Septic shock likely due to pneumonia Acute COPD exacerbation Possible obstructive sleep apnea Chest CT scan from 07/25 shows bilateral pneumonia with bilateral loculated pleural effusions Chest CT scan from 08/03 shows Multifocal airspace disease with few foci of air are present in right lower lobe consolidation measuring 3.8 cm but no loculated effusion Chest ultrasound on 07/29/2024 shows trace left-sided pleural effusion and thoracentesis could not perform COVID-19 and flu are negative Sputum culture from from 07/25 shows MRSA sensitive to vancomycin Discontinue Zosyn, used for 12 days Discontinue vancomycin, used for 9 days Discontinue methylprednisolone 40 mg b.i.d., given for 5 days Discontinue prednisone, tapered down in 4 days Breathing treatment q.6 hour Patient has drop of oxygen saturation during the sleep, ABGs reviewed during the awaken time, showed compensated pH, discontinued BiPAP during the day, recommended BiPAP during the sleep ABGs at room air shows PaO2 54.1 and qualified for home oxygen GI: Liver cirrhosis, likely due to alcohol Ascites due to liver cirrhosis Transaminitis, likely due to septic shock/alcohol abuse Paracentesis has been performed, 2 L removed, ascitic fluid exam shows WBC 1548 (polymorphonuclear cells 90), RBC 2159 Ammonia level at 07/24 was 70, decreased to less than 10 on 07/28 Continue Spironolactone 100 mg daily Bowel regimen: Lactulose 30 mL b.i.d. GI ppx: Protonix 40 mg daily p.o. RENAL: SHAMIR, likely hemodynamically mediated, improved ID: HIV and hepatitis panel, negative Blood and urine culture from 07/14 was negative Sputum culture from 07/25 shows MRSA Pleural fluid culture from 07/25 shows no growth Ascitic fluid culture from 07/27 shows no growth BAL culture from 07/28 shows moderate normal tammi growth HEME Thrombocytopenia, likely due to liver cirrhosis Normalized Endocrine: Possible Hyptohyroidism TSH is 8.51, free T3 decreased at 1.79, and free T4 normal at 1.0 Metabolic: Hyperchloremia Moderate hypokalemia, supplemented Hypomagnesemia, supplemented Hypernatremia, normalized MUSCULOSKELETAL: Grade 3 ulcer on sacral area consult wound nurse position change every 2 hours LINES/DRAINS/ACCESS: ETT: Intubated on 07/26/2024 and extubated on 08/04 IV access: Right-sided upper limb PICC line, placed on 08/04 Transurethral [place] catheter Chest tube placed on 07/25/2024, and removed on 08/06 Drips: No pressor DVT prophylaxis: Lovenox DIET: Mechanical soft diet CODE STATUS: Full code- time spent was 21 mins Disposition: Med/Surg Patient's status discussed with the sister he is homeless since 17 years, and no family member lives in [place] [facility]. Patient has a brother living in [place], due to disability can not come and pick the patient. Plan discussed with: Patient My Orders My Orders Orders - SUSY ARREGUIN MD Procedure Category Date Status Time Basic Metabolic Panel LAB 08/18/24 In Process 06:00 Chest Portable XY 08/18/24 Resulted 06:00 * Agency Service Coordinator CONS 08/17/24 Transmitted Consult Spironolactone PHA 08/18/24 In Process (Aldactone) 10:00 Dietary Evaluation Review Comments: 1. Consider EN/TPN if NPO >7days 2. Continue plan of care Expected Outcomes/Goals: 1. Pt will meet >75% of estimated needs within 2-3 days Date of Service: Aug 18, 2024 Billing Provider: SUSY ARREGUIN MD Common Visit Codes: [id number] INP/OBS CARE(HIGH) SUSY ARREGUIN MD Aug 18, 2024 09:48
[2024-08-18] MEDS: SPIRONOLACTONE 25 MG TAB PO SCH (10:08)
[2024-08-18 10:36] LABS: Blood Urea Nitrogen 23 mg/dL (9-23)
--- NOTE | 2024-08-18 22:20 | DVHPN2 ---
Progress Note - Dictate Date Seen: Aug 18, 2024 Has the PT tested + for MRSA If YES, has PT been informed?: Yes Medical Necessity Reason Pt with a Central, PICC or Fol: No Subjective Patient was seen and evaluated in follow up. Patient is complaining of SOB. Patient is on 2 LPM NC. Chest x-ray shows pulmonary congestion, right lower lobe opacity may reflect atelectasis or infiltrate. CL 92, CO2 37. vital signs Vital Sign Date Time Temp Pulse Resp B/P (MAP) Pulse Ox O2 Delivery O2 Flow Rate FiO2 08/18/24 17:49 78 18 100 08/18/24 17:42 Nasal Cannula 2.0 08/18/24 17:42 28 08/18/24 17:00 97.5 115/79 (91) 97.5 Total Intake and Output 08/17/24 08/17/24 08/18/24 15:00 23:00 07:00 Intake Total 734 ml 300 ml Balance 734 ml 300 ml medications Current Medications Medications Dose Ordered Sig/Miky Route Start Time Stop Time Status Last Admin Dose Admin Nitroglycerin 0.4 mg Q5MINP PRN SL 07/24/24 14:45 Diagnostic Test (Pha) 1 strip Q6HR 07/24/24 18:00 08/18/24 16:56 1 STRIP Insulin Human Regular Q6HR SC 07/24/24 18:00 08/18/24 17:01 3 UNITS Dextrose 50 ml UD PRN IV 07/24/24 15:00 08/05/24 06:05 50 ML Acetaminophen 650 mg Q6HP PRN [place] 07/24/24 19:15 Lactulose 30 ml BID PO 07/27/24 22:00 08/18/24 10:08 30 ML Sodium Chloride 10 ml QSHIFT@ IV 08/03/24 22:00 08/18/24 10:07 10 ML Hydralazine HCl 10 mg Q6HP PRN IV 08/06/24 01:15 Albuterol 2.5 mg Q6HR NEB 08/06/24 18:00 08/18/24 17:42 2.5 MG Ipratropium [place] 0.5 mg Q6HR NEB 08/06/24 18:00 08/18/24 17:42 0.5 MG Pantoprazole Sodium 40 mg DAILY@0600 PO 08/11/24 06:00 08/18/24 06:56 40 MG Melatonin 5 mg HS PO 08/14/24 22:00 08/17/24 23:03 5 MG Spironolactone 100 mg DAILY PO 08/18/24 10:00 08/18/24 10:08 100 MG objective GENERAL: Awake, alert, oriented. LUNGS: Diminished breath sounds. CARDIOVASCULAR: Heart sounds are good. ABDOMEN: Soft. SKIN: Unknown burn pandey to bilateral hands. laboratory and microbiology Laboratory Tests 08/18/24 07:19 Test 08/18/24 07:19 Range/Units Serum Glucose 169 H 74-106 mg/dL Problem List Acute metabolic encephalopathy, likely due to sepsis/liver cirrhosis. Atrial flutter. CHF exacerbation. Leukocytosis. UTI. Elevated ammonia levels. Pleural Effusion. Liver cirrhosis with ascites due to liver cirrhosis Acute Hypoxic respiratory failure. MRSA Bacteremia. Pneumonia likely due MRSA. Hydropneumothorax. Parapneumonic loculated pleural effusion. Septic shock. COPD exacerbation. Transaminitis. SHAMIR. Assessment/Plan Continued all current supportive medical care. Amiodarone. GI prophylactics. Aldactone. Additional plan as per the hospital course. Dietary Evaluation Review Comments: 1. Consider EN/TPN if NPO >7days 2. Continue plan of care Expected Outcomes/Goals: 1. Pt will meet >75% of estimated needs within 2-3 days Plan discussed with: Spouse ISHAAN BUNCH MD Aug 18, 2024 22:20
[2024-08-19] VITALS (11 sets, daily range): BP systolic 99–111; BP diastolic 59–73; PULSE 74–91; RESP 16–20; TEMP 97.6–98.3; O2SAT 88–100
--- NOTE | 2024-08-19 09:40 | DVHPN2 ---
Progress Note Date Seen: Aug 19, 2024 Has the PT tested + for MRSA If YES, has PT been informed?: Yes Medical Necessity Reason Pt with a Central, PICC or Fol: No Subjective Patient reports: No new complaints Review of Systems: HEENT:Normal, CVS:Normal, RESPIRATORY:Normal, GI:Normal, :Normal, MSK:Normal, NEURO:Normal Objective vital signs Vital Sign Date Time Temp Pulse Resp B/P (MAP) Pulse Ox O2 Delivery O2 Flow Rate FiO2 08/19/24 09:00 98.1 76 19 107/72 (84) 97 98.1 08/19/24 07:45 Nasal Cannula* 2 28 Total Intake and Output 08/18/24 08/18/24 08/19/24 15:00 23:00 07:00 Intake Total 840 ml 1760 ml Output Total 900 ml Balance 840 ml 860 ml medications Current Medications Medications Dose Ordered Sig/Miky Route Start Time Stop Time Status Last Admin Dose Admin Nitroglycerin 0.4 mg Q5MINP PRN SL 07/24/24 14:45 Diagnostic Test (Pha) 1 strip Q6HR 07/24/24 18:00 08/19/24 05:14 1 STRIP Insulin Human Regular Q6HR SC 07/24/24 18:00 08/18/24 23:21 3 UNITS Dextrose 50 ml UD PRN IV 07/24/24 15:00 08/05/24 06:05 50 ML Acetaminophen 650 mg Q6HP PRN [place] 07/24/24 19:15 Lactulose 30 ml BID PO 07/27/24 22:00 08/18/24 22:58 30 ML Sodium Chloride 10 ml QSHIFT@ IV 08/03/24 22:00 08/18/24 22:58 10 ML Hydralazine HCl 10 mg Q6HP PRN IV 08/06/24 01:15 Albuterol 2.5 mg Q6HR NEB 08/06/24 18:00 08/19/24 00:06 2.5 MG Ipratropium [place] 0.5 mg Q6HR NEB 08/06/24 18:00 08/19/24 00:06 0.5 MG Pantoprazole Sodium 40 mg DAILY@0600 PO 08/11/24 06:00 08/19/24 05:11 40 MG Melatonin 5 mg HS PO 08/14/24 22:00 08/18/24 22:57 5 MG Spironolactone 100 mg DAILY PO 08/18/24 10:00 08/18/24 10:08 100 MG Examination: GENERAL:Normal, HEENT:Normal, NECK:Normal, LUNGS:Normal, LUNGS:Abnormal (on oxygen), CVS:Normal, ABDOMEN:Normal, MSK:Normal, SKIN:Normal, NEURO:Normal, :Normal laboratory and microbiology Laboratory Tests 08/18/24 07:19 Test 08/18/24 07:19 Range/Units Serum Glucose 169 H 74-106 mg/dL Microbiology Date/Time Source Procedure Growth Status 07/28/24 13:22 Bronchial Washings Gram Stain - Final Complete 07/28/24 13:22 Bronchial Washings Respiratory Culture - Final Complete 07/27/24 12:30 Ascities Fluid Gram Stain - Final Complete 07/27/24 12:30 Ascities Fluid Body Fluid Culture - Final Complete 07/25/24 16:51 Nose MRSA Screen - Final Complete 07/24/24 12:21 Urine - [place] Urine Culture - Final Complete 07/24/24 11:52 Blood Blood Culture - Final NO GROWTH AFTER 5 DAYS OF INCUBATION. Complete Problem List/Assessment/Plan Problem List/Assessment/Plan NEURO: Acute metabolic encephalopathy, likely due to sepsis/liver cirrhosis CARDIOVASCULAR: Atrial flutter, upon admission, currently sinus rhythm Chads Vasc score 0 Cardiology is on the board Echocardiogram from 07/24 shows normal left ventricular systolic 80 function with ejection fraction 60%, mild pericardial effusion, moderate pulmonary hypertension with RSVP more than 50 Amiodarone 100 mg daily, per cardiology, needs to use for 6 weeks and may adjust later PULMONARY: Acute hypoxic and hypercarbic respiratory failure likely due to pneumonia/COPD exacerbation Pneumonia likely due MRSA Hydropneumothorax, chest tube is in place Parapneumonic loculated pleural effusion Septic shock likely due to pneumonia Acute COPD exacerbation Possible obstructive sleep apnea Chest CT scan from 07/25 shows bilateral pneumonia with bilateral loculated pleural effusions Chest CT scan from 08/03 shows Multifocal airspace disease with few foci of air are present in right lower lobe consolidation measuring 3.8 cm but no loculated effusion Chest ultrasound on 07/29/2024 shows trace left-sided pleural effusion and thoracentesis could not perform COVID-19 and flu are negative Sputum culture from from 07/25 shows MRSA sensitive to vancomycin Discontinue Zosyn, used for 12 days Discontinue vancomycin, used for 9 days Discontinue methylprednisolone 40 mg b.i.d., given for 5 days Discontinue prednisone, tapered down in 4 days Breathing treatment q.6 hour Patient has drop of oxygen saturation during the sleep, ABGs reviewed during the awaken time, showed compensated pH, discontinued BiPAP during the day, recommended BiPAP during the sleep ABGs at room air shows PaO2 54.1 and qualified for home oxygen GI: Liver cirrhosis, likely due to alcohol Ascites due to liver cirrhosis Transaminitis, likely due to septic shock/alcohol abuse Paracentesis has been performed, 2 L removed, ascitic fluid exam shows WBC 1548 (polymorphonuclear cells 90), RBC 2159 Ammonia level at 07/24 was 70, decreased to less than 10 on 07/28 Continue Spironolactone 100 mg daily Bowel regimen: Lactulose 30 mL b.i.d. GI ppx: Protonix 40 mg daily p.o. RENAL: SHAMIR, likely hemodynamically mediated, improved ID: HIV and hepatitis panel, negative Blood and urine culture from 07/14 was negative Sputum culture from 07/25 shows MRSA Pleural fluid culture from 07/25 shows no growth Ascitic fluid culture from 07/27 shows no growth BAL culture from 07/28 shows moderate normal tammi growth HEME Thrombocytopenia, likely due to liver cirrhosis Normalized Endocrine: Possible Hyptohyroidism TSH is 8.51, free T3 decreased at 1.79, and free T4 normal at 1.0 Metabolic: Hyperchloremia Moderate hypokalemia, supplemented Hypomagnesemia, supplemented Hypernatremia, normalized MUSCULOSKELETAL: Grade 3 ulcer on sacral area consult wound nurse position change every 2 hours LINES/DRAINS/ACCESS: ETT: Intubated on 07/26/2024 and extubated on 08/04 IV access: Right-sided upper limb PICC line, placed on 08/04 Transurethral [place] catheter Chest tube placed on 07/25/2024, and removed on 08/06 Drips: No pressor DVT prophylaxis: Lovenox DIET: Mechanical soft diet CODE STATUS: Full code- time spent was 21 mins Disposition: Med/Surg Patient's status discussed with the sister he is homeless since 17 years, and no family member lives in [facility]. Patient has a brother living in [place], due to disability can not come and pick the patient. Plan discussed with: Patient Dietary Evaluation Review Comments: 1. Consider EN/TPN if NPO >7days 2. Continue plan of care Expected Outcomes/Goals: 1. Pt will meet >75% of estimated needs within 2-3 days Date of Service: Aug 19, 2024 Billing Provider: SUSY ARREGUIN MD Common Visit Codes: [id number] INP/OBS CARE(HIGH) SUSY ARREGUIN MD Aug 19, 2024 09:40
--- NOTE | 2024-08-19 22:17 | DVHPN2 ---
Progress Note - Dictate Date Seen: Aug 19, 2024 Has the PT tested + for MRSA If YES, has PT been informed?: Yes Medical Necessity Reason Pt with a Central, PICC or Fol: No Subjective Patient was seen and evaluated in follow up. Patient remains with SOB. Patient is stable on 2 LPM NC. Per bedside RN, patient is refusing breathing treatment and respiratory assessments. GLUC 215. vital signs Vital Sign Date Time Temp Pulse Resp B/P (MAP) Pulse Ox O2 Delivery O2 Flow Rate FiO2 08/19/24 12:33 98.0 74 19 111/73 (86) 98 98.0 08/19/24 11:45 Nasal Cannula* 2 28 Total Intake and Output 08/18/24 08/18/24 08/19/24 15:00 23:00 07:00 Intake Total 840 ml 1760 ml Output Total 900 ml Balance 840 ml 860 ml medications Current Medications Medications Dose Ordered Sig/Miky Route Start Time Stop Time Status Last Admin Dose Admin Nitroglycerin 0.4 mg Q5MINP PRN SL 07/24/24 14:45 Diagnostic Test (Pha) 1 strip Q6HR 07/24/24 18:00 08/19/24 11:24 1 STRIP Insulin Human Regular Q6HR SC 07/24/24 18:00 08/19/24 11:24 4 UNITS Dextrose 50 ml UD PRN IV 07/24/24 15:00 08/05/24 06:05 50 ML Acetaminophen 650 mg Q6HP PRN [place] 07/24/24 19:15 Lactulose 30 ml BID PO 07/27/24 22:00 08/19/24 10:05 30 ML Sodium Chloride 10 ml QSHIFT@ IV 08/03/24 22:00 08/19/24 10:04 10 ML Hydralazine HCl 10 mg Q6HP PRN IV 08/06/24 01:15 Albuterol 2.5 mg Q6HR NEB 08/06/24 18:00 08/19/24 11:45 2.5 MG Ipratropium [place] 0.5 mg Q6HR NEB 08/06/24 18:00 08/19/24 11:45 0.5 MG Pantoprazole Sodium 40 mg DAILY@0600 PO 08/11/24 06:00 08/19/24 05:11 40 MG Melatonin 5 mg HS PO 08/14/24 22:00 08/18/24 22:57 5 MG Spironolactone 100 mg DAILY PO 08/18/24 10:00 08/19/24 10:06 100 MG objective GENERAL: Awake, alert, oriented. LUNGS: Diminished breath sounds. CARDIOVASCULAR: Heart sounds are good. ABDOMEN: Soft. SKIN: Unknown burn pandey to bilateral hands. laboratory and microbiology Laboratory Tests 08/18/24 07:19 Test 08/18/24 07:19 Range/Units Serum Glucose 169 H 74-106 mg/dL Problem List Acute metabolic encephalopathy, likely due to sepsis/liver cirrhosis. Atrial flutter. CHF exacerbation. Leukocytosis. UTI. Elevated ammonia levels. Pleural Effusion. Liver cirrhosis with ascites due to liver cirrhosis Acute Hypoxic respiratory failure. MRSA Bacteremia. Pneumonia likely due MRSA. Hydropneumothorax. Parapneumonic loculated pleural effusion. Septic shock. COPD exacerbation. Transaminitis. SHAMIR. Assessment/Plan Continued all current supportive medical care. Amiodarone. GI prophylactics. Aldactone. Additional plan as per the hospital course. Dietary Evaluation Review Comments: 1. Consider EN/TPN if NPO >7days 2. Continue plan of care Expected Outcomes/Goals: 1. Pt will meet >75% of estimated needs within 2-3 days Plan discussed with: Patient ISHAAN BUNCH MD Aug 19, 2024 13:02
--- NOTE | 2024-08-19 22:27 | DVHSR ---
APPROVED REPORT EXAM: Two-dimensional and M-mode echocardiogram with Doppler and color Doppler. Blood Pressure: 98/62 mmHg INDICATION Atrial Fibrillation RISK FACTORS Height: 5'11", Weight: 219 DIMENSIONS LVDd5.1 (3.8-5.7cm)LA (2D)3.7 (1.9-4.0cm)Aortic Root4.1 (2.0-3.7cm) LVDs3.0 (2.5-4.0cm)LA (MM) (1.9-4.0cm)Aortic Cusp Exc2.0 (1.5-2.0cm) EF (%) 70.0 (55-70%)Rt. Atrium4.9 (1.9-4.0cm)Asc. Aorta cm IVSd1.0 (0.7-1.1cm)RV (D) (1.8-2.4cm) PWd0.7 (0.7-1.1cm) Mitral Valve MitralMitral Stenosis E/A ratio0.02D MVAcm2 Aortic Valve Aortic ValveAortic Stenosis LVOT Diameter2.0 (1.8-2.4cm)Doppler AVAcm2 Pulmonic Valve V20.76m/s Tricuspid Valve TR Velocity3.58m/s [id number] Other Information Quality : Technically LimitedRhythm : Technically limited study due to on vent. Conclusion MODERATE DEGREE LVH MODERATE DEGREE LV DIASTOLIC DYSFUNCTION LV EJECTION FRACTION IS 70% MODERATELY DILATED RV AND RA MODERATE DEGREE PULMONARY HYPERTENSION RVSP IS 51 MM OF HG AND IS MODERATELY HIGH STUDY CONFIRM RV FAILURE ONE CM POSTERIOR PERICARDIAL EFFUSION VERY MILD ANTERIOR PERICARDIAL EFFUSION GROSSLY NORMAL VALVES
[2024-08-20] VITALS (11 sets, daily range): BP systolic 92–114; BP diastolic 51–71; PULSE 75–84; RESP 16–20; TEMP 97.7–98; O2SAT 92–100
--- NOTE | 2024-08-20 09:47 | DVHPN2 ---
Progress Note Date Seen: Aug 20, 2024 Has the PT tested + for MRSA If YES, has PT been informed?: Yes Medical Necessity Reason Pt with a Central, PICC or Fol: No Subjective Patient reports: No new complaints Review of Systems: HEENT:Normal, CVS:Normal, RESPIRATORY:Normal, GI:Normal, :Normal, MSK:Normal, NEURO:Normal Objective vital signs Vital Sign Date Time Temp Pulse Resp B/P (MAP) Pulse Ox O2 Delivery O2 Flow Rate FiO2 08/20/24 08:58 97.7 84 16 97/71 (80) 95 97.7 08/20/24 07:45 Room Air* 0 21 Total Intake and Output 08/19/24 08/19/24 08/20/24 15:00 23:00 07:00 Intake Total 809 ml 450 ml Output Total 500 ml Balance 309 ml 450 ml medications Current Medications Medications Dose Ordered Sig/Miky Route Start Time Stop Time Status Last Admin Dose Admin Nitroglycerin 0.4 mg Q5MINP PRN SL 07/24/24 14:45 Diagnostic Test (Pha) 1 strip Q6HR 07/24/24 18:00 08/20/24 05:15 1 STRIP Insulin Human Regular Q6HR SC 07/24/24 18:00 08/20/24 00:10 3 UNITS Dextrose 50 ml UD PRN IV 07/24/24 15:00 08/05/24 06:05 50 ML Acetaminophen 650 mg Q6HP PRN [place] 07/24/24 19:15 Lactulose 30 ml BID PO 07/27/24 22:00 08/20/24 09:28 30 ML Sodium Chloride 10 ml QSHIFT@ IV 08/03/24 22:00 08/20/24 09:28 10 ML Hydralazine HCl 10 mg Q6HP PRN IV 08/06/24 01:15 Albuterol 2.5 mg Q6HR NEB 08/06/24 18:00 08/20/24 07:10 2.5 MG Ipratropium [place] 0.5 mg Q6HR NEB 08/06/24 18:00 08/20/24 07:10 0.5 MG Pantoprazole Sodium 40 mg DAILY@0600 PO 08/11/24 06:00 08/20/24 05:25 40 MG Melatonin 5 mg HS PO 08/14/24 22:00 08/19/24 21:35 5 MG Spironolactone 100 mg DAILY PO 08/18/24 10:00 08/20/24 09:28 100 MG Examination: GENERAL:Normal, HEENT:Normal, NECK:Normal, LUNGS:Normal, CVS:Normal, ABDOMEN:Normal, MSK:Normal, SKIN:Normal, NEURO:Normal, :Normal laboratory and microbiology Laboratory Tests 08/18/24 07:19 Test 08/18/24 07:19 Range/Units Serum Glucose 169 H 74-106 mg/dL Microbiology Date/Time Source Procedure Growth Status 07/28/24 13:22 Bronchial Washings Gram Stain - Final Complete 07/28/24 13:22 Bronchial Washings Respiratory Culture - Final Complete 07/27/24 12:30 Ascities Fluid Gram Stain - Final Complete 07/27/24 12:30 Ascities Fluid Body Fluid Culture - Final Complete 07/25/24 16:51 Nose MRSA Screen - Final Complete 07/24/24 12:21 Urine - [place] Urine Culture - Final Complete 07/24/24 11:52 Blood Blood Culture - Final NO GROWTH AFTER 5 DAYS OF INCUBATION. Complete Problem List/Assessment/Plan Problem List/Assessment/Plan NEURO: Acute metabolic encephalopathy, likely due to sepsis/liver cirrhosis CARDIOVASCULAR: Atrial flutter, upon admission, currently sinus rhythm Chads Vasc score 0 Cardiology is on the board Echocardiogram from 07/24 shows normal left ventricular systolic 80 function with ejection fraction 60%, mild pericardial effusion, moderate pulmonary hypertension with RSVP more than 50 Amiodarone 100 mg daily, per cardiology, needs to use for 6 weeks and may adjust later PULMONARY: Acute hypoxic and hypercarbic respiratory failure likely due to pneumonia/COPD exacerbation Pneumonia likely due MRSA Hydropneumothorax, chest tube is in place Parapneumonic loculated pleural effusion Septic shock likely due to pneumonia Acute COPD exacerbation Possible obstructive sleep apnea Chest CT scan from 07/25 shows bilateral pneumonia with bilateral loculated pleural effusions Chest CT scan from 08/03 shows Multifocal airspace disease with few foci of air are present in right lower lobe consolidation measuring 3.8 cm but no loculated effusion Chest ultrasound on 07/29/2024 shows trace left-sided pleural effusion and thoracentesis could not perform COVID-19 and flu are negative Sputum culture from from 07/25 shows MRSA sensitive to vancomycin Discontinue Zosyn, used for 12 days Discontinue vancomycin, used for 9 days Discontinue methylprednisolone 40 mg b.i.d., given for 5 days Discontinue prednisone, tapered down in 4 days Breathing treatment q.6 hour Patient has drop of oxygen saturation during the sleep, ABGs reviewed during the awaken time, showed compensated pH, discontinued BiPAP during the day, recommended BiPAP during the sleep ABGs at room air shows PaO2 54.1 and qualified for home oxygen GI: Liver cirrhosis, likely due to alcohol Ascites due to liver cirrhosis Transaminitis, likely due to septic shock/alcohol abuse Paracentesis has been performed, 2 L removed, ascitic fluid exam shows WBC 1548 (polymorphonuclear cells 90), RBC 2159 Ammonia level at 07/24 was 70, decreased to less than 10 on 07/28 Continue Spironolactone 100 mg daily Bowel regimen: Lactulose 30 mL b.i.d. GI ppx: Protonix 40 mg daily p.o. RENAL: SHAMIR, likely hemodynamically mediated, improved ID: HIV and hepatitis panel, negative Blood and urine culture from 07/14 was negative Sputum culture from 07/25 shows MRSA Pleural fluid culture from 07/25 shows no growth Ascitic fluid culture from 07/27 shows no growth BAL culture from 07/28 shows moderate normal tammi growth HEME Thrombocytopenia, likely due to liver cirrhosis Normalized Endocrine: Possible Hyptohyroidism TSH is 8.51, free T3 decreased at 1.79, and free T4 normal at 1.0 Metabolic: Hyperchloremia Moderate hypokalemia, supplemented Hypomagnesemia, supplemented Hypernatremia, normalized MUSCULOSKELETAL: Grade 3 ulcer on sacral area consult wound nurse position change every 2 hours LINES/DRAINS/ACCESS: ETT: Intubated on 07/26/2024 and extubated on 08/04 IV access: Right-sided upper limb PICC line, placed on 08/04 Transurethral [place] catheter Chest tube placed on 07/25/2024, and removed on 08/06 Drips: No pressor DVT prophylaxis: Lovenox DIET: Mechanical soft diet CODE STATUS: Full code- time spent was 21 mins Disposition: Med/Surg Patient's status discussed with the sister he is homeless since 17 years, and no family member lives in [facility]. Patient has a brother living in [place], due to disability can not come and pick the patient. Plan discussed with: Patient My Orders My Orders Orders - SUSY ARREGUIN MD Procedure Category Date Status Time Dietary NOTICE 08/19/24 Transmitted Recommendations 14:22 Dietary Evaluation Review Comments: 1. Consider EN/TPN if NPO >7days 2. Continue plan of care Expected Outcomes/Goals: 1. Pt will meet >75% of estimated needs within 2-3 days Date of Service: Aug 20, 2024 Billing Provider: SUSY ARREGUIN MD Common Visit Codes: [id number] INP/OBS CARE(HIGH) SUSY ARREGUIN MD Aug 20, 2024 09:47
--- NOTE | 2024-08-20 22:51 | DVHPN2 ---
Progress Note - Dictate Date Seen: Aug 20, 2024 Has the PT tested + for MRSA If YES, has PT been informed?: Yes Medical Necessity Reason Pt with a Central, PICC or Fol: No Subjective Patient was seen and evaluated in follow up. No overnight events. Patient has no new complaints. Patient is stable on 2 LPM NC. Patient is refusing medication per nursing staff. vital signs Vital Sign Date Time Temp Pulse Resp B/P (MAP) Pulse Ox O2 Delivery O2 Flow Rate FiO2 08/20/24 11:30 75 18 96 08/20/24 08:58 97.7 97/71 (80) 97.7 08/20/24 07:45 Room Air* 0 21 Total Intake and Output 08/19/24 08/19/24 08/20/24 15:00 23:00 07:00 Intake Total 809 ml 450 ml Output Total 500 ml Balance 309 ml 450 ml medications Current Medications Medications Dose Ordered Sig/Miky Route Start Time Stop Time Status Last Admin Dose Admin Nitroglycerin 0.4 mg Q5MINP PRN SL 07/24/24 14:45 Diagnostic Test (Pha) 1 strip Q6HR 07/24/24 18:00 08/20/24 11:09 1 STRIP Insulin Human Regular Q6HR SC 07/24/24 18:00 08/20/24 11:24 3 UNITS Dextrose 50 ml UD PRN IV 07/24/24 15:00 08/05/24 06:05 50 ML Acetaminophen 650 mg Q6HP PRN [place] 07/24/24 19:15 Lactulose 30 ml BID PO 07/27/24 22:00 08/20/24 09:28 30 ML Sodium Chloride 10 ml QSHIFT@ IV 08/03/24 22:00 08/20/24 09:28 10 ML Hydralazine HCl 10 mg Q6HP PRN IV 08/06/24 01:15 Albuterol 2.5 mg Q6HR NEB 08/06/24 18:00 08/20/24 11:30 2.5 MG Ipratropium [place] 0.5 mg Q6HR NEB 08/06/24 18:00 08/20/24 11:30 0.5 MG Pantoprazole Sodium 40 mg DAILY@0600 PO 08/11/24 06:00 08/20/24 05:25 40 MG Melatonin 5 mg HS PO 08/14/24 22:00 08/19/24 21:35 5 MG Spironolactone 100 mg DAILY PO 08/18/24 10:00 08/20/24 09:28 100 MG objective GENERAL: Awake, alert, oriented. LUNGS: Diminished breath sounds. CARDIOVASCULAR: Heart sounds are good. ABDOMEN: Soft. SKIN: Unknown burn pandey to bilateral hands. laboratory and microbiology Laboratory Tests 08/18/24 07:19 Test 08/18/24 07:19 Range/Units Serum Glucose 169 H 74-106 mg/dL Problem List Acute metabolic encephalopathy, likely due to sepsis/liver cirrhosis. Atrial flutter. CHF exacerbation. Leukocytosis. UTI. Elevated ammonia levels. Pleural Effusion. Liver cirrhosis with ascites due to liver cirrhosis Acute Hypoxic respiratory failure. MRSA Bacteremia. Pneumonia likely due MRSA. Hydropneumothorax. Parapneumonic loculated pleural effusion. Septic shock. COPD exacerbation. Transaminitis. SHAMIR. Assessment/Plan Continued all current supportive medical care. Amiodarone. GI prophylactics. Aldactone. Additional plan as per the hospital course. Dietary Evaluation Review Comments: 1. Consider EN/TPN if NPO >7days 2. Continue plan of care Expected Outcomes/Goals: 1. Pt will meet >75% of estimated needs within 2-3 days Plan discussed with: Patient ISHAAN BUNCH MD Aug 20, 2024 12:03
[2024-08-21] VITALS (11 sets, daily range): BP systolic 104–119; BP diastolic 66–75; PULSE 74–89; RESP 16–20; TEMP 97.9–98.3; O2SAT 92–100
--- NOTE | 2024-08-21 10:05 | DVHPN2 ---
Subjective NO COMPLAINTS/but requesting to talk to social work nurse on dc plans again Reviewed: Care Plan, H&P, Labs, Medications, Previous Orders, Radiology Changes from previous H/P or p: No Changes Eyes: No Pain, No Vision change, No Conjunctivae inflammation, No Eyelid inflammation, No Other, No Redness ENT: No Ear pain, No Ear discharge, No Nose pain, No Nose discharge, No Nose congestion, No Mouth pain, No Mouth swelling, No Throat pain, No Throat swelling, No Other Cardiovascular: No Chest Pain, No Palpitations, No Orthopnea, No Paroxysmal Noc. Dyspnea, No Edema, No Lt Headedness, No Other Respiratory: No Cough, No Dry, No Shortness of breath, No SOB with excertion, No Wheezing, No Hemoptysis, No Pleuritic Pain, No Sputum, No Other Gastrointestinal: No Nausea, No Vomiting, No Abdominal Pain, No Diarrhea, No Constipation, No Melena, No Hematochezia, No Other Genitourinary: No Dysuria, No Frequency, No Incontinence, No Hematuria, No Retention, No Other Musculoskeletal: No other, No neck pain, No shoulder pain, No arm pain, No back pain, No hand pain, No leg pain, No foot pain Skin: No Rash, No Lesions, No Jaundice, No Bruising, No Other Objective Vitals Vital Signs Date Time Temp Pulse Resp B/P (MAP) Pulse Ox O2 Delivery O2 Flow Rate FiO2 08/21/24 09:00 98.1 85 20 112/66 (81) 92 98.1 08/21/24 06:30 Room Air 0.0 08/21/24 06:30 21 Intake/Output Intake and Output 08/21/24 07:00 Intake Total 1290 ml Output Total 1600 ml Balance -310 ml Intake Oral 1290 ml Output Urine Total 1600 ml General Appearance: Alert, Oriented X3, Cooperative, No acute distress, Other (Intubated, on vent, unable to exam.) HEENT: Atraumatic Neck: Supple Lungs: Clear to auscultation, Normal air movement Cardiovascular: Regular rate, Normal S1, Normal S2, No murmurs, Gallops, Rubs Abdomen: Normal bowel sounds, Soft, No tenderness Neuro: Normal speech, Strength at 5/5 X4 ext, Cranial nerves 3-12 NL Psych/Mental Status: Mental status NL Medications Current Medications Medications Dose Ordered Sig/Miky Route Start Time Stop Time Status Last Admin Dose Admin Nitroglycerin 0.4 mg Q5MINP PRN SL 07/24/24 14:45 Diagnostic Test (Pha) 1 strip Q6HR 07/24/24 18:00 08/21/24 05:48 1 STRIP Insulin Human Regular Q6HR SC 07/24/24 18:00 08/21/24 06:02 2 UNITS Dextrose 50 ml UD PRN IV 07/24/24 15:00 08/05/24 06:05 50 ML Acetaminophen 650 mg Q6HP PRN [place] 07/24/24 19:15 Lactulose 30 ml BID PO 07/27/24 22:00 08/20/24 21:57 30 ML Sodium Chloride 10 ml QSHIFT@ IV 08/03/24 22:00 08/20/24 21:57 10 ML Hydralazine HCl 10 mg Q6HP PRN IV 08/06/24 01:15 Albuterol 2.5 mg Q6HR NEB 08/06/24 18:00 08/21/24 06:30 2.5 MG Ipratropium [place] 0.5 mg Q6HR NEB 08/06/24 18:00 08/21/24 06:30 0.5 MG Pantoprazole Sodium 40 mg DAILY@0600 PO 08/11/24 06:00 08/21/24 05:47 40 MG Melatonin 5 mg HS PO 08/14/24 22:00 08/20/24 21:57 5 MG Spironolactone 100 mg DAILY PO 08/18/24 10:00 08/20/24 09:28 100 MG Laboratory Results Laboratory Tests 08/18/24 07:19 Urinalysis Test 07/24/24 12:21 07/26/24 12:00 Urine Hyaline Casts Many /lpf (0 - 2) Urine Color Yellow (Yellow) Urine Clarity Turbid (Clear) H Urine pH 5.5 (5.0-9.0) Urine Specific [place] 1.016 (1.001-1.035) Urine Protein Negative (Negative) Urine Ketones Negative (Negative) Urine Blood 2+ /uL (Negative) H Urine Nitrite Negative (Negative) Urine Bilirubin Negative (Negative) Urine Urobilinogen 3 mg/dL (Negative) H Urine Leukocyte Esterase 1+ /uL (Negative) Urine RBC 33 /hpf (0 - 3) Urine WBC 13 /hpf (0 - 3) Urine Squamous Epithelial Cells Few /hpf (<5) Urine Uric Acid Crystals Few /hpf (None Seen) Urine Bacteria None seen /hpf (None Seen) Urine Mucus Few (None Seen) Urine Glucose Normal mg/dL (Normal) Microbiology Microbiology Date/Time Source Procedure Growth Status 07/28/24 13:22 Bronchial Washings Gram Stain - Final Complete 07/28/24 13:22 Bronchial Washings Respiratory Culture - Final Complete 07/27/24 12:30 Ascities Fluid Gram Stain - Final Complete 07/27/24 12:30 Ascities Fluid Body Fluid Culture - Final Complete 07/25/24 16:51 Nose MRSA Screen - Final Complete 07/24/24 12:21 Urine - [place] Urine Culture - Final Complete 07/24/24 11:52 Blood Blood Culture - Final NO GROWTH AFTER 5 DAYS OF INCUBATION. Complete Labs and/or images reviewed: Labs reviewed by me, Image(s) reviewed by me Assessment/Plan Assessment/Plan sepsis due to mrsa pneumonia resolved respiratory failure due to above resolved on room air hydropneumothorax resolved alcoholic liver cirrhosis- stable hga1c at 6.1/normal sugars- dc insulin ssri/accucheck cholelithiasis- asymptomatic gi prophylaxis on ppi ambulatory status decubitus- followed by wound care/advised avoid lying on back/ clean and change dressings daily/alternate days -on dc also dc plan- patient requests to talk to case consultant-order placed Plan discussed with: Patient, Other Date of Service: Aug 21, 2024 Billing Provider: SUDHIR SALAZAR MD Common Visit Codes: [id number] INP/OBS CARE(MOD) SUDHIR SALAZAR MD Aug 21, 2024 10:05
--- NOTE | 2024-08-21 13:18 | DVHPN2 ---
Progress Note - Dictate Date Seen: Aug 21, 2024 Has the PT tested + for MRSA If YES, has PT been informed?: Yes Medical Necessity Reason Pt with a Central, PICC or Fol: No Subjective Patient was seen and evaluated in follow up. Patient offers no new complaints. Patient was transitioned over to room air. BS are WNL. vital signs Vital Sign Date Time Temp Pulse Resp B/P (MAP) Pulse Ox O2 Delivery O2 Flow Rate FiO2 08/21/24 09:00 98.1 85 20 112/66 (81) 92 98.1 08/21/24 06:30 Room Air 0.0 08/21/24 06:30 21 Total Intake and Output 08/20/24 08/20/24 08/21/24 15:00 23:00 07:00 Intake Total 740 ml 550 ml Output Total 1600 ml Balance 740 ml -1050 ml medications Current Medications Medications Dose Ordered Sig/Miky Route Start Time Stop Time Status Last Admin Dose Admin Acetaminophen 650 mg Q6HP PRN [place] 07/24/24 19:15 Lactulose 30 ml BID PO 07/27/24 22:00 08/21/24 10:47 30 ML Sodium Chloride 10 ml QSHIFT@10,22 IV 08/03/24 22:00 08/21/24 10:00 10 ML Pantoprazole Sodium 40 mg DAILY@0600 PO 08/11/24 06:00 08/21/24 05:47 40 MG Melatonin 5 mg HS PO 08/14/24 22:00 08/20/24 21:57 5 MG Spironolactone 100 mg DAILY PO 08/18/24 10:00 08/21/24 10:47 100 MG objective GENERAL: Awake, alert, oriented. LUNGS: Diminished breath sounds. CARDIOVASCULAR: Heart sounds are good. ABDOMEN: Soft. SKIN: Unknown burn pandey to bilateral hands. laboratory and microbiology Laboratory Tests 08/18/24 07:19 Test 08/18/24 07:19 Range/Units Serum Glucose 169 H 74-106 mg/dL Problem List Acute metabolic encephalopathy, likely due to sepsis/liver cirrhosis. Atrial flutter. CHF exacerbation. Leukocytosis. UTI. Elevated ammonia levels. Pleural Effusion. Liver cirrhosis with ascites due to liver cirrhosis Acute Hypoxic respiratory failure. MRSA Bacteremia. Pneumonia likely due MRSA. Hydropneumothorax. Parapneumonic loculated pleural effusion. Septic shock. COPD exacerbation. Transaminitis. SHAMIR. Assessment/Plan Continued all current supportive medical care. Amiodarone. GI prophylactics. Aldactone. Additional plan as per the hospital course. Dietary Evaluation Review Comments: 1. Consider EN/TPN if NPO >7days 2. Continue plan of care Expected Outcomes/Goals: 1. Pt will meet >75% of estimated needs within 2-3 days Plan discussed with: Patient ISHAAN BUNCH MD Aug 21, 2024 11:17
[2024-08-22] VITALS (7 sets, daily range): BP systolic 104–128; BP diastolic 62–80; PULSE 79–93; RESP 14–20; TEMP 97.4–98.2; O2SAT 92–97
--- NOTE | 2024-08-22 10:30 | DVHPN2 ---
Subjective NO COMPLAINTS/but requesting to talk to social services specialist on dc plans again Reviewed: Care Plan, H&P, Labs, Medications, Previous Orders, Radiology Changes from previous H/P or p: No Changes Eyes: No Pain, No Vision change, No Conjunctivae inflammation, No Eyelid inflammation, No Other, No Redness ENT: No Ear pain, No Ear discharge, No Nose pain, No Nose discharge, No Nose congestion, No Mouth pain, No Mouth swelling, No Throat pain, No Throat swelling, No Other Cardiovascular: No Chest Pain, No Palpitations, No Orthopnea, No Paroxysmal Noc. Dyspnea, No Edema, No Lt Headedness, No Other Respiratory: No Cough, No Dry, No Shortness of breath, No SOB with excertion, No Wheezing, No Hemoptysis, No Pleuritic Pain, No Sputum, No Other Gastrointestinal: No Nausea, No Vomiting, No Abdominal Pain, No Diarrhea, No Constipation, No Melena, No Hematochezia, No Other Genitourinary: No Dysuria, No Frequency, No Incontinence, No Hematuria, No Retention, No Other Musculoskeletal: No other, No neck pain, No shoulder pain, No arm pain, No back pain, No hand pain, No leg pain, No foot pain Skin: No Rash, No Lesions, No Jaundice, No Bruising, No Other Objective Vitals Vital Signs Date Time Temp Pulse Resp B/P (MAP) Pulse Ox O2 Delivery O2 Flow Rate FiO2 08/22/24 09:00 97.4 79 18 107/78 (88) 97 97.4 08/21/24 20:00 Nasal Cannula* 2 28 Intake/Output Intake and Output 08/22/24 07:00 Intake Total 706 ml Balance 706 ml Intake Oral 706 ml General Appearance: Alert, Oriented X3, Cooperative, No acute distress, Other (Intubated, on vent, unable to exam.) HEENT: Atraumatic Neck: Supple Lungs: Clear to auscultation, Normal air movement Cardiovascular: Regular rate, Normal S1, Normal S2, No murmurs, Gallops, Rubs Abdomen: Normal bowel sounds, Soft, No tenderness Neuro: Normal speech, Strength at 5/5 X4 ext, Cranial nerves 3-12 NL Psych/Mental Status: Mental status NL Medications Current Medications Medications Dose Ordered Sig/Miky Route Start Time Stop Time Status Last Admin Dose Admin Acetaminophen 650 mg Q6HP PRN [place] 07/24/24 19:15 Lactulose 30 ml BID PO 07/27/24 22:00 08/21/24 22:08 30 ML Sodium Chloride 10 ml QSHIFT@ IV 08/03/24 22:00 08/21/24 22:08 10 ML Pantoprazole Sodium 40 mg DAILY@0600 PO 08/11/24 06:00 08/22/24 05:41 40 MG Melatonin 5 mg HS PO 08/14/24 22:00 08/21/24 22:08 5 MG Spironolactone 100 mg DAILY PO 08/18/24 10:00 08/21/24 10:47 100 MG Levothyroxine Sodium 25 mcg QAM@0600 PO 08/23/24 06:00 Laboratory Results Laboratory Tests 08/18/24 07:19 Urinalysis Test 07/24/24 12:21 07/26/24 12:00 Urine Hyaline Casts Many /lpf (0 - 2) Urine Color Yellow (Yellow) Urine Clarity Turbid (Clear) H Urine pH 5.5 (5.0-9.0) Urine Specific [place] 1.016 (1.001-1.035) Urine Protein Negative (Negative) Urine Ketones Negative (Negative) Urine Blood 2+ /uL (Negative) H Urine Nitrite Negative (Negative) Urine Bilirubin Negative (Negative) Urine Urobilinogen 3 mg/dL (Negative) H Urine Leukocyte Esterase 1+ /uL (Negative) Urine RBC 33 /hpf (0 - 3) Urine WBC 13 /hpf (0 - 3) Urine Squamous Epithelial Cells Few /hpf (<5) Urine Uric Acid Crystals Few /hpf (None Seen) Urine Bacteria None seen /hpf (None Seen) Urine Mucus Few (None Seen) Urine Glucose Normal mg/dL (Normal) Microbiology Microbiology Date/Time Source Procedure Growth Status 07/28/24 13:22 Bronchial Washings Gram Stain - Final Complete 07/28/24 13:22 Bronchial Washings Respiratory Culture - Final Complete 07/27/24 12:30 Ascities Fluid Gram Stain - Final Complete 07/27/24 12:30 Ascities Fluid Body Fluid Culture - Final Complete 07/25/24 16:51 Nose MRSA Screen - Final Complete 07/24/24 12:21 Urine - [place] Urine Culture - Final Complete 07/24/24 11:52 Blood Blood Culture - Final NO GROWTH AFTER 5 DAYS OF INCUBATION. Complete Labs and/or images reviewed: Labs reviewed by me, Image(s) reviewed by me Assessment/Plan Assessment/Plan sepsis due to mrsa pneumonia resolved respiratory failure due to above resolved on room air hydropneumothorax resolved alcoholic liver cirrhosis- stable hga1c at 6.1/normal sugars- dc insulin ssri/accucheck cholelithiasis- asymptomatic gi prophylaxis on ppi ambulatory status decubitus- followed by wound care/advised avoid lying on back/ clean and change dressings daily/alternate days -on dc also dc plan- patient requests to talk to case investigator-order placed no new complaints or changes today Plan discussed with: Patient, Other My Orders Orders - SUDHIR SALAZAR MD Procedure Category Date Status Time * Consultant Intern CONS 08/21/24 Transmitted Consult Levothyroxine Tablet PHA 08/23/24 In Process (Synthroid Tablet) 06:00 Date of Service: Aug 22, 2024 Billing Provider: SUDHIR SLAAZAR MD Common Visit Codes: [id number] INP/OBS CARE(MOD) SUDHIR SALAZAR MD Aug 22, 2024 10:30
[2024-08-22] MEDS: LEVOTHYROXINE SODIUM 25 MCG TAB PO ONE (11:33)
--- NOTE | 2024-08-22 20:07 | DVHPN2 ---
Progress Note - Dictate Date Seen: Aug 22, 2024 Has the PT tested + for MRSA If YES, has PT been informed?: Yes Medical Necessity Reason Pt with a Central, PICC or Fol: No Subjective Patient was seen and evaluated in follow up. No overnight event. Patient denies any pain or discomfort at this time. no new complaints. Patient denies any cardiac symptoms. vital signs Vital Sign Date Time Temp Pulse Resp B/P (MAP) Pulse Ox O2 Delivery O2 Flow Rate FiO2 08/22/24 09:00 97.4 79 18 107/78 (88) 97 97.4 08/21/24 20:00 Nasal Cannula* 2 28 Total Intake and Output 08/21/24 08/21/24 08/22/24 15:00 23:00 07:00 Intake Total 706 ml Balance 706 ml medications Current Medications Medications Dose Ordered Sig/Miky Route Start Time Stop Time Status Last Admin Dose Admin Acetaminophen 650 mg Q6HP PRN [place] 07/24/24 19:15 Lactulose 30 ml BID PO 07/27/24 22:00 08/22/24 11:33 30 ML Sodium Chloride 10 ml QSHIFT@ IV 08/03/24 22:00 08/22/24 11:29 10 ML Pantoprazole Sodium 40 mg DAILY@0600 PO 08/11/24 06:00 08/22/24 05:41 40 MG Melatonin 5 mg HS PO 08/14/24 22:00 08/21/24 22:08 5 MG Spironolactone 100 mg DAILY PO 08/18/24 10:00 08/22/24 11:32 100 MG Levothyroxine Sodium 25 mcg QAM@0600 PO 08/23/24 06:00 objective GENERAL: Awake, alert, oriented. LUNGS: Diminished breath sounds. CARDIOVASCULAR: Heart sounds are good. ABDOMEN: Soft. SKIN: Unknown burn pandey to bilateral hands. laboratory and microbiology Laboratory Tests 08/18/24 07:19 Test 08/18/24 07:19 Range/Units Serum Glucose 169 H 74-106 mg/dL Problem List Acute metabolic encephalopathy, likely due to sepsis/liver cirrhosis. Atrial flutter. CHF exacerbation. Leukocytosis. UTI. Elevated ammonia levels. Pleural Effusion. Liver cirrhosis with ascites due to liver cirrhosis Acute Hypoxic respiratory failure. MRSA Bacteremia. Pneumonia likely due MRSA. Hydropneumothorax. Parapneumonic loculated pleural effusion. Septic shock. COPD exacerbation. Transaminitis. SHAMIR. Assessment/Plan Continued all current supportive medical care. Amiodarone. GI prophylactics. Aldactone. Additional plan as per the hospital course. Dietary Evaluation Review Comments: 1. Consider EN/TPN if NPO >7days 2. Continue plan of care Expected Outcomes/Goals: 1. Pt will meet >75% of estimated needs within 2-3 days Plan discussed with: Patient ISHAAN BUNCH MD Aug 22, 2024 11:37
[2024-08-23] VITALS (8 sets, daily range): BP systolic 106–115; BP diastolic 72–79; PULSE 75–83; RESP 16–19; TEMP 97.5–99; O2SAT 93–98
[2024-08-23] MEDS: LEVOTHYROXINE SODIUM 25 MCG TAB PO SCH (05:53)
--- NOTE | 2024-08-23 15:38 | DVHPN2 ---
Progress Note - Dictate Date Seen: Aug 23, 2024 Has the PT tested + for MRSA If YES, has PT been informed?: Yes Medical Necessity Reason Pt with a Central, PICC or Fol: No Subjective Patient was seen and evaluated in follow up. No overnight events. Patient receiving wound care to his sacral area. Per RN, periwound has erythema and there was moderate serosanguineous drainage noted on previous dressing. Patient requesting to speak with CM regarding discharge planning. vital signs Vital Sign Date Time Temp Pulse Resp B/P (MAP) Pulse Ox O2 Delivery O2 Flow Rate FiO2 08/23/24 12:35 98.0 83 18 106/76 (86) 96 98.0 08/23/24 10:37 Room Air* 0 21 medications Current Medications Medications Dose Ordered Sig/Miky Route Start Time Stop Time Status Last Admin Dose Admin Acetaminophen 650 mg Q6HP PRN [place] 07/24/24 19:15 Lactulose 30 ml BID PO 07/27/24 22:00 08/23/24 10:37 30 ML Sodium Chloride 10 ml QSHIFT@ IV 08/03/24 22:00 08/23/24 10:37 10 ML Pantoprazole Sodium 40 mg DAILY@0600 PO 08/11/24 06:00 08/23/24 05:53 40 MG Melatonin 5 mg HS PO 08/14/24 22:00 08/22/24 22:37 5 MG Spironolactone 100 mg DAILY PO 08/18/24 10:00 08/23/24 10:38 100 MG Levothyroxine Sodium 25 mcg QAM@0600 PO 08/23/24 06:00 08/23/24 05:53 25 MCG objective GENERAL: Awake, alert, oriented. LUNGS: Diminished breath sounds. CARDIOVASCULAR: Heart sounds are good. ABDOMEN: Soft. SKIN: Unknown burn pandey to bilateral hands. laboratory and microbiology Laboratory Tests 08/18/24 07:19 Test 08/18/24 07:19 Range/Units Serum Glucose 169 H 74-106 mg/dL Problem List Acute metabolic encephalopathy, likely due to sepsis/liver cirrhosis. Atrial flutter. CHF exacerbation. Leukocytosis. UTI. Elevated ammonia levels. Pleural Effusion. Liver cirrhosis with ascites due to liver cirrhosis Acute Hypoxic respiratory failure. MRSA Bacteremia. Pneumonia likely due MRSA. Hydropneumothorax. Parapneumonic loculated pleural effusion. Septic shock. COPD exacerbation. Transaminitis. SHAMIR. Assessment/Plan Continued all current supportive medical care. Amiodarone. GI prophylactics. Aldactone. Additional plan as per the hospital course. Dietary Evaluation Review Comments: 1. Consider EN/TPN if NPO >7days 2. Continue plan of care Expected Outcomes/Goals: 1. Pt will meet >75% of estimated needs within 2-3 days Plan discussed with: Patient ISHAAN BUNCH MD Aug 23, 2024 13:57
--- NOTE | 2024-08-23 17:59 | DVHPN2 ---
Subjective NO COMPLAINTS/ Reviewed: Care Plan, H&P, Labs, Medications, Previous Orders, Radiology Changes from previous H/P or p: No Changes Eyes: No Pain, No Vision change, No Conjunctivae inflammation, No Eyelid inflammation, No Other, No Redness ENT: No Ear pain, No Ear discharge, No Nose pain, No Nose discharge, No Nose congestion, No Mouth pain, No Mouth swelling, No Throat pain, No Throat swelling, No Other Cardiovascular: No Chest Pain, No Palpitations, No Orthopnea, No Paroxysmal Noc. Dyspnea, No Edema, No Lt Headedness, No Other Respiratory: No Cough, No Dry, No Shortness of breath, No SOB with excertion, No Wheezing, No Hemoptysis, No Pleuritic Pain, No Sputum, No Other Gastrointestinal: No Nausea, No Vomiting, No Abdominal Pain, No Diarrhea, No Constipation, No Melena, No Hematochezia, No Other Genitourinary: No Dysuria, No Frequency, No Incontinence, No Hematuria, No Retention, No Other Musculoskeletal: No other, No neck pain, No shoulder pain, No arm pain, No back pain, No hand pain, No leg pain, No foot pain Skin: No Rash, No Lesions, No Jaundice, No Bruising, No Other Objective Vitals Vital Signs Date Time Temp Pulse Resp B/P (MAP) Pulse Ox O2 Delivery O2 Flow Rate FiO2 08/23/24 16:56 97.7 80 19 111/72 (85) 98 97.7 08/23/24 10:37 Room Air* 0 21 General Appearance: Alert, Oriented X3, Cooperative, No acute distress, Other (Intubated, on vent, unable to exam.) HEENT: Atraumatic Neck: Supple Lungs: Clear to auscultation, Normal air movement Cardiovascular: Regular rate, Normal S1, Normal S2, No murmurs, Gallops, Rubs Abdomen: Normal bowel sounds, Soft, No tenderness Neuro: Normal speech, Strength at 5/5 X4 ext, Cranial nerves 3-12 NL Psych/Mental Status: Mental status NL Medications Current Medications Medications Dose Ordered Sig/Miky Route Start Time Stop Time Status Last Admin Dose Admin Acetaminophen 650 mg Q6HP PRN [place] 07/24/24 19:15 Lactulose 30 ml BID PO 07/27/24 22:00 08/23/24 10:37 30 ML Sodium Chloride 10 ml QSHIFT@ IV 08/03/24 22:00 08/23/24 10:37 10 ML Pantoprazole Sodium 40 mg DAILY@0600 PO 08/11/24 06:00 08/23/24 05:53 40 MG Melatonin 5 mg HS PO 08/14/24 22:00 08/22/24 22:37 5 MG Spironolactone 100 mg DAILY PO 08/18/24 10:00 08/23/24 10:38 100 MG Levothyroxine Sodium 25 mcg QAM@0600 PO 08/23/24 06:00 08/23/24 05:53 25 MCG Laboratory Results Laboratory Tests 08/18/24 07:19 Urinalysis Test 07/24/24 12:21 07/26/24 12:00 Urine Hyaline Casts Many /lpf (0 - 2) Urine Color Yellow (Yellow) Urine Clarity Turbid (Clear) H Urine pH 5.5 (5.0-9.0) Urine Specific [place] 1.016 (1.001-1.035) Urine Protein Negative (Negative) Urine Ketones Negative (Negative) Urine Blood 2+ /uL (Negative) H Urine Nitrite Negative (Negative) Urine Bilirubin Negative (Negative) Urine Urobilinogen 3 mg/dL (Negative) H Urine Leukocyte Esterase 1+ /uL (Negative) Urine RBC 33 /hpf (0 - 3) Urine WBC 13 /hpf (0 - 3) Urine Squamous Epithelial Cells Few /hpf (<5) Urine Uric Acid Crystals Few /hpf (None Seen) Urine Bacteria None seen /hpf (None Seen) Urine Mucus Few (None Seen) Urine Glucose Normal mg/dL (Normal) Microbiology Microbiology Date/Time Source Procedure Growth Status 07/28/24 13:22 Bronchial Washings Gram Stain - Final Complete 07/28/24 13:22 Bronchial Washings Respiratory Culture - Final Complete 07/27/24 12:30 Ascities Fluid Gram Stain - Final Complete 07/27/24 12:30 Ascities Fluid Body Fluid Culture - Final Complete 07/25/24 16:51 Nose MRSA Screen - Final Complete 07/24/24 12:21 Urine - [place] Urine Culture - Final Complete 07/24/24 11:52 Blood Blood Culture - Final NO GROWTH AFTER 5 DAYS OF INCUBATION. Complete Assessment/Plan Assessment/Plan sepsis due to mrsa pneumonia resolved respiratory failure due to above resolved on room air hydropneumothorax resolved alcoholic liver cirrhosis- stable hga1c at 6.1/normal sugars- dc insulin ssri/accucheck cholelithiasis- asymptomatic gi prophylaxis on ppi ambulatory status decubitus- followed by wound care/advised avoid lying on back/ clean and change dressings daily/alternate days -on dc also dc plan- patient requests to talk to director case management-order placed no new complaints or changes today Plan discussed with: Patient, Other My Orders Orders - SUDHIR SALAZAR MD Procedure Category Date Status Time * [employer] CONS 08/22/24 Transmitted Consult * Rel[employer] Tester CONS 08/23/24 Transmitted Consult Date of Service: Aug 23, 2024 Billing Provider: SUDHIR SALAZAR MD Common Visit Codes: [id number] INP/OBS CARE(LOW) SUDHIR SALAZAR MD Aug 23, 2024 17:59
[2024-08-24] VITALS (9 sets, daily range): BP systolic 107–138; BP diastolic 69–84; PULSE 63–81; RESP 16–18; TEMP 97.5–98; O2SAT 95–99
--- NOTE | 2024-08-24 10:13 | DVHPN2 ---
Progress Note Date Seen: Aug 24, 2024 Has the PT tested + for MRSA If YES, has PT been informed?: Yes Medical Necessity Reason Pt with a Central, PICC or Fol: No Subjective Patient reports: No new complaints Review of Systems: HEENT:Normal, CVS:Normal, RESPIRATORY:Normal, GI:Normal, :Normal, MSK:Normal, NEURO:Normal Objective vital signs Vital Sign Date Time Temp Pulse Resp B/P (MAP) Pulse Ox O2 Delivery O2 Flow Rate FiO2 08/24/24 08:11 97.9 81 18 109/76 (87) 96 97.9 08/23/24 20:00 Room Air* 0 21 medications Current Medications Medications Dose Ordered Sig/Miky Route Start Time Stop Time Status Last Admin Dose Admin Acetaminophen 650 mg Q6HP PRN [place] 07/24/24 19:15 Lactulose 30 ml BID PO 07/27/24 22:00 08/23/24 21:37 30 ML Sodium Chloride 10 ml QSHIFT@ IV 08/03/24 22:00 08/23/24 21:37 10 ML Pantoprazole Sodium 40 mg DAILY@0600 PO 08/11/24 06:00 08/24/24 05:32 40 MG Melatonin 5 mg HS PO 08/14/24 22:00 08/23/24 21:37 5 MG Spironolactone 100 mg DAILY PO 08/18/24 10:00 08/23/24 10:38 100 MG Levothyroxine Sodium 25 mcg QAM@0600 PO 08/23/24 06:00 08/24/24 05:32 25 MCG Examination: GENERAL:Normal, HEENT:Normal, NECK:Normal, LUNGS:Normal, CVS:Normal, ABDOMEN:Normal, MSK:Normal, SKIN:Normal, NEURO:Normal, :Normal laboratory and microbiology Laboratory Tests 08/18/24 07:19 Test 08/18/24 07:19 Range/Units Serum Glucose 169 H 74-106 mg/dL Microbiology Date/Time Source Procedure Growth Status 07/28/24 13:22 Bronchial Washings Gram Stain - Final Complete 07/28/24 13:22 Bronchial Washings Respiratory Culture - Final Complete 07/27/24 12:30 Ascities Fluid Gram Stain - Final Complete 07/27/24 12:30 Ascities Fluid Body Fluid Culture - Final Complete 07/25/24 16:51 Nose MRSA Screen - Final Complete 07/24/24 12:21 Urine - [place] Urine Culture - Final Complete 07/24/24 11:52 Blood Blood Culture - Final NO GROWTH AFTER 5 DAYS OF INCUBATION. Complete Problem List/Assessment/Plan Problem List/Assessment/Plan NEURO: Acute metabolic encephalopathy, likely due to sepsis/liver cirrhosis CARDIOVASCULAR: Atrial flutter, upon admission, currently sinus rhythm Chads Vasc score 0 Cardiology is on the board Echocardiogram from 07/24 shows normal left ventricular systolic 80 function with ejection fraction 60%, mild pericardial effusion, moderate pulmonary hypertension with RSVP more than 50 Amiodarone 100 mg daily, per cardiology, needs to use for 6 weeks and may adjust later PULMONARY: Acute hypoxic and hypercarbic respiratory failure likely due to pneumonia/COPD exacerbation Pneumonia likely due MRSA Hydropneumothorax, chest tube is in place Parapneumonic loculated pleural effusion Septic shock likely due to pneumonia Acute COPD exacerbation Possible obstructive sleep apnea Chest CT scan from 07/25 shows bilateral pneumonia with bilateral loculated pleural effusions Chest CT scan from 08/03 shows Multifocal airspace disease with few foci of air are present in right lower lobe consolidation measuring 3.8 cm but no loculated effusion Chest ultrasound on 07/29/2024 shows trace left-sided pleural effusion and thoracentesis could not perform COVID-19 and flu are negative Sputum culture from from 07/25 shows MRSA sensitive to vancomycin Discontinue Zosyn, used for 12 days Discontinue vancomycin, used for 9 days Discontinue methylprednisolone 40 mg b.i.d., given for 5 days Discontinue prednisone, tapered down in 4 days Breathing treatment q.6 hour Patient has drop of oxygen saturation during the sleep, ABGs reviewed during the awaken time, showed compensated pH, discontinued BiPAP during the day, recommended BiPAP during the sleep ABGs at room air shows PaO2 54.1 and qualified for home oxygen GI: Liver cirrhosis, likely due to alcohol Ascites due to liver cirrhosis Transaminitis, likely due to septic shock/alcohol abuse Paracentesis has been performed, 2 L removed, ascitic fluid exam shows WBC 1548 (polymorphonuclear cells 90), RBC 2159 Ammonia level at 07/24 was 70, decreased to less than 10 on 07/28 Continue Spironolactone 100 mg daily Bowel regimen: Lactulose 30 mL b.i.d. GI ppx: Protonix 40 mg daily p.o. RENAL: SHAMIR, likely hemodynamically mediated, improved ID: HIV and hepatitis panel, negative Blood and urine culture from 07/14 was negative Sputum culture from 07/25 shows MRSA Pleural fluid culture from 07/25 shows no growth Ascitic fluid culture from 07/27 shows no growth BAL culture from 07/28 shows moderate normal tammi growth HEME Thrombocytopenia, likely due to liver cirrhosis Normalized Endocrine: Possible Hyptohyroidism TSH is 8.51, free T3 decreased at 1.79, and free T4 normal at 1.0 Metabolic: Hyperchloremia Moderate hypokalemia, supplemented Hypomagnesemia, supplemented Hypernatremia, normalized MUSCULOSKELETAL: Grade 3 ulcer on sacral area consult wound nurse position change every 2 hours LINES/DRAINS/ACCESS: ETT: Intubated on 07/26/2024 and extubated on 08/04 IV access: Right-sided upper limb PICC line, placed on 08/04 Transurethral [place] catheter Chest tube placed on 07/25/2024, and removed on 08/06 Drips: No pressor DVT prophylaxis: Lovenox DIET: Mechanical soft diet CODE STATUS: Full code- time spent was 21 mins Disposition: Med/Surg Patient's status discussed with the sister he is homeless since 17 years, and no family member lives in [facility]. Patient has a brother living in [place], due to disability can not come and pick the patient. Plan discussed with: Patient My Orders My Orders Orders - SUSY ARREGUIN MD Procedure Category Date Status Time Complete Blood Count LAB 08/25/24 Verified 06:00 Comprehensive LAB 08/25/24 Verified Metabolic Panel 06:00 Ammonia LAB 08/25/24 Verified 06:00 Dietary Evaluation Review Comments: 1. Consider EN/TPN if NPO >7days 2. Continue plan of care Expected Outcomes/Goals: 1. Pt will meet >75% of estimated needs within 2-3 days Date of Service: Aug 24, 2024 Billing Provider: SUSY ARREGUIN MD Common Visit Codes: [id number] INP/OBS CARE([facility]) SUSY ARREGUIN MD Aug 24, 2024 10:13
--- NOTE | 2024-08-24 22:37 | DVHPN2 ---
Progress Note - Dictate Date Seen: Aug 24, 2024 Has the PT tested + for MRSA If YES, has PT been informed?: Yes Medical Necessity Reason Pt with a Central, PICC or Fol: No Subjective Patient was seen and evaluated in follow up. No overnight events. Patient has no new complaints, Ammonia level is pending. Patient stable on room air. vital signs Vital Sign Date Time Temp Pulse Resp B/P (MAP) Pulse Ox O2 Delivery O2 Flow Rate FiO2 08/24/24 17:08 97.5 78 16 123/79 (94) 99 97.5 08/24/24 10:00 Room Air 0.0 08/24/24 10:00 21 medications Current Medications Medications Dose Ordered Sig/Miky Route Start Time Stop Time Status Last Admin Dose Admin Acetaminophen 650 mg Q6HP PRN [place] 07/24/24 19:15 Lactulose 30 ml BID PO 07/27/24 22:00 08/24/24 21:46 30 ML Sodium Chloride 10 ml QSHIFT@ IV 08/03/24 22:00 08/24/24 21:47 10 ML Pantoprazole Sodium 40 mg DAILY@0600 PO 08/11/24 06:00 08/24/24 05:32 40 MG Melatonin 5 mg HS PO 08/14/24 22:00 08/24/24 21:47 5 MG Spironolactone 100 mg DAILY PO 08/18/24 10:00 08/24/24 10:47 100 MG Levothyroxine Sodium 25 mcg QAM@0600 PO 08/23/24 06:00 08/24/24 05:32 25 MCG objective GENERAL: Awake, alert, oriented. LUNGS: Diminished breath sounds. CARDIOVASCULAR: Heart sounds are good. ABDOMEN: Soft. SKIN: Unknown burn pandey to bilateral hands. laboratory and microbiology Laboratory Tests 08/18/24 07:19 Test 08/18/24 07:19 Range/Units Serum Glucose 169 H 74-106 mg/dL Problem List Acute metabolic encephalopathy, likely due to sepsis/liver cirrhosis. Atrial flutter. CHF exacerbation. Leukocytosis. UTI. Elevated ammonia levels. Pleural Effusion. Liver cirrhosis with ascites due to liver cirrhosis Acute Hypoxic respiratory failure. MRSA Bacteremia. Pneumonia likely due MRSA. Hydropneumothorax. Parapneumonic loculated pleural effusion. Septic shock. COPD exacerbation. Transaminitis. SHAMIR. Assessment/Plan Continued all current supportive medical care. Amiodarone. GI prophylactics. Aldactone. Additional plan as per the hospital course. Dietary Evaluation Review Comments: 1. Consider EN/TPN if NPO >7days 2. Continue plan of care Expected Outcomes/Goals: 1. Pt will meet >75% of estimated needs within 2-3 days Plan discussed with: Patient ISHAAN BUNCH MD Aug 24, 2024 22:37
[2024-08-25] VITALS (9 sets, daily range): BP systolic 101–124; BP diastolic 63–79; PULSE 59–81; RESP 16–18; TEMP 97.7–98.3; O2SAT 93–97
[2024-08-25 06:24] LABS: Albumin 3.8 g/dL (3.2-4.8); Anion Gap 6 (5-15); Aspartate Aminotransferase 40 U/L (13-40); BUN/Creatinine Ratio 18.6 (10.0-20.0); Bilirubin, Total 0.7 mg/dL (0.2-1.0); Blood Urea Nitrogen 22 mg/dL (9-23); Calcium 10.1 mg/dL (8.7-10.4); Carbon Dioxide 26 mmol/L (20-31); Chloride 100 mmol/L (98-107); Potassium 4.6 mmol/L (3.5-5.1); Total Protein 6.8 g/dL (5.7-8.2)
[2024-08-25 06:28] LABS: Alanine Aminotransferase 85 U/L (7-40); Alkaline Phosphatase 222 U/L (46-116); Glucose 131 mg/dL (74-106); Sodium 132 mmol/L (136-145)
[2024-08-25 06:46] LABS: Basophils # (auto) 0.1 10 ^3/uL (0-0.2); Eosinophils # (auto) 0.2 10 ^3/uL (0-0.8); Monocytes # (auto) 0.7 10 ^3/uL (0-1.3); Red Cell Distribution Width 13.8 % (11.8-14.3)
[2024-08-25 06:50] LABS: Basophils % (auto) 0.7 % (0.0-2.0); Eosinophils % (auto) 2.2 % (0.0-7.0); Hematocrit 40.6 % (41.0-53.0); Hemoglobin 13.9 g/dL (13.5-17.5); Lymphocytes # (auto) 1.7 10 ^3/uL (0.4-5.4); Lymphocytes % (auto) 20.2 % (10.0-50.0); Mean Corpuscular Hgb Conc. 34.2 g/dL (32.0-36.0); Mean Corpuscular Volume 99.5 fL (80.0-100.0); Monocytes % (auto) 8.7 % (0.0-12.0); Neutrophils # (auto) 5.7 10 ^3/uL (1.6-8.6); Neutrophils % (auto) 68.2 % (37.0-80.0); Nucleated Red Blood Cells % 0.2 %; Platelet Count (auto) 187 10^3/uL (140-450); Red Blood Cells 4.08 10^6/uL (4.5-5.90); White Blood Cell 8.4 10^3/uL (4.4-10.8)
--- NOTE | 2024-08-25 09:34 | DVHPN2 ---
Progress Note Date Seen: Aug 25, 2024 Has the PT tested + for MRSA If YES, has PT been informed?: Yes Medical Necessity Reason Pt with a Central, PICC or Fol: No Subjective Patient reports: No new complaints Review of Systems: HEENT:Normal, CVS:Normal, RESPIRATORY:Normal, GI:Normal, :Normal, MSK:Normal, NEURO:Normal Objective vital signs Vital Sign Date Time Temp Pulse Resp B/P (MAP) Pulse Ox O2 Delivery O2 Flow Rate FiO2 08/25/24 09:30 95 Room Air 0.0 08/25/24 09:30 21 08/25/24 09:00 97.7 81 17 119/77 (91) 97.7 Total Intake and Output 08/24/24 08/24/24 08/25/24 15:00 23:00 07:00 Intake Total 300 ml Output Total 200 ml 1300 ml Balance -200 ml -1000 ml medications Current Medications Medications Dose Ordered Sig/Miky Route Start Time Stop Time Status Last Admin Dose Admin Acetaminophen 650 mg Q6HP PRN [place] 07/24/24 19:15 Lactulose 30 ml BID PO 07/27/24 22:00 08/24/24 21:46 30 ML Sodium Chloride 10 ml QSHIFT@10,22 IV 08/03/24 22:00 08/24/24 21:47 10 ML Pantoprazole Sodium 40 mg DAILY@0600 PO 08/11/24 06:00 08/25/24 06:00 40 MG Melatonin 5 mg HS PO 08/14/24 22:00 08/24/24 21:47 5 MG Spironolactone 100 mg DAILY PO 08/18/24 10:00 08/24/24 10:47 100 MG Levothyroxine Sodium 25 mcg QAM@0600 PO 08/23/24 06:00 08/25/24 06:01 25 MCG Examination: GENERAL:Normal, HEENT:Normal, NECK:Normal, LUNGS:Normal, CVS:Normal, ABDOMEN:Normal, MSK:Normal, SKIN:Normal, NEURO:Normal, :Normal laboratory and microbiology Laboratory Tests 08/25/24 04:38 Test 08/25/24 04:38 Range/Units Serum Glucose 131 H 74-106 mg/dL Microbiology Date/Time Source Procedure Growth Status 07/28/24 13:22 Bronchial Washings Gram Stain - Final Complete 07/28/24 13:22 Bronchial Washings Respiratory Culture - Final Complete 07/27/24 12:30 Ascities Fluid Gram Stain - Final Complete 07/27/24 12:30 Ascities Fluid Body Fluid Culture - Final Complete 07/25/24 16:51 Nose MRSA Screen - Final Complete 07/24/24 12:21 Urine - [place] Urine Culture - Final Complete 07/24/24 11:52 Blood Blood Culture - Final NO GROWTH AFTER 5 DAYS OF INCUBATION. Complete Problem List/Assessment/Plan Problem List/Assessment/Plan NEURO: Acute metabolic encephalopathy, likely due to sepsis/liver cirrhosis CARDIOVASCULAR: Atrial flutter, upon admission, currently sinus rhythm Chads Vasc score 0 Cardiology is on the board Echocardiogram from 07/24 shows normal left ventricular systolic 80 function with ejection fraction 60%, mild pericardial effusion, moderate pulmonary hypertension with RSVP more than 50 Amiodarone 100 mg daily, per cardiology, needs to use for 6 weeks and may adjust later PULMONARY: Acute hypoxic and hypercarbic respiratory failure likely due to pneumonia/COPD exacerbation Pneumonia likely due MRSA Hydropneumothorax, chest tube is in place Parapneumonic loculated pleural effusion Septic shock likely due to pneumonia Acute COPD exacerbation Possible obstructive sleep apnea Chest CT scan from 07/25 shows bilateral pneumonia with bilateral loculated pleural effusions Chest CT scan from 08/03 shows Multifocal airspace disease with few foci of air are present in right lower lobe consolidation measuring 3.8 cm but no loculated effusion Chest ultrasound on 07/29/2024 shows trace left-sided pleural effusion and thoracentesis could not perform COVID-19 and flu are negative Sputum culture from from 07/25 shows MRSA sensitive to vancomycin Discontinue Zosyn, used for 12 days Discontinue vancomycin, used for 9 days Discontinue methylprednisolone 40 mg b.i.d., given for 5 days Discontinue prednisone, tapered down in 4 days Breathing treatment q.6 hour Patient has drop of oxygen saturation during the sleep, ABGs reviewed during the awaken time, showed compensated pH, discontinued BiPAP during the day, recommended BiPAP during the sleep ABGs at room air shows PaO2 54.1 and qualified for home oxygen GI: Liver cirrhosis, likely due to alcohol Ascites due to liver cirrhosis Transaminitis, likely due to septic shock/alcohol abuse Paracentesis has been performed, 2 L removed, ascitic fluid exam shows WBC 1548 (polymorphonuclear cells 90), RBC 2159 Ammonia level at 07/24 was 70, decreased to less than 10 on 07/28 Continue Spironolactone 100 mg daily Bowel regimen: Lactulose 30 mL b.i.d. GI ppx: Protonix 40 mg daily p.o. RENAL: SHAMIR, likely hemodynamically mediated, improved ID: HIV and hepatitis panel, negative Blood and urine culture from 07/14 was negative Sputum culture from 07/25 shows MRSA Pleural fluid culture from 07/25 shows no growth Ascitic fluid culture from 07/27 shows no growth BAL culture from 07/28 shows moderate normal tammi growth HEME Thrombocytopenia, likely due to liver cirrhosis Normalized Endocrine: Possible Hyptohyroidism TSH is 8.51, free T3 decreased at 1.79, and free T4 normal at 1.0 Metabolic: Hyperchloremia Moderate hypokalemia, supplemented Hypomagnesemia, supplemented Hypernatremia, normalized MUSCULOSKELETAL: Grade 3 ulcer on sacral area consult wound nurse position change every 2 hours LINES/DRAINS/ACCESS: ETT: Intubated on 07/26/2024 and extubated on 08/04 IV access: Right-sided upper limb PICC line, placed on 08/04 Transurethral [place] catheter Chest tube placed on 07/25/2024, and removed on 08/06 Drips: No pressor DVT prophylaxis: Lovenox DIET: Mechanical soft diet CODE STATUS: Full code- time spent was 21 mins Disposition: Med/Surg Patient's status discussed with the sister he is homeless since 17 years, and no family member lives in [facility]. Patient has a brother living in [place], due to disability can not come and pick the patient. Plan discussed with: Patient Dietary Evaluation Review Comments: 1. Consider EN/TPN if NPO >7days 2. Continue plan of care Expected Outcomes/Goals: 1. Pt will meet >75% of estimated needs within 2-3 days Date of Service: Aug 25, 2024 Billing Provider: SUSY ARREGUIN MD Common Visit Codes: [id number] INP/OBS CARE(MOD) SUSY ARREGUIN MD Aug 25, 2024 09:34
--- NOTE | 2024-08-25 23:40 | DVHPN2 ---
Progress Note - Dictate Date Seen: Aug 25, 2024 Has the PT tested + for MRSA If YES, has PT been informed?: Yes Medical Necessity Reason Pt with a Central, PICC or Fol: No Subjective Patient was seen and evaluated in follow up. Patient reports feeling well. The patient had a drop of oxygen saturation during the sleep, ABGs during the awaken time, showed compensated pH. BiPAP discontinued during the day. ABGs at room air shows PaO2 54.1 and qualified for home oxygen. vital signs Vital Sign Date Time Temp Pulse Resp B/P (MAP) Pulse Ox O2 Delivery O2 Flow Rate FiO2 08/25/24 21:00 97.9 71 18 111/71 (84) 94 97.9 08/25/24 09:30 Room Air 0.0 08/25/24 09:30 21 Total Intake and Output 08/24/24 08/24/24 08/25/24 15:00 23:00 07:00 Intake Total 300 ml Output Total 200 ml 1300 ml Balance -200 ml -1000 ml medications Current Medications Medications Dose Ordered Sig/Miky Route Start Time Stop Time Status Last Admin Dose Admin Acetaminophen 650 mg Q6HP PRN [place] 07/24/24 19:15 Lactulose 30 ml BID PO 07/27/24 22:00 08/25/24 22:58 30 ML Sodium Chloride 10 ml QSHIFT@ IV 08/03/24 22:00 08/25/24 22:58 10 ML Pantoprazole Sodium 40 mg DAILY@0600 PO 08/11/24 06:00 08/25/24 06:00 40 MG Melatonin 5 mg HS PO 08/14/24 22:00 08/25/24 22:58 5 MG Spironolactone 100 mg DAILY PO 08/18/24 10:00 08/25/24 09:39 100 MG Levothyroxine Sodium 25 mcg QAM@0600 PO 08/23/24 06:00 08/25/24 06:01 25 MCG objective GENERAL: Awake, alert, oriented. LUNGS: Diminished breath sounds. CARDIOVASCULAR: Heart sounds are good. ABDOMEN: Soft. SKIN: Unknown burn pandey to bilateral hands. laboratory and microbiology Laboratory Tests 08/25/24 04:38 Test 08/25/24 04:38 Range/Units Serum Glucose 131 H 74-106 mg/dL Problem List Acute metabolic encephalopathy, likely due to sepsis/liver cirrhosis. Atrial flutter. CHF exacerbation. Leukocytosis. UTI. Elevated ammonia levels. Pleural Effusion. Liver cirrhosis with ascites due to liver cirrhosis Acute Hypoxic respiratory failure. MRSA Bacteremia. Pneumonia likely due MRSA. Hydropneumothorax. Parapneumonic loculated pleural effusion. Septic shock. COPD exacerbation. Transaminitis. SHAMIR. Assessment/Plan Continued all current supportive medical care. Amiodarone. GI prophylactics. Aldactone. Additional plan as per the hospital course. Dietary Evaluation Review Comments: 1. Consider EN/TPN if NPO >7days 2. Continue plan of care Expected Outcomes/Goals: 1. Pt will meet >75% of estimated needs within 2-3 days Plan discussed with: Patient ISHAAN BUNCH MD Aug 25, 2024 23:40
[2024-08-26] VITALS (9 sets, daily range): BP systolic 105–121; BP diastolic 53–82; PULSE 72–83; RESP 13–20; TEMP 97.8–98.9; O2SAT 75–96
--- NOTE | 2024-08-26 11:54 | DVHPN2 ---
Subjective The patient is seen and examined at bedside. No change overnight. Alert, awake. Reviewed: Care Plan, H&P, Labs, Medications, Previous Orders, Radiology Changes from previous H/P or p: No Changes Eyes: No Pain, No Vision change, No Conjunctivae inflammation, No Eyelid inflammation, No Other, No Redness ENT: No Ear pain, No Ear discharge, No Nose pain, No Nose discharge, No Nose congestion, No Mouth pain, No Mouth swelling, No Throat pain, No Throat swelling, No Other Cardiovascular: No Chest Pain, No Palpitations, No Orthopnea, No Paroxysmal Noc. Dyspnea, No Edema, No Lt Headedness, No Other Respiratory: No Cough, No Dry, No Shortness of breath, No SOB with excertion, No Wheezing, No Hemoptysis, No Pleuritic Pain, No Sputum, No Other Gastrointestinal: No Nausea, No Vomiting, No Abdominal Pain, No Diarrhea, No Constipation, No Melena, No Hematochezia, No Other Genitourinary: No Dysuria, No Frequency, No Incontinence, No Hematuria, No Retention, No Other Musculoskeletal: No other, No neck pain, No shoulder pain, No arm pain, No back pain, No hand pain, No leg pain, No foot pain Skin: No Rash, No Lesions, No Jaundice, No Bruising, No Other Objective Vitals Vital Signs Date Time Temp Pulse Resp B/P (MAP) Pulse Ox O2 Delivery O2 Flow Rate FiO2 08/26/24 09:00 98.9 74 13 105/72 (83) 95 98.9 08/25/24 20:00 Room Air* 0 21 Intake/Output Intake and Output 08/26/24 07:00 Intake Total 1858 ml Balance 1858 ml Intake Oral 1858 ml # Voids 5 General Appearance: Alert, Oriented X3, Cooperative, No acute distress HEENT: Atraumatic, PERRLA, EOMI Neck: Supple Lungs: Clear to auscultation, Normal air movement Cardiovascular: Regular rate, Normal S1, Normal S2, No murmurs, Gallops, Rubs Abdomen: Normal bowel sounds, Soft, No tenderness Neuro: Normal speech, Strength at 5/5 X4 ext, Cranial nerves 3-12 NL Psych/Mental Status: Mental status NL Medications Current Medications Medications Dose Ordered Sig/Miky Route Start Time Stop Time Status Last Admin Dose Admin Acetaminophen 650 mg Q6HP PRN SD 07/24/24 19:15 Lactulose 30 ml BID PO 07/27/24 22:00 08/26/24 11:14 30 ML Sodium Chloride 10 ml QSHIFT@ IV 08/03/24 22:00 08/26/24 10:00 10 ML Pantoprazole Sodium 40 mg DAILY@0600 PO 08/11/24 06:00 08/26/24 05:37 40 MG Melatonin 5 mg HS PO 08/14/24 22:00 08/25/24 22:58 5 MG Spironolactone 100 mg DAILY PO 08/18/24 10:00 08/26/24 11:15 100 MG Levothyroxine Sodium 25 mcg QAM@0600 PO 08/23/24 06:00 08/26/24 05:37 25 MCG Laboratory Results Laboratory Tests 08/25/24 04:38 Urinalysis Test 07/24/24 12:21 07/26/24 12:00 Urine Hyaline Casts Many /lpf (0 - 2) Urine Color Yellow (Yellow) Urine Clarity Turbid (Clear) H Urine pH 5.5 (5.0-9.0) Urine Specific [place] 1.016 (1.001-1.035) Urine Protein Negative (Negative) Urine Ketones Negative (Negative) Urine Blood 2+ /uL (Negative) H Urine Nitrite Negative (Negative) Urine Bilirubin Negative (Negative) Urine Urobilinogen 3 mg/dL (Negative) H Urine Leukocyte Esterase 1+ /uL (Negative) Urine RBC 33 /hpf (0 - 3) Urine WBC 13 /hpf (0 - 3) Urine Squamous Epithelial Cells Few /hpf (<5) Urine Uric Acid Crystals Few /hpf (None Seen) Urine Bacteria None seen /hpf (None Seen) Urine Mucus Few (None Seen) Urine Glucose Normal mg/dL (Normal) Microbiology Microbiology Date/Time Source Procedure Growth Status 07/28/24 13:22 Bronchial Washings Gram Stain - Final Complete 07/28/24 13:22 Bronchial Washings Respiratory Culture - Final Complete 07/27/24 12:30 Ascities Fluid Gram Stain - Final Complete 07/27/24 12:30 Ascities Fluid Body Fluid Culture - Final Complete 07/25/24 16:51 Nose MRSA Screen - Final Complete 07/24/24 12:21 Urine - [place] Urine Culture - Final Complete 07/24/24 11:52 Blood Blood Culture - Final NO GROWTH AFTER 5 DAYS OF INCUBATION. Complete Labs and/or images reviewed: Labs reviewed by me Assessment/Plan Assessment/Plan NEURO: Acute metabolic encephalopathy, likely due to sepsis/liver cirrhosis CARDIOVASCULAR: Atrial flutter, upon admission, currently sinus rhythm Chads Vasc score 0 Cardiology is on the board Echocardiogram from 07/24 shows normal left ventricular systolic 80 function with ejection fraction 60%, mild pericardial effusion, moderate pulmonary hypertension with RSVP more than 50 Amiodarone 100 mg daily, per cardiology, needs to use for 6 weeks and may adjust later PULMONARY: Acute hypoxic and hypercarbic respiratory failure likely due to pneumonia/COPD exacerbation Pneumonia likely due MRSA Hydropneumothorax, chest tube is in place Parapneumonic loculated pleural effusion Septic shock likely due to pneumonia Acute COPD exacerbation Possible obstructive sleep apnea Chest CT scan from 07/25 shows bilateral pneumonia with bilateral loculated pleural effusions Chest CT scan from 08/03 shows Multifocal airspace disease with few foci of air are present in right lower lobe consolidation measuring 3.8 cm but no loculated effusion Chest ultrasound on 07/29/2024 shows trace left-sided pleural effusion and thoracentesis could not perform COVID-19 and flu are negative Sputum culture from from 07/25 shows MRSA sensitive to vancomycin Discontinue Zosyn, used for 12 days Discontinue vancomycin, used for 9 days Discontinue methylprednisolone 40 mg b.i.d., given for 5 days Discontinue prednisone, tapered down in 4 days Breathing treatment q.6 hour Patient has drop of oxygen saturation during the sleep, ABGs reviewed during the awaken time, showed compensated pH, discontinued BiPAP during the day, recommended BiPAP during the sleep ABGs at room air shows PaO2 54.1 and qualified for home oxygen GI: Liver cirrhosis, likely due to alcohol Ascites due to liver cirrhosis Transaminitis, likely due to septic shock/alcohol abuse Paracentesis has been performed, 2 L removed, ascitic fluid exam shows WBC 1548 (polymorphonuclear cells 90), RBC 2159 Ammonia level at 07/24 was 70, decreased to less than 10 on 07/28 Continue Spironolactone 100 mg daily Bowel regimen: Lactulose 30 mL b.i.d. GI ppx: Protonix 40 mg daily p.o. RENAL: SHAMIR, likely hemodynamically mediated, improved ID: HIV and hepatitis panel, negative Blood and urine culture from 07/14 was negative Sputum culture from 07/25 shows MRSA Pleural fluid culture from 07/25 shows no growth Ascitic fluid culture from 07/27 shows no growth BAL culture from 07/28 shows moderate normal tammi growth HEME Thrombocytopenia, likely due to liver cirrhosis Normalized Endocrine: Possible Hyptohyroidism TSH is 8.51, free T3 decreased at 1.79, and free T4 normal at 1.0 Metabolic: Hyperchloremia Moderate hypokalemia, supplemented Hypomagnesemia, supplemented Hypernatremia, normalized MUSCULOSKELETAL: Grade 3 ulcer on sacral area consult wound nurse position change every 2 hours LINES/DRAINS/ACCESS: ETT: Intubated on 07/26/2024 and extubated on 08/04 IV access: Right-sided upper limb PICC line, placed on 08/04 Transurethral [place] catheter Chest tube placed on 07/25/2024, and removed on 08/06 Drips: No pressor DVT prophylaxis: Lovenox DIET: Mechanical soft diet CODE STATUS: Full code- time spent was 21 mins Disposition: Med/Surg Patient's status discussed with the sister he is homeless since 17 years, and no family member lives in [facility]. Patient has a brother living in [place], due to disability can not come and pick the patient. Continuing physical therapy to get the patient out of bed and ambulate. Discharge planning. Plan discussed with: Patient Dietary Evaluation Review Comments: 1. Consider EN/TPN if NPO >7days 2. Continue plan of care Expected Outcomes/Goals: 1. Pt will meet >75% of estimated needs within 2-3 days Plan discussed with: Patient Date of Service: Aug 27, 2024 Billing Provider: AMY DELAROSA MD Common Visit Codes: [id number] INP/OBS CARE(HIGH) AMY DELAROSA MD Aug 26, 2024 11:54
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
[2024-08-27 05:00] VITALS: BP 103/70; PULSE 75; RESP 17; TEMP 98.3; O2SAT 94
--- NOTE | 2024-08-27 06:28 | PRN ---
Misceleneous Note Note Note Clarify coding Date of Service: Aug 26, 2024 Billing Provider: AMY DELAROSA MD Common Visit Codes: [id number] INP/OBS CARE(HIGH) AMY DELAROSA MD Aug 27, 2024 06:28
[2024-08-27 07:20] LABS: Basophils # (auto) 0.1 10 ^3/uL (0-0.2); Eosinophils # (auto) 0.2 10 ^3/uL (0-0.8); Eosinophils % (auto) 2.4 % (0.0-7.0); Hemoglobin 14.1 g/dL (13.5-17.5); Monocytes # (auto) 0.7 10 ^3/uL (0-1.3); Neutrophils # (auto) 5.8 10 ^3/uL (1.6-8.6); Nucleated Red Blood Cells % 0.1 %
[2024-08-27 07:22] LABS: Basophils % (auto) 0.9 % (0.0-2.0); Hematocrit 40.8 % (41.0-53.0); Lymphocytes # (auto) 1.7 10 ^3/uL (0.4-5.4); Lymphocytes % (auto) 20.3 % (10.0-50.0); Mean Corpuscular Hemoglobin 34.6 pg (28.0-32.0); Mean Corpuscular Hgb Conc. 34.7 g/dL (32.0-36.0); Mean Corpuscular Volume 99.7 fL (80.0-100.0); Monocytes % (auto) 8.4 % (0.0-12.0); Platelet Count (auto) 172 10^3/uL (140-450); Red Blood Cells 4.09 10^6/uL (4.5-5.90); Red Cell Distribution Width 13.9 % (11.8-14.3); White Blood Cell 8.6 10^3/uL (4.4-10.8)
[2024-08-27 07:36] LABS: Anion Gap 7 (5-15); Calcium 10.1 mg/dL (8.7-10.4); Carbon Dioxide 27 mmol/L (20-31); Chloride 100 mmol/L (98-107); Potassium 4.9 mmol/L (3.5-5.1)
[2024-08-27 07:37] LABS: Sodium 134 mmol/L (136-145)
[2024-08-27 07:42] LABS: Blood Urea Nitrogen 19 mg/dL (9-23)
[2024-08-27 07:45] LABS: Glucose 118 mg/dL (74-106)
[2024-08-27 09:00] VITALS: BP 111/73; PULSE 77; RESP 18; TEMP 97.4; O2SAT 97
[2024-08-27 10:00] VITALS: O2SAT 97
--- NOTE | 2024-08-27 10:05 | DVHPN2 ---
Progress Note Date Seen: Aug 27, 2024 Has the PT tested + for MRSA If YES, has PT been informed?: Yes Medical Necessity Reason Pt with a Central, PICC or Fol: No Subjective Patient reports: No new complaints Review of Systems: HEENT:Normal, CVS:Normal, RESPIRATORY:Normal, GI:Normal, :Normal, MSK:Normal, NEURO:Normal Objective vital signs Vital Sign Date Time Temp Pulse Resp B/P (MAP) Pulse Ox O2 Delivery O2 Flow Rate FiO2 08/27/24 09:00 97.4 77 18 111/73 (86) 97 97.4 08/27/24 08:00 Room Air* 0 21 Total Intake and Output 08/26/24 08/26/24 08/27/24 15:00 23:00 07:00 Intake Total 1188 ml 1000 ml Output Total 801 ml Balance 1188 ml 199 ml medications Current Medications Medications Dose Ordered Sig/Miky Route Start Time Stop Time Status Last Admin Dose Admin Acetaminophen 650 mg Q6HP PRN [place] 07/24/24 19:15 Sodium Chloride 10 ml QSHIFT@ IV 08/03/24 22:00 08/26/24 21:41 10 ML Pantoprazole Sodium 40 mg DAILY@0600 PO 08/11/24 06:00 08/27/24 06:46 40 MG Melatonin 5 mg HS PO 08/14/24 22:00 08/26/24 21:41 5 MG Spironolactone 100 mg DAILY PO 08/18/24 10:00 08/26/24 11:15 100 MG Levothyroxine Sodium 25 mcg QAM@0600 PO 08/23/24 06:00 08/27/24 06:46 25 MCG Examination: GENERAL:Normal, HEENT:Normal, NECK:Normal, LUNGS:Normal, CVS:Normal, ABDOMEN:Normal, MSK:Normal, SKIN:Normal, NEURO:Normal, :Normal laboratory and microbiology Laboratory Tests 08/27/24 06:57 Test 08/27/24 06:57 Range/Units Serum Glucose 118 H 74-106 mg/dL Microbiology Date/Time Source Procedure Growth Status 07/28/24 13:22 Bronchial Washings Gram Stain - Final Complete 07/28/24 13:22 Bronchial Washings Respiratory Culture - Final Complete 07/27/24 12:30 Ascities Fluid Gram Stain - Final Complete 07/27/24 12:30 Ascities Fluid Body Fluid Culture - Final Complete 07/25/24 16:51 Nose MRSA Screen - Final Complete 07/24/24 12:21 Urine - [place] Urine Culture - Final Complete 07/24/24 11:52 Blood Blood Culture - Final NO GROWTH AFTER 5 DAYS OF INCUBATION. Complete Problem List/Assessment/Plan Problem List/Assessment/Plan NEURO: Acute metabolic encephalopathy, likely due to sepsis/liver cirrhosis CARDIOVASCULAR: Atrial flutter, upon admission, currently sinus rhythm Chads Vasc score 0 Cardiology is on the board Echocardiogram from 07/24 shows normal left ventricular systolic 80 function with ejection fraction 60%, mild pericardial effusion, moderate pulmonary hypertension with RSVP more than 50 Amiodarone 100 mg daily, per cardiology, needs to use for 6 weeks and may adjust later PULMONARY: Acute hypoxic and hypercarbic respiratory failure likely due to pneumonia/COPD exacerbation Pneumonia likely due MRSA Hydropneumothorax, chest tube is in place Parapneumonic loculated pleural effusion Septic shock likely due to pneumonia Acute COPD exacerbation Possible obstructive sleep apnea Chest CT scan from 07/25 shows bilateral pneumonia with bilateral loculated pleural effusions Chest CT scan from 08/03 shows Multifocal airspace disease with few foci of air are present in right lower lobe consolidation measuring 3.8 cm but no loculated effusion Chest ultrasound on 07/29/2024 shows trace left-sided pleural effusion and thoracentesis could not perform COVID-19 and flu are negative Sputum culture from from 07/25 shows MRSA sensitive to vancomycin Discontinue Zosyn, used for 12 days Discontinue vancomycin, used for 9 days Discontinue methylprednisolone 40 mg b.i.d., given for 5 days Discontinue prednisone, tapered down in 4 days Breathing treatment q.6 hour Patient has drop of oxygen saturation during the sleep, ABGs reviewed during the awaken time, showed compensated pH, discontinued BiPAP during the day, recommended BiPAP during the sleep ABGs at room air shows PaO2 54.1 and qualified for home oxygen GI: Liver cirrhosis, likely due to alcohol Ascites due to liver cirrhosis Transaminitis, likely due to septic shock/alcohol abuse Paracentesis has been performed, 2 L removed, ascitic fluid exam shows WBC 1548 (polymorphonuclear cells 90), RBC 2159 Ammonia level at 07/24 was 70, decreased to less than 10 on 07/28 Continue Spironolactone 100 mg daily Bowel regimen: Lactulose 30 mL b.i.d. GI ppx: Protonix 40 mg daily p.o. RENAL: SHAMIR, likely hemodynamically mediated, improved ID: HIV and hepatitis panel, negative Blood and urine culture from 07/14 was negative Sputum culture from 07/25 shows MRSA Pleural fluid culture from 07/25 shows no growth Ascitic fluid culture from 07/27 shows no growth BAL culture from 07/28 shows moderate normal tammi growth HEME Thrombocytopenia, likely due to liver cirrhosis Normalized Endocrine: Possible Hyptohyroidism TSH is 8.51, free T3 decreased at 1.79, and free T4 normal at 1.0 Metabolic: Hyperchloremia Moderate hypokalemia, supplemented Hypomagnesemia, supplemented Hypernatremia, normalized MUSCULOSKELETAL: Grade 3 ulcer on sacral area consult wound nurse position change every 2 hours LINES/DRAINS/ACCESS: ETT: Intubated on 07/26/2024 and extubated on 08/04 IV access: Right-sided upper limb PICC line, placed on 08/04 Transurethral [place] catheter Chest tube placed on 07/25/2024, and removed on 08/06 Drips: No pressor DVT prophylaxis: Lovenox DIET: Mechanical soft diet CODE STATUS: Full code- time spent was 21 mins Disposition: Med/Surg Patient's status discussed with the sister he is homeless since 17 years, and no family member lives in [facility]. Patient has a brother living in [place], due to disability can not come and pick the patient. Plan discussed with: Patient Dietary Evaluation Review Comments: 1. Consider EN/TPN if NPO >7days 2. Continue plan of care Expected Outcomes/Goals: 1. Pt will meet >75% of estimated needs within 2-3 days Date of Service: Aug 27, 2024 Billing Provider: SUSY ARREGUIN MD Common Visit Codes: [id number] INP/OBS CARE(MOD) SUSY ARREGUIN MD Aug 27, 2024 10:05
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
[2024-08-27 12:36] VITALS: BP 100/71; PULSE 81; RESP 18; TEMP 97.7; O2SAT 98
[2024-08-27 16:50] VITALS: BP 121/77; PULSE 75; RESP 18; TEMP 97.8; O2SAT 95
[2024-08-27 21:02] VITALS: BP 110/75; PULSE 86; RESP 17; TEMP 97.7; O2SAT 93
[2024-08-28] VITALS (7 sets, daily range): BP systolic 98–136; BP diastolic 58–73; PULSE 69–87; RESP 16–17; TEMP 97.9–98.3; O2SAT 94–100
--- NOTE | 2024-08-28 09:05 | DVHPN2 ---
Progress Note Date Seen: Aug 28, 2024 Has the PT tested + for MRSA If YES, has PT been informed?: Yes Medical Necessity Reason Pt with a Central, PICC or Fol: No Subjective Patient reports: No new complaints Review of Systems: HEENT:Normal, CVS:Normal, RESPIRATORY:Normal, GI:Normal, :Normal, MSK:Normal, NEURO:Normal Objective vital signs Vital Sign Date Time Temp Pulse Resp B/P (MAP) Pulse Ox O2 Delivery O2 Flow Rate FiO2 08/28/24 05:08 97.9 71 16 98/62 (74) 94 97.9 08/27/24 20:00 Room Air* 0 21 Total Intake and Output 08/27/24 08/27/24 08/28/24 15:00 23:00 07:00 Intake Total 590 ml Balance 590 ml medications Current Medications Medications Dose Ordered Sig/Miky Route Start Time Stop Time Status Last Admin Dose Admin Acetaminophen 650 mg Q6HP PRN [place] 07/24/24 19:15 Sodium Chloride 10 ml QSHIFT@ IV 08/03/24 22:00 08/27/24 21:00 10 ML Pantoprazole Sodium 40 mg DAILY@0600 PO 08/11/24 06:00 08/28/24 05:07 40 MG Melatonin 5 mg HS PO 08/14/24 22:00 08/27/24 21:00 5 MG Spironolactone 100 mg DAILY PO 08/18/24 10:00 08/27/24 10:18 100 MG Levothyroxine Sodium 25 mcg QAM@0600 PO 08/23/24 06:00 08/28/24 05:07 25 MCG Examination: GENERAL:Normal, HEENT:Normal, NECK:Normal, LUNGS:Normal, CVS:Normal, ABDOMEN:Normal, MSK:Normal, SKIN:Normal, NEURO:Normal, :Normal laboratory and microbiology Laboratory Tests 08/27/24 06:57 Test 08/27/24 06:57 Range/Units Serum Glucose 118 H 74-106 mg/dL Microbiology Date/Time Source Procedure Growth Status 07/28/24 13:22 Bronchial Washings Gram Stain - Final Complete 07/28/24 13:22 Bronchial Washings Respiratory Culture - Final Complete 07/27/24 12:30 Ascities Fluid Gram Stain - Final Complete 07/27/24 12:30 Ascities Fluid Body Fluid Culture - Final Complete 07/25/24 16:51 Nose MRSA Screen - Final Complete 07/24/24 12:21 Urine - [place] Urine Culture - Final Complete 07/24/24 11:52 Blood Blood Culture - Final NO GROWTH AFTER 5 DAYS OF INCUBATION. Complete Problem List/Assessment/Plan Problem List/Assessment/Plan NEURO: Acute metabolic encephalopathy, likely due to sepsis/liver cirrhosis CARDIOVASCULAR: Atrial flutter, upon admission, currently sinus rhythm Chads Vasc score 0 Cardiology is on the board Echocardiogram from 07/24 shows normal left ventricular systolic 80 function with ejection fraction 60%, mild pericardial effusion, moderate pulmonary hypertension with RSVP more than 50 Amiodarone 100 mg daily, per cardiology, needs to use for 6 weeks and may adjust later PULMONARY: Acute hypoxic and hypercarbic respiratory failure likely due to pneumonia/COPD exacerbation Pneumonia likely due MRSA Hydropneumothorax, chest tube is in place Parapneumonic loculated pleural effusion Septic shock likely due to pneumonia Acute COPD exacerbation Possible obstructive sleep apnea Chest CT scan from 07/25 shows bilateral pneumonia with bilateral loculated pleural effusions Chest CT scan from 08/03 shows Multifocal airspace disease with few foci of air are present in right lower lobe consolidation measuring 3.8 cm but no loculated effusion Chest ultrasound on 07/29/2024 shows trace left-sided pleural effusion and thoracentesis could not perform COVID-19 and flu are negative Sputum culture from from 07/25 shows MRSA sensitive to vancomycin Discontinue Zosyn, used for 12 days Discontinue vancomycin, used for 9 days Discontinue methylprednisolone 40 mg b.i.d., given for 5 days Discontinue prednisone, tapered down in 4 days Breathing treatment q.6 hour Patient has drop of oxygen saturation during the sleep, ABGs reviewed during the awaken time, showed compensated pH, discontinued BiPAP during the day, recommended BiPAP during the sleep ABGs at room air shows PaO2 54.1 and qualified for home oxygen GI: Liver cirrhosis, likely due to alcohol Ascites due to liver cirrhosis Transaminitis, likely due to septic shock/alcohol abuse Paracentesis has been performed, 2 L removed, ascitic fluid exam shows WBC 1548 (polymorphonuclear cells 90), RBC 2159 Ammonia level at 07/24 was 70, decreased to less than 10 on 07/28 Continue Spironolactone 100 mg daily Bowel regimen: Lactulose 30 mL b.i.d. GI ppx: Protonix 40 mg daily p.o. RENAL: SHAMIR, likely hemodynamically mediated, improved ID: HIV and hepatitis panel, negative Blood and urine culture from 07/14 was negative Sputum culture from 07/25 shows MRSA Pleural fluid culture from 07/25 shows no growth Ascitic fluid culture from 07/27 shows no growth BAL culture from 07/28 shows moderate normal tammi growth HEME Thrombocytopenia, likely due to liver cirrhosis Normalized Endocrine: Possible Hyptohyroidism TSH is 8.51, free T3 decreased at 1.79, and free T4 normal at 1.0 Metabolic: Hyperchloremia Moderate hypokalemia, supplemented Hypomagnesemia, supplemented Hypernatremia, normalized MUSCULOSKELETAL: Grade 3 ulcer on sacral area consult wound nurse position change every 2 hours LINES/DRAINS/ACCESS: ETT: Intubated on 07/26/2024 and extubated on 08/04 IV access: Right-sided upper limb PICC line, placed on 08/04 Transurethral [place] catheter Chest tube placed on 07/25/2024, and removed on 08/06 Drips: No pressor DVT prophylaxis: Lovenox DIET: Mechanical soft diet CODE STATUS: Full code- time spent was 21 mins Disposition: Med/Surg Patient's status discussed with the sister he is homeless since 17 years, and no family member lives in [facility]. Patient has a brother living in [place], due to disability can not come and pick the patient. await placement Plan discussed with: Patient Dietary Evaluation Review Comments: 1. Consider EN/TPN if NPO >7days 2. Continue plan of care Expected Outcomes/Goals: 1. Pt will meet >75% of estimated needs within 2-3 days Date of Service: Aug 28, 2024 Billing Provider: SUSY ARREGUIN MD Common Visit Codes: [id number] INP/OBS CARE(MOD) SUSY ARREGUIN MD Aug 28, 2024 09:05
--- NOTE | 2024-08-28 14:33 | DVHPN2 ---
Progress Note - Dictate Date Seen: Aug 28, 2024 Has the PT tested + for MRSA If YES, has PT been informed?: Yes Medical Necessity Reason Pt with a Central, PICC or Fol: No Subjective Patient was seen and evaluated in follow up. Patient resting in bed. Patient does not voice any complaints. No new labs today. Patient is awaiting for placement. vital signs Vital Sign Date Time Temp Pulse Resp B/P (MAP) Pulse Ox O2 Delivery O2 Flow Rate FiO2 08/28/24 09:30 97 Room Air 0.0 08/28/24 09:30 21 08/28/24 09:00 98.1 76 16 99/63 (75) 98.1 Total Intake and Output 08/27/24 08/27/24 08/28/24 15:00 23:00 07:00 Intake Total 590 ml Balance 590 ml medications Current Medications Medications Dose Ordered Sig/Miky Route Start Time Stop Time Status Last Admin Dose Admin Acetaminophen 650 mg Q6HP PRN [place] 07/24/24 19:15 Sodium Chloride 10 ml QSHIFT@ IV 08/03/24 22:00 08/28/24 09:23 10 ML Pantoprazole Sodium 40 mg DAILY@0600 PO 08/11/24 06:00 08/28/24 05:07 40 MG Melatonin 5 mg HS PO 08/14/24 22:00 08/27/24 21:00 5 MG Spironolactone 100 mg DAILY PO 08/18/24 10:00 08/28/24 09:23 100 MG Levothyroxine Sodium 25 mcg QAM@0600 PO 08/23/24 06:00 08/28/24 05:07 25 MCG objective GENERAL: Awake, alert, oriented. LUNGS: Diminished breath sounds. CARDIOVASCULAR: Heart sounds are good. ABDOMEN: Soft. SKIN: Unknown burn pandey to bilateral hands. laboratory and microbiology Laboratory Tests 08/27/24 06:57 Test 08/27/24 06:57 Range/Units Serum Glucose 118 H 74-106 mg/dL Problem List Acute metabolic encephalopathy, likely due to sepsis/liver cirrhosis. Atrial flutter. CHF exacerbation. Leukocytosis. UTI. Elevated ammonia levels. Pleural Effusion. Liver cirrhosis with ascites due to liver cirrhosis Acute Hypoxic respiratory failure. MRSA Bacteremia. Pneumonia likely due MRSA. Hydropneumothorax. Parapneumonic loculated pleural effusion. Septic shock. COPD exacerbation. Transaminitis. SHAMIR. Assessment/Plan Continued all current supportive medical care. Synthroid. GI prophylactics. Aldactone. Additional plan as per the hospital course. Dietary Evaluation Review Comments: 1. Consider EN/TPN if NPO >7days 2. Continue plan of care Expected Outcomes/Goals: 1. Pt will meet >75% of estimated needs within 2-3 days Plan discussed with: Patient ISHAAN BUNCH MD Aug 28, 2024 12:25
[2024-08-29] VITALS (8 sets, daily range): BP systolic 99–109; BP diastolic 63–78; PULSE 69–88; RESP 18–20; TEMP 97.7–98.5; O2SAT 93–97
--- NOTE | 2024-08-29 16:40 | DVHPN2 ---
Progress Note - Dictate Date Seen: Aug 29, 2024 Has the PT tested + for MRSA If YES, has PT been informed?: Yes Medical Necessity Reason Pt with a Central, PICC or Fol: No Subjective Patient was seen and evaluated in follow up. No overnight events. Patient is without any complaints. Patient refused bathing and wound care this am. CM is working on placement. vital signs Vital Sign Date Time Temp Pulse Resp B/P (MAP) Pulse Ox O2 Delivery O2 Flow Rate FiO2 08/29/24 09:00 98.2 70 18 99/67 (78) 96 98.2 08/28/24 20:00 Room Air* 0 21 Total Intake and Output 08/28/24 08/28/24 08/29/24 15:00 23:00 07:00 Intake Total 1000 ml Output Total 1100 ml Balance -100 ml medications Current Medications Medications Dose Ordered Sig/Miky Route Start Time Stop Time Status Last Admin Dose Admin Acetaminophen 650 mg Q6HP PRN [place] 07/24/24 19:15 Sodium Chloride 10 ml QSHIFT@ IV 08/03/24 22:00 08/29/24 10:54 10 ML Pantoprazole Sodium 40 mg DAILY@0600 PO 08/11/24 06:00 08/29/24 05:40 40 MG Melatonin 5 mg HS PO 08/14/24 22:00 08/28/24 20:52 5 MG Spironolactone 100 mg DAILY PO 08/18/24 10:00 08/29/24 10:54 100 MG Levothyroxine Sodium 25 mcg QAM@0600 PO 08/23/24 06:00 08/29/24 05:40 25 MCG objective GENERAL: Awake, alert, oriented. LUNGS: Diminished breath sounds. CARDIOVASCULAR: Heart sounds are good. ABDOMEN: Soft. SKIN: Unknown burn pandey to bilateral hands. laboratory and microbiology Laboratory Tests 08/27/24 06:57 Test 08/27/24 06:57 Range/Units Serum Glucose 118 H 74-106 mg/dL Problem List Acute metabolic encephalopathy, likely due to sepsis/liver cirrhosis. Atrial flutter. CHF exacerbation. Leukocytosis. UTI. Elevated ammonia levels. Pleural Effusion. Liver cirrhosis with ascites due to liver cirrhosis Acute Hypoxic respiratory failure. MRSA Bacteremia. Pneumonia likely due MRSA. Hydropneumothorax. Parapneumonic loculated pleural effusion. Septic shock. COPD exacerbation. Transaminitis. SHAMIR. Assessment/Plan Continued all current supportive medical care. Synthroid. GI prophylactics. Aldactone. Additional plan as per the hospital course. Dietary Evaluation Review Comments: 1. Consider EN/TPN if NPO >7days 2. Continue plan of care Expected Outcomes/Goals: 1. Pt will meet >75% of estimated needs within 2-3 days Plan discussed with: Patient ISHAAN BUNCH MD Aug 29, 2024 14:10
--- NOTE | 2024-08-29 17:41 | DVHPN2 ---
Subjective Brings all, tolerating diet, no complaints, watching TV. Waiting for breakfast this morning. Pending placement per primary team. Reviewed: Care Plan, H&P, Labs, Medications, Previous Orders, Radiology Changes from previous H/P or p: No Changes General: Per HPI Eyes: No Pain, No Vision change, No Conjunctivae inflammation, No Eyelid inflammation, No Other, No Redness ENT: No Ear pain, No Ear discharge, No Nose pain, No Nose discharge, No Nose congestion, No Mouth pain, No Mouth swelling, No Throat pain, No Throat swelling, No Other Cardiovascular: No Chest Pain, No Palpitations, No Orthopnea, No Paroxysmal Noc. Dyspnea, No Edema, No Lt Headedness, No Other Respiratory: No Cough, No Dry, No Shortness of breath, No SOB with excertion, No Wheezing, No Hemoptysis, No Pleuritic Pain, No Sputum, No Other Gastrointestinal: No Nausea, No Vomiting, No Abdominal Pain, No Diarrhea, No Constipation, No Melena, No Hematochezia, No Other Genitourinary: No Dysuria, No Frequency, No Incontinence, No Hematuria, No Retention, No Other Musculoskeletal: No other, No neck pain, No shoulder pain, No arm pain, No back pain, No hand pain, No leg pain, No foot pain Skin: No Rash, No Lesions, No Jaundice, No Bruising, No Other Objective Vitals Vital Signs Date Time Temp Pulse Resp B/P (MAP) Pulse Ox O2 Delivery O2 Flow Rate FiO2 08/29/24 13:00 97.7 88 18 107/74 (85) 96 97.7 08/29/24 10:00 Room Air 0.0 08/29/24 10:00 21 Intake/Output Intake and Output 08/29/24 07:00 Intake Total 1000 ml Output Total 1100 ml Balance -100 ml Intake Oral 1000 ml Output Urine Total 1100 ml Exam GEN: Healthy appearing, well-developed, NAD. HEENT: NC/AT; MMM. CV: RRR, no m/r/g. LUNGS: CTAB, no w/r/c. ABD: Soft, NT/ND, NBS, no masses or organomegaly. EXT: skin Warm, well perfused. no rashes. No clubbing, cyanosis, or edema. NEURO: Ambulating with no limitations. No focal deficits. General Appearance: Alert, Oriented X3, Cooperative, No acute distress HEENT: Atraumatic, PERRLA, EOMI Neck: Supple Lungs: Clear to auscultation, Normal air movement Cardiovascular: Regular rate, Normal S1, Normal S2, No murmurs, Gallops, Rubs Abdomen: Normal bowel sounds, Soft, No tenderness Neuro: Normal speech, Strength at 5/5 X4 ext, Cranial nerves 3-12 NL Psych/Mental Status: Mental status NL Medications Current Medications Medications Dose Ordered Sig/Miky Route Start Time Stop Time Status Last Admin Dose Admin Acetaminophen 650 mg Q6HP PRN [place] 07/24/24 19:15 Sodium Chloride 10 ml QSHIFT@ IV 08/03/24 22:00 08/29/24 10:54 10 ML Pantoprazole Sodium 40 mg DAILY@0600 PO 08/11/24 06:00 08/29/24 05:40 40 MG Melatonin 5 mg HS PO 08/14/24 22:00 08/28/24 20:52 5 MG Spironolactone 100 mg DAILY PO 08/18/24 10:00 08/29/24 10:54 100 MG Levothyroxine Sodium 25 mcg QAM@0600 PO 08/23/24 06:00 08/29/24 05:40 25 MCG Laboratory Results Laboratory Tests 08/27/24 06:57 Urinalysis Test 07/24/24 12:21 07/26/24 12:00 Urine Hyaline Casts Many /lpf (0 - 2) Urine Color Yellow (Yellow) Urine Clarity Turbid (Clear) H Urine pH 5.5 (5.0-9.0) Urine Specific [place] 1.016 (1.001-1.035) Urine Protein Negative (Negative) Urine Ketones Negative (Negative) Urine Blood 2+ /uL (Negative) H Urine Nitrite Negative (Negative) Urine Bilirubin Negative (Negative) Urine Urobilinogen 3 mg/dL (Negative) H Urine Leukocyte Esterase 1+ /uL (Negative) Urine RBC 33 /hpf (0 - 3) Urine WBC 13 /hpf (0 - 3) Urine Squamous Epithelial Cells Few /hpf (<5) Urine Uric Acid Crystals Few /hpf (None Seen) Urine Bacteria None seen /hpf (None Seen) Urine Mucus Few (None Seen) Urine Glucose Normal mg/dL (Normal) Microbiology Microbiology Date/Time Source Procedure Growth Status 07/28/24 13:22 Bronchial Washings Gram Stain - Final Complete 07/28/24 13:22 Bronchial Washings Respiratory Culture - Final Complete 07/27/24 12:30 Ascities Fluid Gram Stain - Final Complete 07/27/24 12:30 Ascities Fluid Body Fluid Culture - Final Complete 07/25/24 16:51 Nose MRSA Screen - Final Complete 07/24/24 12:21 Urine - [place] Urine Culture - Final Complete 07/24/24 11:52 Blood Blood Culture - Final NO GROWTH AFTER 5 DAYS OF INCUBATION. Complete Labs and/or images reviewed: Labs reviewed by me, Image(s) reviewed by me Assessment/Plan Assessment/Plan Acute metabolic encephalopathy, likely due to sepsis/liver cirrhosis, resolving. sepsis due to mrsa pneumonia resolved [place] pneumothorax requiring chest tube, resolved, chest tube removed Acute hypoxic and hypercarbic respiratory failure, resolved on room air Acute COPD exacerbation, resolved Parapneumonic loculated pleural effusion, resolved Ascites due to liver cirrhosis, status post paracentesis, stable SHAMIR, resolved Grade 3 ulcer on sacral area, stable alcoholic liver cirrhosis- stable, on Aldactone 100 mg daily hga1c at 6.1/normal sugars- dc insulin ssri/accucheck cholelithiasis- asymptomatic Status post intubation due to respiratory failure, resolved- Intubated on 07/26/2024 and extubated on 08/04 History hypothyroidism on p.o. Synthroid 25 mcg hx at flutter, current sinus rhyhthm - no longer on amnio p.o. Diet mechanical soft DVT prophylaxis patient ambulatory gi prophylaxis on ppi p.o. Med surge Full code Plan discussed with: Patient Date of Service: Aug 29, 2024 Billing Provider: TRAY KOLB MD Common Visit Codes: [id number] INP/OBS CARE(HIGH) TRAY KOLB MD Aug 29, 2024 17:41
[2024-08-30] VITALS (8 sets, daily range): BP systolic 94–124; BP diastolic 64–73; PULSE 68–78; RESP 18–20; TEMP 97.5–98.1; O2SAT 94–98
--- NOTE | 2024-08-30 16:01 | DVHPN2 ---
Progress Note - Dictate Date Seen: Aug 30, 2024 Has the PT tested + for MRSA If YES, has PT been informed?: Yes Medical Necessity Reason Pt with a Central, PICC or Fol: No Subjective Patient was seen and evaluated in follow up. Patient offers no new complaints. The patient is tolerating current diet. Patient adamantly refuses wound care. Patient awaiting placement. vital signs Vital Sign Date Time Temp Pulse Resp B/P (MAP) Pulse Ox O2 Delivery O2 Flow Rate FiO2 08/30/24 12:46 97.8 68 18 103/69 (80) 98 97.8 08/30/24 10:15 Room Air 0.0 08/30/24 10:15 21 Total Intake and Output 08/29/24 08/29/24 08/30/24 15:00 23:00 07:00 Intake Total 2094 ml 1336 ml Output Total 500 ml Balance 2094 ml 836 ml medications Current Medications Medications Dose Ordered Sig/Miky Route Start Time Stop Time Status Last Admin Dose Admin Acetaminophen 650 mg Q6HP PRN [place] 07/24/24 19:15 Sodium Chloride 10 ml QSHIFT@ IV 08/03/24 22:00 08/30/24 09:41 10 ML Pantoprazole Sodium 40 mg DAILY@0600 PO 08/11/24 06:00 08/30/24 06:14 40 MG Melatonin 5 mg HS PO 08/14/24 22:00 08/29/24 22:04 5 MG Spironolactone 100 mg DAILY PO 08/18/24 10:00 08/30/24 09:41 100 MG Levothyroxine Sodium 25 mcg QAM@0600 PO 08/23/24 06:00 08/30/24 06:14 25 MCG objective GENERAL: Awake, alert, oriented. LUNGS: Diminished breath sounds. CARDIOVASCULAR: Heart sounds are good. ABDOMEN: Soft. SKIN: Unknown burn pandey to bilateral hands. laboratory and microbiology Laboratory Tests 08/27/24 06:57 Test 08/27/24 06:57 Range/Units Serum Glucose 118 H 74-106 mg/dL Problem List Acute metabolic encephalopathy, likely due to sepsis/liver cirrhosis. Atrial flutter. CHF exacerbation. Leukocytosis. UTI. Elevated ammonia levels. Pleural Effusion. Liver cirrhosis with ascites due to liver cirrhosis Acute Hypoxic respiratory failure. MRSA Bacteremia. Pneumonia likely due MRSA. Hydropneumothorax. Parapneumonic loculated pleural effusion. Septic shock. COPD exacerbation. Transaminitis. SHAMIR. Assessment/Plan Continued all current supportive medical care. Synthroid. GI prophylactics. Aldactone. Additional plan as per the hospital course. Dietary Evaluation Review Comments: 1. Consider EN/TPN if NPO >7days 2. Continue plan of care Expected Outcomes/Goals: 1. Pt will meet >75% of estimated needs within 2-3 days Plan discussed with: Patient ISHAAN BUNCH MD Aug 30, 2024 13:38
--- NOTE | 2024-08-30 20:24 | DVHPN2 ---
Subjective no complaints, watching TV. Pending placement per primary team. no social or wrapper caser updates today. Reviewed: Care Plan, H&P, Labs, Medications, Previous Orders, Radiology Changes from previous H/P or p: No Changes General: Per HPI Objective Vitals Vital Signs Date Time Temp Pulse Resp B/P (MAP) Pulse Ox O2 Delivery O2 Flow Rate FiO2 08/30/24 16:40 97.6 72 18 124/68 (86) 98 97.6 08/30/24 10:15 Room Air 0.0 08/30/24 10:15 21 Intake/Output Intake and Output 08/30/24 07:00 Intake Total 3430 ml Output Total 500 ml Balance 2930 ml Intake Oral 3430 ml Output Urine Total 500 ml # Voids 8 # Bowel Movements 2 Exam GEN: Healthy appearing, well-developed, NAD. HEENT: NC/AT; MMM. CV: RRR, no m/r/g. LUNGS: CTAB, no w/r/c. ABD: Soft, NT/ND, NBS, no masses or organomegaly. EXT: skin Warm, well perfused. no rashes. No clubbing, cyanosis, or edema. NEURO: Ambulating with no limitations. No focal deficits. Neck: Supple Medications Current Medications Medications Dose Ordered Sig/Miky Route Start Time Stop Time Status Last Admin Dose Admin Acetaminophen 650 mg Q6HP PRN [place] 07/24/24 19:15 Sodium Chloride 10 ml QSHIFT@ IV 08/03/24 22:00 08/30/24 09:41 10 ML Pantoprazole Sodium 40 mg DAILY@0600 PO 08/11/24 06:00 08/30/24 06:14 40 MG Melatonin 5 mg HS PO 08/14/24 22:00 08/29/24 22:04 5 MG Spironolactone 100 mg DAILY PO 08/18/24 10:00 08/30/24 09:41 100 MG Levothyroxine Sodium 25 mcg QAM@0600 PO 08/23/24 06:00 08/30/24 06:14 25 MCG Laboratory Results Laboratory Tests 08/27/24 06:57 Urinalysis Test 07/24/24 12:21 07/26/24 12:00 Urine Hyaline Casts Many /lpf (0 - 2) Urine Color Yellow (Yellow) Urine Clarity Turbid (Clear) H Urine pH 5.5 (5.0-9.0) Urine Specific [place] 1.016 (1.001-1.035) Urine Protein Negative (Negative) Urine Ketones Negative (Negative) Urine Blood 2+ /uL (Negative) H Urine Nitrite Negative (Negative) Urine Bilirubin Negative (Negative) Urine Urobilinogen 3 mg/dL (Negative) H Urine Leukocyte Esterase 1+ /uL (Negative) Urine RBC 33 /hpf (0 - 3) Urine WBC 13 /hpf (0 - 3) Urine Squamous Epithelial Cells Few /hpf (<5) Urine Uric Acid Crystals Few /hpf (None Seen) Urine Bacteria None seen /hpf (None Seen) Urine Mucus Few (None Seen) Urine Glucose Normal mg/dL (Normal) Microbiology Microbiology Date/Time Source Procedure Growth Status 07/28/24 13:22 Bronchial Washings Gram Stain - Final Complete 07/28/24 13:22 Bronchial Washings Respiratory Culture - Final Complete 07/27/24 12:30 Ascities Fluid Gram Stain - Final Complete 07/27/24 12:30 Ascities Fluid Body Fluid Culture - Final Complete 07/25/24 16:51 Nose MRSA Screen - Final Complete 07/24/24 12:21 Urine - [place] Urine Culture - Final Complete 07/24/24 11:52 Blood Blood Culture - Final NO GROWTH AFTER 5 DAYS OF INCUBATION. Complete Labs and/or images reviewed: Labs reviewed by me, Image(s) reviewed by me Assessment/Plan Assessment/Plan no complaints, watching TV. Pending placement per primary team. no social or wrapper caser updates today. #Acute metabolic encephalopathy, likely due to sepsis/liver cirrhosis, resolving. #sepsis due to mrsa pneumonia resolved #[place] pneumothorax requiring chest tube, resolved, chest tube removed #Acute hypoxic and hypercarbic respiratory failure, resolved on room air #Acute COPD exacerbation, resolved #Parapneumonic loculated pleural effusion, resolved #Ascites due to liver cirrhosis, status post paracentesis, stable #SHAMIR, resolved #Grade 3 ulcer on sacral area, stable #alcoholic liver cirrhosis- stable, on Aldactone 100 mg daily #hga1c at 6.1/normal sugars- dc insulin ssri/accucheck #cholelithiasis- asymptomatic #Status post intubation due to respiratory failure, resolved- Intubated on 07/26/2024 and extubated on 08/04 #History hypothyroidism on p.o. Synthroid 25 mcg #hx at flutter, current sinus rhyhthm - no longer on amnio p.o. Diet mechanical soft DVT prophylaxis patient ambulatory gi prophylaxis on ppi p.o. Med surge Full code Plan discussed with: Patient Date of Service: Aug 30, 2024 Billing Provider: TRAY KOLB MD Common Visit Codes: [id number] INP/OBS CARE(MOD) TRAY KOLB MD Aug 30, 2024 20:24
[2024-08-31] VITALS (8 sets, daily range): BP systolic 92–117; BP diastolic 53–75; PULSE 70–86; RESP 18–20; TEMP 97.7–98.4; O2SAT 93–99
--- NOTE | 2024-08-31 09:40 | DVHPN2 ---
Progress Note Date Seen: Aug 31, 2024 Has the PT tested + for MRSA If YES, has PT been informed?: Yes Medical Necessity Reason Pt with a Central, PICC or Fol: No Subjective Patient reports: No new complaints Review of Systems: HEENT:Normal, CVS:Normal, RESPIRATORY:Normal, GI:Normal, :Normal, MSK:Normal, NEURO:Normal Objective vital signs Vital Sign Date Time Temp Pulse Resp B/P (MAP) Pulse Ox O2 Delivery O2 Flow Rate FiO2 08/31/24 08:15 86 20 99 Room Air* 0 08/31/24 05:00 97.9 95/62 (73) 97.9 medications Current Medications Medications Dose Ordered Sig/Miky Route Start Time Stop Time Status Last Admin Dose Admin Acetaminophen 650 mg Q6HP PRN [place] 07/24/24 19:15 Sodium Chloride 10 ml QSHIFT@ IV 08/03/24 22:00 08/30/24 22:00 10 ML Pantoprazole Sodium 40 mg DAILY@0600 PO 08/11/24 06:00 08/31/24 06:12 40 MG Melatonin 5 mg HS PO 08/14/24 22:00 08/30/24 22:24 5 MG Spironolactone 100 mg DAILY PO 08/18/24 10:00 08/30/24 09:41 100 MG Levothyroxine Sodium 25 mcg QAM@0600 PO 08/23/24 06:00 08/31/24 06:12 25 MCG Examination: GENERAL:Normal, HEENT:Normal, NECK:Normal, LUNGS:Normal, CVS:Normal, ABDOMEN:Normal, MSK:Normal, SKIN:Normal, NEURO:Normal, :Normal laboratory and microbiology Laboratory Tests 08/27/24 06:57 Test 08/27/24 06:57 Range/Units Serum Glucose 118 H 74-106 mg/dL Microbiology Date/Time Source Procedure Growth Status 07/28/24 13:22 Bronchial Washings Gram Stain - Final Complete 07/28/24 13:22 Bronchial Washings Respiratory Culture - Final Complete 07/27/24 12:30 Ascities Fluid Gram Stain - Final Complete 07/27/24 12:30 Ascities Fluid Body Fluid Culture - Final Complete 07/25/24 16:51 Nose MRSA Screen - Final Complete 07/24/24 12:21 Urine - [place] Urine Culture - Final Complete 07/24/24 11:52 Blood Blood Culture - Final NO GROWTH AFTER 5 DAYS OF INCUBATION. Complete Problem List/Assessment/Plan Problem List/Assessment/Plan NEURO: Acute metabolic encephalopathy, likely due to sepsis/liver cirrhosis CARDIOVASCULAR: Atrial flutter, upon admission, currently sinus rhythm Chads Vasc score 0 Cardiology is on the board Echocardiogram from 07/24 shows normal left ventricular systolic 80 function with ejection fraction 60%, mild pericardial effusion, moderate pulmonary hypertension with RSVP more than 50 Amiodarone 100 mg daily, per cardiology, needs to use for 6 weeks and may adjust later PULMONARY: Acute hypoxic and hypercarbic respiratory failure likely due to pneumonia/COPD exacerbation Pneumonia likely due MRSA Hydropneumothorax, chest tube is in place Parapneumonic loculated pleural effusion Septic shock likely due to pneumonia Acute COPD exacerbation Possible obstructive sleep apnea Chest CT scan from 07/25 shows bilateral pneumonia with bilateral loculated pleural effusions Chest CT scan from 08/03 shows Multifocal airspace disease with few foci of air are present in right lower lobe consolidation measuring 3.8 cm but no loculated effusion Chest ultrasound on 07/29/2024 shows trace left-sided pleural effusion and thoracentesis could not perform COVID-19 and flu are negative Sputum culture from from 07/25 shows MRSA sensitive to vancomycin Discontinue Zosyn, used for 12 days Discontinue vancomycin, used for 9 days Discontinue methylprednisolone 40 mg b.i.d., given for 5 days Discontinue prednisone, tapered down in 4 days Breathing treatment q.6 hour Patient has drop of oxygen saturation during the sleep, ABGs reviewed during the awaken time, showed compensated pH, discontinued BiPAP during the day, recommended BiPAP during the sleep ABGs at room air shows PaO2 54.1 and qualified for home oxygen GI: Liver cirrhosis, likely due to alcohol Ascites due to liver cirrhosis Transaminitis, likely due to septic shock/alcohol abuse Paracentesis has been performed, 2 L removed, ascitic fluid exam shows WBC 1548 (polymorphonuclear cells 90), RBC 2159 Ammonia level at 07/24 was 70, decreased to less than 10 on 07/28 Continue Spironolactone 100 mg daily Bowel regimen: Lactulose 30 mL b.i.d. GI ppx: Protonix 40 mg daily p.o. RENAL: SHAMIR, likely hemodynamically mediated, improved ID: HIV and hepatitis panel, negative Blood and urine culture from 07/14 was negative Sputum culture from 07/25 shows MRSA Pleural fluid culture from 07/25 shows no growth Ascitic fluid culture from 07/27 shows no growth BAL culture from 07/28 shows moderate normal tammi growth HEME Thrombocytopenia, likely due to liver cirrhosis Normalized Endocrine: Possible Hyptohyroidism TSH is 8.51, free T3 decreased at 1.79, and free T4 normal at 1.0 Metabolic: Hyperchloremia Moderate hypokalemia, supplemented Hypomagnesemia, supplemented Hypernatremia, normalized MUSCULOSKELETAL: Grade 3 ulcer on sacral area consult wound nurse position change every 2 hours LINES/DRAINS/ACCESS: ETT: Intubated on 07/26/2024 and extubated on 08/04 IV access: Right-sided upper limb PICC line, placed on 08/04 Transurethral Saldivar catheter Chest tube placed on 07/25/2024, and removed on 08/06 Drips: No pressor DVT prophylaxis: Lovenox DIET: Mechanical soft diet CODE STATUS: Full code- time spent was 21 mins Disposition: Med/Surg Patient's status discussed with the sister he is homeless since 17 years, and no family member lives in [facility]. Patient has a brother living in [place], due to disability can not come and pick the patient. await placement Plan discussed with: Patient Dietary Evaluation Review Comments: 1. Consider EN/TPN if NPO >7days 2. Continue plan of care Expected Outcomes/Goals: 1. Pt will meet >75% of estimated needs within 2-3 days Date of Service: Aug 31, 2024 Billing Provider: SUSY ARREGUIN MD Common Visit Codes: [id number] INP/OBS CARE(MOD) SUSY ARREGUIN MD Aug 31, 2024 09:40
--- NOTE | 2024-08-31 21:32 | DVHPN2 ---
Progress Note - Dictate Date Seen: Aug 31, 2024 Has the PT tested + for MRSA If YES, has PT been informed?: Yes Medical Necessity Reason Pt with a Central, PICC or Fol: No Subjective Patient was seen and evaluated in follow up. No overnight events. Patient is resting in bed, appears comfortable. Patient denies any pain or discomfort. Patient received wound care this morning. vital signs Vital Sign Date Time Temp Pulse Resp B/P (MAP) Pulse Ox O2 Delivery O2 Flow Rate FiO2 08/31/24 20:00 Room Air* 0 21 08/31/24 17:00 97.7 76 20 115/69 (84) 93 97.7 medications Current Medications Medications Dose Ordered Sig/Miky Route Start Time Stop Time Status Last Admin Dose Admin Acetaminophen 650 mg Q6HP PRN [place] 07/24/24 19:15 Sodium Chloride 10 ml QSHIFT@ IV 08/03/24 22:00 08/31/24 21:20 10 ML Pantoprazole Sodium 40 mg DAILY@0600 PO 08/11/24 06:00 08/31/24 06:12 40 MG Melatonin 5 mg HS PO 08/14/24 22:00 08/31/24 21:20 5 MG Spironolactone 100 mg DAILY PO 08/18/24 10:00 08/31/24 10:01 100 MG Levothyroxine Sodium 25 mcg QAM@0600 PO 08/23/24 06:00 08/31/24 06:12 25 MCG objective GENERAL: Awake, alert, oriented. LUNGS: Diminished breath sounds. CARDIOVASCULAR: Heart sounds are good. ABDOMEN: Soft. SKIN: Unknown burn pandey to bilateral hands. laboratory and microbiology Laboratory Tests 08/27/24 06:57 Test 08/27/24 06:57 Range/Units Serum Glucose 118 H 74-106 mg/dL Problem List Acute metabolic encephalopathy, likely due to sepsis/liver cirrhosis. Atrial flutter. CHF exacerbation. Leukocytosis. UTI. Elevated ammonia levels. Pleural Effusion. Liver cirrhosis with ascites due to liver cirrhosis Acute Hypoxic respiratory failure. MRSA Bacteremia. Pneumonia likely due MRSA. Hydropneumothorax. Parapneumonic loculated pleural effusion. Septic shock. COPD exacerbation. Transaminitis. SHAMIR. Assessment/Plan Continued all current supportive medical care. Synthroid. GI prophylactics. Aldactone. Additional plan as per the hospital course. Dietary Evaluation Review Comments: 1. Consider EN/TPN if NPO >7days 2. Continue plan of care Expected Outcomes/Goals: 1. Pt will meet >75% of estimated needs within 2-3 days Plan discussed with: Patient ISHAAN BUNCH MD Aug 31, 2024 21:32
[2024-09-01] VITALS (8 sets, daily range): BP systolic 94–128; BP diastolic 61–73; PULSE 73–87; RESP 17–19; TEMP 97.6–98.4; O2SAT 91–98
--- NOTE | 2024-09-01 09:28 | DVHPN2 ---
Progress Note Date Seen: Sep 01, 2024 Has the PT tested + for MRSA If YES, has PT been informed?: Yes Medical Necessity Reason Pt with a Central, PICC or Fol: No Subjective Patient reports: No new complaints Review of Systems: HEENT:Normal, CVS:Normal, RESPIRATORY:Normal, GI:Normal, :Normal, MSK:Normal, NEURO:Normal Objective vital signs Vital Sign Date Time Temp Pulse Resp B/P (MAP) Pulse Ox O2 Delivery O2 Flow Rate FiO2 09/01/24 09:00 98.4 87 18 94/63 (73) 98 98.4 08/31/24 20:00 Room Air* 0 21 medications Current Medications Medications Dose Ordered Sig/Miky Route Start Time Stop Time Status Last Admin Dose Admin Acetaminophen 650 mg Q6HP PRN [place] 07/24/24 19:15 Sodium Chloride 10 ml QSHIFT@ IV 08/03/24 22:00 08/31/24 21:20 10 ML Pantoprazole Sodium 40 mg DAILY@0600 PO 08/11/24 06:00 09/01/24 06:06 40 MG Melatonin 5 mg HS PO 08/14/24 22:00 08/31/24 21:20 5 MG Spironolactone 100 mg DAILY PO 08/18/24 10:00 08/31/24 10:01 100 MG Levothyroxine Sodium 25 mcg QAM@0600 PO 08/23/24 06:00 09/01/24 06:06 25 MCG Examination: GENERAL:Normal, HEENT:Normal, NECK:Normal, LUNGS:Normal, CVS:Normal, ABDOMEN:Normal, MSK:Normal, SKIN:Normal, NEURO:Normal, :Normal laboratory and microbiology Laboratory Tests 08/27/24 06:57 Test 08/27/24 06:57 Range/Units Serum Glucose 118 H 74-106 mg/dL Microbiology Date/Time Source Procedure Growth Status 07/28/24 13:22 Bronchial Washings Gram Stain - Final Complete 07/28/24 13:22 Bronchial Washings Respiratory Culture - Final Complete 07/27/24 12:30 Ascities Fluid Gram Stain - Final Complete 07/27/24 12:30 Ascities Fluid Body Fluid Culture - Final Complete 07/25/24 16:51 Nose MRSA Screen - Final Complete 07/24/24 12:21 Urine - [place] Urine Culture - Final Complete 07/24/24 11:52 Blood Blood Culture - Final NO GROWTH AFTER 5 DAYS OF INCUBATION. Complete Problem List/Assessment/Plan Problem List/Assessment/Plan NEURO: Acute metabolic encephalopathy, likely due to sepsis/liver cirrhosis CARDIOVASCULAR: Atrial flutter, upon admission, currently sinus rhythm Chads Vasc score 0 Cardiology is on the board Echocardiogram from 07/24 shows normal left ventricular systolic 80 function with ejection fraction 60%, mild pericardial effusion, moderate pulmonary hypertension with RSVP more than 50 Amiodarone 100 mg daily, per cardiology, needs to use for 6 weeks and may adjust later PULMONARY: Acute hypoxic and hypercarbic respiratory failure likely due to pneumonia/COPD exacerbation Pneumonia likely due MRSA Hydropneumothorax, chest tube is in place Parapneumonic loculated pleural effusion Septic shock likely due to pneumonia Acute COPD exacerbation Possible obstructive sleep apnea Chest CT scan from 07/25 shows bilateral pneumonia with bilateral loculated pleural effusions Chest CT scan from 08/03 shows Multifocal airspace disease with few foci of air are present in right lower lobe consolidation measuring 3.8 cm but no loculated effusion Chest ultrasound on 07/29/2024 shows trace left-sided pleural effusion and thoracentesis could not perform COVID-19 and flu are negative Sputum culture from from 07/25 shows MRSA sensitive to vancomycin Discontinue Zosyn, used for 12 days Discontinue vancomycin, used for 9 days Discontinue methylprednisolone 40 mg b.i.d., given for 5 days Discontinue prednisone, tapered down in 4 days Breathing treatment q.6 hour Patient has drop of oxygen saturation during the sleep, ABGs reviewed during the awaken time, showed compensated pH, discontinued BiPAP during the day, recommended BiPAP during the sleep ABGs at room air shows PaO2 54.1 and qualified for home oxygen GI: Liver cirrhosis, likely due to alcohol Ascites due to liver cirrhosis Transaminitis, likely due to septic shock/alcohol abuse Paracentesis has been performed, 2 L removed, ascitic fluid exam shows WBC 1548 (polymorphonuclear cells 90), RBC 2159 Ammonia level at 07/24 was 70, decreased to less than 10 on 07/28 Continue Spironolactone 100 mg daily Bowel regimen: Lactulose 30 mL b.i.d. GI ppx: Protonix 40 mg daily p.o. RENAL: SHAMIR, likely hemodynamically mediated, improved ID: HIV and hepatitis panel, negative Blood and urine culture from 07/14 was negative Sputum culture from 07/25 shows MRSA Pleural fluid culture from 07/25 shows no growth Ascitic fluid culture from 07/27 shows no growth BAL culture from 07/28 shows moderate normal tammi growth HEME Thrombocytopenia, likely due to liver cirrhosis Normalized Endocrine: Possible Hyptohyroidism TSH is 8.51, free T3 decreased at 1.79, and free T4 normal at 1.0 Metabolic: Hyperchloremia Moderate hypokalemia, supplemented Hypomagnesemia, supplemented Hypernatremia, normalized MUSCULOSKELETAL: Grade 3 ulcer on sacral area consult wound nurse position change every 2 hours LINES/DRAINS/ACCESS: ETT: Intubated on 07/26/2024 and extubated on 08/04 IV access: Right-sided upper limb PICC line, placed on 08/04 Transurethral [place] catheter Chest tube placed on 07/25/2024, and removed on 08/06 Drips: No pressor DVT prophylaxis: Lovenox DIET: Mechanical soft diet CODE STATUS: Full code- time spent was 21 mins Disposition: Med/Surg Patient's status discussed with the sister he is homeless since 17 years, and no family member lives in [facility]. Patient has a brother living in [place], due to disability can not come and pick the patient. await placement Plan discussed with: Patient Dietary Evaluation Review Comments: 1. Consider EN/TPN if NPO >7days 2. Continue plan of care Expected Outcomes/Goals: 1. Pt will meet >75% of estimated needs within 2-3 days Date of Service: Sep 01, 2024 Billing Provider: SUSY ARREGUIN MD Common Visit Codes: [id number] INP/OBS CARE(MOD) SUSY ARREGUIN MD Sep 01, 2024 09:28
--- NOTE | 2024-09-01 19:17 | DVHPN2 ---
Progress Note - Dictate Date Seen: Sep 01, 2024 Has the PT tested + for MRSA If YES, has PT been informed?: Yes Medical Necessity Reason Pt with a Central, PICC or Fol: No Subjective Patient was seen and evaluated in follow up. Patient denies any pain or discomfort. Patient refused to receive wound care today. Patient is waiting placement. vital signs Vital Sign Date Time Temp Pulse Resp B/P (MAP) Pulse Ox O2 Delivery O2 Flow Rate FiO2 09/01/24 16:59 97.6 75 18 128/61 (83) 97 97.6 09/01/24 10:00 Room Air 0.0 09/01/24 10:00 21 medications Current Medications Medications Dose Ordered Sig/Miky Route Start Time Stop Time Status Last Admin Dose Admin Acetaminophen 650 mg Q6HP PRN [place] 07/24/24 19:15 Sodium Chloride 10 ml QSHIFT@ IV 08/03/24 22:00 09/01/24 10:00 10 ML Pantoprazole Sodium 40 mg DAILY@0600 PO 08/11/24 06:00 09/01/24 06:06 40 MG Melatonin 5 mg HS PO 08/14/24 22:00 08/31/24 21:20 5 MG Spironolactone 100 mg DAILY PO 08/18/24 10:00 09/01/24 10:41 100 MG Levothyroxine Sodium 25 mcg QAM@0600 PO 08/23/24 06:00 09/01/24 06:06 25 MCG objective GENERAL: Awake, alert, oriented. LUNGS: Diminished breath sounds. CARDIOVASCULAR: Heart sounds are good. ABDOMEN: Soft. SKIN: Unknown burn pandey to bilateral hands. laboratory and microbiology Laboratory Tests 08/27/24 06:57 Test 08/27/24 06:57 Range/Units Serum Glucose 118 H 74-106 mg/dL Problem List Acute metabolic encephalopathy, likely due to sepsis/liver cirrhosis. Atrial flutter. CHF exacerbation. Leukocytosis. UTI. Elevated ammonia levels. Pleural Effusion. Liver cirrhosis with ascites due to liver cirrhosis Acute Hypoxic respiratory failure. MRSA Bacteremia. Pneumonia likely due MRSA. Hydropneumothorax. Parapneumonic loculated pleural effusion. Septic shock. COPD exacerbation. Transaminitis. SHAMIR. Assessment/Plan Continued all current supportive medical care. Synthroid. GI prophylactics. Aldactone. Additional plan as per the hospital course. Dietary Evaluation Review Comments: 1. Consider EN/TPN if NPO >7days 2. Continue plan of care Expected Outcomes/Goals: 1. Pt will meet >75% of estimated needs within 2-3 days Plan discussed with: Patient ISHAAN BUNCH MD Sep 01, 2024 19:17
[2024-09-02 05:00] VITALS: BP 107/70; PULSE 72; RESP 17; TEMP 97.4; O2SAT 98
[2024-09-02 09:00] VITALS: BP 106/65; PULSE 77; RESP 18; TEMP 98.5; O2SAT 97
[2024-09-02 10:05] VITALS: O2SAT 97
--- NOTE | 2024-09-02 10:43 | DVHPN2 ---
Progress Note Date Seen: Sep 02, 2024 Has the PT tested + for MRSA If YES, has PT been informed?: Yes Medical Necessity Reason Pt with a Central, PICC or Fol: No Subjective Patient reports: No new complaints Review of Systems: HEENT:Normal, CVS:Normal, RESPIRATORY:Normal, GI:Normal, :Normal, MSK:Normal, NEURO:Normal Objective vital signs Vital Sign Date Time Temp Pulse Resp B/P (MAP) Pulse Ox O2 Delivery O2 Flow Rate FiO2 09/02/24 09:00 98.5 77 18 106/65 (79) 97 98.5 09/01/24 19:53 Room Air* 0 21 Total Intake and Output 09/01/24 09/01/24 09/02/24 15:00 23:00 07:00 Intake Total 480 ml Balance 480 ml medications Current Medications Medications Dose Ordered Sig/Miky Route Start Time Stop Time Status Last Admin Dose Admin Acetaminophen 650 mg Q6HP PRN [place] 07/24/24 19:15 Sodium Chloride 10 ml QSHIFT@ IV 08/03/24 22:00 09/01/24 21:29 10 ML Pantoprazole Sodium 40 mg DAILY@0600 PO 08/11/24 06:00 09/02/24 05:45 40 MG Melatonin 5 mg HS PO 08/14/24 22:00 09/01/24 21:28 5 MG Spironolactone 100 mg DAILY PO 08/18/24 10:00 09/01/24 10:41 100 MG Levothyroxine Sodium 25 mcg QAM@0600 PO 08/23/24 06:00 09/02/24 05:45 25 MCG Examination: GENERAL:Normal, HEENT:Normal, NECK:Normal, LUNGS:Normal, CVS:Normal, ABDOMEN:Normal, MSK:Normal, SKIN:Normal, NEURO:Normal, :Normal laboratory and microbiology Laboratory Tests 08/27/24 06:57 Test 08/27/24 06:57 Range/Units Serum Glucose 118 H 74-106 mg/dL Microbiology Date/Time Source Procedure Growth Status 07/28/24 13:22 Bronchial Washings Gram Stain - Final Complete 07/28/24 13:22 Bronchial Washings Respiratory Culture - Final Complete 07/27/24 12:30 Ascities Fluid Gram Stain - Final Complete 07/27/24 12:30 Ascities Fluid Body Fluid Culture - Final Complete 07/25/24 16:51 Nose MRSA Screen - Final Complete 07/24/24 12:21 Urine - [place] Urine Culture - Final Complete 07/24/24 11:52 Blood Blood Culture - Final NO GROWTH AFTER 5 DAYS OF INCUBATION. Complete Problem List/Assessment/Plan Problem List/Assessment/Plan NEURO: Acute metabolic encephalopathy, likely due to sepsis/liver cirrhosis CARDIOVASCULAR: Atrial flutter, upon admission, currently sinus rhythm Chads Vasc score 0 Cardiology is on the board Echocardiogram from 07/24 shows normal left ventricular systolic 80 function with ejection fraction 60%, mild pericardial effusion, moderate pulmonary hypertension with RSVP more than 50 Amiodarone 100 mg daily, per cardiology, needs to use for 6 weeks and may adjust later PULMONARY: Acute hypoxic and hypercarbic respiratory failure likely due to pneumonia/COPD exacerbation Pneumonia likely due MRSA Hydropneumothorax, chest tube is in place Parapneumonic loculated pleural effusion Septic shock likely due to pneumonia Acute COPD exacerbation Possible obstructive sleep apnea Chest CT scan from 07/25 shows bilateral pneumonia with bilateral loculated pleural effusions Chest CT scan from 08/03 shows Multifocal airspace disease with few foci of air are present in right lower lobe consolidation measuring 3.8 cm but no loculated effusion Chest ultrasound on 07/29/2024 shows trace left-sided pleural effusion and thoracentesis could not perform COVID-19 and flu are negative Sputum culture from from 07/25 shows MRSA sensitive to vancomycin Discontinue Zosyn, used for 12 days Discontinue vancomycin, used for 9 days Discontinue methylprednisolone 40 mg b.i.d., given for 5 days Discontinue prednisone, tapered down in 4 days Breathing treatment q.6 hour Patient has drop of oxygen saturation during the sleep, ABGs reviewed during the awaken time, showed compensated pH, discontinued BiPAP during the day, recommended BiPAP during the sleep ABGs at room air shows PaO2 54.1 and qualified for home oxygen GI: Liver cirrhosis, likely due to alcohol Ascites due to liver cirrhosis Transaminitis, likely due to septic shock/alcohol abuse Paracentesis has been performed, 2 L removed, ascitic fluid exam shows WBC 1548 (polymorphonuclear cells 90), RBC 2159 Ammonia level at 07/24 was 70, decreased to less than 10 on 07/28 Continue Spironolactone 100 mg daily Bowel regimen: Lactulose 30 mL b.i.d. GI ppx: Protonix 40 mg daily p.o. RENAL: SHAMIR, likely hemodynamically mediated, improved ID: HIV and hepatitis panel, negative Blood and urine culture from 07/14 was negative Sputum culture from 07/25 shows MRSA Pleural fluid culture from 07/25 shows no growth Ascitic fluid culture from 07/27 shows no growth BAL culture from 07/28 shows moderate normal tammi growth HEME Thrombocytopenia, likely due to liver cirrhosis Normalized Endocrine: Possible Hyptohyroidism TSH is 8.51, free T3 decreased at 1.79, and free T4 normal at 1.0 Metabolic: Hyperchloremia Moderate hypokalemia, supplemented Hypomagnesemia, supplemented Hypernatremia, normalized MUSCULOSKELETAL: Grade 3 ulcer on sacral area consult wound nurse position change every 2 hours LINES/DRAINS/ACCESS: ETT: Intubated on 07/26/2024 and extubated on 08/04 IV access: Right-sided upper limb PICC line, placed on 08/04 Transurethral [place]div[place] catheter Chest tube placed on 07/25/2024, and removed on 08/06 Drips: No pressor DVT prophylaxis: Lovenox DIET: Mechanical soft diet CODE STATUS: Full code- time spent was 21 mins Disposition: Med/Surg Patient's status discussed with the sister he is homeless since 17 years, and no family member lives in [facility]. Patient has a brother living in [place], due to disability can not come and pick the patient. await placement Plan discussed with: Patient Dietary Evaluation Review Comments: 1. Consider EN/TPN if NPO >7days 2. Continue plan of care Expected Outcomes/Goals: 1. Pt will meet >75% of estimated needs within 2-3 days Date of Service: Sep 02, 2024 Billing Provider: SUSY ARREGUIN MD Common Visit Codes: [id number] INP/OBS CARE(MOD) SUSY ARREGUIN MD Sep 02, 2024 10:43
[2024-09-02 13:00] VITALS: BP 102/72; PULSE 68; RESP 17; TEMP 98; O2SAT 96
[2024-09-02 17:06] VITALS: BP 124/68; PULSE 64; RESP 17; TEMP 98; O2SAT 97
[2024-09-02 21:00] VITALS: BP 116/72; PULSE 77; RESP 16; TEMP 97.8; O2SAT 96
--- NOTE | 2024-09-02 22:03 | DVHPN2 ---
Progress Note - Dictate Date Seen: Sep 02, 2024 Has the PT tested + for MRSA If YES, has PT been informed?: Yes Medical Necessity Reason Pt with a Central, PICC or Fol: No Subjective Patient was seen and evaluated in follow up. No overnight events. Patient denies any pain. Patient is persistently refusing wound care. vital signs Vital Sign Date Time Temp Pulse Resp B/P (MAP) Pulse Ox O2 Delivery O2 Flow Rate FiO2 09/02/24 09:00 98.5 77 18 106/65 (79) 97 98.5 09/01/24 19:53 Room Air* 0 21 Total Intake and Output 09/01/24 09/01/24 09/02/24 15:00 23:00 07:00 Intake Total 480 ml Balance 480 ml medications Current Medications Medications Dose Ordered Sig/Miky Route Start Time Stop Time Status Last Admin Dose Admin Acetaminophen 650 mg Q6HP PRN [place] 07/24/24 19:15 Sodium Chloride 10 ml QSHIFT@,22 IV 08/03/24 22:00 09/01/24 21:29 10 ML Pantoprazole Sodium 40 mg DAILY@0600 PO 08/11/24 06:00 09/02/24 05:45 40 MG Melatonin 5 mg HS PO 08/14/24 22:00 09/01/24 21:28 5 MG Spironolactone 100 mg DAILY PO 08/18/24 10:00 09/01/24 10:41 100 MG Levothyroxine Sodium 25 mcg QAM@0600 PO 08/23/24 06:00 09/02/24 05:45 25 MCG objective GENERAL: Awake, alert, oriented. LUNGS: Diminished breath sounds. CARDIOVASCULAR: Heart sounds are good. ABDOMEN: Soft. SKIN: Unknown burn pandey to bilateral hands. laboratory and microbiology Laboratory Tests 08/27/24 06:57 Test 08/27/24 06:57 Range/Units Serum Glucose 118 H 74-106 mg/dL Problem List Acute metabolic encephalopathy, likely due to sepsis/liver cirrhosis. Atrial flutter. CHF exacerbation. Leukocytosis. UTI. Elevated ammonia levels. Pleural Effusion. Liver cirrhosis with ascites due to liver cirrhosis Acute Hypoxic respiratory failure. MRSA Bacteremia. Pneumonia likely due MRSA. Hydropneumothorax. Parapneumonic loculated pleural effusion. Septic shock. COPD exacerbation. Transaminitis. SHAMIR. Assessment/Plan Continued all current supportive medical care. Synthroid. GI prophylactics. Aldactone. Additional plan as per the hospital course. Dietary Evaluation Review Comments: 1. Consider EN/TPN if NPO >7days 2. Continue plan of care Expected Outcomes/Goals: 1. Pt will meet >75% of estimated needs within 2-3 days Plan discussed with: Patient ISHAAN BUNCH MD Sep 02, 2024 12:07
[2024-09-03 08:43] VITALS: BP 102/68; PULSE 82; RESP 18; TEMP 97.9; O2SAT 96
--- NOTE | 2024-09-03 11:18 | DVHPN2 ---
Progress Note Date Seen: Sep 03, 2024 Has the PT tested + for MRSA If YES, has PT been informed?: Yes Medical Necessity Reason Pt with a Central, PICC or Fol: Yes The following are medically ne: PICC Line Subjective Patient reports: No new complaints Review of Systems: HEENT:Normal, CVS:Normal, RESPIRATORY:Normal, GI:Normal, :Normal, MSK:Normal, NEURO:Normal Objective vital signs Vital Sign Date Time Temp Pulse Resp B/P (MAP) Pulse Ox O2 Delivery O2 Flow Rate FiO2 09/03/24 08:43 97.9 82 18 102/68 (79) 96 97.9 09/02/24 20:00 Room Air* 0 21 Examination: GENERAL:Normal, HEENT:Normal, NECK:Normal, LUNGS:Normal, CVS:Normal, ABDOMEN:Normal, MSK:Normal, SKIN:Normal, NEURO:Normal, :Normal laboratory and microbiology Laboratory Tests 08/27/24 06:57 Test 08/27/24 06:57 Range/Units Serum Glucose 118 H 74-106 mg/dL Microbiology Date/Time Source Procedure Growth Status 07/28/24 13:22 Bronchial Washings Gram Stain - Final Complete 07/28/24 13:22 Bronchial Washings Respiratory Culture - Final Complete 07/27/24 12:30 Ascities Fluid Gram Stain - Final Complete 07/27/24 12:30 Ascities Fluid Body Fluid Culture - Final Complete 07/25/24 16:51 Nose MRSA Screen - Final Complete 07/24/24 12:21 Urine - [place] Urine Culture - Final Complete 07/24/24 11:52 Blood Blood Culture - Final NO GROWTH AFTER 5 DAYS OF INCUBATION. Complete Problem List/Assessment/Plan Problem List/Assessment/Plan NEURO: Acute metabolic encephalopathy, likely due to sepsis/liver cirrhosis CARDIOVASCULAR: Atrial flutter, upon admission, currently sinus rhythm Chads Vasc score 0 Cardiology is on the board Echocardiogram from 07/24 shows normal left ventricular systolic 80 function with ejection fraction 60%, mild pericardial effusion, moderate pulmonary hypertension with RSVP more than 50 Amiodarone 100 mg daily, per cardiology, needs to use for 6 weeks and may adjust later PULMONARY: Acute hypoxic and hypercarbic respiratory failure likely due to pneumonia/COPD exacerbation Pneumonia likely due MRSA Hydropneumothorax, chest tube is in place Parapneumonic loculated pleural effusion Septic shock likely due to pneumonia Acute COPD exacerbation Possible obstructive sleep apnea Chest CT scan from 07/25 shows bilateral pneumonia with bilateral loculated pleural effusions Chest CT scan from 08/03 shows Multifocal airspace disease with few foci of air are present in right lower lobe consolidation measuring 3.8 cm but no loculated effusion Chest ultrasound on 07/29/2024 shows trace left-sided pleural effusion and thoracentesis could not perform COVID-19 and flu are negative Sputum culture from from 07/25 shows MRSA sensitive to vancomycin Discontinue Zosyn, used for 12 days Discontinue vancomycin, used for 9 days Discontinue methylprednisolone 40 mg b.i.d., given for 5 days Discontinue prednisone, tapered down in 4 days Breathing treatment q.6 hour Patient has drop of oxygen saturation during the sleep, ABGs reviewed during the awaken time, showed compensated pH, discontinued BiPAP during the day, recommended BiPAP during the sleep ABGs at room air shows PaO2 54.1 and qualified for home oxygen GI: Liver cirrhosis, likely due to alcohol Ascites due to liver cirrhosis Transaminitis, likely due to septic shock/alcohol abuse Paracentesis has been performed, 2 L removed, ascitic fluid exam shows WBC 1548 (polymorphonuclear cells 90), RBC 2159 Ammonia level at 07/24 was 70, decreased to less than 10 on 07/28 Continue Spironolactone 100 mg daily Bowel regimen: Lactulose 30 mL b.i.d. GI ppx: Protonix 40 mg daily p.o. RENAL: SHAMIR, likely hemodynamically mediated, improved ID: HIV and hepatitis panel, negative Blood and urine culture from 07/14 was negative Sputum culture from 07/25 shows MRSA Pleural fluid culture from 07/25 shows no growth Ascitic fluid culture from 07/27 shows no growth BAL culture from 07/28 shows moderate normal tammi growth HEME Thrombocytopenia, likely due to liver cirrhosis Normalized Endocrine: Possible Hyptohyroidism TSH is 8.51, free T3 decreased at 1.79, and free T4 normal at 1.0 Metabolic: Hyperchloremia Moderate hypokalemia, supplemented Hypomagnesemia, supplemented Hypernatremia, normalized MUSCULOSKELETAL: Grade 3 ulcer on sacral area consult wound nurse position change every 2 hours LINES/DRAINS/ACCESS: ETT: Intubated on 07/26/2024 and extubated on 08/04 IV access: Right-sided upper limb PICC line, placed on 12/3 Transurethral [place] catheter Chest tube placed on 07/25/2024, and removed on 08/06 Drips: No pressor DVT prophylaxis: Lovenox DIET: Mechanical soft diet CODE STATUS: Full code- time spent was 21 mins Disposition: Med/Surg Patient's status discussed with the sister he is homeless since 17 years, and no family member lives in [facility]. Patient has a brother living in [place], due to disability can not come and pick the patient. await placement Plan discussed with: Other (rn) Dietary Evaluation Review Comments: 1. Consider EN/TPN if NPO >7days 2. Continue plan of care Expected Outcomes/Goals: 1. Pt will meet >75% of estimated needs within 2-3 days Date of Service: Sep 03, 2024 Billing Provider: SUSY ARREGUIN MD Common Visit Codes: 72850-[id number] INP/OBS CARE(MOD) SUSY ARREGUIN MD Sep 03, 2024 11:18
--- NOTE | 2024-09-03 12:03 | DVHDS ---
DATE OF DISCHARGE: 09/03/2024 DATE THE PATIENT LEFT AGAINST MEDICAL ADVICE: 09/03/2024. HISTORY OF PRESENT ILLNESS: The patient is a 59-year-old gentleman who was admitted with history of altered level of consciousness after his outside stroke. HOSPITAL COURSE: The patient was initially seen by and Dr. Urrutia. The patient had echocardiogram done that showed ejection fraction of 70%. The patient was intubated and mechanically ventilated. The patient was noted to have liver cirrhosis. The patient had bronchoscopy while in the hospital. His sputum cultures grew MRSA. The patient had a CT of the head that showed no acute abnormality. The patient had a CT of the chest that showed bilateral pneumonia. He subsequently had a right pleural catheter that was placed. The patient was eventually successfully extubated. The patient did have atrial flutter at admission as well as evidence of liver cirrhosis secondary to alcohol abuse. The patient had paracentesis performed. The patient was in septic shock. The patient eventually did well. He was ambulating. The patient had a sacral ulcer. He left against medical advice on 09/03/2024. FINAL DIAGNOSES: Therefore, * Acute respiratory failure. * Pneumonia due to methicillin-resistant Staphylococcus aureus. * Right empyema, status post chest tube placement. * Septic shock due to pneumonia. * Chronic obstructive pulmonary disease with exacerbation. * Liver cirrhosis with ascites, status post paracentesis. * Hepatic encephalopathy. * Acute kidney injury. * Thrombocytopenia. * Sacral ulcer. * Noncompliance/AMA. MD CHARLEE Santiago/LAURENT/TRINH TID: [id number] RECEIPT: [id number]
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
== END 2024-09-03 09:40 | disposition left against medical advice (07) | DRG 720 ==
LOC: ER 11:19 → TELE 14:43 → EDBD 14:43 → ICU WEST 07-25 17:26 → DOU IN ICU 08-04 21:50 → TELE-CENTR 08-05 17:24 → CENTRAL 08-12 12:14
PROVIDERS: ADMIT Internal Medicine Pulmonary Disease; ATTEND Internal Medicine
PROC: 5A1955Z Respiratory Ventilation, Greater than 96 Consecutive Hours (ICD-10-PCS; principal; 2024-07-25)
PROC: 0W9930Z Drainage of Right Pleural Cavity with Drainage Device, Percutaneous Approach (ICD-10-PCS; 2024-07-25)
PROC: 02HV33Z Insertion of Infusion Device into Superior Vena Cava, Percutaneous Approach (ICD-10-PCS; 2024-07-25)
PROC: 0BH17EZ Insertion of Endotracheal Airway into Trachea, Via Natural or Artificial Opening (ICD-10-PCS; 2024-07-25)
PROC: 0W9G3ZX Drainage of Peritoneal Cavity, Percutaneous Approach, Diagnostic (ICD-10-PCS; 2024-07-27)
PROC: 0B9F8ZZ Drainage of Right Lower Lung Lobe, Via Natural or Artificial Opening Endoscopic (ICD-10-PCS; 2024-07-28)
PROC: 0B968ZZ Drainage of Right Lower Lobe Bronchus, Via Natural or Artificial Opening Endoscopic (ICD-10-PCS; 2024-07-28)
PROC: 02HV33Z Insertion of Infusion Device into Superior Vena Cava, Percutaneous Approach (ICD-10-PCS; 2024-08-03)
PROC: B548ZZA Ultrasonography of Superior Vena Cava, Guidance (ICD-10-PCS; 2024-08-03)
PROC: 5A09357 Assistance with Respiratory Ventilation, Less than 24 Consecutive Hours, Continuous Positive Airway Pressure (ICD-10-PCS; 2024-08-04)
PROC: 5A09357 Assistance with Respiratory Ventilation, Less than 24 Consecutive Hours, Continuous Positive Airway Pressure (ICD-10-PCS; 2024-08-06)
PROC: 5A09357 Assistance with Respiratory Ventilation, Less than 24 Consecutive Hours, Continuous Positive Airway Pressure (ICD-10-PCS; 2024-08-07)
DX: A41.02 Sepsis due to Methicillin resistant Staphylococcus aureus (principal); J96.01 Acute respiratory failure with hypoxia; N17.0 Acute kidney failure with tubular necrosis; J86.9 Pyothorax without fistula; R65.21 Severe sepsis with septic shock; G93.41 Metabolic encephalopathy; J15.212 Pneumonia due to Methicillin resistant Staphylococcus aureus; L89.153 Pressure ulcer of sacral region, stage 3; J94.8 Other specified pleural conditions; J47.0 Bronchiectasis with acute lower respiratory infection; J96.02 Acute respiratory failure with hypercapnia; J44.1 Chronic obstructive pulmonary disease with (acute) exacerbation; J44.0 Chronic obstructive pulmonary disease with (acute) lower respiratory infection; I31.39 Other pericardial effusion (noninflammatory); I48.92 Unspecified atrial flutter; E87.3 Alkalosis; Z53.29 Procedure and treatment not carried out because of patient's decision for other reasons; Z20.822 Contact with and (suspected) exposure to COVID-19; N39.0 Urinary tract infection, site not specified; E86.0 Dehydration; I50.9 Heart failure, unspecified; I25.10 Atherosclerotic heart disease of native coronary artery without angina pectoris; E66.9 Obesity, unspecified; R04.2 Hemoptysis; K70.31 Alcoholic cirrhosis of liver with ascites; G47.33 Obstructive sleep apnea (adult) (pediatric); E87.6 Hypokalemia; E87.0 Hyperosmolality and hypernatremia; E83.42 Hypomagnesemia; E03.9 Hypothyroidism, unspecified; D69.59 Other secondary thrombocytopenia; E87.8 Other disorders of electrolyte and fluid balance, not elsewhere classified; I27.20 Pulmonary hypertension, unspecified; K80.20 Calculus of gallbladder without cholecystitis without obstruction; F10.10 Alcohol abuse, uncomplicated; K70.40 Alcoholic hepatic failure without coma; K76.82 Hepatic encephalopathy; Z68.30 Body mass index [BMI] 30.0-30.9, adult; Z91.199 Patient's noncompliance with other medical treatment and regimen due to unspecified reason; Z79.899 Other long term (current) drug therapy; Y90.0 Blood alcohol level of less than 20 mg/100 ml
CPT/HCPCS: 31500; 32557; 36415; 36556; 36569; 36600; 49083; 70450; 71045; 71250; 74176; 76604; 76705; 76937; 76942; 80048; 80053; 80074; 80202; 80307; 80320; 80329; 81001; 82140; 82550; 82565; 82805; 82962; 83036; 83605; 83690; 83735; 83880; 83986; 84100; 84132; 84439; 84443; 84481; 84484; 85007; 85025; 85027; 85610; 85730; 86703; 87040; 87070; 87077; 87081; 87086; 87186; 87205; 87426; 87804; 89051; 93005; 93306; 94002; 94003; 94640; 94660; 94668; 97110; 97116; 97163; 97530; 99291; 99292; G0378; J0171; J0330; J1815; J2250; J2470; J2543; J3480; J7060